=== PATIENT | female | born 1930 | race Caucasian/White ===

== ENCOUNTER 2016-06-09 14:28 | Emergency (ER) | payer OTHER, MEDICARE ==
[~2016-06-09] VITALS: Ht 170.2 cm; Wt 71.7 kg
[~2016-06-09 14:28] MED LIST: ALEVE220 MG PO; AMLODIPINE10 MG PO; ANTIVERT 12.512.5 M1 PO; ASPIR 8181 MG PO; ATORVASTATIN CA40 MG PO; CLOPIDOGREL75 MG PO; FOLBIC 2 MG-2.51 TAB PO; FUROSEMIDE20 MG PO; GABAPENTIN600 MG PO; GOOD SENSE ASP325 MG PO; METOPROLOL SUCC25 MG PO; NICOTINE T21 MG/24 H; NITROGLYCE0.4 MG/Ac2 PO; NITROGLYCER0.4 MG/HR TOP; OXYCODONE HYDRO10 M1 PO; PERCOCET 325 MG1 TAB PO; PRINIVIL 5MG5 MG PO; PROAIR HFA0.09 MG/Ac PO; RANITIDINE300 MG PO; TOPROL XL 25MG25 MG PO; [UNRECOGNIZED DRUG - OTHER] PO
--- NOTE | 2016-06-09 14:53 | ED GI/GU/ABDOMINAL COMPLAINT ---
History of Present Illness General Chief Complaint: Nausea, Vomiting, Diarrhea Stated Complaint: NVD Source: patient, family, old records Exam Limitations: no limitations Vital Signs & Intake/Output Vital Signs & Intake/Output Vital Signs Date Time Temp Pulse Resp B/P Pulse O2 O2 Flow FiO2 Ox Delivery Rate 06/09 1926 98.2 70 17 168/80 98 Room Air Room Air 06/09 1534 Room Air Room Air 06/09 1444 98.1 56 20 149/68 96 Room Air Allergies Coded Allergies: furosemide (Intermediate, FACIAL SWELLING 06/09/16) lisinopril (Mild, SWELLING 06/09/16) Sulfa (Sulfonamide Antibiotics) (UNKNOWN 06/09/16) Reconcile Medications Albuterol Sulfate (Proair Hfa) 0.09 MG/Actuation ELIZABETH 2 PUFF PO TID PRN ASTHMA/ COPD (Reported) Amlodipine Besylate (Amlodipine) 10 MG TABLET 1 TAB PO DAILY HEART (Reported) Aspirin (Ecotrin) 81 MG ECT 1 TAB PO DAILY HEART HEALTH Atorvastatin Calcium (Lipitor) 40 MG TABLET 1 TAB PO DAILY CHOLESTEROL ( Reported) CLOPIDOGREL BISULFATE (Clopidogrel) 75 MG TABLET 1 TAB PO DAILY BLOOD THINNER (Reported) CYANOCOBALAMIN/FA/PYRIDOXINE (Virt-Radha Forte Tablet) 2 MG-2.5 MG-25 MG TABLET 1 TAB PO DAILY SUPPLEMENT (Reported) Diphenoxylate HCl/Atropine (Lomotil 2.5-0.025 MG Tablet) 2.5 MG-0.025 MG TABLET 1 TAB PO TID PRN diarrhea Gabapentin 600 MG TABLET 1 TAB PO TID NEUROPATHY (Reported) Metoprolol Succ XL (Toprol XL 25MG) 25 MG TAB 25 MG PO DAILY BLOOD PRESSURE Nitroglycerin 400 MCG/SPRAY SPRAY 2 SPRAY PO PRN CHEST PAIN (Reported) Nitroglycerin (Nitroglycerin Patch) 0.4 MG/HOUR PATCH.TD24 1 PATCH TOP DAILY ANGINA (Reported) OXYCODONE HCL (Oxycodone Hydrochloride) 10 MG TABLET 1 TAB PO 4 TIMES/DAY PRN PAIN (Reported) RANITIDINE HCL (Ranitidine HCl) 300 MG TABLET 1 TAB PO DAILY GI (Reported) Triage Note: TRIAGE: PT TO ER WITH GRANDDAUGHTER C/C N/V/D X 1 WK. REPORTS NO VOMITING TODAY BUT HAS DIARRHEA EVERY TIME SHE EATS OR DRINKS. Triage Nurses Notes Reviewed? yes ? n Is pt currently ? No HPI: Patient is an 85 year old female presents for evaluation of diarrhea. Patient reports that on June 03 she began with nausea, vomiting, diarrhea. Vomited for 1 day and none since. Continues with nausea. Patient reports that she has episodes of diarrhea anytime she attempts to eat or drink. Numerous episodes of nonbloody stool daily. Increasing generalized weakness. Mild diffuse abdominal pain intermittently. Patient denies fevers, chills, recent antibiotic use, sick contacts, bright red blood per rectum. (SAIRA MORALES) Past History Travel History Traveled to [place] past 21 day No Medical History Any Pertinent Medical History? 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 No (SAIRA MORALES) Review of Systems Review of Systems Constitutional: Reports: malaise, weakness. Denies: chills, fever. EENTM: Reports: no symptoms. Respiratory: Denies: cough. Cardiovascular: Denies: chest pain. GI: Reports: see HPI. Genitourinary: Reports: no symptoms. Musculoskeletal: Reports: no symptoms. Skin: Reports: no symptoms. Neurological/Psychological: Denies: headache. Hematologic/Endocrine: Denies: bruising, bleeding. Immunologic/Allergic: Denies: splenectomy. (SAIRA MORALES) Physical Exam Physical Exam General Appearance: alert, awake Head: atraumatic, normal appearance Eyes: Bilateral: normal appearance. Ears, Nose, Throat, Mouth: dry mucous membranes Neck: normal inspection, supple, full range of motion Respiratory: normal breath sounds, chest non-tender, no respiratory distress, lungs clear Cardiovascular: regular rate/rhythm Gastrointestinal: normal bowel sounds, soft, mild diffuse abdominal tenderness Back: normal inspection, normal range of motion Extremities: normal range of motion Neurologic/Psych: no motor/sensory deficits, awake, alert, oriented x 3, normal mood/affect Skin: intact, normal color, warm/dry Core Measures ACS in differential dx? No Severe Sepsis Present: No Septic Shock Present: No (CHRIS AGGARWAL,SAIRA) Progress Differential Diagnosis: diverticulitis, gastritis, hepatitis, hernia, ischemic bowel, inflamm bowel dis, ischemic colitis, infectious colitis, electrolyte abnormality Plan of Care: Orders Procedure Date/time Status LACTIC ACID 06/09 1800 Active Add-on Test (ER Only) 06/09 1549 Active LIPASE 06/09 1530 Complete CULTURE,STOOL 06/09 1500 Active C.DIFFICILE 06/09 1500 Active URINALYSIS 06/09 1500 Active LACTIC ACID 06/09 1500 Complete COMPREHENSIVE METABOLIC PANEL 06/09 1500 Complete CBC WITHOUT DIFFERENTIAL 06/09 1500 Complete EKG 06/09 1500 Active Laboratory Tests 06/09/16 1530: Anion Gap 14, Estimated GFR 36 L, BUN/Creatinine Ratio 19.3, Glucose 97, Lactic Acid 1.0, Calcium 8.9, Total Bilirubin 0.6, AST 31, ALT 22, Alkaline Phosphatase 94, Total Protein 7.0, Albumin 3.5, Globulin 3.5, Albumin/Globulin Ratio 1.0 L, Lipase 82, CBC w Diff NO MAN DIFF REQ, RBC 3.48 L, MCV 91.8, MCH 30.9, RDW 14.6 H, MPV 9.4, Gran % 63.9, Lymphocytes % 22.2, Monocytes % 8.2, Eosinophils % 5.2 H, Basophils % 0.5, Absolute Granulocytes 3.4, Absolute Lymphocytes 1.2, Absolute Monocytes 0.4, Absolute Eosinophils 0.3, Absolute Basophils 0, PUBS MCHC 33.7 Microbiology 06/09 1500 STOOL: Clostridium difficile Toxin A & B - ORD 06/09 1500 STOOL: Stool Culture - ORD Patient re-evaluated multiple times. Results discussed with patient and her family member. Patient's labs similar to previous. Afebrile, nontoxic appearing, tolerating oral intake. Discussed with and seen by Dr. Jiang. Appears stable for discharge with close outpatient follow up. (SAIRA MORALES) Initial ED EKG: sinus bradycardia rate in the mid 50s normal axis, first-degree AV block, significant artifact, no obvious acute ST/T-wave changes compared to previous EKG Prior EKG: unchanged (SAIRA MORALES) Departure Departure Time of Disposition: 1852 Disposition: HOME OR SELF CARE Condition: Stable Clinical Impression Primary Impression: Diarrhea Qualifiers: Diarrhea type: unspecified type Qualified Code: R19.7 - Diarrhea, unspecified Referrals: MAXINE DONOVAN,BRIGHT Bernardo (PCP/Family) Additional Instructions: Follow up with Dr. Varner within the next 1-3 days for recheck and further evaluation. Call in the morning for appointment. Return to the ER if fevers, increasing abdominal pain or worsening of symptoms. Departure Forms: Customer Survey General Discharge Information Prescriptions: Current Visit Scripts Diphenoxylate HCl/Atropine (Lomotil 2.5-0.025 MG Tablet) 1 TAB PO TID PRN diarrhea #3 TAB (SAIRA MORALES) PA/NEEDLE GRINDER Co-Sign Statement Statement: ED Attending supervision documentation- [X] I saw and evaluated the patient. I have also reviewed all the pertinent lab results and diagnostic results. I agree with the findings and the plan of care as documented in the PA's/NEEDLE GRINDER's documentation. [X] I have reviewed the ED Record and agree with the PA's/NEEDLE GRINDER's documentation. [] Additions or exceptions (if any) to the PAs/NEEDLE GRINDER's note and plan are summarized below: [] (SMITA DONOVAN,CONNOR)
[2016-06-09 15:41] LABS: ABSOLUTE BASOPHIL COUNT 0 /CUMM (0.0-0.2); ABSOLUTE EOSINOPHIL COUNT 0.3 /CUMM (0.0-0.7); ABSOLUTE GRANULOCYTE CT 3.4 /CUMM (1.4-6.5); ABSOLUTE LYMPH COUNT 1.2 /CUMM (1.2-3.4); ABSOLUTE MONOCYTE COUNT 0.4 /CUMM (0.10-0.60); BASOPHIL % 0.5 % (0.0-2.0); EOSINOPHIL % 5.2 % (0-5); GRANULOCYTE % 63.9 % (42.2-75.2); HEMATOCRIT 31.9 % (37-47); MEAN CORPUSCULAR HGB 30.9 PG (27.0-31.0); MEAN CORPUSCULAR HGB CONC 33.7 G/DL (33.0-37.0); MEAN CORPUSCULAR VOLUME 91.8 FL (81.0-99.0); MEAN PLATELET VOLUME 9.4 FL (7.4-10.4); PLATELET COUNT 157 /CUMM (130-400); RBC DISTRIBUTION WIDTH 14.6 % (11.5-14.5); RED BLOOD CELL CT 3.48 /CUMM (4.20-5.40); WHITE BLOOD CELL COUNT 5.4 /CUMM (4.8-10.8)
--- NOTE | 2016-06-09 17:48 | CT SCAN REPORT ---
EXAMINATION: CT ABDOMEN AND PELVIS WITHOUT CONTRAST CLINICAL INFORMATION: 85-year-old female with diarrhea, mild diffuse abdominal tenderness. History of breast cancer. COMPARISON: CT of the abdomen and pelvis on 08/21/2011. TECHNIQUE: Multidetector volumetric imaging was performed from the superior aspect of the liver through the pubic symphysis. Sagittal and coronal reformatted images were obtained on the technologist's workstation. DLP: 372 mGy-cm. FINDINGS: Commissions Manager view shows the patient's had a previous cholecystectomy. Air is seen in several small bowel loops and in the colon. Air is present in the rectosigmoid colon as well. LUNG BASES: The visualized lung bases are unremarkable. The subpleural nodule and mild interstitial opacities in the right lower lobe have resolved. LIVER, GALLBLADDER, AND BILIARY TREE: The liver is normal in size, shape, and attenuation. No focal hepatic lesion or biliary ductal dilatation is present. The gallbladder has been removed. The mild dilatation of the extrahepatic biliary ducts is to be expected in a post cholecystectomy patient of this age. PANCREAS: Unremarkable. SPLEEN: Unremarkable. ADRENAL GLANDS: Unremarkable. KIDNEYS AND URETERS: The kidneys are normal in size, shape, and attenuation. No hydronephrosis, hydroureter, or calculi seen. No perinephric stranding. BLADDER: Nearly empty. GASTROINTESTINAL TRACT: The small and large bowel are unremarkable. There is no pericecal inflammatory reaction visualized. ABDOMINAL WALL: No significant hernia is appreciated. LYMPH NODES: Normal. VASCULAR: The abdominal aorta is ectatic and calcified. A number of calcified plaques are seen in the SMA. PELVIC VISCERA: The anteverted uterus is normal. There is no sign of adnexal mass or free fluid. OSSEOUS STRUCTURES: Vertebral height is maintained. There is multilevel degenerative disc disease of the lower thoracic and lumbar spines. Facet arthritis is also present at the lumbosacral junction. IMPRESSION: No radiographic signs of inflammatory bowel disease.
[2016-06-09] MEDS ORDERED: LOMOTIL 2.5-0.1 EACH PO (18:15)
[2016-06-09 19:27] VITALS: BP 168/80
== END 2016-06-09 19:28 ==
LOC: ERH 14:28
PROVIDERS: Physician Assistant
DX: R19.7 Diarrhea, unspecified (principal); R10.9 Unspecified abdominal pain
CPT/HCPCS: 74176; 87045; 93005; 93010; 96374; J2405

== ENCOUNTER 2016-06-18 12:39 | Emergency (ER) | payer OTHER, MEDICARE ==
[~2016-06-18] VITALS: Ht 170.2 cm; Wt 72.6 kg
[~2016-06-18 12:39] MED LIST changes: +LOMOTIL 2.5-0.1 EACH PO
[2016-06-18 13:17] LABS: ABSOLUTE BASOPHIL COUNT 0 /CUMM (0.0-0.2); ABSOLUTE EOSINOPHIL COUNT 0.2 /CUMM (0.0-0.7); ABSOLUTE GRANULOCYTE CT 4.1 /CUMM (1.4-6.5); ABSOLUTE LYMPH COUNT 1.1 /CUMM (1.2-3.4); ABSOLUTE MONOCYTE COUNT 0.6 /CUMM (0.10-0.60); BASOPHIL % 0.4 % (0.0-2.0); EOSINOPHIL % 3.9 % (0-5); GRANULOCYTE % 67.9 % (42.2-75.2); HEMATOCRIT 32.7 % (37-47); MEAN CORPUSCULAR HGB 30.1 PG (27.0-31.0); MEAN CORPUSCULAR HGB CONC 33.2 G/DL (33.0-37.0); MEAN CORPUSCULAR VOLUME 90.7 FL (81.0-99.0); MEAN PLATELET VOLUME 8.7 FL (7.4-10.4); PLATELET COUNT 166 /CUMM (130-400); RBC DISTRIBUTION WIDTH 14.8 % (11.5-14.5); RED BLOOD CELL CT 3.61 /CUMM (4.20-5.40); WHITE BLOOD CELL COUNT 6.1 /CUMM (4.8-10.8)
[2016-06-18 15:29] VITALS: BP 160/58
--- NOTE | 2016-06-18 16:02 | ED GI/GU/ABDOMINAL COMPLAINT ---
History of Present Illness General Chief Complaint: Nausea, Vomiting, Diarrhea Stated Complaint: NVD X1 WEEK Source: patient, family, old records Exam Limitations: no limitations Vital Signs & Intake/Output Vital Signs & Intake/Output Vital Signs Date Time Temp Pulse Resp B/P Pulse O2 O2 Flow FiO2 Ox Delivery Rate 06/18 1532 95 06/18 1529 96.7 57 18 160/58 95 Room Air 06/18 1254 97.0 72 20 131/56 97 Room Air Allergies Coded Allergies: furosemide (Intermediate, FACIAL SWELLING 06/09/16) lisinopril (Mild, SWELLING 06/09/16) Sulfa (Sulfonamide Antibiotics) (UNKNOWN 06/09/16) Reconcile Medications Albuterol Sulfate (Proair Hfa) 0.09 MG/Actuation ELIZABETH 2 PUFF PO TID PRN ASTHMA/ COPD (Reported) Amlodipine Besylate (Amlodipine) 10 MG TABLET 1 TAB PO DAILY HEART (Reported) Aspirin (Ecotrin) 81 MG ECT 1 TAB PO DAILY HEART HEALTH Atorvastatin Calcium (Lipitor) 40 MG TABLET 1 TAB PO DAILY CHOLESTEROL ( Reported) CLOPIDOGREL BISULFATE (Clopidogrel) 75 MG TABLET 1 TAB PO DAILY BLOOD THINNER (Reported) CYANOCOBALAMIN/FA/PYRIDOXINE (Virt-Radha Forte Tablet) 2 MG-2.5 MG-25 MG TABLET 1 TAB PO DAILY SUPPLEMENT (Reported) Diphenoxylate HCl/Atropine (Lomotil 2.5-0.025 MG Tablet) 2.5 MG-0.025 MG TABLET 1 TAB PO 4 TIMES/DAY DIARRHEA Diphenoxylate HCl/Atropine (Lomotil 2.5-0.025 MG Tablet) 2.5 MG-0.025 MG TABLET 1 TAB PO TID PRN diarrhea Gabapentin 600 MG TABLET 1 TAB PO TID NEUROPATHY (Reported) Metoprolol Succ XL (Toprol XL 25MG) 25 MG TAB 25 MG PO DAILY BLOOD PRESSURE Nitroglycerin 400 MCG/SPRAY SPRAY 2 SPRAY PO PRN CHEST PAIN (Reported) Nitroglycerin (Nitroglycerin Patch) 0.4 MG/HOUR PATCH.TD24 1 PATCH TOP DAILY ANGINA (Reported) Ondansetron (Zofran Odt) 4 MG TAB.RAPDIS 1 TAB SL TID NAUSEA OXYCODONE HCL (Oxycodone Hydrochloride) 10 MG TABLET 1 TAB PO 4 TIMES/DAY PRN PAIN (Reported) RANITIDINE HCL (Ranitidine HCl) 300 MG TABLET 1 TAB PO DAILY GI (Reported) [STOOL CULTURE] 0 STOOL CULTURE, CDIFF DX: DIARRHEA Triage Note: PT PRESENTS TO ER WITH FAMILY C/O DIARRHEA X 2 WEEKS. PT ALSO FEELS NAUSEOUS. PER FAMILY PT HAD A APPT TODAY FOR EVAL OF THE DIARRHEA AND DOCTOR CANCELLED DUE TO BEING SICK. FAMILY STATES THEY ARE WORRIED SHE IS HAVING A REACTION TO HER MEDICATION. PT ALSO C/O OF GENERALIZED ABD PAIN X 2 WEEKS THAT IS ON AND OFF Triage Nurses Notes Reviewed? yes ? n Is pt currently ? No Onset: Abrupt Duration: week(s): (2), constant Timing: recent history Quality/Severity: aching Severity Numbers: 6 Location: right sided Radiation: no radiation Activities at Onset: none No Modifying Factors: none Associated Symptoms: nausea, diarrhea HPI: 85-year-old female presents with her family for evaluation today complaining of persistent nausea and diarrhea after she was seen here 9 days ago for the same. The patient states that she was sent home with Lomotil which was helping over) now she is scheduled to see her primary care physician today who canceled on her because he is sick. They deny any black or bloody stools no recent antibiotic use. She is been complaining of right-sided abdominal pain that comes on prior to feeling nauseous or diarrhea. She denies his pain at this time no fever no chills no urinary symptoms. No weakness chest pain shortness of breath. Her abdominal surgeries for cholecystectomy and ectopic (VIPIN AGGARWAL,MADIHA) Past History Travel History Traveled to [place] past 21 day No Medical History Any Pertinent Medical History? 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 No (MADIHA JALLOH) Review of Systems Review of Systems Constitutional: Reports: see HPI. All Other Systems: Reviewed and Negative Comments Review of systems: See HPI, All other systems negative. Constitutional, no chills no fever, no malaise HEENT: No visual changes no sore throat no congestion Cardiovascular: No chest pain , no palpitation Skin, no jaundice no rashes, no change in skin Respiratory: No dyspnea no cough no sputum GI: nausea no vomiting, diarrhea, no bloating/constipation : No dysuria No hematuria, no frequency, no discharge Muscle skeletal: No joint pain, no joint swelling, no back pain Neurologic: No numbness no headache Psych: No stress Heme/endocrine: No bruising no bleeding Immunology: No lymphadenopathy (MADIHA JALLOH) Physical Exam Physical Exam General Appearance: well developed/nourished, no apparent distress, alert, awake , comfortable Gastrointestinal: normal bowel sounds, soft, non-tender Comments: Well-developed well-nourished person in no acute distress HEENT: Normal EENT exam; PERRL, EOMI,HEAD is atraumatic. moist mucous membranes. Neck: Supple, normal range of motion Back: Nontender, no CVA tenderness. Full range of motion Cardiovascular: Regular rate and rhythms no murmurs rubs Respiratory: No respiratory distress. Patient speaking in full complete sentences. Breath sounds clear to auscultation bilaterally: NO W/R/R Abdomen: Soft, nontender nondistended, no appreciable organomegaly. Normal bowel sounds. No rebound/guarding, No appreciable enlargement of the abdominal aorta, No ascites. Extremity: No edema, full range of motion of extremities Neuro: Alert oriented x3, motor sensory normal, There were no obvious focal neurologic abnormalities. Skin: No appreciable rash on exposed skin, skin is warm and dry. Psych: Mood and affect is normal, memory and judgment is normal. Core Measures ACS in differential dx? No Severe Sepsis Present: No Septic Shock Present: No (MADIHA JALLOH) Progress Differential Diagnosis: AAA, AMI, appendicitis, biliary colic, bowel obstruction , colon cancer, diverticulitis, endometritis, esophageal varices, gastritis, hepatitis, hernia, ischemic bowel, inflamm bowel dis, kidney stone, Edith-Mirna tear, ovarian cyst, ovarian torsion, pancreatitis, PID/cervicitis, peptic ulcer, PUD/GERD, perforated viscous, SBO, UTI/pyelo Plan of Care: Orders Procedure Date/time Status COMPREHENSIVE METABOLIC PANEL 06/18 1255 Complete CBC WITHOUT DIFFERENTIAL 06/18 1255 Complete Laboratory Tests 06/18/16 1311: Anion Gap 11, Estimated GFR 33 L, BUN/Creatinine Ratio 18.7, Glucose 117 H, Calcium 9.2, Total Bilirubin 0.4, AST 22, ALT 22, Alkaline Phosphatase 97, Total Protein 6.8, Albumin 3.5, Globulin 3.3, Albumin/Globulin Ratio 1.1, CBC w Diff NO MAN DIFF REQ, RBC 3.61 L, MCV 90.7, MCH 30.1, RDW 14.8 H, MPV 8.7, Gran % 67.9, Lymphocytes % 18.3 L, Monocytes % 9.5 H, Eosinophils % 3.9, Basophils % 0.4, Absolute Granulocytes 4.1, Absolute Lymphocytes 1.1 L, Absolute Monocytes 0.6, Absolute Eosinophils 0.2, Absolute Basophils 0, PUBS MCHC 33.2 Labs ordered from triage old records including patient's previous CAT scan from 06/09/16 reviewed Discussed the patient and family at length all of her lab results are creatinine today 1.5 is baseline or improved from baseline. This patient has had no episodes of diarrhea here she is tolerating by mouth challenge prescription for Zofran and Lomotil were called and I discussed with them need for close follow- up with her primary care physician as well as information which was provided for follow-up with GI. Advised return anytime sooner with any concerns patient clinically appears well they feel comfortable to his plan answered all their questions. case d/w dr horowitz agrees with plan (MADIHA JALLOH) Initial ED EKG: none (MADIHA JALLOH) Departure Departure Time of Disposition: 1624 Disposition: HOME OR SELF CARE Condition: Stable Clinical Impression Primary Impression: Diarrhea Referrals: CHANDAN DONOVAN,ALICIA GOODMAN MD,BRIGHT Bernardo (PCP/Family) Additional Instructions: Follow-up with her primary care physician as scheduled next week as well as chemistry instructor Dr. DREZNICK. Lomotil and Zofran as directed these prescriptions were sent to the [facility] bland diet clear liquids advance diet as tolerated return with any concerns Departure Forms: Customer Survey General Discharge Information Prescriptions: Current Visit Scripts Diphenoxylate HCl/Atropine (Lomotil 2.5-0.025 MG Tablet) 1 TAB PO 4 TIMES/DAY #20 TAB Ondansetron (Zofran Odt) 1 TAB SL TID #10 TAB [STOOL CULTURE] 0 (MADIHA JALLOH) PA/CIVIL ENGINEERING MANAGER Co-Sign Statement Statement: ED Attending supervision documentation- [X] I saw and evaluated the patient. I have also reviewed all the pertinent lab results and diagnostic results. I agree with the findings and the plan of care as documented in the PA's/CIVIL ENGINEERING MANAGER's documentation. [X] I have reviewed the ED Record and agree with the PA's/CIVIL ENGINEERING MANAGER's documentation. [] Additions or exceptions (if any) to the PAs/CIVIL ENGINEERING MANAGER's note and plan are summarized below: [] (SMITA DONOVAN,CONNOR)
[2016-06-18] MEDS ORDERED: LOMOTIL 2.5-0.1 EACH PO (16:27)
[2016-06-18] MEDS ORDERED: ZOFRAN ODT4 M1 SL (16:27)
[2016-06-18] MEDS ORDERED: STOOL CULTURE (16:34)
== END 2016-06-18 16:45 ==
LOC: ERH 12:39
PROVIDERS: Emergency Medicine
DX: R19.7 Diarrhea, unspecified (principal)

== ENCOUNTER 2016-12-06 03:26 | Inpatient (IN) | payer OTHER, MEDICARE ==
[~2016-12-06] VITALS: Ht 165.1 cm; Wt 70.3 kg
[~2016-12-06 03:26] MED LIST changes: +AMLODIPINE BESY10 M1 PO; -AMLODIPINE10 MG PO; -ATORVASTATIN CA40 MG PO; +CLOPIDOGREL75 M1 PO; -CLOPIDOGREL75 MG PO; +GABAPENTIN600 M1 PO; -GABAPENTIN600 MG PO; +LIPITOR40 M1 PO; -NITROGLYCE0.4 MG/Ac2 PO; -NITROGLYCER0.4 MG/HR TOP; +NITROGLYCERIN1 EACH TOP; +NITROGLYCERIN4.1 GM PO; +OXYCODONE HCL10 M2 PO; -OXYCODONE HYDRO10 M1 PO; -PROAIR HFA0.09 MG/Ac PO; +PROAIR HFA8.5 GM PO; +RANITIDINE HCL300 M1 PO; -RANITIDINE300 MG PO; +STOOL CULTURE; +ZOFRAN ODT4 M1 SL
--- NOTE | 2016-12-06 03:45 | NUR ---
PT TO ED WITH FAMILY C/O SOB WORSENING THROUGHOUT THE DAY YESTERDAY. WAS IN BED, AND WOKE UP APPROX AN HOUR AGO "SCREAMING THAT SHE COULDN'T BREATHE" PMH OF COPD, WEARS NC AT 3L/MIN AT NIGHT. O2 SAT 91% ON RA ON ARRIVAL. O2 SAT 96% ON 3L NC. PRODUCTIVE COUGH NOTED. RHONCOROUS LUNG SOUNDS. WEARS A NITRO PATCH DURING THE DAY. PT LIVES WITH GRAND DAUGHTER WHO ALSO HAS CHEST CONGESTION WITH COUGH.
--- NOTE | 2016-12-06 03:54 | NUR ---
BLOOD DRAWN AND SENT TO LAB. SST,ANAYA,LAV,BLUE.
[2016-12-06 04:09] LABS: ABSOLUTE BASOPHIL COUNT 0 /CUMM (0.0-0.2); ABSOLUTE EOSINOPHIL COUNT 0 /CUMM (0.0-0.7); ABSOLUTE GRANULOCYTE CT 3.8 /CUMM (1.4-6.5); ABSOLUTE LYMPH COUNT 0.9 /CUMM (1.2-3.4); ABSOLUTE MONOCYTE COUNT 0.8 /CUMM (0.10-0.60); BASOPHIL % 0.2 % (0.0-2.0); EOSINOPHIL % 0.5 % (0-5); GRANULOCYTE % 67.5 % (42.2-75.2); HEMATOCRIT 28.8 % (37-47); MEAN CORPUSCULAR HGB CONC 33.1 G/DL (33.0-37.0); MEAN CORPUSCULAR VOLUME 90.7 FL (81.0-99.0); MEAN PLATELET VOLUME 9.2 FL (7.4-10.4); PLATELET COUNT 119 /CUMM (130-400); RBC DISTRIBUTION WIDTH 15.8 % (11.5-14.5); RED BLOOD CELL CT 3.18 /CUMM (4.20-5.40); WHITE BLOOD CELL COUNT 5.6 /CUMM (4.8-10.8)
--- NOTE | 2016-12-06 04:09 | NUR ---
PORT CXR DONE
--- NOTE | 2016-12-06 04:19 | ED DYSPNEA/ASTHMA COMPLAINT ---
History of Present Illness General Chief Complaint: Dyspnea (COPD, CHF, Other) Stated Complaint: SOB Source: patient, family, old records Exam Limitations: no limitations Vital Signs & Intake/Output Vital Signs & Intake/Output Vital Signs Date Time Temp Pulse Resp B/P B/P Pulse O2 O2 Flow FiO2 Mean Ox Delivery Rate 12/06 444 99.1 62 20 172/75 100 Aerosol 8L Mask 12/06 440 98 Nasal 3.0L Cannula 12/06 035 98 Nasal 3.0L Cannula 12/06 033 98.1 71 24 185/87 91 Room Air Allergies Coded Allergies: furosemide (Intermediate, FACIAL SWELLING 06/09/16) lisinopril (Mild, SWELLING 06/09/16) Sulfa (Sulfonamide Antibiotics) (UNKNOWN 06/09/16) Reconcile Medications Albuterol Sulfate (Proair Hfa) 0.09 MG/Actuation ELIZABETH 2 PUFF PO TID PRN ASTHMA/ COPD (Reported) Amlodipine Besylate (Amlodipine) 10 MG TABLET 1 TAB PO DAILY HEART (Reported) Aspirin (Ecotrin) 81 MG ECT 1 TAB PO DAILY HEART HEALTH Atorvastatin Calcium (Lipitor) 40 MG TABLET 1 TAB PO DAILY CHOLESTEROL ( Reported) CLOPIDOGREL BISULFATE (Clopidogrel) 75 MG TABLET 1 TAB PO DAILY BLOOD THINNER (Reported) CYANOCOBALAMIN/FA/PYRIDOXINE (Virt-Radha Forte Tablet) 2 MG-2.5 MG-25 MG TABLET 1 TAB PO DAILY SUPPLEMENT (Reported) Diphenoxylate HCl/Atropine (Lomotil 2.5-0.025 MG Tablet) 2.5 MG-0.025 MG TABLET 1 TAB PO 4 TIMES/DAY DIARRHEA Diphenoxylate HCl/Atropine (Lomotil 2.5-0.025 MG Tablet) 2.5 MG-0.025 MG TABLET 1 TAB PO TID PRN diarrhea Gabapentin 600 MG TABLET 1 TAB PO TID NEUROPATHY (Reported) Metoprolol Succ XL (Toprol XL 25MG) 25 MG TAB 25 MG PO DAILY BLOOD PRESSURE Nitroglycerin 400 MCG/SPRAY SPRAY 2 SPRAY PO PRN CHEST PAIN (Reported) Nitroglycerin (Nitroglycerin Patch) 0.4 MG/HOUR PATCH.TD24 1 PATCH TOP DAILY ANGINA (Reported) Ondansetron (Zofran Odt) 4 MG TAB.RAPDIS 1 TAB SL TID NAUSEA OXYCODONE HCL (Oxycodone Hydrochloride) 10 MG TABLET 1 TAB PO 4 TIMES/DAY PRN PAIN (Reported) RANITIDINE HCL (Ranitidine HCl) 300 MG TABLET 1 TAB PO DAILY GI (Reported) [STOOL CULTURE] 0 STOOL CULTURE, CDIFF DX: DIARRHEA Core Measure Meds Pre-Hospital aspirin Triage Note: PT TO ED WITH FAMILY C/O SOB WORSENING THROUGHOUT THE DAY YESTERDAY. WAS IN BED, AND WOKE UP APPROX AN HOUR AGO "SCREAMING THAT SHE COULDN'T BREATHE" PMH OF COPD, WEARS NC AT 3L/MIN AT NIGHT. O2 SAT 91% ON RA ON ARRIVAL. O2 SAT 96% ON 3L NC. PRODUCTIVE COUGH NOTED. RHONCOROUS LUNG SOUNDS. WEARS A NITRO PATCH DURING THE DAY. PT LIVES WITH GRAND DAUGHTER WHO ALSO HAS CHEST CONGESTION WITH COUGH. 1/2 PPD SMOKER Triage Nurses Notes Reviewed? yes Onset: several days Duration: day(s):, continues in ED, getting worse Timing: recent history Severity: moderate, severe Activities at Onset: rest Prior Episodes/Possible Cause: occasional episodes, illness exposure Modifying Factors: Improves With: rest. Worsens With: movement. Associated Symptoms: cough, chest pain, wheezing, weakness LMP (ages 10-50): post menopausal : No Patient currently breastfeeds: No HPI: 1 week prior to admission patient complains of nasal congestion nonproductive cough. Prior to admission she awoke with continued cough shortness of breath left-sided chest pain with cough weakness. She denies fever chills nausea vomiting diarrhea abdominal pain dysuria rash bleeding. Past History Travel History Traveled to [place] past 21 day No Medical History Any Pertinent Medical History? 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 Yes Review of Systems Review of Systems Constitutional: Reports: see HPI, malaise, weakness. EENTM: Reports: no symptoms. Respiratory: Reports: see HPI, cough, short of breath, sputum production, wheezing. Cardiovascular: Reports: see HPI, chest pain. GI: Reports: no symptoms. Genitourinary: Reports: no symptoms. Musculoskeletal: Reports: no symptoms. Skin: Reports: no symptoms. Neurological/Psychological: Reports: no symptoms. Hematologic/Endocrine: Reports: no symptoms. Immunologic/Allergic: Reports: no symptoms. All Other Systems: Reviewed and Negative Physical Exam Physical Exam General Appearance: well developed/nourished, alert, awake, anxious, moderate distress, obese Head: atraumatic, normal appearance Eyes: Bilateral: normal appearance, PERRL, EOMI. Ears, Nose, Throat: normal pharynx, normal ENT inspection, hearing grossly normal, abnormal Typanic (L), sinus pain/drainage, nasal congestion Neck: normal inspection, supple, full range of motion, no midline tenderness Respiratory: chest non-tender, decreased breath sounds, rhonchi, wheezing, rales , respiratory distress Cardiovascular: regular rate/rhythm, normal peripheral pulses, norml femoral pulses equa Peripheral Pulses: 4+ carotid (R), 4+ carotid (L) Gastrointestinal: normal bowel sounds, soft, non-tender, no organomegaly Extremities: normal inspection, normal capillary refill, normal range of motion, no edema Neurologic/Psych: no motor/sensory deficits, awake, alert, oriented x 3, normal mood/affect, 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 Yes ASA ordered for poss ACS? taken at home Severe Sepsis Present: No Septic Shock Present: No Progress Differential Diagnosis: CHF, COPD, pneumonia Plan of Care: Orders Procedure Date/time Status Regular Diet 12/06 B Active Patient Data 12/06 506 Active OXYGEN SETUP (GEN) 12/06 416 Active Saline Lock 12/06 416 Active Admit to inpatient 12/06 416 Active Vital Signs 12/06 416 Active Activity/Ambulation 12/06 416 Active Code Status 12/06 416 Active TROPONIN LEVEL 12/06 348 Complete MAGNESIUM 12/06 348 Complete COMPREHENSIVE METABOLIC PANEL 12/06 348 Complete CBC WITHOUT DIFFERENTIAL 12/06 348 Complete B-TYPE NATRIURETIC PEP (BNP) 12/06 348 Complete EKG 12/06 326 Active Laboratory Tests 12/06/16 0352: Anion Gap 10, Estimated GFR 22 L, BUN/Creatinine Ratio 15.7, Glucose 126 H, Calcium 8.6, Magnesium 1.9, Total Bilirubin 0.6, AST 21, ALT 21, Alkaline Phosphatase 78, Troponin I 0.15 *H, Zxm-A-Pysuokfuayn Pept 5970 H, Total Protein 6.2 L, Albumin 3.4 L, Globulin 2.8, Albumin/Globulin Ratio 1.2, CBC w Diff NO MAN DIFF REQ, RBC 3.18 L, MCV 90.7, MCH 30.0, RDW 15.8 H, MPV 9.2, Gran % 67.5, Lymphocytes % 16.9 L, Monocytes % 14.9 H, Eosinophils % 0.5, Basophils % 0.2, Absolute Granulocytes 3.8, Absolute Lymphocytes 0.9 L, Absolute Monocytes 0.8 H, Absolute Eosinophils 0, Absolute Basophils 0, PUBS MCHC 33.1 Diagnostic Imaging: Viewed by Me: Radiology Read. Discussed w/RAD: Radiology Read. CXR Impression: No dense consolidation. Bronchial wall thickening can be seen with a small airways process such as asthma or atypical/viral infection. Initial ED EKG: normal axis, normal intervals, normal p-waves, normal QRS complex, normal sinus rhythm, no ST T wave changes Prior EKG: unchanged Rhythm Strip: normal sinus rhythm Departure Departure Time of Disposition: 445 Disposition: STILL A PATIENT Condition: Stable Clinical Impression Primary Impression: Demand ischemia of myocardium Secondary Impressions: Acute renal insufficiency CHF (congestive heart failure) Qualifiers: Congestive heart failure type: unspecified congestive heart failure type Congestive heart failure chronicity: acute Qualified Code: I50.9 - Heart failure, unspecified Referrals: BRIGHT GOODMAN MD (PCP/Family) Departure Forms: Customer Survey General Discharge Information Admission Note Spoke With: VLAD ORELLANA MD Documentation of Exam: Documentation of any treatments & extenuating circumstances including Concerns Regarding Discharge (functional status, medication knowledge or non-compliance, living conditions, etc.) that warrant an admission rather than observation: Cardiac monitoring serial lab exam medication adjustment IV diuresis cardiology evaluation continuing care discharge planning Critical Care Note Critical Care Note Critical Care Time: 30-74 min (40) Admission Note Spoke With: VLAD ORELLANA MD Documentation of Exam: Documentation of any treatments & extenuating circumstances including Concerns Regarding Discharge (functional status, medication knowledge or non-compliance, living conditions, etc.) that warrant an admission rather than observation: Cardiac monitoring serial lab exam medication adjustment IV diuresis cardiology evaluation continuing care discharge planning
--- NOTE | 2016-12-06 04:23 | RADIOLOGY REPORT ---
EXAMINATION: XR PORTABLE CHEST CLINICAL INFORMATION: Shortness of breath, cough COMPARISON: 11/28/2014 TECHNIQUE: Portable frontal view of the chest was obtained. FINDINGS: Cardiac leads overlie the chest. The lungs are well expanded. Increased markings are seen at the lung bases with bronchial wall thickening. No dense consolidation. No pleural effusion or pneumothorax. The cardiomediastinal silhouette is unchanged, with a calcified aorta. IMPRESSION: No dense consolidation. Bronchial wall thickening can be seen with a small airways process such as asthma or atypical/viral infection.
--- NOTE | 2016-12-06 04:24 | NUR ---
THIS RN ESTABLISHED IV ACCESS IN #22.
--- NOTE | 2016-12-06 04:45 | NUR ---
THIS RN CALLED PHARMACY FOR BUMEX MEDICATION.
--- NOTE | 2016-12-06 04:45 | NUR ---
RT AT BEDSIDE FOR DUO NEB. PT MEDICATED WITH 125 SOLUMEDROL IV ORDERED. O2 SAT 100% DURING NEB
--- NOTE | 2016-12-06 04:48 | NUR ---
CRITICAL TEST RESULTS [id number] MO SHETH 86 F TESTS AND RESULTS: TROP 0.15 Results received and read back by: RENA JOSHI Results received date and time: 12/06/16 0448 The following provider was notified of the results, and read the results back: DR ARELLANO Notified date and time: 12/06/16 at 0448
--- NOTE | 2016-12-06 04:50 | NUR ---
PT DENIES CHEST PAIN. STATES HAS HAD CHES PAIN OFF AND ON "FOR A WHILE, WORSE WITH THIS COUGH"
--- NOTE | 2016-12-06 05:12 | NUR ---
BUMEX ADMINISTERED ORDERED
--- NOTE | 2016-12-06 05:18 | NUR ---
BED ASSIGNMENT 175-1
--- NOTE | 2016-12-06 05:43 | NUR ---
HOUSE STAFF IN TO EVAL PT
--- NOTE | 2016-12-06 06:16 | NUR ---
REPORT GIVEN TO TEE LEVIN
--- NOTE | 2016-12-06 06:33 | History & Physical ---
SAIRA PARRA MD 12/06/16 0632: General Information and HPI MD Statement: I have seen and personally examined MO SHETH and documented this H&P. The patient is a 86 year old F who presented with a patient stated chief complaint of cough and dyspnea. Source of Information: patient, family, old records Exam Limitations: no limitations History of Present Illness: 86 year old female with PMH of HTN, COPD, breast cancer treated, diastolic CHF, angioedema, chronic pain, and CAD with stents presents with increasing dyspnea and acute hypoxic respiratory failure. Patient states that she has had symptoms of an upper respiratory infection for less than a week including sore throat and congestion. She complains of two days of dyspnea not relieved by supplemental oxygen. She states she knows she isn't well because she normally smokes a half pack of cigarettes and has smoked only a couple cigarettes the past two days. Patient is supposed to use supplemental oxygen at night but is inconsistently compliant. Patient also complains of some self limited nausea and diarrhea yesterday, ROS is otherwise negative. 1. COPD Exacerbation: 2. Demand Ischemia: Troponins + 0.14 3. Acute on chronic renal insufficiency: Creatinine 4. CAD: Continue ASA, Plavix, Nitro patch, Toprol XL 25mg PO QD 5. HTN: Continue Norvasc 10mg PO QD 6. GERD: Continue ranitidine 300mg PO QD 7. Chronic pain: Continue gabapentin 600mg TID Continue oxycodone 10mg QID PRN Heart healthy diet Nicotine patch 14mg PRN DVT ppx-heparin 5000u subcutaneous Full code Allergies/Medications Allergies: Coded Allergies: furosemide (Intermediate, FACIAL SWELLING 06/09/16) lisinopril (Mild, SWELLING 06/09/16) Sulfa (Sulfonamide Antibiotics) (UNKNOWN 06/09/16) Home Med list Albuterol Sulfate (Proair Hfa) 90 MCG HFA.AER.AD 2 PUFF PO TID PRN ASTHMA ( Reported) Amlodipine Besylate 10 MG TABLET 1 TAB PO DAILY HEART (Reported) Aspirin (Ecotrin*) 81 MG TABLET.DR 1 TAB PO DAILY HEART HEALTH (Reported) Atorvastatin Calcium (Lipitor) 40 MG TABLET 1 TAB PO DAILY CHOLESTEROL ( Reported) Clopidogrel Bisulfate (Clopidogrel) 75 MG TABLET 1 TAB PO DAILY BLOOD THINNER (Reported) Gabapentin 600 MG TABLET 1 TAB PO TID NEUROPATHY (Reported) Metoprolol Succ XL (Toprol XL) 25 MG TAB 1 TAB PO DAILY BP (Reported) Nitroglycerin 400 MCG/SPRAY SPRAY 2 SPRAY PO PRN CHEST PAIN (Reported) Nitroglycerin (Nitroglycerin Patch) 0.4 MG/HOUR PATCH.TD24 1 PATCH TOP DAILY ANGINA (Reported) Oxycodone HCl 10 MG TABLET 1 TAB PO 4XDP PRN PAIN (Reported) Ranitidine HCl 300 MG TABLET 1 TAB PO DAILY GI (Reported) Compliance With Home Meds: GOOD Past History Travel History Traveled to [place] past 21 day No Medical History Neurological: SYNCOPE EENT: hearing loss Cardiovascular: CAD, CHF, diastolic CHF, hypertension, hyperlipidemia, "CARDIAC " PER FAMILY CARDIAC STENTS Respiratory: asthma, COPD Gastrointestinal: GERD Hepatic: cholelithiasis Renal: NONE Musculoskeletal: chronic back pain, degen joint disease, osteoarthritis, spinal stenosis Psychiatric: NONE Endocrine: NONE Blood Disorders: NONE Cancer(s): BREAST CA s/p left mastectomy and s/p chemotherapy and radiotherapy 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 grand daughter Services at Home: None Primary Language: Montserratian Living Will? no Power of Personal Loan Specialist/HCP? no Functional Ability ADLs Independent: dressing, eating, toileting, bathing. Ambulation: independent (with support of different obje) IADLs Independent: telephone. Needs Assist: shopping, housework, finances, transportation, medication admin. Review of Systems Review of Systems Constitutional: Reports: chills. Denies: diaphoresis, malaise, weakness. EENTM: Reports: nasal congestion. Cardiovascular: Reports: chest pain (with coughing), edema, peripheral edema. Denies: orthopena , palpitations, syncope. Respiratory: Reports: cough, short of breath, sputum production, wheezing. Denies: orthopnea , stridor. Genitourinary: Denies: dysuria, frequency, hematuria, pain, urgency. Musculoskeletal: Reports: back pain, neck pain. Skin: Reports: no symptoms. Neurological/Psychological: Reports: headache. Exam & Diagnostic Data Last 24 Hrs of Vital Signs/I&O Vital Signs Date Time Temp Pulse Resp B/P B/P Pulse O2 O2 Flow FiO2 Mean Ox Delivery Rate 12/06 0530 100.1 66 16 157/74 94 Nasal 3.0L Cannula 12/06 444 99.1 62 20 172/75 100 Aerosol 8L Mask 12/06 440 98 Nasal 3.0L Cannula 12/06 035 98 Nasal 3.0L Cannula 12/06 0335 98.1 71 24 185/87 91 Room Air Intake & Output 12/06 0800 12/06 0000 12/05 1600 Intake Total 0 Output Total Balance 0 Intake, Oral 0 Patient 155 lb Weight Weight Reported by Patient Measurement Method Physical Exam General Appearance Alert, Oriented X3, Cooperative, No Acute Distress Skin No Rashes, No Breakdown Skin Temp/Moisture Exam: Warm/Dry HEENT Atraumatic, PERRLA, EOMI Neck Supple, No JVD Cardiovascular Regular Rate, Normal S1, Normal S2, No Murmurs Lungs diffuse expiratory wheeze Abdomen Normal Bowel Sounds, Soft, No Tenderness, No Masses Neurological Normal Speech, Strength at 5/5 X4 Ext, Normal Tone, Sensation Intact Extremities No Cyanosis, No Edema, Normal Pulses, No Tenderness/Swelling Vascular Normal Pulses, Pulses Symmetrical Last 24 Hrs of Labs/Donell: Laboratory Tests 12/06/16 0352: Anion Gap 10, Estimated GFR 22 L, BUN/Creatinine Ratio 15.7, Glucose 126 H, Hemoglobin A1c Pending, Calcium 8.6, Magnesium 1.9, Total Bilirubin 0.6, AST 21, ALT 21, Alkaline Phosphatase 78, Troponin I 0.15 *H, Crl-M-Pumanmtgksf Pept 5970 H, Total Protein 6.2 L, Albumin 3.4 L, Globulin 2.8, Albumin/Globulin Ratio 1.2, CBC w Diff NO MAN DIFF REQ, RBC 3.18 L, MCV 90.7, MCH 30.0, RDW 15.8 H, MPV 9.2, Gran % 67.5, Lymphocytes % 16.9 L, Monocytes % 14.9 H, Eosinophils % 0.5, Basophils % 0.2, Absolute Granulocytes 3.8, Absolute Lymphocytes 0.9 L, Absolute Monocytes 0.8 H, Absolute Eosinophils 0, Absolute Basophils 0, PUBS MCHC 33.1 Diagnostic Data EKG Results nsr CXR Results no consolidation, airway thickening Assessment/Plan Assessment: 86 year old female with PMH of HTN, COPD, breast cancer treated, diastolic CHF, angioedema, chronic pain, and CAD with stents presents with increasing dyspnea and acute hypoxic respiratory failure. 1. COPD Exacerbation: acute hypoxemic respiratory failure, continue to provide supplemental oxygen IV Solumedrol 125mg now 40mg IV Solumedrol M1dggpi TRC evaluation Albuterol and ipatropium nebulizer treatments Accuchecks while on solumedrol Sliding scale insulin if necessary 2. Demand Ischemia: +troponins 0.15, no acute ST changes Trend serial troponins and EKGs Cardiology consultation No heparin gtt for now Echocardiogram 3. CAD: Contine ASA, Plavix, Nitro patch and Toprol XL 25mg QD and statin therapy 4. HTN: Continue Norvasc 10mg PO QD 5. Acute Kidney Injury: Creatinine 2.1, baseline ~1-1.2 patient received bumex in the ED, will hold for now, patient doesn't appear hypervolemic on physical exam BUN to creatinine ratio ~15:1, patient may have been mildly hypovolemic with history of diarrhea yesterday Hold diuretics Trend renal function, BUN and creatinine If no improvement consider gentle IV hydration, renal ultrasound, electrolytes and osmoles 6. Chronic Pain: Continue Gabapentin 600mg PO TID and Oxycodone 10mg PO QID PRN 7. GERD: Continue Ranitidine 300mg QD Heart healthy diet Nicotine patch 14mg DVT ppx-heparin 5000u subcutaneous Full code As Ranked By This Provider Problem List: 1. MALENA (acute kidney injury) 2. CAD (coronary artery disease) 3. COPD (chronic obstructive pulmonary disease) 4. Demand ischemia of myocardium Core Measures/Miscellaneous Acute Coronary Syndrome ACS Diagnosis: No Cerebrovascular Accident CVA/TIA Diagnosis: No Congestive Heart Failure CHF Diagnosis: No VTE (View Protocol) VTE Risk Factors: Acute medical illness, Age > 40, Smoking No [facility] VTE prophylaxis d/t: No contraindications No VTE Pharm Prophylaxis d/t: No contraindications VTE Diagnosis: No VTE Type: NONE VTE Confirmed by (Test): NONE Sepsis (View Protocol) Severe Sepsis Present: No Septic Shock Septic Shock Present: No Miscellaneous Documentation Attending Case Discussed With: VLAD ORELLANA MD Primary Care Physician: BRIGHT GOODMAN MD Patient sees these Specialists cardiololgy, pain Level of Patient Care: Telemetry HE GALLOWAY 12/06/16 0710: Resident Review Statement Resident Statement: examined this patient, discussed with culinary internship, agreed with culinary internship Other Findings: Patient is 86-year-old female with past medical history significant for COPD on as needed home oxygen especially nocturnal oxygen, history of coronary artery disease status post stent placement, history of diastolic congestive heart failure with preserved ejection fraction, history of breast cancer status post left-sided mastectomy with recurrence and repeat chemotherapy and radiation, history of spinal stenosis on chronic pain medications and GERD came with chief complaint of worsening shortness of breath since last night. She had some nasal congestion for last week and had off-and-on shortness of breath but last night she had severe shortness of breath that she could increase and was brought in by granddaughter and daughter to hospital. She denied any fever, chills, headache, dizziness, any urinary complaints. She had diarrhea and multiple loose stools yesterday. She endorses to have off-and-on chest pain which is relieved with nitroglycerin patch that she is on for daily basis. Patient is very hard of hearing. Vital signs on admission Temperature 98.1, pulse 71, respiratory rate 24, blood pressure 95/57 she was saturating 91% room air later on required 3 L to saturate 98%. Admission labs were WBC count 5.6, hemoglobin 9.6, hematocrit 28.8, platelet count 119, sodium 134, potassium 4.6, BUN/creatinine 33, creatinine 2.1, initial troponin 0.15, proBNP 5970. Chest x-ray was negative for any acute changes EKG showed normal sinus rhythm with no acute ST-T wave changes Physical examination alert and oriented, very hard of hearing Neck supple no JVD Head atraumatic Chest diffuse expiratory wheezes with scattered rhonchi Heart S1-S2 normal with no added sounds Abdomen soft with normal bowel sounds Extremities shows no edema, cyanosis or clubbing No neurological deficit noted on examination Assessment and plan Patient is 86-year-old female with history of CAD status post stent placement, history of breast cancer status post radiation and chemotherapy, history of oxygen dependent COPD came with chief complaint of worsening shortness of breath and found to have expiratory wheezes on examination and on labs elevated troponins and also elevated proBNP was noticed. We will admit patient on telemetry floor and will take care for the following problems Problem list 1. Elevated troponins to 0.14 most likely demand ischemia due to underlying shortness of breath and seemed ED 2. Acute on chronic hypoxic respiratory failure likely due to COPD exacerbation 3. History of CAD status post stent placement 4. History of hypertension 5. History of spinal stenosis on chronic pain meds 6. History of GERD 7. History of breast cancer status post radiation and mastectomy 8. Acute on chronic kidney injury most likely due to dehydration given history of diarrhea Plan 1. We'll admit patient on telemetry for 2. Cardiology evaluation 3. We will trend EKG and troponins to peak most likely demand ischemia we will ruled out ACS 4. Echocardiogram 5. TRC and nebulization 6. We will start patient on IV Solu-Medrol 40 mg every 8 hours 7. Supplemental oxygen to keep oxygen saturation more than 90%. 8. We will consider pulmonary evaluation if needed 9. We will continue her home medications including amlodipine, aspirin, clopidogrel, metoprolol, gabapentin and Nitrol 10. Will provide with nicotine patch if needed 11. We will hold diuretics for now and we will watch kidney function closely Pharmacological DVT prophylaxis Heart healthy diet Patient is full code GERSON SHERWOOD MD 12/06/16 1003: Attending MD Review Statement Attending Statement Attending MD Statement: examined this patient, discuss w/resident/PA/QUALITY LEAD, agreed w/resident/PA/QUALITY LEAD, reviewed EMR data (avail), discussed with nursing, amended to note Attending Assessment/Plan: Patient seen and examined. I have reviewed and agree with the resident's history, physical, assessment and plan. Patient is being admitted for exacerbation of her chronic obstructive pulmonary disease. It appears to have been triggered by a respiratory infection which other family members have. It does not appear that this infection is bacteria given the clinical stability of her family members, absence of consolidation on x-ray and lack of a leukocytosis on her labs. However she does have some changes on her chest x-ray and she also has a low-grade temperature. Based on an elevated BNP she was dosed with Bumex in the emergency room however clinically she does not appear to be volume overloaded. Her renal function is suggestive of some volume depletion. She is also noted to have a very mild elevation in her troponin with no ischemic changes on her EKG. She denies any chest pain or palpitation but she does complain of dyspnea with exertion since her symptoms started. On examination she is lying comfortably in bed on her baseline oxygen supplementation eating breakfast. She has no jugular venous distention. Heart sounds are regular. She has diminished breath sounds in the lung bases with mild rhonchi. She has no peripheral edema. Recommendations: -Admit to the inpatient general medical service. -Bronchodilator therapy per TR, systemic steroid therapy with Solu-Medrol 40 mg every 8 hours. -Obtain sputum culture if possible. Mucolytic therapy with Mucinex. -Continue patient on her oxygen supplementation. -Would recommend antibiotic therapy with azithromycin orally for its anti- inflammatory properties. -Telemetry monitoring for 48 hours then discontinue unless otherwise specified by the cardiology service. -Trend cardiac enzymes, obtain echocardiogram to ensure that her respiratory symptoms are secondary to a pulmonary etiology and not cardiac etiology. It will also be helpful to assess her pulmonary pressures.
[2016-12-06] MEDS ORDERED: ASPIRIN EC81 M1 PO (07:41)
[2016-12-06] MEDS ORDERED: TOPROL XL25 M1 PO (07:43)
[2016-12-06 08:42] VITALS: BP 148/78
--- NOTE | 2016-12-06 08:46 | Cons- Cardiology ---
General Information and HPI Consulting Request Date of Consult: 12/06/16 Requested By: VLAD ORELLANA MD Reason for Consult: Shortness of breath with elevated troponin Source of Information: patient, family, old records Exam Limitations: poor historian History of Present Illness: The patient is an 86-year-old female who is usually followed by Dr. Chris Fierro MD lab covering for today. Her past medical history is significant for hypertension, chronic obstructive pulmonary disease, prior breast cancer, diastolic heart failure, and known prior coronary artery disease, status post stenting. The patient now presents to the hospital with increasing shortness of breath and evidence of acute hypoxic respiratory failure. According to the patient, she has had symptoms of an upper respiratory infection over the past week including increasing congestion and semi-productive cough. The shortness of breath has been worsening over the last 24 hours and she came to the emergency room for this. The patient denied any other symptoms such as chest discomfort, etc. On admission, the patient's troponin was noted to be minimally elevated at 0.15. Allergies/Medications Allergies: Coded Allergies: furosemide (Intermediate, FACIAL SWELLING 06/09/16) lisinopril (Mild, SWELLING 06/09/16) Sulfa (Sulfonamide Antibiotics) (UNKNOWN 06/09/16) Home Med List: Albuterol Sulfate (Proair Hfa) 90 MCG HFA.AER.AD 2 PUFF PO TID PRN ASTHMA ( Reported) Amlodipine Besylate 10 MG TABLET 1 TAB PO DAILY HEART (Reported) Aspirin (Ecotrin*) 81 MG TABLET.DR 1 TAB PO DAILY HEART HEALTH (Reported) Atorvastatin Calcium (Lipitor) 40 MG TABLET 1 TAB PO DAILY CHOLESTEROL ( Reported) Clopidogrel Bisulfate (Clopidogrel) 75 MG TABLET 1 TAB PO DAILY BLOOD THINNER (Reported) Gabapentin 600 MG TABLET 1 TAB PO TID NEUROPATHY (Reported) Metoprolol Succ XL (Toprol XL) 25 MG TAB 1 TAB PO DAILY BP (Reported) Nitroglycerin 400 MCG/SPRAY SPRAY 2 SPRAY PO PRN CHEST PAIN (Reported) Nitroglycerin (Nitroglycerin Patch) 0.4 MG/HOUR PATCH.TD24 1 PATCH TOP DAILY ANGINA (Reported) Oxycodone HCl 10 MG TABLET 1 TAB PO 4XDP PRN PAIN (Reported) Ranitidine HCl 300 MG TABLET 1 TAB PO DAILY GI (Reported) Current Medications: Current Medications Sig/Floresita Start time Last Medication Dose Route Stop Time Status Admin Acetaminophen 650 MG Q6P PRN 12/06 0645 AC PO Acetaminophen/ 1 TAB Q6P PRN 12/06 0645 AC Hydrocodone Bitart PO Albuterol Sulfate 2 PUF Q4P PRN 12/06 0715 AC INH Albuterol Sulfate 3 ML ONCE ONE 12/06 0430 DC 12/06 INH 12/06 0431 0441 Amlodipine Besylate 10 MG DAILY 12/06 1000 AC PO Aspirin Buffered 81 MG DAILY 12/06 1000 AC PO Atorvastatin Calcium 40 MG 1700 12/06 1700 AC PO Bumetanide 1 MG ONCE ONE 12/06 0430 DC 12/06 PO 12/06 0431 0512 Clopidogrel Bisulfate 75 MG DAILY 12/06 1000 AC PO Gabapentin 600 MG TID 12/06 1000 AC PO Heparin Sodium 5,000 UNIT Q8 12/06 0725 AC (Porcine) SC Ipratropium [place] 2.5 ML ONCE ONE 12/06 0430 DC 12/06 INH 12/06 0431 0441 Methylprednisolone 40 MG Q8 12/06 0814 AC IV Methylprednisolone 0 .STK-MED ONE 12/06 0445 DC .ROUTE Methylprednisolone 125 MG ONCE ONE 12/06 0430 DC 12/06 IV 12/06 0431 0442 Metoprolol Succinate 25 MG DAILY 12/06 1000 AC PO Nitroglycerin 0.4 MG DAILY 12/06 1000 AC TOP Omeprazole 20 MG DAILY AC 12/07 0700 AC PO Oxycodone/ 2 TAB Q6P PRN 12/06 0645 AC Acetaminophen PO Past History Travel History Traveled to [place] past 21 day No Medical History Blood Transfusion Hx: Yes Neurological: SYNCOPE EENT: hearing loss Cardiovascular: CAD, CHF, diastolic CHF, hypertension, hyperlipidemia, "CARDIAC " PER FAMILY CARDIAC STENTS Respiratory: asthma, COPD Gastrointestinal: GERD Hepatic: cholelithiasis Renal: NONE Musculoskeletal: chronic back pain, degen joint disease, osteoarthritis, spinal stenosis Psychiatric: NONE Endocrine: NONE Blood Disorders: NONE Cancer(s): BREAST CA s/p left mastectomy and s/p chemotherapy and radiotherapy 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 Home Who Do You Live With? grand daughter Services at Home: None Primary Language: Burkinan Smoking Status: Current Everyday Smoker Living Will? 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 no Functional Ability ADLs Independent: dressing, eating, toileting, bathing. Ambulation: independent (with support of different obje) IADLs Independent: telephone. Needs Assist: shopping, housework, finances, transportation, medication admin. Exam & Diagnostic Data Vital Signs and I&O Vital Signs Date Time Temp Pulse Resp B/P B/P Pulse O2 O2 Flow FiO2 Mean Ox Delivery Rate 12/07 0742 100.1 67 18 148/78 Nasal 3.0L Cannula 12/06 0838 96 Nasal 3.0L Cannula 12/06 0648 95 Nasal 3.0L Cannula 12/06 0530 100.1 66 16 157/74 94 Nasal 3.0L Cannula 12/06 0445 99.1 62 20 172/75 100 Aerosol 8L Mask 12/06 0441 98 Nasal 3.0L Cannula 12/06 0350 98 Nasal 3.0L Cannula 12/06 0335 98.1 71 24 185/87 91 Room Air Intake & Output 12/06 1600 12/06 0812/06 0000 12/05 1600 12/05 0812/05 0000 Intake Total 0 Output Total Balance 0 Intake, Oral 0 Patient 155 lb Weight Weight Reported by Patient Measurement Method Physical Exam: General Appearance Elderly femaleAlert, Oriented X3, Cooperative, No Acute Distress Skin Normal Skin Temp/Moisture Exam: Warm/Dry HEENT Atraumatic, PERRLA, EOMI Neck Supple, No JVD Cardiovascular Regular Rate, Normal S1, Normal S2, 1/6 systolic murmur Lungs diffuse expiratory wheeze Abdomen Normal Bowel Sounds, Soft, No Tenderness, No Masses Neurological Normal Speech, Strength at 5/5 X4 Ext, Normal Tone, Sensation Intact Extremities No Cyanosis, No Edema, Normal Pulses, No Tenderness/Swelling Vascular Normal Pulses, Pulses Symmetrical Labs/Donell Results: Laboratory Tests 12/06 12/06 0755 0352 Chemistry Sodium (137 - 145 mmol/L) 134 L Potassium (3.5 - 5.1 mmol/L) 4.6 Chloride (98 - 107 mmol/L) 102 Carbon Dioxide (22 - 30 mmol/L) 21 L Anion Gap (5 - 16) 10 BUN (7 - 17 mg/dL) 33 H Creatinine (0.5 - 1.0 mg/dL) 2.1 H Estimated GFR (>60 ml/min) 22 L BUN/Creatinine Ratio (7 - 25 %) 15.7 Glucose (65 - 99 mg/dL) 126 H Hemoglobin A1c (4.2 - 5.8 %) Pending Calcium (8.4 - 10.2 mg/dL) 8.6 Magnesium (1.6 - 2.3 mg/dL) 1.9 Total Bilirubin (0.2 - 1.3 mg/dL) 0.6 AST (14 - 36 U/L) 21 ALT (9 - 52 U/L) 21 Alkaline Phosphatase (<127 U/L) 78 Troponin I (< 0.11 ng/ml) 0.15 *H Wry-F-Euakmclmyrm Pept (<125 pg/mL) 5970 H Total Protein (6.3 - 8.2 g/dL) 6.2 L Albumin (3.5 - 5.0 g/dL) 3.4 L Globulin (1.9 - 4.2 gm/dL) 2.8 Albumin/Globulin Ratio (1.1 - 2.2 %) 1.2 Triglycerides Pending Cholesterol Pending LDL Cholesterol, Calc Pending HDL Cholesterol Pending Cholesterol/HDL Ratio Pending Hematology CBC w Diff NO MAN DIFF REQ WBC (4.8 - 10.8 /CUMM) 5.6 RBC (4.20 - 5.40 /CUMM) 3.18 L Hgb (12.0 - 16.0 G/DL) 9.6 L Hct (37 - 47 %) 28.8 L MCV (81.0 - 99.0 FL) 90.7 MCH (27.0 - 31.0 PG) 30.0 RDW (11.5 - 14.5 %) 15.8 H Plt Count (130 - 400 /CUMM) 119 L MPV (7.4 - 10.4 FL) 9.2 Gran % (42.2 - 75.2 %) 67.5 Lymphocytes % (20.5 - 51.1 %) 16.9 L Monocytes % (1.7 - 9.3 %) 14.9 H Eosinophils % (0 - 5 %) 0.5 Basophils % (0.0 - 2.0 %) 0.2 Absolute Granulocytes (1.4 - 6.5 /CUMM) 3.8 Absolute Lymphocytes (1.2 - 3.4 /CUMM) 0.9 L Absolute Monocytes (0.10 - 0.60 /CUMM) 0.8 H Absolute Eosinophils (0.0 - 0.7 /CUMM) 0 Absolute Basophils (0.0 - 0.2 /CUMM) 0 PUBS MCHC (33.0 - 37.0 G/DL) 33.1 Diagnostic Data CXR Results FINDINGS: Cardiac leads overlie the chest. The lungs are well expanded. Increased markings are seen at the lung bases with bronchial wall thickening. No dense consolidation. No pleural effusion or pneumothorax. The cardiomediastinal silhouette is unchanged, with a calcified aorta. IMPRESSION: No dense consolidation. Bronchial wall thickening can be seen with a small airways process such as asthma or atypical/viral infection. Assessment/Plan Assessment/Plan Assessment: 1. Acute hypoxic respiratory failure, probable exacerbation of COPD, upper respiratory infection 2. Elevated troponin of 0.15-at the moment, in the absence of any acute ECG changes, I suspect this is related to demand ischemia. 3. Acute on chronic renal insufficiency 4. History of coronary artery disease, status post multiple stents 5. Hypertension 6. History of gastroesophageal reflux 7. Chronic pain syndrome. Recommendations: -Admit the patient to [address] [place] [address] -Continue aggressive respiratory treatment -Trend troponin until decreasing -Check ECG later today and again in the morning -Echocardiogram to rule out new wall motion abnormalities -Continue regular cardiac medications for now -At the moment, I see no reason to consider IV heparin. Continue to monitor for now -Further plans, after the aforementioned results are available. Consult Acknowledgment - Thank you for your consult request.
[2016-12-06 15:43] VITALS: BP 150/58
[2016-12-06 23:11] VITALS: BP 138/62
[2016-12-07 07:19] VITALS: BP 138/60
--- NOTE | 2016-12-07 07:43 | PN- Housestaff ---
BORIS TIMMONS 12/07/16 0743: Subjective Follow-up For: Acute COPD exacerbation Demand ischemia Acute kidney injury Complaints: no complaints Tele-Events Since Last Visit: Sinus rhythm No acute overnight events Subjective: Patient was seen and examined this morning. She is alert awake and oriented to time place and person. No acute events noticed overnight. She continues to report shortness of breath this morning. Patient reports cough, not associated with any sputum production Denies any fever or chills, chest pain. Denies any nausea, vomiting, abdomen pain, change in bladder or bowel habits. Vitals stable. Afebrile, heart rate 60, respiratory rate 20, blood pressure 128 /60, saturating at 92 on 3 L. Review of Systems Constitutional: Reports: see HPI. Objective Last 24 Hrs of Vital Signs/I&O Vital Signs Date Time Temp Pulse Resp B/P B/P Pulse O2 O2 Flow FiO2 Mean Ox Delivery Rate 12/07 1021 61 138/60 12/07 1020 61 138/60 12/07 0811 93 Nasal 3.0L Cannula 12/07 0719 98.1 61 20 138/60 92 Nasal 3.0L Cannula 12/07 0000 Nasal 3.0L Cannula 12/06 2311 98.4 69 20 138/62 92 Nasal Cannula 12/06 1949 93 Nasal 3.0L Cannula 12/06 1646 95 Nasal 3.0L Cannula 12/06 1600 Nasal 3.0L Cannula 12/06 1543 98.6 89 20 150/58 92 Intake & Output 12/07 1600 12/07 0800 07 0000 Intake Total 100 100 Output Total Balance 100 100 Intake, Oral 100 100 Physical Exam General Appearance: Alert, Oriented X3, Cooperative, No Acute Distress Skin: No Rashes, No Breakdown HEENT: Atraumatic, PERRLA, EOMI, Mucous Membr. moist/pink Neck: Supple, No JVD, No thryomegaly Lymphatic: Cervical nl Cardiovascular: Normal S1, Normal S2, No Murmurs Lungs: Normal Air Movement, scattered rhonchi Abdomen: Normal Bowel Sounds, Soft, No Tenderness Neurological: Strength at 5/5 X4 Ext, Normal Tone, Sensation Intact, Cranial Nerves 3-12 NL Extremities: No Clubbing, No Cyanosis, No Edema Vascular: Pulses Symmetrical Current Medications: Current Medications Sig/Floresita Start time Last Medication Dose Route Stop Time Status Admin Acetaminophen 650 MG Q6P PRN 12/06 0645 AC PO Acetaminophen/ 1 TAB Q6P PRN 12/06 0645 AC Hydrocodone Bitart PO Albuterol Sulfate 3 ML BID 12/06 1329 AC 12/07 INH 0808 Albuterol Sulfate 2 PUF Q4P PRN 12/06 0715 AC INH Amlodipine Besylate 10 MG DAILY 12/06 1000 AC 12/07 PO 1021 Aspirin Buffered 81 MG DAILY 12/06 1000 AC 12/07 PO 1020 Atorvastatin Calcium 40 MG 1700 12/06 1700 AC 12/06 PO 1546 Azithromycin 250 MG DAILY 12/06 1145 AC 12/07 PO 1020 Clopidogrel Bisulfate 75 MG DAILY 12/06 1000 AC 12/07 PO 1021 Gabapentin 600 MG TID 12/06 1000 AC 12/07 PO 1020 Guaifenesin 600 MG Q12 12/06 1144 AC 12/07 PO 1020 Heparin Sodium 5,000 UNIT Q8 12/06 0725 AC 12/07 (Porcine) SC 0600 Insulin Aspart 0 TIDAC/HS 12/06 2100 AC 12/07 SC 0813 Methylprednisolone 40 MG Q12 12/07 1000 AC 12/07 IV 1022 Methylprednisolone 40 MG Q8 12/06 0814 DC 12/07 IV 0600 Metoprolol Succinate 25 MG DAILY 12/06 1000 AC 12/07 PO 1020 Nicotine 21 MG DAILY 12/06 1143 AC 12/07 TOP 1022 Nitroglycerin 0.4 MG DAILY 12/06 1000 AC 12/07 TOP 1022 Omeprazole 20 MG DAILY AC 12/07 0700 AC 12/07 PO 0636 Oxycodone/ 2 TAB Q6P PRN 12/06 0645 AC Acetaminophen PO Polyethylene Glycol 17 GM DAILY PRN 12/07 0930 AC 12/07 PO 1021 Senna/Docusate Sodium 2 TAB DAILY PRN 12/07 0930 AC 12/07 PO 1021 Sodium Chloride 1,000 ML Q13H 12/07 0930 AC 12/07 IV 12/07 2229 1022 Tiotropium [place] 1 PUF DAILY 12/07 1000 AC 12/07 INH 1022 Last 24 Hrs of Lab/Donell Results Last 24 Hrs of Labs/Mics: Laboratory Tests 12/07/16 0740: Anion Gap 10, Estimated GFR 24 L, BUN/Creatinine Ratio 23.5, CBC w Diff NO MAN DIFF REQ, RBC 3.00 L, MCV 90.5, MCH 30.2, RDW 15.7 H, MPV 10.1, Gran % 73.4, Lymphocytes % 13.6 L, Monocytes % 12.9 H, Eosinophils % 0, Basophils % 0.1, Absolute Granulocytes 4.5, Absolute Lymphocytes 0.8 L, Absolute Monocytes 0.8 H, Absolute Eosinophils 0, Absolute Basophils 0, PUBS MCHC 33.4 12/06/16 1550: Troponin I 0.09 Assessment/Plan Assessment: Patient is 86-year-old female with past medical history significant for COPD on as needed home oxygen especially nocturnal oxygen 3l, history of coronary artery disease status post stent placement, history of diastolic congestive heart failure with preserved ejection fraction, history of breast cancer status post left-sided mastectomy with recurrence and repeat chemotherapy and radiation, history of spinal stenosis on chronic pain medications, hypertension, hyperlipidemia, neuropathy and GERD came with chief complaint of worsening shortness of breath. Vital signs on admission Temperature 98.1, pulse 71, respiratory rate 24, blood pressure 95/57 she was saturating 91% room air later on required 3 L to saturate 98%. Admission labs were WBC count 5.6, hemoglobin 9.6, hematocrit 28.8, platelet count 119, sodium 134, potassium 4.6, BUN/creatinine 33, creatinine 2.1, initial troponin 0.15, proBNP 5970. Chest x-ray was negative for any acute changes EKG showed normal sinus rhythm with no acute ST-T wave changes Problem list 1. Elevated troponins to 0.14 most likely demand ischemia due to underlying shortness of breath. 2. Acute on chronic hypoxic respiratory failure likely due to COPD exacerbation 3. History of CAD status post stent placement 4. History of hypertension 5. History of spinal stenosis on chronic pain meds 6. History of GERD 7. History of breast cancer status post radiation and mastectomy 8. Acute on chronic kidney injury most likely due to dehydration given history of diarrhea. COPD exacerbation Patient presented with worsening shortness of breath for a couple of days. Off note she had upper respiratory tract infection and cough for one week. Exposure to sick contacts. She uses 3 L oxygen mostly during nighttime for COPD. However her shortness of breath worsened to the point where she couldn't breathe and she came to the emergency room. * Admitted to telemetry floor for further management * Monitor vitals closely every shift * Continuous telemetry monitoring * Provide supplemental oxygen as needed * Maintain oxygen saturation greater than 90 * Total respiratory care * duonebs * IV methylprednisolone every 12 * Oral azithromycin day2. * Mucinex for cough * Follow-up sputum cultures * Follow-up blood cultures Acute on chronic respiratory failure Patient presented with worsening shortness of breath for a couple of days. Off note she had upper respiratory tract infection and cough for one week. Exposure to sick contacts. She uses 3 L oxygen mostly during nighttime for COPD. However her shortness of breath worsened to the point where she couldn't breathe and she came to the emergency room. * Monitor vitals closely every shift * Continuous telemetry monitoring * Provide supplemental oxygen as needed * Maintain oxygen saturation greater than 90 * Total respiratory care * duonebs Demand ischemia Elevated troponins to 0.14 most likely demand ischemia due to underlying shortness of breath and copd. * +troponins 0.15, no acute ST changes * Trended down- serial troponins and EKGs * Cardiology consulted * No heparin gtt for now * Echocardiogram pending Acute Kidney Injury: Creatinine 2.1, baseline ~1-1.2, patient received bumex in the ED. * BUN to creatinine ratio ~15:1, * patient may have been mildly hypovolemic with history of diarrhea * Trend renal function, BUN and creatinine * gentle IV hydration for now * Avoid nephrotoxins Hypertension Continue home medication amlodipine 10 mg daily Coronary artery disease Status post stent placement Continue aspirin 81 daily Continue Lipitor 40 daily Continue Plavix 75 daily Continue metoprolol 25 mg daily Nitroglycerin patch as needed Hyperlipidemia Continue Lipitor 40 daily Chronic diastolic congestive heart failure Not on any home medications No leg swelling No symptoms suggestive of heart failure Echocardiogram pending neuropathy Continue gabapentin home medication GERD Continue omeprazole Heart healthy diet Nicotine patch 14mg DVT ppx-heparin 5000u subcutaneous Full code Problem List: 1. MALENA (acute kidney injury) 2. Demand ischemia of myocardium 3. COPD (chronic obstructive pulmonary disease) Pain Ratin Pain Location: n/a Pain Goal: Remain pain free Pain Plan: tylenol Tomorrow's Labs & Rationales: bep in the setting of acute kidney injury FOREST RAMOS 12/07/16 0924: Attending MD Review Statement Attending Statement Attending MD Statement: examined this patient, discuss w/resident/PA/FINANCIAL SERVICES CONSULTANT, agreed w/resident/PA/FINANCIAL SERVICES CONSULTANT, discussed with family, reviewed EMR data (avail), discussed with nursing, discussed with case mgmt, reviewed images, amended to note Attending Assessment/Plan: Assessment: 1. Acute hypoxic respiratory failure, 2. COPD exacerbation 2/2 Acute bronchitis 3. Acute on chronic renal insufficiency 4. History of coronary artery disease, status post multiple stents 5. Hypertension 6. History of gastroesophageal reflux 7. Chronic pain syndrome. PLAN admit to telemetry monitoring, serial cardiac enzymes tredning down. taper steroids, abx, oxygen supplementation, TRCs. cardiolgy consulted Cr stabilsing, home meds resumed. gi/dvt prophyalxis full code.
--- NOTE | 2016-12-07 09:10 | ECHOCARDIOGRAM REPORT ---
MO SHETH Age: 86 : 1930 Gender: F Exam Date: 12/06/2016 14:51 Exam Location: [facility] Ht (in): 60 Wt (lb): 155 BSA: 1.75 BP: / Ordering Physician: HE GALLOWAY MD Referring Physician: HE GALLOWAY MD Technologist: Lino Calixto [facility] Room Number: [id number] Indications: CHEST PAIN Rhythm: Sinus Technical Quality: Good FINDINGS Left Ventricle Normal left ventricular size and wall thickness. Normal left ventricular ejection fraction visually estimated at >65 %. No obvious regional wall motion abnormalities. Abnormal relaxation filling pattern of the left ventricle for age (stage 1 diastolic dysfunction). Right Ventricle The right ventricle is normal in size and function. Right Atrium The right atrium is normal in size. Left Atrium Mild left atrial dilatation. Mitral Valve Mild thickening/calcification of the mitral valve leaflets. Moderate mitral annular calcification. Mild mitral regurgitation. Aortic Valve Focal thickening of the aortic valve cusps. No aortic stenosis. No aortic regurgitation. Tricuspid Valve Tricuspid valve is normal in structure and function. Mild tricuspid regurgitation. Right ventricular systolic pressure estimated to be elevated at 50-55 mmHg. Pulmonic Valve Structurally normal pulmonic valve. There is no pulmonic regurgitation. Pericardium Normal pericardium without effusion. No pleural effusion. Great Vessels Normal size aortic root. CONCLUSIONS Normal left ventricular ejection fraction visually estimated at >65 Abnormal relaxation filling pattern of the left ventricle for age (stage 1 diastolic dysfunction). Mild left atrial dilatation. Mild thickening/calcification of the mitral valve leaflets. Moderate mitral annular calcification. Mild mitral regurgitation. Focal thickening of the aortic valve cusps. No aortic stenosis. Right ventricular systolic pressure estimated to be elevated at 50- 55 mmHg. Chris Fierro M.D. (Electronically Signed) Final Date: 07 December 2016 09:10 MEASUREMENTS (Male / Female) Normal Values 2D ECHO LV Diastolic Diameter PLAX 5.1 cm 4.2 - 5.9 / 3.9 - 5.3 cm LV Systolic Diameter PLAX 3.7 cm 2.1 - 4.0 cm LV Fractional Shortening PLAX 27.5 % 25 - 46 % LV Ejection Fraction 2D Teich 53.1 % IVS Diastolic Thickness 0.9 cm LVPW Diastolic Thickness 0.9 cm LV Relative Wall Thickness 0.4 RV Internal Dim ED PLAX 3.5 cm 1.9 - 3.8 cm LVOT Diameter 1.9 cm Aortic Root Diameter 2.4 cm LA Systolic Diameter LX 3.7 cm 3.0 - 4.0 / 2.7 - 3.8 cm LV Ejection Fraction MOD BP 64.3 % >= 55 % LV Diastolic Length 4C 7.3 cm 6.9 - 10.3 cm LV Diastolic Area 4C 33.6 cm LV Diastolic Volume MOD 4C 127.0 cm LV Ejection Fraction MOD 4C 72.4 % LV Stroke Volume MOD 4C 92.0 cm LV Systolic Length 4C 6.1 cm LV Systolic Area 4C 15.6 cm LV Systolic Volume MOD 4C 35.0 cm LV Ejection Fraction MOD 2C 53.3 % LV Diastolic Volume 4C AL 131.3 cm 85 - 139 / 69 - 109 cm LV Systolic Volume 4C AL 33.9 cm LV Ejection Fraction 4C AL 74.2 % LV Stroke Volume 4C AL 97.4 cm LV Ejection Fraction 2C AL 56.3 % LA Volume 62.0 cm 18 - 58 / 22 - 52 cm DOPPLER AV Peak Velocity 175.0 cm/s AV Peak Gradient 12.3 mmHg AV Mean Velocity 114.0 cm/s AV Mean Gradient 6.0 mmHg AV Velocity Time Integral 38.3 cm LVOT Peak Velocity 107.0 cm/s LVOT Peak Gradient 4.6 mmHg LVOT Mean Velocity 76.0 cm/s LVOT Mean Gradient 3.0 mmHg LVOT Velocity Time Integral 25.6 cm LVOT Stroke Volume 72.6 cm AV Area Cont Eq vti 1.9 cm AV Area Cont Eq pk 1.7 cm Mitral E Point Velocity 99.2 cm/s Mitral A Point Velocity 131.0 cm/s Mitral E to A Ratio 0.8 MV Deceleration Time 239.0 ms TR Peak Velocity 335.0 cm/s TR Peak Gradient 44.9 mmHg Right Atrial Pressure 10.0 mmHg Pulmonary Artery Systolic Pressu 54.9 mmHg Right Ventricular Systolic Press 54.9 mmHg PV Peak Velocity 123.0 cm/s PV Peak Gradient 6.1 mmHg LV E' Lateral Velocity 8.7 cm/s Mitral E to LV E' Lateral Ratio 11.4 LV E' Septal Velocity 6.8 cm/s Mitral E to LV E' Septal Ratio 14.5
[2016-12-07 09:30] LABS: ABSOLUTE BASOPHIL COUNT 0 /CUMM (0.0-0.2); ABSOLUTE EOSINOPHIL COUNT 0 /CUMM (0.0-0.7); ABSOLUTE GRANULOCYTE CT 4.5 /CUMM (1.4-6.5); ABSOLUTE LYMPH COUNT 0.8 /CUMM (1.2-3.4); ABSOLUTE MONOCYTE COUNT 0.8 /CUMM (0.10-0.60); BASOPHIL % 0.1 % (0.0-2.0); EOSINOPHIL % 0 % (0-5); GRANULOCYTE % 73.4 % (42.2-75.2); HEMATOCRIT 27.2 % (37-47); MEAN CORPUSCULAR HGB 30.2 PG (27.0-31.0); MEAN CORPUSCULAR HGB CONC 33.4 G/DL (33.0-37.0); MEAN CORPUSCULAR VOLUME 90.5 FL (81.0-99.0); MEAN PLATELET VOLUME 10.1 FL (7.4-10.4); PLATELET COUNT 137 /CUMM (130-400); RBC DISTRIBUTION WIDTH 15.7 % (11.5-14.5); WHITE BLOOD CELL COUNT 6.2 /CUMM (4.8-10.8)
--- NOTE | 2016-12-07 09:53 | PN- Cardiology ---
Subjective Subjective: The patient is feeling better today. She has no chest pain. Her breathing is improved. Her cardiac enzymes have decreased from the minimal elevated value. Her echocardiogram shows no regional wall motion abnormalities. Of note is the patient was last seen in the hospital for a cardiac event in 2010. She was also hospitalized in 2014 for angioedema. She is said to have had atrial fibrillation on her electrocardiogram at that time but I reviewed it and I think it is not atrial fibrillation but just sinus rhythm with PVCs and a lot of artifact. I don't think she's ever had atrial fibrillation. The patient has not followed up with me in the office for some time. I saw her last in February 2013. At that time she had had a negative stress test and an echocardiogram showing LVH and good LV function and some thickening of her mitral and aortic valves with pulmonary artery pressure 40-45 mmHg. She promises to follow up at this time and the relative accompanying her says she will make sure to have her follow-up. Objective Vital Signs and I&Os Vital Signs Date Time Temp Pulse Resp B/P B/P Pulse O2 O2 Flow FiO2 Mean Ox Delivery Rate 12/07 0811 93 Nasal 3.0L Cannula 12/07 0719 98.1 61 20 138/60 92 Nasal 3.0L Cannula 12/07 0000 Nasal 3.0L Cannula 12/06 2311 98.4 69 20 138/62 92 Nasal Cannula 12/06 1949 93 Nasal 3.0L Cannula 12/06 1646 95 Nasal 3.0L Cannula 12/06 1600 Nasal 3.0L Cannula 12/06 1543 98.6 89 20 150/58 92 Intake & Output 12/07 0800 12/07 0000 12/06 1600 12/06 0812/06 0000 Intake Total 100 100 425 0 Output Total 600 Balance 100 100 -175 0 Intake, IV 25 Intake, Oral 100 100 400 0 Output, Urine 600 Patient 155 lb Weight Weight Reported by Patient Measurement Method Physical Exam: She is in no distress HEENT exam is normal Chest reveals rhonchi Heart reveals regular rhythm and no murmurs Extremities no edema Current Medications: Current Medications Sig/Floresita Start time Last Medication Dose Route Stop Time Status Admin Acetaminophen 650 MG Q6P PRN 12/06 0545 AC PO Acetaminophen/ 1 TAB Q6P PRN 12/06 0545 AC Hydrocodone Bitart PO Albuterol Sulfate 3 ML BID 12/06 1329 AC 12/07 INH 0808 Albuterol Sulfate 2 PUF Q4P PRN 12/06 0715 AC INH Amlodipine Besylate 10 MG DAILY 12/06 1000 AC 12/06 PO 0847 Aspirin Buffered 81 MG DAILY 12/06 1000 AC 12/06 PO 0845 Atorvastatin Calcium 40 MG 1700 12/06 1700 AC 12/06 PO 1546 Azithromycin 250 MG DAILY 12/06 1145 AC 12/06 PO 1241 Clopidogrel Bisulfate 75 MG DAILY 12/06 1000 AC 12/06 PO 0845 Gabapentin 600 MG TID 12/06 1000 AC 12/06 PO 2127 Guaifenesin 600 MG Q12 12/06 1144 AC 12/06 PO 2127 Heparin Sodium 5,000 UNIT Q8 12/06 0725 AC 12/07 (Porcine) SC 0600 Insulin Aspart 0 TIDAC/HS 12/06 2100 AC 12/07 SC 0813 Methylprednisolone 40 MG Q12 12/07 1000 AC IV Methylprednisolone 40 MG Q8 12/06 0814 DC 12/07 IV 0600 Metoprolol Succinate 25 MG DAILY 12/06 1000 AC 12/06 PO 0847 Nicotine 21 MG DAILY 12/06 1143 AC 12/06 TOP 1241 Nitroglycerin 0.4 MG DAILY 12/06 1000 AC 12/06 TOP 0845 Omeprazole 20 MG DAILY AC 12/07 0700 AC 12/07 PO 0636 Oxycodone/ 2 TAB Q6P PRN 12/06 0645 AC Acetaminophen PO Polyethylene Glycol 17 GM DAILY PRN 12/07 0930 AC PO Senna/Docusate Sodium 2 TAB DAILY PRN 12/07 0930 AC PO Sodium Chloride 1,000 ML Q13H 12/07 0930 AC IV 12/07 2229 Tiotropium [place] 1 PUF DAILY 12/07 1000 AC INH Results Last 48 Hrs of Labs/Mics: Laboratory Tests 12/07/16 0740: Anion Gap 10, Estimated GFR 24 L, BUN/Creatinine Ratio 23.5, CBC w Diff NO MAN DIFF REQ, RBC 3.00 L, MCV 90.5, MCH 30.2, RDW 15.7 H, MPV 10.1, Gran % 73.4, Lymphocytes % 13.6 L, Monocytes % 12.9 H, Eosinophils % 0, Basophils % 0.1, Absolute Granulocytes 4.5, Absolute Lymphocytes 0.8 L, Absolute Monocytes 0.8 H, Absolute Eosinophils 0, Absolute Basophils 0, PUBS MCHC 33.4 12/06/16 1550: Troponin I 0.09 12/06/16 1015: Troponin I 0.12 *H 12/06/16 0755: Triglycerides 98, Cholesterol 107, LDL Cholesterol, Calc 53 L, HDL Cholesterol 35 L, Cholesterol/HDL Ratio 3 12/06/16 0352: Anion Gap 10, Estimated GFR 22 L, BUN/Creatinine Ratio 15.7, Glucose 126 H, Hemoglobin A1c 6.3 H, Calcium 8.6, Magnesium 1.9, Total Bilirubin 0.6, AST 21, ALT 21, Alkaline Phosphatase 78, Troponin I 0.15 *H, [id number]-M-Iavdvvdydvm Pept 5970 H, Total Protein 6.2 L, Albumin 3.4 L, Globulin 2.8, Albumin/Globulin Ratio 1.2, CBC w Diff NO MAN DIFF REQ, RBC 3.18 L, MCV 90.7, MCH 30.0, RDW 15.8 H, MPV 9.2, Gran % 67.5, Lymphocytes % 16.9 L, Monocytes % 14.9 H, Eosinophils % 0.5, Basophils % 0.2, Absolute Granulocytes 3.8, Absolute Lymphocytes 0.9 L, Absolute Monocytes 0.8 H, Absolute Eosinophils 0, Absolute Basophils 0, PUBS MCHC 33.1 Recent Imaging Studies: CONCLUSIONS Normal left ventricular ejection fraction visually estimated at >65 Abnormal relaxation filling pattern of the left ventricle for age (stage 1 diastolic dysfunction). Mild left atrial dilatation. Mild thickening/calcification of the mitral valve leaflets. Moderate mitral annular calcification. Mild mitral regurgitation. Focal thickening of the aortic valve cusps. No aortic stenosis. Right ventricular systolic pressure estimated to be elevated at 50- 55 mmHg. Chris Fierro M.D. (Electronically Signed) Final Date: 07 December 2016 09:10 Assessment/Plan Assessment/Plan The patient has an acute respiratory illness. She had elevated troponins to a maximum of only 0.14. Subsequently they have decreased. Her echocardiogram does not show any regional wall motion abnormalities. Her EKG does not show any changes. Recommendation is to continue her on her usual cardiac regimen. There are no plans for invasive or interventional cardiac evaluation at this time. I will follow her up in the office. Continue telemetry? Yes
[2016-12-07 15:17] VITALS: BP 140/50
--- NOTE | 2016-12-07 20:26 | NUR ---
1708 - PATIENT'S HR DECREASED TO 39. PATIENT ASYMPTOMATIC AT THIS TIME. ABDULAZIZ PIKE NOTIFIED/AWARE. 1730 PATIENTS HEART RATE IN THE 70'S.
[2016-12-07 21:55] VITALS: BP 118/56
--- NOTE | 2016-12-08 00:26 | RADIOLOGY REPORT ---
EXAMINATION: XR PORTABLE CHEST CLINICAL INFORMATION: Hypoxia COMPARISON: 12/06/2016 TECHNIQUE: Portable frontal view of the chest was obtained. FINDINGS: Cardiac leads overlie the chest. Persistent elevation of the right hemidiaphragm. Similar appearance of increased basilar markings with bronchial wall thickening. No dense consolidation. No pleural effusion or pneumothorax. No edema. The cardiomediastinal silhouette is unchanged, with a calcified aorta. IMPRESSION: No significant change from previous. Prominent markings at the lung bases with bronchial wall thickening. This may be chronic or associated with a small airways process.
[2016-12-08 07:07] VITALS: BP 158/70
[2016-12-08 08:59] LABS: ABSOLUTE BASOPHIL COUNT 0 /CUMM (0.0-0.2); ABSOLUTE EOSINOPHIL COUNT 0 /CUMM (0.0-0.7); ABSOLUTE GRANULOCYTE CT 7.2 /CUMM (1.4-6.5); ABSOLUTE LYMPH COUNT 1.2 /CUMM (1.2-3.4); ABSOLUTE MONOCYTE COUNT 0.3 /CUMM (0.10-0.60); BASOPHIL % 0.2 % (0.0-2.0); EOSINOPHIL % 0 % (0-5); GRANULOCYTE % 82.4 % (42.2-75.2); HEMATOCRIT 25.8 % (37-47); MEAN CORPUSCULAR HGB 29.8 PG (27.0-31.0); MEAN CORPUSCULAR HGB CONC 33.3 G/DL (33.0-37.0); MEAN CORPUSCULAR VOLUME 89.2 FL (81.0-99.0); MEAN PLATELET VOLUME 10.4 FL (7.4-10.4); PLATELET COUNT 148 /CUMM (130-400); RBC DISTRIBUTION WIDTH 15.9 % (11.5-14.5); RED BLOOD CELL CT 2.89 /CUMM (4.20-5.40); WHITE BLOOD CELL COUNT 8.7 /CUMM (4.8-10.8)
--- NOTE | 2016-12-08 09:15 | PN- Housestaff ---
BORIS TIMMONS 12/08/16 0915: Subjective Follow-up For: Acute COPD exacerbation Demand ischemia Acute kidney injury Complaints: pain scale (0-10) Tele-Events Since Last Visit: Sinus rhythm No acute overnight events Subjective: Patient was seen and examined this morning. She is alert awake and oriented to time place and person. No acute events noticed overnight. Spiked temperature 100.8 overnight. Episode of choking after dinner. Pancultures were sent and chest x-ray was normal. She continues to report shortness of breath this morning. Patient reports cough, not associated with any sputum production Denies any fever or chills, chest pain. Denies any nausea, vomiting, abdomen pain, change in bladder or bowel habits. Vitals stable. Afebrile, heart rate 60, respiratory rate 20, blood pressure 128 /60, saturating at 92 on 3 L. Formal swallow evaluation done recommended mechanical soft ground and thin liquid diet- Review of Systems Constitutional: Reports: see HPI. Objective Last 24 Hrs of Vital Signs/I&O Vital Signs Date Time Temp Pulse Resp B/P B/P Pulse O2 O2 Flow FiO2 Mean Ox Delivery Rate 12/08 0854 158/70 12/08 0854 158/70 12/08 0826 95 Nasal 4.0L Cannula 12/08 0730 88 Nasal 3.0L Cannula 12/08 0707 100.8 75 22 158/70 93 Nasal Cannula 12/08 0000 89 Nasal 3.5L Cannula 12/07 2155 99.3 74 20 118/56 91 Nasal 3.0L Cannula 12/07 2023 18 91 Nasal 3.0L Cannula 12/07 1825 89 Nasal 2.5L Cannula 12/07 1600 Nasal 3.0L Cannula 12/07 1517 98.0 65 20 140/50 92 Nasal 3.0L Cannula Intake & Output 12/08 1600 12/08 0800 12/08 0000 Intake Total 100 1000 Output Total Balance 100 1000 Intake, IV 600 Intake, Oral 100 400 Number 1 Bowel Movements Physical Exam General Appearance: Alert, Oriented X3, Cooperative, No Acute Distress Skin: No Rashes, No Breakdown HEENT: Atraumatic, PERRLA, EOMI, Mucous Membr. moist/pink Neck: Supple, No JVD, No thryomegaly Lymphatic: Cervical nl Cardiovascular: Normal S1, Normal S2 Lungs: Normal Air Movement Neurological: Strength at 5/5 X4 Ext, Normal Tone, Sensation Intact Extremities: No Clubbing, No Cyanosis, No Edema Vascular: Normal Pulses, Pulses Symmetrical Current Medications: Current Medications Sig/Floresita Start time Last Medication Dose Route Stop Time Status Admin Acetaminophen 650 MG Q6P PRN 12/06 0645 AC 12/08 PO 0852 Acetaminophen/ 1 TAB Q6P PRN 12/06 0645 AC Hydrocodone Bitart PO Albuterol Sulfate 3 ML BID 12/06 1329 AC 12/08 INH 0744 Albuterol Sulfate 2 PUF Q4P PRN 12/06 0715 AC 12/07 INH 2258 Amlodipine Besylate 10 MG DAILY 12/06 1000 AC 12/08 PO 0854 Aspirin Buffered 81 MG DAILY 12/06 1000 AC 12/08 PO 0851 Atorvastatin Calcium 40 MG 1700 12/06 1700 AC 12/07 PO 1818 Azithromycin 250 MG DAILY 12/06 1145 AC 12/08 PO 0851 Clopidogrel Bisulfate 75 MG DAILY 12/06 1000 AC 12/08 PO 0851 Gabapentin 600 MG TID 12/06 1000 AC 12/08 PO 0851 Guaifenesin 600 MG Q12 12/06 1144 AC 12/08 PO 0851 Heparin Sodium 5,000 UNIT Q8 12/06 0725 AC 12/08 (Porcine) SC 0620 Insulin Aspart 6 UNITS ONE TIME ONE 12/08 2345 AC 12/08 MS 12/08 2346 0000 Insulin Aspart 0 TIDAC/HS 12/06 2100 AC 12/07 SC 1813 Insulin Human Regular 0 Q6 12/08 0846 12/08 SC 1208 Methylprednisolone 40 MG Q12 12/07 1000 DC 12/08 IV 0852 Metoprolol Succinate 25 MG DAILY 12/06 1000 AC 12/08 PO 0854 Nicotine 21 MG DAILY 12/06 1143 AC 12/08 TOP 0852 Nitroglycerin 0.4 MG DAILY 12/06 1000 AC 12/08 TOP 0852 Omeprazole 20 MG DAILY AC 12/07 0700 AC 12/08 PO 0626 Oxycodone/ 2 TAB Q6P PRN 12/06 0645 AC Acetaminophen PO Patient Medication 1 ED .STK-MED ONE 12/08 1407 DC Teaching ED 12/08 1408 Polyethylene Glycol 17 GM DAILY PRN 12/07 0930 AC 12/07 PO 1021 Prednisone 40 MG DAILY 12/09 1000 AC PO Senna/Docusate Sodium 2 TAB DAILY PRN 12/07 929 AC 12/07 PO 1021 Sodium Chloride 1,000 ML Q13H 12/08 929 AC 12/08 IV 12/08 2228 1041 Sodium Chloride 1,000 ML Q13H 12/07 0830 DC 12/07 IV 12/07 2228 1022 Tiotropium [place] 1 PUF DAILY 12/07 1000 AC 12/08 INH 0852 Last 24 Hrs of Lab/Donell Results Last 24 Hrs of Labs/Mics: Laboratory Tests 12/08/16 0820: CBC w Diff MAN DIFF ORDERED, RBC 2.89 L, MCV 89.2, MCH 29.8, RDW 15.9 H, MPV 10.4, Gran % 82.4 H, Lymphocytes % 13.6 L, Monocytes % 3.8, Eosinophils % 0, Basophils % 0.2, Absolute Granulocytes 7.2 H, Segmented Neutrophils 63, Band Neutrophils 12 H, Absolute Lymphocytes 1.2, Lymphocytes 14 L, Monocytes 11 H, Absolute Monocytes 0.3, Absolute Eosinophils 0, Absolute Basophils 0, Platelet Estimate DECREASED, Hypochromic-Microcytic 1+, Anisocytosis 1+, Elliptocytes FEW , PUBS MCHC 33.3 12/08/16 0630: Anion Gap 11, Estimated GFR 31 L, BUN/Creatinine Ratio 28.1 H Microbiology 12/08 629 BLOOD: Blood Culture - RECD 12/08 629 BLOOD: Blood Culture - RECD 12/09 627 URINE ROUT: Urine Culture - COLB 12/09 627 LOWER RESP: Respiratory Culture - COLB 12/09 627 LOWER RESP: Gram Stain - COLB Assessment/Plan Assessment: Patient is 86-year-old female with past medical history significant for COPD on as needed home oxygen especially nocturnal oxygen 3l, history of coronary artery disease status post stent placement, history of diastolic congestive heart failure with preserved ejection fraction, history of breast cancer status post left-sided mastectomy with recurrence and repeat chemotherapy and radiation, history of spinal stenosis on chronic pain medications, hypertension, hyperlipidemia, neuropathy and GERD came with chief complaint of worsening shortness of breath. Vital signs on admission Temperature 98.1, pulse 71, respiratory rate 24, blood pressure 95/57 she was saturating 91% room air later on required 3 L to saturate 98%. Admission labs were WBC count 5.6, hemoglobin 9.6, hematocrit 28.8, platelet count 119, sodium 134, potassium 4.6, BUN/creatinine 33, creatinine 2.1, initial troponin 0.15, proBNP 5970. Chest x-ray was negative for any acute changes EKG showed normal sinus rhythm with no acute ST-T wave changes Problem list 1. Elevated troponins to 0.14 most likely demand ischemia due to underlying shortness of breath. 2. Acute on chronic hypoxic respiratory failure likely due to COPD exacerbation 3. History of CAD status post stent placement 4. History of hypertension 5. History of spinal stenosis on chronic pain meds 6. History of GERD 7. History of breast cancer status post radiation and mastectomy 8. Acute on chronic kidney injury most likely due to dehydration given history of diarrhea. COPD exacerbation Patient presented with worsening shortness of breath for a couple of days. Off note she had upper respiratory tract infection and cough for one week. Exposure to sick contacts. She uses 3 L oxygen mostly during nighttime for COPD. However her shortness of breath worsened to the point where she couldn't breathe and she came to the emergency room. * Admitted to telemetry floor for further management * Monitor vitals closely every shift * Provide supplemental oxygen as needed * Maintain oxygen saturation greater than 90 * Total respiratory care * duonebs * IV methylprednisolone- oral prednisone from tomorrow * Oral azithromycin day3. * Spiked a temperature max 100.8, chest x-ray remained normal, will follow up pancultures * Mucinex for cough * Follow-up sputum cultures * Follow-up blood cultures Acute on chronic respiratory failure Patient presented with worsening shortness of breath for a couple of days. Off note she had upper respiratory tract infection and cough for one week. Exposure to sick contacts. She uses 3 L oxygen mostly during nighttime for COPD. However her shortness of breath worsened to the point where she couldn't breathe and she came to the emergency room. * Monitor vitals closely every shift * Provide supplemental oxygen as needed * Maintain oxygen saturation greater than 90 * Total respiratory care * duonebs Demand ischemia Elevated troponins to 0.14 most likely demand ischemia due to underlying shortness of breath and copd. * +troponins 0.15, no acute ST changes * Trended down- serial troponins and EKGs * Cardiology consulted * No heparin gtt for now * Echocardiogram Normal left ventricular ejection fraction visually estimated at >65 %. No obvious regional wall motion abnormalities. Abnormal relaxationfilling pattern of the left ventricle for age (stage 1 diastolic dysfunction). * Discontinue telemetry monitoring Acute Kidney Injury: Creatinine 2.1, baseline ~1-1.2, patient received bumex in the ED. * BUN to creatinine ratio ~15:1, * patient may have been mildly hypovolemic with history of diarrhea * Trend renal function, BUN and creatinine * gentle IV hydration for now * Avoid nephrotoxins * Creatinine 1.6 this morning Hypertension Continue home medication amlodipine 10 mg daily Coronary artery disease Status post stent placement Continue aspirin 81 daily Continue Lipitor 40 daily Continue Plavix 75 daily Continue metoprolol 25 mg daily Nitroglycerin patch as needed Hyperlipidemia Continue Lipitor 40 daily Chronic diastolic congestive heart failure Not on any home medications No leg swelling No symptoms suggestive of heart failure Echocardiogram- stage1 diastolic heart failure neuropathy Continue gabapentin home medication GERD Continue omeprazole Aspiration? Patient has an episode of choking 12/07/2016. Spiked a temperature max 100.8 * Follow-up pancultures * Formal swallow evaluation done * Recommended mechanical soft and thin liquid diet * Repeat chest x-ray showed no significant change from the previous x-ray Mechanical soft and thin liquid diet Nicotine patch 14mg DVT ppx-heparin 5000u subcutaneous Full code Problem List: 1. COPD (chronic obstructive pulmonary disease) Pain Ratin Pain Location: n/a Pain Goal: Remain pain free Pain Plan: tylinol Tomorrow's Labs & Rationales: bep-acute kidney injury [facility] 12/08/16 0916: Attending MD Review Statement Attending Statement Attending MD Statement: examined this patient, discuss w/resident/PA/MANAGER MOBILE, agreed w/resident/PA/MANAGER MOBILE, discussed with family, reviewed EMR data (avail), discussed with nursing, discussed with case mgmt, reviewed images, amended to note Attending Assessment/Plan: Assessment: 1. Acute hypoxic respiratory failure, 2. COPD exacerbation 2/2 Acute bronchitis 3. Acute on chronic renal insufficiency 4. History of coronary artery disease, status post multiple stents 5. Hypertension 6. History of gastroesophageal reflux 7. Chronic pain syndrome. 8. Possible aspiration pneumonia PLAN admit to telemetry monitoring, serial cardiac enzymes tredning down. taper steroids, abx D3, oxygen supplementation, TRCs. cardiolgy consulted Cr improving, home meds resumed. repeat chest xray with no acute changes. NPO. consult speech/swallow. gi/dvt prophyalxis full code.
--- NOTE | 2016-12-08 09:32 | PN- Cardiology ---
Subjective Subjective: The patient is still complaining of shortness of breath with activity. She still has some wheezing. There have not been any arrhythmias. Her peak troponin was only 0.15 and subsequently has decreased. There were no EKG changes. Her echo showed good left ventricular systolic function. Objective Vital Signs and I&Os Vital Signs Date Time Temp Pulse Resp B/P B/P Pulse O2 O2 Flow FiO2 Mean Ox Delivery Rate 12/08 0854 158/70 12/08 0854 158/70 12/08 0826 95 Nasal 4.0L Cannula 12/08 0707 100.8 75 22 158/70 93 Nasal Cannula 12/08 0000 89 Nasal 3.5L Cannula 12/07 2155 99.3 74 20 118/56 91 Nasal 3.0L Cannula 12/07 2023 18 91 Nasal 3.0L Cannula 12/07 1825 89 Nasal 2.5L Cannula 12/07 1600 Nasal 3.0L Cannula 12/07 1517 98.0 65 20 140/50 92 Nasal 3.0L Cannula 12/07 1021 61 138/60 12/07 1020 61 138/60 Intake & Output 12/08 1600 12/08 0800 12/08 0000 12/07 1600 12/07 0800 12/07 0000 Intake Total 100 1000 100 100 Output Total Balance 100 1000 100 100 Intake, IV 600 Intake, Oral 100 400 100 100 Number 1 Bowel Movements Physical Exam: She is in no distress lying in bed HEENT exam is normal Chest reveals moderate wheezing Heart reveals regular rhythm no murmurs Extremities no edema Current Medications: Current Medications Sig/Floresita Start time Last Medication Dose Route Stop Time Status Admin Acetaminophen 650 MG Q6P PRN 12/06 0645 AC 12/08 PO 0852 Acetaminophen/ 1 TAB Q6P PRN 12/06 0645 AC Hydrocodone Bitart PO Albuterol Sulfate 3 ML BID 12/06 1329 AC 12/08 INH 0744 Albuterol Sulfate 2 PUF Q4P PRN 12/06 0715 AC 12/07 INH 2258 Amlodipine Besylate 10 MG DAILY 12/06 1000 AC 12/08 PO 0854 Aspirin Buffered 81 MG DAILY 12/06 1000 AC 12/08 PO 0851 Atorvastatin Calcium 40 MG 1700 12/06 1700 AC 12/07 PO 1818 Azithromycin 250 MG DAILY 12/06 1145 AC 12/08 PO 0851 Clopidogrel Bisulfate 75 MG DAILY 12/06 1000 AC 12/08 PO 0851 Gabapentin 600 MG TID 12/06 1000 AC 12/08 PO 0851 Guaifenesin 600 MG Q12 12/06 1144 AC 12/08 PO 0851 Heparin Sodium 5,000 UNIT Q8 12/06 0725 AC 12/08 (Porcine) SC 0620 Insulin Aspart 6 UNITS ONE TIME ONE 12/08 2345 AC 12/08 SC 12/08 2346 0000 Insulin Aspart 0 TIDAC/HS 12/06 2100 AC 12/07 SC 1813 Insulin Human Regular 0 Q6 12/08 0846 AC 12/08 SC 0853 Methylprednisolone 40 MG Q12 12/07 1000 DC 12/08 IV 0852 Metoprolol Succinate 25 MG DAILY 12/06 1000 AC 12/08 PO 0854 Nicotine 21 MG DAILY 12/06 1143 AC 12/08 TOP 0852 Nitroglycerin 0.4 MG DAILY 12/06 1000 AC 12/08 TOP 0852 Omeprazole 20 MG DAILY AC 12/07 0700 AC 12/08 PO 0626 Oxycodone/ 2 TAB Q6P PRN 12/06 0645 AC Acetaminophen PO Polyethylene Glycol 17 GM DAILY PRN 12/07 0930 AC 12/07 PO 1021 Prednisone 40 MG DAILY 12/09 1000 AC PO Senna/Docusate Sodium 2 TAB DAILY PRN 12/07 0930 AC 12/07 PO 1021 Sodium Chloride 1,000 ML Q13H 12/08 0930 AC IV 12/08 2229 Sodium Chloride 1,000 ML Q13H 12/07 0930 DC 12/07 IV 12/07 2229 1022 Tiotropium [place] 1 PUF DAILY 12/07 1000 AC 12/08 INH 0852 Results Last 48 Hrs of Labs/Mics: Laboratory Tests 12/08/16 0820: CBC w Diff Pending, WBC Pending, RBC Pending, Hgb Pending, Hct Pending, MCV Pending, MCH Pending, RDW Pending, Plt Count Pending, MPV Pending, Gran % Pending, Lymphocytes % Pending, Monocytes % Pending, Eosinophils % Pending, Basophils % Pending, Absolute Granulocytes Pending, Absolute Lymphocytes Pending , Absolute Monocytes Pending, Absolute Eosinophils Pending, Absolute Basophils Pending, PUBS MCHC Pending 12/08/16 0630: Anion Gap 11, Estimated GFR 31 L, BUN/Creatinine Ratio 28.1 H 12/07/16 0740: Anion Gap 10, Estimated GFR 24 L, BUN/Creatinine Ratio 23.5, CBC w Diff NO MAN DIFF REQ, RBC 3.00 L, MCV 90.5, MCH 30.2, RDW 15.7 H, MPV 10.1, Gran % 73.4, Lymphocytes % 13.6 L, Monocytes % 12.9 H, Eosinophils % 0, Basophils % 0.1, Absolute Granulocytes 4.5, Absolute Lymphocytes 0.8 L, Absolute Monocytes 0.8 H, Absolute Eosinophils 0, Absolute Basophils 0, PUBS MCHC 33.4 12/06/16 1550: Troponin I 0.09 12/06/16 1015: Troponin I 0.12 *H Assessment/Plan Assessment/Plan The patient has an acute respiratory illness with exacerbation of COPD. She had elevated troponins to a maximum of only 0.15. Subsequently they have decreased. Her echocardiogram does not show any regional wall motion abnormalities. Her EKG does not show any changes. Recommendation is to continue her on her usual cardiac regimen. Telemetry can be discontinued at this time. There are no plans for invasive or interventional cardiac evaluation at this time. I will follow her up in the office. Continue telemetry? No
[2016-12-08 14:51] VITALS: BP 154/58
[2016-12-08] MEDS ORDERED: GUAIFENESIN ER600 MG PO (16:32)
[2016-12-08] MEDS ORDERED: PREDNISONE10 M2 PO (16:32)
[2016-12-08] MEDS ORDERED: AZITHROMYCIN250 M1 PO (16:32)
--- NOTE | 2016-12-08 16:36 | Patient Discharge Instructions ---
Discharge Instructions General Discharge Information You were seen/treated for: COPD exacerbation Demand ischemia Acute kidney injury Elevated troponins new onset afib multilobar pneumonia aspiration pneumonia Diarrhea Upper GI bleed You had these procedures: None Watch for these problems: Watch for fever, chills Chest pain Worsening shortness of breath requiring more oxygen Cough with sputum production Special Instructions: follow-up with primary care physician within 1 week after discharge Follow-up with policy adviser in 1-2 weeks after discharge follow-up with trailers and motor homes salesperson in 1-2 weeks after discharge Patient will be discharging home on home hospice care Diet Continue normal diet: No Recommended Diet: mech soft and regular liquids Activity Activity Self Limited: Yes Acute Coronary Syndrome Inclusion Criteria At DC or during hospital stay patient has or had the following: ACS DIAGNOSIS No Discharge Core Measures Meds if any: Prescribed or Continued at Discharge Meds if any: NOT Prescribed or Continued at Discharge Congestive Heart Failure Inclusion Criteria At DC or during hospital stay patient has or had the following: CHF DIAGNOSIS No Discharge Core Measures Meds if any: Prescribed or Continued at Discharge Meds if any: NOT Prescribed or Continued at Discharge Cerebrovascular accident Inclusion Criteria At DC or during hospital stay patient has or had the following: CVA/TIA Diagnosis No Discharge Core Measures Meds if any: Prescribed or Continued at Discharge Meds if any: NOT Prescribed or Continued at Discharge Venous thromboembolism Inclusion Criteria VTE Diagnosis No VTE Type NONE VTE Confirmed by (Test) NONE Discharge Core Measures - Per Current guidelines, there needs to be overlap - treatment for the first 5 days of Warfarin therapy. - If discharged on Warfarin prior to 5 days of - overlap therapy, the patient will need to be - assessed for post discharge needs including - *Post discharge parental anticoagulation - *Warfarin and/or parental anticoagulation education - *Follow up date to check INR post discharge At least 5 days overlap therapy as Inpatient No Meds if any: Prescribed or Continued at Discharge Note: Overlap Therapy is Warfarin and Anticoagulant Meds if any: NOT Prescribed or Continued at Discharge
--- NOTE | 2016-12-08 17:04 | Discharge Summary ---
Visit Information Visit Dates Admission Date: 12/06/16 Discharge Date: 12/19/2016 Hospital Course Course Attending Physician: VLAD ORELLANA MD Primary Care Physician: MAXINE DONOVAN,BRIGHT Bernardo Other Care Providers: dr. torres Consulting Request: Consulting Specialty: Pulmonary Disease Hospital Course: Patient is 86-year-old female with past medical history significant for COPD on as needed home oxygen especially nocturnal oxygen 3l, history of coronary artery disease status post stent placement, history of diastolic congestive heart failure with preserved ejection fraction, history of breast cancer status post left-sided mastectomy with recurrence and repeat chemotherapy and radiation, history of spinal stenosis on chronic pain medications, hypertension, hyperlipidemia, neuropathy and GERD came with chief complaint of worsening shortness of breath. Vital signs on admission Temperature 98.1, pulse 71, respiratory rate 24, blood pressure 95/57 she was saturating 91% room air later on required 3 L to saturate 98%. Admission labs were WBC count 5.6, hemoglobin 9.6, hematocrit 28.8, platelet count 119, sodium 134, potassium 4.6, BUN/creatinine 33, creatinine 2.1, initial troponin 0.15, proBNP 5970. Chest x-ray was negative for any acute changes EKG showed normal sinus rhythm with no acute ST-T wave changes Problem list 1. Elevated troponins to 0.14 most likely demand ischemia due to underlying shortness of breath. 2. Acute on chronic hypoxic respiratory failure likely due to COPD exacerbation 3. History of CAD status post stent placement 4. History of hypertension 5. History of spinal stenosis on chronic pain meds 6. History of GERD 7. History of breast cancer status post radiation and mastectomy 8. Acute on chronic kidney injury most likely due to dehydration given history of diarrhea. COPD exacerbation Patient presented with worsening shortness of breath for a couple of days. Off note she had upper respiratory tract infection and cough for one week. Exposure to sick contacts. She uses 3 L oxygen mostly during nighttime for COPD. However her shortness of breath worsened to the point where she couldn't breathe and she came to the emergency room. she was Admitted to telemetry floor for further management. Monitored vitals every shift and provided supplemental oxygen to keep saturations greater than 90 %. She received total respiratory care and nebulizer treatments. She received IV steroids and later switched to oral prednisone tapering doses- 40 for 2 days , 30 for 2 days, 20 for 2 days, 10 for 2 days. Received antibiotics azithromycin for 5 days. Follow blood cultures and sputum cultures were negative. Acute on chronic respiratory failure Patient presented with worsening shortness of breath for a couple of days. Off note she had upper respiratory tract infection and cough for one week. Exposure to sick contacts. She uses 3 L oxygen mostly during nighttime for COPD. However her shortness of breath worsened to the point where she couldn't breathe and she came to the emergency room. Monitored vitals closely every shift and provided supplemental oxygen to maintain oxygen saturations greater than 90%. Received total respiratory care and nebulizer treatments. She was placed on high flow oxygen because of worsening shortness of breath and requiring high oxygen. Of note she had multilobar pneumonia. She was discharged on home hospice on high flow oxygen. Demand ischemia Elevated troponins to 0.14 most likely demand ischemia due to underlying shortness of breath and copd. troponins elevated with no acute ST-T wave changes. Later troponins were trended down with no EKG changes. Mechanism Assembler was consulted. No plans for invasive or interventional cardiac evaluation at this time. Echocardiogram Normal left ventricular ejection fraction visually estimated at > 65 %. No obvious regional wall motion abnormalities. Abnormal relaxationfilling pattern of the left ventricle for age (stage 1 diastolic dysfunction). Acute Kidney Injury: Creatinine 2.1, baseline ~1-1.2, patient received bumex in the ED. most possibly prerenal from diarrhea. Received IV gentle hydration. Creatinine improved at the time of discharge Hypertension Continued home medication amlodipine 10 mg daily Coronary artery disease Status post stent placement. Continued Lipitor 40 daily, Continued metoprolol 25 mg daily Discontinued aspirin, Plavix, eliqus because of upper GI bleed. As per pediatric cns's recommendations, never be given again because of GI bleed Hyperlipidemia Continued Lipitor 40 daily Chronic diastolic congestive heart failure Not on any home medications, No leg swelling. No symptoms suggestive of heart failure Echocardiogram- stage1 diastolic heart failure neuropathy Continued gabapentin home medication GERD Continued omeprazole Aspiration pneumonia Patient has an episode of choking on 12/07/2016. Spiked a temperature max 100.8. Pancultures were negative. Repeat chest x-ray showed worsening right lower lobe infiltrate. Repeat CAT scan just showed multilobar pneumonia. She Received IV Unasyn for 7 days. Formal swallow evaluation was done. Recommended [facility] soft and thin liquid diet. Because of multilobar pneumonia and baseline COPD, patient had worsening shortness of breath and she was on high flow oxygen in the hospital. She was discharged on home hospice and on high flow oxygen New onset atrial fibrillation- rate controlled Patient developed new onset atrial fibrillation on 12/09/2016. EKG showed atrial fibrillation with rate 67. Mechanism Assembler was consulted. There is No need for rate control agents as rate is under control. Calculated CHADS VASC score 5. She was placed on continuous telemetry monitoring. She received anticoagulation eliqus 2.5 mg twice a day. She is back and forth sinus and A. fib. eliqus was discontinued because of GI bleed. diarhea Patient had multiple episodes of diarrhea during the hospital stay. Most possibly from steroids and antibiotics. Stool C. difficile was negative. Upper GI bleed Patient had large bowel movement in the hospital which was black and tarry. Denied any nausea, vomiting, hematemesis, hematochezia, abdominal pain. Stool guaiac was positive. Stat hemoglobin 7.2 and hematocrit 22. Railway Signal Electrician was consulted. Dr. Dominguez onboard. She is not a good candidate to get endoscopy because of her respiratory issues and comorbidities conditions. She received IV pantoprazole twice a day and later switch her to omeprazole. She was status post 2 units blood transfusion and hemoglobin improved to 8.6. Aspirin, Plavix and eliqus discontinued because of upper GI bleed. mech soft and thin liquid diet Nicotine patch 14mg DVT ppx-heparin 5000u subcutaneous Full code Complications: none Allergies: Coded Allergies: furosemide (Intermediate, FACIAL SWELLING 06/09/16) lisinopril (Mild, SWELLING 06/09/16) Sulfa (Sulfonamide Antibiotics) (UNKNOWN 06/09/16) Significant Procedures: none Pertinent Lab Results: echo CONCLUSIONS Normal left ventricular ejection fraction visually estimated at >65 Abnormal relaxation filling pattern of the left ventricle for age (stage 1 diastolic dysfunction). Mild left atrial dilatation. Mild thickening/calcification of the mitral valve leaflets. Moderate mitral annular calcification. Mild mitral regurgitation. Focal thickening of the aortic valve cusps. No aortic stenosis. Right ventricular systolic pressure estimated to be elevated at 50- 55 mmHg. cxr FINDINGS: Cardiac leads overlie the chest. The lungs are well expanded. Increased markings are seen at the lung bases with bronchial wall thickening. No dense consolidation. No pleural effusion or pneumothorax. The cardiomediastinal silhouette is unchanged, with a calcified aorta. IMPRESSION: No dense consolidation. Bronchial wall thickening can be seen with a small airways process such as asthma or atypical/viral infection. repeat Chest x-ray FINDINGS: Cardiac leads overlie the chest. Persistent elevation of the right hemidiaphragm. Similar appearance of increased basilar markings with bronchial wall thickening. No dense consolidation. No pleural effusion or pneumothorax. No edema. The cardiomediastinal silhouette is unchanged, with a calcified aorta. IMPRESSION: No significant change from previous. Prominent markings at the lung bases with bronchial wall thickening. This may be chronic or associated with a small airways process. Barium swallow FINDINGS: With all consistencies, the oropharyngeal phase of swallowing is normal with no laryngeal or nasopharyngeal aspiration seen. No significant pooling of contrast is noted in the valleculae or piriform sinuses. After deglutition, there was no significant retention of material within the vallecula; a minimal amount of residual contrast was seen after swallowing thin barium. The patient easily swallowed a barium tablet. There was rapid passage of the tablet to the level of the gastroesophageal junction, when there was holdup of passage into the stomach. The proximal esophagus appears to have normal motility. A small amount of reflux was demonstrated from the distal esophagus proximally. IMPRESSION: 1. No evidence of penetration or aspiration is demonstrated into the larynx. Minimal residual contrast is noted in the vallecula after swallowing thin barium. 2. The patient swallowed a barium tablet easily, and there was rapid passage of the tablet to the gastroesophageal junction. Repeat chest xray FINDINGS: There is worsening airspace disease within the right lower lobe consistent with aspiration pneumonia. Ill-defined opacities are also visualized within the left lower lobe that remain essentially unchanged from prior imaging. There is no pleural effusion or pneumothorax. The cardiac silhouette is prominent but unchanged. Upper mediastinal contours are normal. No acute osseous finding. IMPRESSION: Worsening airspace disease within the right lower lobe consistent with aspiration pneumonia. Chest CT IMPRESSION: 1. Multilobar pneumonia (possibly due to aspiration). Trace bilateral pleural effusions. 2. Mediastinal lymphadenopathy, likely reactive to the pulmonary disease. 3. Cardiomegaly and coronary artery atherosclerotic disease. head ct IMPRESSION: Somewhat limited study with motion artifacts. Moderate chronic white matter microangiopathy. No acute intracranial hemorrhage or territorial infarction. Disposition Summary Disposition Principal Diagnosis: Acute COPD exacerbation Demand ischemia Acute kidney injury Multilobar pneumonia Aspiration pneumonia New onset atrial fibrillation Additional Diagnosis: none Discharge Disposition: hospice - home Discharge Instructions General Discharge Information Code Status: Hospice Patient's Diet: mech soft and thin liquid Patient's Activity: As tolerated Follow-Up Instructions/Appts: Please follow-up with your Primary care physician within 1 week after discharge Please follow-up with pediatric cns in 1-2 weeks after discharge follow-up with costume director in 1-2 weeks after discharge Medications at Discharge Discharge Medications: Stop taking the following medications: Clopidogrel Bisulfate (Clopidogrel) 75 MG TABLET ORAL DAILY Aspirin (Ecotrin*) 81 MG TABLET.DR ORAL DAILY Continue taking these medications: Atorvastatin Calcium (Lipitor) 40 MG TABLET 1 Tablet ORAL DAILY Comments: Last Taken:12/18/16 Time:5PM Amlodipine Besylate (Amlodipine Besylate) 10 MG TABLET 1 Tablet ORAL DAILY Comments: Last Taken:12/19/16 Time:9AM Albuterol Sulfate (Proair Hfa) 90 MCG HFA.AER.AD 2 PUFF ORAL THREE TIMES DAILY as needed for ASTHMA Comments: NEB TREATMENTS GIVEN Nitroglycerin (Nitroglycerin) 400 MCG/SPRAY SPRAY 2 [place] ORAL as needed for CHEST PAIN Comments: NOT TAKEN Ranitidine HCl (Ranitidine HCl) 300 MG TABLET 1 Tablet ORAL DAILY Comments: NOT TAKEN Nitroglycerin (Nitroglycerin Patch) 0.4 MG/HOUR PATCH.TD24 1 PATCH On the skin DAILY Comments: Last Taken:12/19/16 Time:9AM Oxycodone HCl (Oxycodone HCl) 10 MG TABLET 1 Tablet ORAL 4 times daily as needed as needed for PAIN Comments: NOT TAKEN Metoprolol Succ XL (Toprol XL) 25 MG TAB 1 Tablet ORAL DAILY Comments: Last Taken:12/19/16 Time:9AM Start taking the following new medications: Lorazepam (Ativan) 0.5 MG TABLET 1 Tablet ORAL DAILY NEEDED Qty = 10 No Refills Comments: NOT TAKEN Morphine Sulfate (Morphine Sulfate) 15 MG TABLET 1 Tablet ORAL 2 x Daily as needed as needed for pain Qty = 10 No Refills Comments: NOT TAKEN Copies To: MAXINE DONOVAN,BRIGHT Bernardo
--- NOTE | 2016-12-08 21:13 | RADIOLOGY REPORT ---
EXAMINATION: CHEST 1 VIEW CLINICAL INFORMATION: Increased supplemental oxygen requirement. COMPARISON: Multiple prior exams are reviewed. The most recent is from 12/07/2016. TECHNIQUE: An AP view of the chest is provided. FINDINGS: The cardiac silhouette is not enlarged. The mediastinal and hilar contours are unremarkable. There are neither pleural effusions nor pneumothoraces. There is a right lower lobe infiltrate that has developed since the prior exam. The osseous structures are unremarkable. IMPRESSION: Right lower lobe infiltrate. Recommendation is for a followup chest series to be obtained following treatment and/or resolution of symptoms to assure resolution of this appearance.
[2016-12-08 22:03] VITALS: BP 160/64
[2016-12-09 04:39] VITALS: BP 160/70
[2016-12-09 05:18] LABS: ABSOLUTE BASOPHIL COUNT 0 /CUMM (0.0-0.2); ABSOLUTE EOSINOPHIL COUNT 0 /CUMM (0.0-0.7); ABSOLUTE LYMPH COUNT 1.1 /CUMM (1.2-3.4); ABSOLUTE MONOCYTE COUNT 0.4 /CUMM (0.10-0.60); BASOPHIL % 0 % (0.0-2.0); EOSINOPHIL % 0 % (0-5); HEMATOCRIT 28.3 % (37-47); MEAN CORPUSCULAR HGB 29.7 PG (27.0-31.0); MEAN CORPUSCULAR HGB CONC 32.6 G/DL (33.0-37.0); MEAN PLATELET VOLUME 9.6 FL (7.4-10.4); PLATELET COUNT 205 /CUMM (130-400); RBC DISTRIBUTION WIDTH 16.4 % (11.5-14.5); RED BLOOD CELL CT 3.11 /CUMM (4.20-5.40); WHITE BLOOD CELL COUNT 8.4 /CUMM (4.8-10.8)
[2016-12-09 07:31] VITALS: BP 168/58
--- NOTE | 2016-12-09 07:34 | PN- Housestaff ---
BORIS TIMMONS 12/09/16 0734: Subjective Follow-up For: Acute COPD exacerbation Demand ischemia Acute kidney injury Aspiration pneumonia Complaints: pain scale (0-10) Tele-Events Since Last Visit: Sinus rhythm no acute events Subjective: Patient was seen and examined this morning. She is alert awake and oriented to time place and person. Overnight patient desaturated and required 5-6 L of oxygen. She was placed on nonrebreather mask. Repeat chest x-ray showed right lower lobe aspirate. She was started on IV Unasyn for aspiration pneumonia.. She continues to report shortness of breath this morning. Patient reports cough, not associated with any sputum production Denies any fever or chills, chest pain. Denies any nausea, vomiting, abdomen pain, change in bladder or bowel habits. Vitals stable. Afebrile, heart rate 60, respiratory rate 20, blood pressure 128 /60, saturating at 92 on rebreather mask. Formal swallow evaluation done recommended mechanical soft ground and thin liquid diet- Review of Systems Constitutional: Reports: see HPI. Objective Last 24 Hrs of Vital Signs/I&O Vital Signs Date Time Temp Pulse Resp B/P B/P Pulse O2 O2 Flow FiO2 Mean Ox Delivery Rate 12/09 1526 98.6 70 16 156/68 94 Non ReBreather 12/09 1105 93 Part 60% ReBreather 12/09 0900 154/60 12/09 0900 154/76 12/09 0855 94 Non 100% ReBreather 12/09 0819 96 Non ReBreather 12/09 0731 100.4 70 16 168/58 97 Non ReBreather 12/09 0439 98.7 85 20 160/70 94 Nasal 5.0L Cannula 12/09 0149 90 Venti Mask 55% 12/08 2203 98.3 78 20 160/64 87 Nasal 7.0L Cannula 12/08 2200 90 Venti Mask 55% 12/08 1836 88 Nasal 5.0L Cannula 12/08 1830 88 Nasal 3.0L Cannula 12/08 1725 97 Nasal 4.0L Cannula Intake & Output 12/09 1600 12 0800 12/09 0000 Intake Total 400 1060 1000 Output Total 600 350 525 Balance -200 710 475 Intake, IV 700 600 Intake, Oral 400 360 400 Number 1 1 Bowel Movements Output, Urine 600 350 525 Physical Exam General Appearance: Alert, Oriented X3, Cooperative, No Acute Distress Skin: No Rashes, No Breakdown, No Significant Lesion HEENT: Atraumatic, PERRLA, EOMI, Mucous Membr. moist/pink Neck: Supple, No JVD, No thryomegaly Lymphatic: Cervical nl Cardiovascular: Normal S1, Normal S2 Lungs: dec bs Abdomen: Normal Bowel Sounds, Soft, No Tenderness Extremities: No Clubbing, No Cyanosis, No Edema Vascular: Normal Pulses, Pulses Symmetrical Current Medications: Current Medications Sig/Floresita Start time Last Medication Dose Route Stop Time Status Admin Acetaminophen 650 MG Q6P PRN 12/06 0645 AC 12/08 PO 0852 Acetaminophen/ 1 TAB Q6P PRN 12/06 0645 AC Hydrocodone Bitart PO Albuterol Sulfate 3 ML BID 12/06 1329 AC 12/09 INH 0845 Albuterol Sulfate 2 PUF Q4P PRN 12/06 0715 AC 12/07 INH 2258 Amlodipine Besylate 10 MG DAILY 12/06 1000 AC 12/09 PO 0900 Ampicillin Sodium/ 1,500 MG Q6 12/08 2359 AC 12/09 Sulbactam Sodium IV 1122 Sodium Chloride 100 ML Ampicillin Sodium/ 1,500 MG Q12 12/08 2300 DC Sulbactam Sodium IV Sodium Chloride 100 ML Aspirin Buffered 81 MG DAILY 12/06 1000 AC 12/09 PO 0900 Atorvastatin Calcium 40 MG 1700 12/06 1700 AC 12/08 PO 1604 Azithromycin 250 MG DAILY 12/06 1145 DC 12/08 PO 0851 Clopidogrel Bisulfate 75 MG DAILY / 1000 AC 12/09 PO 0900 Furosemide 40 MG ONCE ONE 12/09 1400 DC IV 12/09 1401 Gabapentin 600 MG TID 12/06 1000 AC 12/09 PO 0900 Guaifenesin 600 MG Q12 / 1144 AC 12/09 PO 0900 Heparin Sodium 5,000 UNIT Q8 12/06 0725 12/09 (Porcine) SC 1324 Insulin Aspart 0 AT BEDTIME 12/09 2200 AC SC Insulin Aspart 4 UNITS ONE TIME ONE 12/09 0230 DC 12/09 SC 12/09 0231 0000 Insulin Aspart 6 UNITS ONE TIME ONE 12/08 2345 DC 12/08 SC 12/08 2346 0000 Insulin Aspart 0 TIDAC/HS 12/06 2100 AC 12/09 CO 1324 Insulin Human Regular 0 Q6 12/08 0846 DC 12/08 CO 1208 Metoprolol Succinate 25 MG DAILY 12/06 1000 AC 12/09 PO 0900 Nicotine 7 MG DAILY 12/09 1353 AC TOP Nicotine 21 MG DAILY 12/06 1143 DC 12/09 TOP 0901 Nitroglycerin 0.4 MG DAILY 12/06 1000 AC 12/09 TOP 0901 Omeprazole 20 MG DAILY AC 12/07 0700 AC 12/08 PO 0626 Oxycodone/ 2 TAB Q6P PRN 12/06 0645 AC Acetaminophen PO Polyethylene Glycol 17 GM DAILY PRN 12/07 0930 AC 12/07 PO 1021 Prednisone 40 MG DAILY 12/09 1115 AC 12/09 PO 1307 Prednisone 40 MG DAILY 12/09 1000 AC 12/09 PO 0900 Senna/Docusate Sodium 2 TAB DAILY PRN 12/07 0930 AC 12/07 PO 1021 Sodium Chloride 1,000 ML Q13H 12/08 0930 DC 12/08 IV 12/08 2229 1041 Tiotropium [place] 1 PUF DAILY 12/07 1000 AC 12/09 INH 0900 Last 24 Hrs of Lab/Donell Results Last 24 Hrs of Labs/Mics: Laboratory Tests 12/09/16 1120: Troponin I 0.20 *H 12/09/16 0430: Anion Gap 11, Estimated GFR 31 L, BUN/Creatinine Ratio 31.3 H, Troponin I 0.13 *H, CBC w Diff NO MAN DIFF REQ, RBC 3.11 L, MCV 91.0, MCH 29.7, RDW 16.4 H, MPV 9.6, Gran % 83.0 H, Lymphocytes % 12.8 L, Monocytes % 4.2, Eosinophils % 0 , Basophils % 0 L, Absolute Granulocytes 7.0 H, Absolute Lymphocytes 1.1 L, Absolute Monocytes 0.4, Absolute Eosinophils 0, Absolute Basophils 0, PUBS MCHC 32.6 L 12/09/16 0419: Troponin I Cancelled 12/08/16 2245: pH 7.38, pCO2 33 L, pO2 64 L, HCO3 19 L, ABG O2 Sat (Measured) 90.0 L, Carboxyhemoglobin 0.3 L, O2 Concentration % 55%, O2 Delivery Method V/M, Phlebotomy Draw Site RIGHT RADIAL Microbiology 12/09 145 URINE ROUT: Legionella Antigen - ORD 12/09 145 URINE ROUT: Streptococcus pneumoniae Antigen (M - ORD Assessment/Plan Assessment: Patient is 86-year-old female with past medical history significant for COPD on as needed home oxygen especially nocturnal oxygen 3l, history of coronary artery disease status post stent placement, history of diastolic congestive heart failure with preserved ejection fraction, history of breast cancer status post left-sided mastectomy with recurrence and repeat chemotherapy and radiation, history of spinal stenosis on chronic pain medications, hypertension, hyperlipidemia, neuropathy and GERD came with chief complaint of worsening shortness of breath. Vital signs on admission Temperature 98.1, pulse 71, respiratory rate 24, blood pressure 95/57 she was saturating 91% room air later on required 3 L to saturate 98%. Admission labs were WBC count 5.6, hemoglobin 9.6, hematocrit 28.8, platelet count 119, sodium 134, potassium 4.6, BUN/creatinine 33, creatinine 2.1, initial troponin 0.15, proBNP 5970. Chest x-ray was negative for any acute changes EKG showed normal sinus rhythm with no acute ST-T wave changes Problem list 1. Elevated troponins to 0.14 most likely demand ischemia due to underlying shortness of breath. 2. Acute on chronic hypoxic respiratory failure likely due to COPD exacerbation 3. History of CAD status post stent placement 4. History of hypertension 5. History of spinal stenosis on chronic pain meds 6. History of GERD 7. History of breast cancer status post radiation and mastectomy 8. Acute on chronic kidney injury most likely due to dehydration given history of diarrhea. acute COPD exacerbation Patient presented with worsening shortness of breath for a couple of days. Off note she had upper respiratory tract infection and cough for one week. Exposure to sick contacts. She uses 3 L oxygen mostly during nighttime for COPD. However her shortness of breath worsened to the point where she couldn't breathe and she came to the emergency room. * Admitted to telemetry floor for further management * Monitor vitals closely every shift * Provide supplemental oxygen as needed * Maintain oxygen saturation greater than 90 * Total respiratory care * duonebs * IV methylprednisolone- switched to oral prednisone * Oral azithromycin day3. Switched to IV Unasyn for aspiration pneumonia * Spiked a temperature max 100.8, chest x-ray showed right lower lobe infiltrate. * Mucinex for cough * Follow-up sputum cultures * Follow-up blood cultures Acute on chronic respiratory failure Patient presented with worsening shortness of breath for a couple of days. Off note she had upper respiratory tract infection and cough for one week. Exposure to sick contacts. She uses 3 L oxygen mostly during nighttime for COPD. However her shortness of breath worsened to the point where she couldn't breathe and she came to the emergency room. * Monitor vitals closely every shift * Provide supplemental oxygen as needed * Maintain oxygen saturation greater than 90 * Total respiratory care * duonebs * On rebreather mask now because of desaturations on 5 L oxygen Demand ischemia Elevated troponins to 0.15 most likely demand ischemia due to underlying shortness of breath and copd. * +troponins 0.15, no acute ST changes * Trended down- serial troponins and EKGs * Echocardiogram Normal left ventricular ejection fraction visually estimated at >65 %. No obvious regional wall motion abnormalities. Abnormal relaxationfilling pattern of the left ventricle for age (stage 1 diastolic dysfunction). * Patient troponins elevated again 12/09/2016. Cardiology was consulted. We will trend serial troponins and EKGs. No acute cardiology intervention at this point of time Acute Kidney Injury: Creatinine 2.1, baseline ~1-1.2, patient received bumex in the ED. * BUN to creatinine ratio ~15:1, * patient may have been mildly hypovolemic with history of diarrhea * Trend renal function, BUN and creatinine * gentle IV hydration for now * Avoid nephrotoxins * Creatinine 1.6 this morning Hypertension Continue home medication amlodipine 10 mg daily Coronary artery disease Status post stent placement Continue aspirin 81 daily Continue Lipitor 40 daily Continue Plavix 75 daily Continue metoprolol 25 mg daily Nitroglycerin patch as needed Hyperlipidemia Continue Lipitor 40 daily Chronic diastolic congestive heart failure Not on any home medications No leg swelling No symptoms suggestive of heart failure Echocardiogram- stage1 diastolic heart failure neuropathy Continue gabapentin home medication GERD Continue omeprazole Aspiration pneumonia Patient has an episode of choking 12/07/2016. Spiked a temperature max 100.8. Chest x-ray showed right lower lobe infiltrate. * Follow-up pancultures * Formal swallow evaluation done * Recommended puree and thin liquid diet * CAT scan chest follow-up * Patient was started on IV Unasyn for aspiration pneumonia puree and thin liquid diet DVT ppx-heparin 5000u subcutaneous Full code Problem List: 1. Demand ischemia of myocardium 2. Acute renal insufficiency 3. COPD (chronic obstructive pulmonary disease) Pain Ratin Pain Location: n/a Pain Goal: Remain pain free Pain Plan: tylinol Tomorrow's Labs & Rationales: cbc bep Consulting Request: Consulting Specialty: Cardiology FOREST RAMOS 12/09/16 0920: Attending MD Review Statement Attending Statement Attending MD Statement: examined this patient, discuss w/resident/PA/WAREHOUSE ORDER PICKER, agreed w/resident/PA/WAREHOUSE ORDER PICKER, discussed with family, reviewed EMR data (avail), discussed with nursing, discussed with case mgmt, reviewed images, amended to note Attending Assessment/Plan: Assessment: 1. Acute hypoxic respiratory failure, 2. COPD exacerbation 2/2 Acute bronchitis 3. Acute on chronic renal insufficiency stable 4. History of coronary artery disease, status post multiple stents 5. Hypertension 6. History of gastroesophageal reflux 7. Chronic pain syndrome. 8. aspiration pneumonia with right lower lobe inflitrates on chest xray PLAN admit to telemetry monitoring, serial cardiac enzymes trending down. PO prednisone 40mg daily, abx changed to i/v unasyn, oxygen supplementation, TRCs. cardiolgy on board. pulm consult. plan for CT chest as per pulm. Cr improving, home meds resumed. repeat chest xray with RLL inflitrates. speech/swallow recommends mech soft/thin liquid diet. MBS study tomorrow gi/dvt prophyalxis full code. PT recommneds f/u. case management on board. d/c planning if clinically improves.
--- NOTE | 2016-12-09 08:07 | NUR ---
NURSING LATE ENTRY: UPON INITIAL ASSESSMENT PT WAS 88% ON 6L NC WITH SOB AT REST, CXR ORDERED AND OBTAINED IV ABX STARTED. PER RT PT STARTED ON 55% VENTI MASK WITH SLIGHT IMPROVEMENT OF O2 SAT AT 92%, PT APPEARED MORE COMFORTABLE AT THIS TIME. APPROXIMATELY 0400 PT'S GRANDDAUGHTER CALLED THIS RN INTO ROOM BECAUSE PT WAS C/O SOB, DIFFICULTY BREATHING AND CHEST DISCOMFORT AFTER TOILETING VIA BEDPAN. O2 SAT 80% ON 55% VENTI, RT AND SAIRA PARRA MD AT BEDSIDE TO EVALUATE. EKG AND LABS ORDERED. PT PLACED ON 100% NON REBREATHER WITH IMPROVEMENT OF O2 SAT 96%. PT PLACED ON TELE MONITOR AND CONTINUES CONTINUOUS O2 MONITORING FOR CLOSER OBSERVATION.
--- NOTE | 2016-12-09 12:51 | RADIOLOGY REPORT ---
EXAMINATION: XR PORTABLE CHEST CLINICAL INFORMATION: Aspiration pneumonia. COMPARISON: Chest radiograph 12/08/2016. TECHNIQUE: Portable frontal view of the chest was obtained. FINDINGS: There is worsening airspace disease within the right lower lobe consistent with aspiration pneumonia. Ill-defined opacities are also visualized within the left lower lobe that remain essentially unchanged from prior imaging. There is no pleural effusion or pneumothorax. The cardiac silhouette is prominent but unchanged. Upper mediastinal contours are normal. No acute osseous finding. IMPRESSION: Worsening airspace disease within the right lower lobe consistent with aspiration pneumonia.
--- NOTE | 2016-12-09 13:16 | PN- Cardiology ---
Subjective Subjective: The patient is more short of breath and using accessory muscles of respiration at this time. Her chest x-ray shows worsening isdisease in the right lobe probably due to aspiration. Troponins have bumped slightly to 0.13 and 0.20 at this time. There has been no change in her electrocardiogram. Objective Vital Signs and I&Os Vital Signs Date Time Temp Pulse Resp B/P B/P Pulse O2 O2 Flow FiO2 Mean Ox Delivery Rate 12/09 1105 93 Part 60% ReBreather 12/09 0900 154/60 12/09 0900 154/76 12/09 0855 94 Non 100% ReBreather 12/09 0819 96 Non ReBreather 12/09 0731 100.4 70 16 168/58 97 Non ReBreather 12/09 0439 98.7 85 20 160/70 94 Nasal 5.0L Cannula 12/09 0149 90 Venti Mask 55% 12/08 2203 98.3 78 20 160/64 87 Nasal 7.0L Cannula 12/08 2200 90 Venti Mask 55% 12/08 1836 88 Nasal 5.0L Cannula 12/08 1830 88 Nasal 3.0L Cannula 12/08 1725 97 Nasal 4.0L Cannula 12/08 1451 98.6 68 20 154/58 88 Nasal Cannula 12/08 1446 87 Nasal 4.0L Cannula Intake & Output 12/09 1600 12/09 0800 12/09 0000 12/08 1600 12/08 0800 12/08 0000 Intake Total 1060 1000 5783 607 2723 Output Total 350 525 300 Balance 710 475 468 904 6238 Intake, IV 700 600 600 600 Intake, Oral 360 400 400 100 400 Number 1 1 1 Bowel Movements Output, Urine 350 525 300 Physical Exam: She is in mild respiratory distress. She has a nonrebreather oxygen mask on. HEENT exam is normal Neck veins not distended Chest coarse rales in both bases and scattered wheezes and rhonchi throughout Heart regular rhythm no murmurs No edema Current Medications: Current Medications Sig/Floresita Start time Last Medication Dose Route Stop Time Status Admin Acetaminophen 650 MG Q6P PRN 12/06 0545 AC 12/08 PO 0852 Acetaminophen/ 1 TAB Q6P PRN 12/06 0545 AC Hydrocodone Bitart PO Albuterol Sulfate 3 ML BID 12/06 1329 AC 12/09 INH 0845 Albuterol Sulfate 2 PUF Q4P PRN 12/06 0715 AC 12/07 INH 2258 Amlodipine Besylate 10 MG DAILY 12/06 1000 AC 12/09 PO 0900 Ampicillin Sodium/ 1,500 MG Q6 12/08 2359 AC 12/09 Sulbactam Sodium IV 1122 Sodium Chloride 100 ML Ampicillin Sodium/ 1,500 MG Q12 12/08 2300 DC Sulbactam Sodium IV Sodium Chloride 100 ML Aspirin Buffered 81 MG DAILY 12/06 1000 AC 12/09 PO 0900 Atorvastatin Calcium 40 MG 1700 12/06 1700 AC 12/08 PO 1604 Azithromycin 250 MG DAILY 12/06 1145 DC 12/08 PO 0851 Clopidogrel Bisulfate 75 MG DAILY 12/06 1000 AC 12/09 PO 0900 Gabapentin 600 MG TID 12/06 1000 AC 12/09 PO 0900 Guaifenesin 600 MG Q12 12/06 1144 AC 12/09 PO 0900 Heparin Sodium 5,000 UNIT Q8 12/06 0725 12/09 (Porcine) SC 0634 Insulin Aspart 0 AT BEDTIME 12/09 2200 AC SC Insulin Aspart 4 UNITS ONE TIME ONE 12/09 0230 DC 12/09 SD 12/09 0231 0000 Insulin Aspart 6 UNITS ONE TIME ONE 12/08 2345 DC 12/08 SD 12/08 2346 0000 Insulin Aspart 0 TIDAC/HS 12/06 2100 AC 12/08 SD 1748 Insulin Human Regular 0 Q6 12/08 0846 SC 12/08 SC 1208 Metoprolol Succinate 25 MG DAILY 12/06 1000 AC 12/09 PO 0900 Nicotine 21 MG DAILY 12/06 1143 AC 12/09 TOP 0901 Nitroglycerin 0.4 MG DAILY 12/06 1000 AC 12/09 TOP 0901 Omeprazole 20 MG DAILY AC 12/07 0700 AC 12/08 PO 0626 Oxycodone/ 2 TAB Q6P PRN 12/06 0645 AC Acetaminophen PO Patient Medication 1 ED .STK-MED ONE 12/08 1407 DC Teaching ED 12/08 1408 Polyethylene Glycol 17 GM DAILY PRN 12/07 0830 AC 12/07 PO 1021 Prednisone 40 MG DAILY 12/09 1115 AC 12/09 PO 1307 Prednisone 40 MG DAILY 12/09 1000 AC 12/09 PO 0900 Senna/Docusate Sodium 2 TAB DAILY PRN 12/07 0830 AC 12/07 PO 1021 Sodium Chloride 1,000 ML Q13H 12/08 0930 DC 12/08 IV 12/08 2229 1041 Tiotropium [place] 1 PUF DAILY 12/07 1000 AC 12/09 INH 0900 Results Last 48 Hrs of Labs/Mics: Laboratory Tests 12/09/16 1120: Troponin I 0.20 *H 12/09/16 0430: Anion Gap 11, Estimated GFR 31 L, BUN/Creatinine Ratio 31.3 H, Troponin I 0.13 *H, CBC w Diff NO MAN DIFF REQ, RBC 3.11 L, MCV 91.0, MCH 29.7, RDW 16.4 H, MPV 9.6, Gran % 83.0 H, Lymphocytes % 12.8 L, Monocytes % 4.2, Eosinophils % 0 , Basophils % 0 L, Absolute Granulocytes 7.0 H, Absolute Lymphocytes 1.1 L, Absolute Monocytes 0.4, Absolute Eosinophils 0, Absolute Basophils 0, PUBS MCHC 32.6 L 12/09/16 0419: Troponin I Cancelled 12/08/16 2245: pH 7.38, pCO2 33 L, pO2 64 L, HCO3 19 L, ABG O2 Sat (Measured) 90.0 L, Carboxyhemoglobin 0.3 L, O2 Concentration % 55%, O2 Delivery Method V/M, Phlebotomy Draw Site RIGHT RADIAL 12/08/16 0820: CBC w Diff MAN DIFF ORDERED, RBC 2.89 L, MCV 89.2, MCH 29.8, RDW 15.9 H, MPV 10.4, Gran % 82.4 H, Lymphocytes % 13.6 L, Monocytes % 3.8, Eosinophils % 0, Basophils % 0.2, Absolute Granulocytes 7.2 H, Segmented Neutrophils 63, Band Neutrophils 12 H, Absolute Lymphocytes 1.2, Lymphocytes 14 L, Monocytes 11 H, Absolute Monocytes 0.3, Absolute Eosinophils 0, Absolute Basophils 0, Platelet Estimate DECREASED, Hypochromic-Microcytic 1+, Anisocytosis 1+, Elliptocytes FEW , PUBS MCHC 33.3 12/08/16 0630: Anion Gap 11, Estimated GFR 31 L, BUN/Creatinine Ratio 28.1 H Recent Imaging Studies: PATIENT: MO SHETH PRESENT AGE: 86 PATIENT ACCOUNT NO: [id number] : 30 LOCATION: 1NO ORDERING PHYSICIAN: LEONIE TIMMONS MD SERVICE DATE: 12/09/16-1143 EXAM TYPE: RAD - XRY-PORTABLE CHEST XRAY EXAMINATION: XR PORTABLE CHEST CLINICAL INFORMATION: Aspiration pneumonia. COMPARISON: Chest radiograph 12/08/2016. TECHNIQUE: Portable frontal view of the chest was obtained. FINDINGS: There is worsening airspace disease within the right lower lobe consistent with aspiration pneumonia. Ill-defined opacities are also visualized within the left lower lobe that remain essentially unchanged from prior imaging. There is no pleural effusion or pneumothorax. The cardiac silhouette is prominent but unchanged. Upper mediastinal contours are normal. No acute osseous finding. IMPRESSION: Worsening airspace disease within the right lower lobe consistent with aspiration pneumonia. DICTATED BY: TL CLARK MD DATE/TIME DICTATED:12/09/161246 ELEVATING GRADER OPERATOR:MATEUSZ DATE/TIME TRANSCRIBED:12/09/161246 CONFIDENTIAL, DO NOT COPY WITHOUT APPROPRIATE AUTHORIZATION. <Electronically signed in Other Vendor System> SIGNED BY: TL CLARK MD 12/09 1251 Assessment/Plan Assessment/Plan The patient has an acute respiratory illness with exacerbation of COPD. she appears to have now aspirated with worsening of her respiratory status and a slight bump in her troponin. Recommendation is to continue her on her usual cardiac regimen. Telemetry has been reinstituted because of the slight bump in troponin. We will just watch her on the monitor for now. There are no plans for invasive cardiology workup. I recommend pulmonary consultation at this time. Continue telemetry? Yes
[2016-12-09 15:26] VITALS: BP 156/68
--- NOTE | 2016-12-09 16:09 | RADIOLOGY REPORT ---
EXAMINATION: XR MODIFIED BARIUM SWALLOW CLINICAL INFORMATION: Failed bedside swallowing test. COMPARISON: Chest x-ray earlier 12/09/2016. TECHNIQUE: A modified barium swallow was performed with speech pathologist in attendance. Pur?e, honey thick, nectar thick, barium thin, and cracker consistencies were given to the patient and the swallowing mechanism was observed fluoroscopically with several spot films taken. A barium tablet was also given. FLUOROSCOPY TIME: 2 minutes and 9 seconds. NUMBER OF IMAGES: 11. FINDINGS: With all consistencies, the oropharyngeal phase of swallowing is normal with no laryngeal or nasopharyngeal aspiration seen. No significant pooling of contrast is noted in the valleculae or piriform sinuses. After deglutition, there was no significant retention of material within the vallecula; a minimal amount of residual contrast was seen after swallowing thin barium. The patient easily swallowed a barium tablet. There was rapid passage of the tablet to the level of the gastroesophageal junction, when there was holdup of passage into the stomach. The proximal esophagus appears to have normal motility. A small amount of reflux was demonstrated from the distal esophagus proximally. IMPRESSION: 1. No evidence of penetration or aspiration is demonstrated into the larynx. Minimal residual contrast is noted in the vallecula after swallowing thin barium. 2. The patient swallowed a barium tablet easily, and there was rapid passage of the tablet to the gastroesophageal junction. Speech pathologist assessment issued separately.
--- NOTE | 2016-12-09 19:17 | Event Note ---
Event Note Event Note: At around 7:00 PM patient's EKG was found to be suggestive of atrial fibrillation rates, although a questionable small P wave was seen. Patient stated that she has chest pain and rated at 1 on a 10 point scale. She is currently leaving nonrebreather therapy but is only satting low 90s. She has no history of atrial fibrillation in the past. Her troponins have been trending upwards we are currently waiting for a third one. However be a currently treating her conservatively and she hasn't been started on any anticoagulation. Dr. Fierro was informed was informed about the new EKG finding of atrial fibrillation. He will review the EKG later tonight and make a determination if this is true A. fib or PACs and then a decision would be taken about starting her on heparin and Cardizem. Her only her rate is controlled between 80-90 bpm. Patient has no contraindication to anticoagulation. The night team will be made aware of the scenario and would follow up with Dr. Fierro regarding the management.
--- NOTE | 2016-12-09 21:38 | Cons- Pulmonary ---
General Information and HPI Consulting Request Date of Consult: 12/09/16 Requested By: med team History of Present Illness: 86 year old female with PMH of HTN, COPD, breast cancer treated, diastolic CHF, angioedema, chronic pain, and CAD with stents presents with increasing dyspnea and acute hypoxic respiratory failure. Patient states that she has had symptoms of an upper respiratory infection for less than a week including sore throat and congestion. She complains of two days of dyspnea not relieved by supplemental oxygen. She states she knows she isn't well because she normally smokes a half pack of cigarettes and has smoked only a couple cigarettes the past two days. Patient is supposed to use supplemental oxygen at night but is inconsistently compliant. Patient also complains of some self limited nausea and diarrhea yesterday, ROS is otherwise negative. since she came in she has had worsening hypoxia and cxr sugg of pna REcent atrial fib ONgoing smoking CKD before CAD before Poor performance status Previous pft sugg sig obstructive lung disease but ct does not reveal any sig emphysema Constitutional: Reports: chills. Denies: diaphoresis, malaise, weakness. EENTM: Reports: nasal congestion. Cardiovascular: Reports: chest pain (with coughing), edema, peripheral edema. Denies: orthopena , palpitations, syncope. Respiratory: Reports: cough, short of breath, sputum production, wheezing. Denies: orthopnea , stridor. Genitourinary: Denies: dysuria, frequency, hematuria, pain, urgency. Musculoskeletal: Reports: back pain, neck pain. Skin: Reports: no symptoms. Neurological/Psychological: Reports: headache. Allergies/Medications Allergies: Coded Allergies: furosemide (Intermediate, FACIAL SWELLING 06/09/16) lisinopril (Mild, SWELLING 06/09/16) Sulfa (Sulfonamide Antibiotics) (UNKNOWN 06/09/16) Home Med List: Albuterol Sulfate (Proair Hfa) 90 MCG HFA.AER.AD 2 PUFF PO TID PRN ASTHMA ( Reported) Amlodipine Besylate 10 MG TABLET 1 TAB PO DAILY HEART (Reported) Aspirin (Ecotrin*) 81 MG TABLET.DR 1 TAB PO DAILY HEART HEALTH (Reported) Atorvastatin Calcium (Lipitor) 40 MG TABLET 1 TAB PO DAILY CHOLESTEROL ( Reported) Azithromycin 250 MG TABLET 250 MG PO DAILY copd Clopidogrel Bisulfate (Clopidogrel) 75 MG TABLET 1 TAB PO DAILY BLOOD THINNER (Reported) Gabapentin 600 MG TABLET 1 TAB PO TID NEUROPATHY (Reported) Guaifenesin (Guaifenesin ER) 600 MG TAB.ER.12H 600 MG PO Q12 cough Metoprolol Succ XL (Toprol XL) 25 MG TAB 1 TAB PO DAILY BP (Reported) Nitroglycerin 400 MCG/SPRAY SPRAY 2 SPRAY PO PRN CHEST PAIN (Reported) Nitroglycerin (Nitroglycerin Patch) 0.4 MG/HOUR PATCH.TD24 1 PATCH TOP DAILY ANGINA (Reported) Oxycodone HCl 10 MG TABLET 1 TAB PO 4XDP PRN PAIN (Reported) Prednisone 10 MG TABLET 1 TAB PO SI copd take 4 tabs on 12/10 take 3tabs on 12/11 and 12/12 take 2tabs on 12/13 and 12/14 take 1tab on 12/15 and 12/16 Ranitidine HCl 300 MG TABLET 1 TAB PO DAILY GI (Reported) Past History Travel History Traveled to [place] past 21 day No Medical History Blood Transfusion Hx: Yes Neurological: SYNCOPE EENT: hearing loss Cardiovascular: CAD, CHF, diastolic CHF, hypertension, hyperlipidemia, "CARDIAC " PER FAMILY CARDIAC STENTS Respiratory: asthma, COPD Gastrointestinal: GERD Hepatic: cholelithiasis Renal: NONE Musculoskeletal: chronic back pain, degen joint disease, osteoarthritis, spinal stenosis Psychiatric: NONE Endocrine: NONE Blood Disorders: NONE Cancer(s): BREAST CA s/p left mastectomy and s/p chemotherapy and radiotherapy 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 Home Who Do You Live With? grand daughter Services at Home: None Primary Language: Niuean Smoking Status: Current Everyday Smoker Living Will? no Power of Spread Cutter/HCP? no Functional Ability ADLs Independent: dressing, eating, toileting, bathing. Ambulation: independent (with support of different obje) IADLs Independent: telephone. Needs Assist: shopping, housework, finances, transportation, medication admin. Exam & Diagnostic Data Last 24 Hrs of Vital Signs/I&O Vital Signs Date Time Temp Pulse Resp B/P B/P Pulse O2 O2 Flow FiO2 Mean Ox Delivery Rate 12/09 2124 91 Non 100% ReBreather 12/09 1600 91 Part ReBreather 12/09 1526 98.6 70 16 156/68 94 Non ReBreather 12/09 1105 93 Part 60% ReBreather 12/09 0900 154/60 12/09 0900 154/76 12/09 0855 94 Non 100% ReBreather 12/09 0819 96 Non ReBreather 12/09 0731 100.4 70 16 168/58 97 Non ReBreather 12/09 0439 98.7 85 20 160/70 94 Nasal 5.0L Cannula 12/09 0149 90 Venti Mask 55% 12/08 2203 98.3 78 20 160/64 87 Nasal 7.0L Cannula 12/08 2200 90 Venti Mask 55% Intake & Output 12/09 1600 12/09 0800 12/09 0000 Intake Total 400 1060 1000 Output Total 600 350 525 Balance -200 710 475 Intake, IV 700 600 Intake, Oral 400 360 400 Number 1 1 Bowel Movements Output, Urine 600 350 525 Last 48 Hrs of Labs/Donell: Laboratory Tests 12/09/16 1859: Troponin I Pending 12/09/16 1120: Troponin I 0.20 *H 12/09/16 0430: Anion Gap 11, Estimated GFR 31 L, BUN/Creatinine Ratio 31.3 H, Troponin I 0.13 *H, CBC w Diff NO MAN DIFF REQ, RBC 3.11 L, MCV 91.0, MCH 29.7, RDW 16.4 H, MPV 9.6, Gran % 83.0 H, Lymphocytes % 12.8 L, Monocytes % 4.2, Eosinophils % 0 , Basophils % 0 L, Absolute Granulocytes 7.0 H, Absolute Lymphocytes 1.1 L, Absolute Monocytes 0.4, Absolute Eosinophils 0, Absolute Basophils 0, PUBS MCHC 32.6 L 12/09/16 0419: Troponin I Cancelled 12/08/16 2245: pH 7.38, pCO2 33 L, pO2 64 L, HCO3 19 L, ABG O2 Sat (Measured) 90.0 L, Carboxyhemoglobin 0.3 L, O2 Concentration % 55%, O2 Delivery Method V/M, Phlebotomy Draw Site RIGHT RADIAL 12/08/16 0820: CBC w Diff MAN DIFF ORDERED, RBC 2.89 L, MCV 89.2, MCH 29.8, RDW 15.9 H, MPV 10.4, Gran % 82.4 H, Lymphocytes % 13.6 L, Monocytes % 3.8, Eosinophils % 0, Basophils % 0.2, Absolute Granulocytes 7.2 H, Segmented Neutrophils 63, Band Neutrophils 12 H, Absolute Lymphocytes 1.2, Lymphocytes 14 L, Monocytes 11 H, Absolute Monocytes 0.3, Absolute Eosinophils 0, Absolute Basophils 0, Platelet Estimate DECREASED, Hypochromic-Microcytic 1+, Anisocytosis 1+, Elliptocytes FEW , PUBS MCHC 33.3 12/08/16 0630: Anion Gap 11, Estimated GFR 31 L, BUN/Creatinine Ratio 28.1 H Assessment/Plan Impression/Plan: Physical Exam General Appearance Alert, Oriented X3, Cooperative, Sig dyspnea Skin No Rashes, No Breakdown Skin Temp/Moisture Exam: Warm/Dry HEENT Atraumatic, PERRLA, EOMI Neck Supple, No JVD Cardiovascular Regular Rate, Normal S1, Normal S2, No Murmurs Lungs diffuse expiratory wheeze Abdomen Normal Bowel Sounds, Soft, No Tenderness, No Masses Neurological Normal Speech, Strength at 5/5 X4 Ext, Normal Tone, Sensation Intact Extremities No Cyanosis, No Edema, Normal Pulses, No Tenderness/Swelling Vascular Normal Pulses, Pulses Symmetrical SIGNIFICANT DATA Chest x-ray showed worsening airspace disease within the right lower lobe consistent with aspiration pneumonia Modified barium swallow showed no significant aspiration some reflux noted Blood work reviewed creatinine down to 1.6 BU and 50 anion gap is 11 previous homocystine was elevated troponin is elevated last TSH was elevated White count 8.4 with 12% lymphocytes 9.2 hemoglobin which is chronically low platelets are normal ABG upon admission did not reveal hypercarbia patient did have significant hypoxemia Cultures are pending so far sputum culture is pending Previous CT scan of abdomen and pelvis did reveal that there was no inflammatory bowel disease there was peripheral vascular disease lung bases was remarkable for subpleural nodule Previous CT of the chest done in 2012 reviewed which showed multiple lung nodules largest one was 7 mm in the right upper lobe Previous full pulmonary function test reviewed from 2002 which showed moderate obstructive pulmonary physiology Echocardiogram reviewed which showed normal ejection fraction moderate mitral annular calcification significant pulmonary hypertension EKG showed irregular heart rhythm IMPRESSION This is a lady with moderate to severe obstructive lung disease with more bronchitis and emphysema who has been on chronic oxygen therapy, coronary artery disease with previous stent, diastolic heart disease, previous history of breast cancer status post left-sided mastectomy with previous radiation and chemotherapy, significant low back pain and spinal stenosis on chronic pain medication, hypertension, hyperlipidemia, chronic neuropathy, GERD, chronic kidney disease with recent diarrhea which was worked up as an outpatient with negative CT and negative stool test now has * Acute hypoxemic respiratory failure related to significant lower lobe pneumonia in a lady with decompensated lung disease * 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 patient may have COPD exacerbation * Ischemic heart disease with slightly high troponin with previous stent * Chronic kidney disease stage III with acute renal insufficiency * Chronic pain syndrome on narcotics * Peripheral vascular disease * Probable demand ischemia * Probable proximal atrial fibrillation versus multifocal atrial tachycardia * Hypertension, hyperlipidemia, GERD, cholelithiasis, previous history of breast cancer with no obvious evidence of recurrence at this time, however patient recently had a left chest mass excision which did show invasive tumor size to by 2 x 2 with ER/IN and HER-2 negative, 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 Patient has had previous radical mastectomywith recurrence. RECOMMENDATION * Continue prednisone * Continue Unasyn * Sputum culture * Urinary Legionella antigen and pneumococcal antigen * CT scan of the chest without IV contrast to evaluate for any recurrence of breast cancer and to evaluate the lung and to rule out lymphangitic carcinomatosis * Consider a head CT * Follow BUN and creatinine * Watch BUN/creatinine if it stable would continue to diurese * Overall prognosis is guarded to poor * We'll try to discuss overall goals of care with the daughter * If patient is not responding to partial nonrebreather high flow oxygen therapy would be appropriate Consult Acknowledgment - Thank you for your consult request.
[2016-12-09 22:00] VITALS: BP 134/80
--- NOTE | 2016-12-10 00:45 | NUR ---
12/09/16 1892 EKG DONE AND REPORTED TO MD SALGADO, AND MD STORY PATIENT A-FIB ON TM, SPO2 90% ON PARTIAL MALGORZATA. RT CALLED FOR TREATMENT, NON REBR. APPLIED SPO2 93%. WCTM.
[2016-12-10 07:37] VITALS: BP 128/68
--- NOTE | 2016-12-10 08:15 | PN- Housestaff ---
BORIS TIMMONS 12/10/16 0815: Subjective Follow-up For: Acute COPD exacerbation Demand ischemia Acute kidney injury Aspiration pneumonia New onset atrial fibrillation Complaints: pain scale (0-10) Tele-Events Since Last Visit: Atrial fibrillation overnight Rate control 60-80 No other acute events Subjective: Patient was seen and examined this morning. She is alert awake and oriented to time place and person. She continues to report shortness of breath this morning. Patient reports cough, not associated with any sputum production Denies any fever or chills, chest pain. Denies any nausea, vomiting, abdomen pain, change in bladder or bowel habits. Vitals stable. Afebrile, heart rate 60, respiratory rate 20, blood pressure 128 /60, saturating at 92 on rebreather mask. Formal swallow evaluation done recommended puree and thin liquid diet- Review of Systems Constitutional: Reports: see HPI. Objective Last 24 Hrs of Vital Signs/I&O Vital Signs Date Time Temp Pulse Resp B/P B/P Pulse O2 O2 Flow FiO2 Mean Ox Delivery Rate 12/10 1128 64 150/56 12/10 1128 97.6 64 23 150/56 12/10 1045 90 Nasal 100% Cannula 12/10 0800 92 Non 100% ReBreather 12/10 0737 97.6 64 23 128/68 91 12/10 0000 Non ReBreather 12/09 2200 98.0 81 22 134/80 91 Non ReBreather 12/09 2124 91 Non 100% ReBreather 12/09 1600 91 Part ReBreather 12/09 1526 98.6 70 16 156/68 94 Non ReBreather Intake & Output 12/10 1600 12/10 0800 12/10 0000 Intake Total 370 450 Output Total 500 1500 Balance -130 -1050 Intake, IV 130 150 Intake, Oral 240 300 Number 1 1 Bowel Movements Output, Urine 500 1500 Physical Exam General Appearance: Alert, Oriented X3, Cooperative, No Acute Distress Skin: No Rashes, No Breakdown HEENT: Atraumatic, PERRLA, EOMI, Mucous Membr. moist/pink Neck: Supple, No JVD, No thryomegaly Lymphatic: Cervical nl Cardiovascular: Normal S1, Normal S2, No Murmurs Lungs: dec bs and air entry Abdomen: Normal Bowel Sounds, Soft, No Tenderness, No Hepatospenomegaly Extremities: No Clubbing, No Cyanosis, No Edema Vascular: Pulses Symmetrical Current Medications: Current Medications Sig/Floresita Start time Last Medication Dose Route Stop Time Status Admin Acetaminophen 650 MG Q6P PRN 12/06 0645 AC 12/08 PO 0852 Acetaminophen/ 1 TAB Q6P PRN 12/06 0645 AC Hydrocodone Bitart PO Albuterol Sulfate 3 ML BID 12/06 1329 AC 12/10 INH 1043 Albuterol Sulfate 2 PUF Q4P PRN 12/06 0715 AC 12/07 INH 2258 Amlodipine Besylate 10 MG DAILY 12/06 1000 AC 12/10 PO 1128 Ampicillin Sodium/ 1,500 MG Q6 12/08 2359 AC 12/10 Sulbactam Sodium IV 1136 Sodium Chloride 100 ML Apixaban 2.5 MG BID 12/10 1029 AC 12/10 PO 1128 Aspirin Buffered 81 MG DAILY 12/06 1000 AC 12/10 PO 1128 Atorvastatin Calcium 40 MG 1700 12/06 1700 12/09 PO 1714 Clopidogrel Bisulfate 75 MG DAILY 12/06 1000 12/10 PO 1128 Furosemide 40 MG ONCE ONE 12/09 1400 DC 12/09 IV 12/09 1401 1713 Gabapentin 600 MG TID 12/06 1000 AC 12/10 PO 1128 Guaifenesin 600 MG Q12 12/06 1144 AC 12/10 PO 1127 Heparin Sodium 5,000 UNIT Q8 12/06 0725 [place] 12/10 (Porcine) [place] 0612 Insulin Aspart 0 TIDAC 12/10 0800 12/10 [place] 1204 Insulin Aspart 0 AT BEDTIME 12/09 2200 12/09 [place] 2315 Insulin Aspart 0 TIDAC/HS 12/06 2100 [place] 12/09 [place] 1716 Metoprolol Succinate 25 MG DAILY 12/06 1000 AC 12/10 PO 1128 Nicotine 7 MG DAILY 12/09 1353 AC 12/10 TOP 1128 Nicotine 21 MG DAILY 12/06 1143 DC 12/09 TOP 0901 Nitroglycerin 0.4 MG DAILY 12/06 1000 AC 12/10 TOP 1129 Omeprazole 20 MG DAILY AC 12/07 0700 AC 12/10 PO 0612 Oxycodone/ 2 TAB Q6P PRN 12/06 0645 AC Acetaminophen PO Polyethylene Glycol 17 GM DAILY PRN 12/07 0930 AC 12/07 PO 1021 Prednisone 40 MG DAILY 12/09 1115 DC 12/09 PO 1307 Prednisone 40 MG DAILY 12/09 1000 AC 12/10 PO 1127 Senna/Docusate Sodium 2 TAB DAILY PRN 12/07 0930 AC 12/07 PO 1021 Tiotropium Ubly 1 PUF DAILY 12/07 1000 AC 12/10 INH 1133 Last 24 Hrs of Lab/Donell Results Last 24 Hrs of Labs/Mics: Laboratory Tests 12/10/16 0635: Anion Gap 11, Estimated GFR 27 L, BUN/Creatinine Ratio 33.3 H, CBC w Diff NO MAN DIFF REQ, RBC 2.79 L, MCV 89.8, MCH 30.1, RDW 16.7 H, MPV 9.5, Gran % 82.1 H, Lymphocytes % 9.3 L, Monocytes % 7.7, Eosinophils % 0.7, Basophils % 0.2, Absolute Granulocytes 7.6 H, Absolute Lymphocytes 0.9 L, Absolute Monocytes 0.7 H, Absolute Eosinophils 0.1, Absolute Basophils 0, PUBS MCHC 33.5 12/09/16 1859: Troponin I 0.14 *H Microbiology 12/10 818 LOWER RESP: Respiratory Culture - COLB 12/10 818 LOWER RESP: Gram Stain - COLB Assessment/Plan Assessment: Patient is 86-year-old female with past medical history significant for COPD on as needed home oxygen especially nocturnal oxygen 3l, history of coronary artery disease status post stent placement, history of diastolic congestive heart failure with preserved ejection fraction, history of breast cancer status post left-sided mastectomy with recurrence and repeat chemotherapy and radiation, history of spinal stenosis on chronic pain medications, hypertension, hyperlipidemia, neuropathy and GERD came with chief complaint of worsening shortness of breath. Vital signs on admission Temperature 98.1, pulse 71, respiratory rate 24, blood pressure 95/57 she was saturating 91% room air later on required 3 L to saturate 98%. Admission labs were WBC count 5.6, hemoglobin 9.6, hematocrit 28.8, platelet count 119, sodium 134, potassium 4.6, BUN/creatinine 33, creatinine 2.1, initial troponin 0.15, proBNP 5970. Chest x-ray was negative for any acute changes EKG showed normal sinus rhythm with no acute ST-T wave changes Problem list 1. Elevated troponins most likely demand ischemia due to underlying shortness of breath. 2. Acute on chronic hypoxic respiratory failure likely due to COPD exacerbation 3. History of CAD status post stent placement 4. History of hypertension 5. History of spinal stenosis on chronic pain meds 6. History of GERD 7. History of breast cancer status post radiation and mastectomy 8. Acute on chronic kidney injury most likely due to dehydration given history of diarrhea. 9. Aspiration pneumonia 10. New onset atrial fibrillation acute COPD exacerbation Patient presented with worsening shortness of breath for a couple of days. Off note she had upper respiratory tract infection and cough for one week. Exposure to sick contacts. She uses 3 L oxygen mostly during nighttime for COPD. However her shortness of breath worsened to the point where she couldn't breathe and she came to the emergency room. * Admitted to telemetry floor for further management * Monitor vitals closely every shift * Provide supplemental oxygen as needed * Maintain oxygen saturation greater than 90 * Total respiratory care * duonebs * IV methylprednisolone- switched to oral prednisone * Oral azithromycin day3. Switched to IV Unasyn for aspiration pneumonia * Mucinex for cough * Follow-up sputum cultures * Follow-up blood cultures Acute on chronic respiratory failure Patient presented with worsening shortness of breath for a couple of days. Off note she had upper respiratory tract infection and cough for one week. Exposure to sick contacts. She uses 3 L oxygen mostly during nighttime for COPD. However her shortness of breath worsened to the point where she couldn't breathe and she came to the emergency room. * Monitor vitals closely every shift * Provide supplemental oxygen as needed * Maintain oxygen saturation greater than 90 * Total respiratory care * duonebs * On rebreather mask now because of desaturations on 5 L oxygen Demand ischemia Elevated troponins to 0.15 most likely demand ischemia due to underlying shortness of breath and copd. * +troponins 0.15, no acute ST changes * Trended down- serial troponins and EKGs * Echocardiogram Normal left ventricular ejection fraction visually estimated at >65 %. No obvious regional wall motion abnormalities. Abnormal relaxationfilling pattern of the left ventricle for age (stage 1 diastolic dysfunction). * Patient troponins elevated again 12/09/2016. Cardiology was consulted. We trended serial troponins and EKGs. No acute cardiology intervention at this point of time Acute Kidney Injury: Creatinine 2.1, baseline ~1-1.2, patient received bumex in the ED. * BUN to creatinine ratio ~15:1, * patient may have been mildly hypovolemic with history of diarrhea * Trend renal function, BUN and creatinine * gentle IV hydration for now * Avoid nephrotoxins * Creatinine 1.8 this morning Hypertension Continue home medication amlodipine 10 mg daily Coronary artery disease Status post stent placement Continue aspirin 81 daily Continue Lipitor 40 daily Continue Plavix 75 daily Continue metoprolol 25 mg daily Nitroglycerin patch as needed Hyperlipidemia Continue Lipitor 40 daily Chronic diastolic congestive heart failure Not on any home medications No leg swelling No symptoms suggestive of heart failure Echocardiogram- stage1 diastolic heart failure neuropathy Continue gabapentin home medication GERD Continue omeprazole Aspiration pneumonia Patient has an episode of choking 12/07/2016. Spiked a temperature max 100.8. Chest x-ray showed right lower lobe infiltrate. * Follow-up pancultures * Formal swallow evaluation done * Recommended puree and thin liquid diet * CAT scan chest [id number] pneumonia most possibly from aspiration * Patient was on IV Unasyn day2 for aspiration pneumonia New onset atrial fibrillation Patient developed new onset atrial fibrillation 12/09/2016. EKG showed atrial fibrillation rate 67. Slicer Machine Operator was consulted. * CHADS VASC score 5. * No need for rate control agents for now * Continuous telemetry monitoring * Started anticoagulation-eliqus 2.5 mg twice a day puree and thin liquid diet DVT ppx-heparin 5000u subcutaneous Full code Problem List: 1. COPD (chronic obstructive pulmonary disease) 2. Demand ischemia of myocardium 3. Acute renal insufficiency Pain Ratin Pain Location: n/a Pain Goal: Remain pain free Pain Plan: tylinol Tomorrow's Labs & Rationales: none Consulting Request: Consulting Specialty: Cardiology FOREST RAMOS 12/10/16 0910: Attending MD Review Statement Attending Statement Attending MD Statement: examined this patient, discuss w/resident/PA/VP, agreed w/resident/PA/VP, discussed with family, reviewed EMR data (avail), discussed with nursing, discussed with case mgmt, reviewed images, amended to note Attending Assessment/Plan: Assessment 1. Acute hypoxic respiratory failure, 2. COPD exacerbation 2/2 Acute bronchitis 3. Acute on chronic renal insufficiency stable 4. History of coronary artery disease, status post multiple stents 5. Hypertension 6. History of gastroesophageal reflux 7. Chronic pain syndrome. 8. aspiration pneumonia with right lower lobe inflitrates on chest xray 9. New onset Afib now started on eliquis. PLAN admit to telemetry monitoring, serial cardiac enzymes trending down. PO prednisone 40mg daily, abx changed to i/v unasyn, oxygen supplementation, TRCs. pulm consulted. CT chest consistent with pneumonia. Cr 1.8 today, home meds resumed. eliquis started, HR controlled. repeat chest xray with RLL inflitrates. MBS done, follow recommendations. gi/dvt prophyalxis full code. PT following, case management on board. d/c planning if clinically improves.
[2016-12-10 08:28] LABS: ABSOLUTE BASOPHIL COUNT 0 /CUMM (0.0-0.2); ABSOLUTE EOSINOPHIL COUNT 0.1 /CUMM (0.0-0.7); ABSOLUTE GRANULOCYTE CT 7.6 /CUMM (1.4-6.5); ABSOLUTE LYMPH COUNT 0.9 /CUMM (1.2-3.4); ABSOLUTE MONOCYTE COUNT 0.7 /CUMM (0.10-0.60); BASOPHIL % 0.2 % (0.0-2.0); EOSINOPHIL % 0.7 % (0-5); HEMATOCRIT 25.1 % (37-47); MEAN CORPUSCULAR HGB 30.1 PG (27.0-31.0); MEAN CORPUSCULAR HGB CONC 33.5 G/DL (33.0-37.0); MEAN CORPUSCULAR VOLUME 89.8 FL (81.0-99.0); MEAN PLATELET VOLUME 9.5 FL (7.4-10.4); PLATELET COUNT 189 /CUMM (130-400); RBC DISTRIBUTION WIDTH 16.7 % (11.5-14.5); RED BLOOD CELL CT 2.79 /CUMM (4.20-5.40); WHITE BLOOD CELL COUNT 9.3 /CUMM (4.8-10.8)
[2016-12-10 10:03] LABS: GRANULOCYTE % 82.1 % (42.2-75.2)
--- NOTE | 2016-12-10 10:32 | CT SCAN REPORT ---
EXAMINATION: CT HEAD WITHOUT CONTRAST CLINICAL INFORMATION: Rule out stroke. Aspiration. Fevers. COMPARISON: Brain MRI from 11/04/2011. TECHNIQUE: Contiguous axial imaging was performed from the skull base to vertex without intravenous administration of contrast. The study is limited due to patient motion artifacts. DLP: 1025.86 mGy-cm FINDINGS: There is no evidence of acute intracranial hemorrhage or territorial infarction. No abnormal mass effect or midline shift is seen. Guthrie to white matter differentiation is well preserved. No extra-axial fluid collections are identified. The ventricles are normal in size. Moderate chronic white matter microangiopathic changes are noted. The osseous structures and soft tissues are normal. The mastoid air cells and visualized portions of the paranasal sinuses are well aerated. IMPRESSION: Somewhat limited study with motion artifacts. Moderate chronic white matter microangiopathy. No acute intracranial hemorrhage or territorial infarction.
--- NOTE | 2016-12-10 11:32 | CT SCAN REPORT ---
EXAMINATION: CT CHEST WITHOUT CONTRAST CLINICAL INFORMATION: Fever, shortness of breath and cough. COMPARISON: Chest CT from 10/21/2011. CXR from 12/09/2016. Abdomen CT from 06/09/2016. TECHNIQUE: Multidetector volumetric CT imaging of the chest was done. Axial MIP volume rendering provided. Sagittal and coronal reformatted images were obtained. DLP: 484 mGy-cm FINDINGS: LUNGS AND PLEURA: Trachea and mainstem bronchi are widely patent and normal in caliber. There is patchy consolidation and surrounding groundglass attenuation and interstitial thickening within the right upper lobe (most severe in the posterior segment of the upper lobe), right middle lobe (predominantly affecting the lateral segment), left upper lobe and left lower lobe. Also, there are some scattered nodular opacities of < 0.5 cm size in both lungs. There are trace bilateral pleural effusions. MEDIASTINUM: Cardiomegaly and three-vessel coronary artery atherosclerotic calcification. There is extensive atherosclerotic calcification of the thoracic aorta without aneurysm. No pericardial effusion. The esophagus is unremarkable. Thyroid gland is heterogeneous and likely contains several nodules, largest in the right lobe measuring approximately 1.2 cm AP. LYMPHATICS: No axillary lymphadenopathy. The assessment for hilar lymphadenopathy is suboptimal on this noncontrast examination. There are multiple enlarged mediastinal lymph nodes. Lymph nodes within the prevascular space of the mediastinum measure up to 1 cm short axis dimension. The largest lower right paratracheal lymph node is 1.1 cm short axis dimension. Subcarinal lymphadenopathy is 1.6 cm AP. UPPER ABDOMEN: Gallbladder is surgically absent. Adrenal glands are normal. The intrahepatic inferior vena cava and hepatic veins are mildly enlarged, likely due to elevated right-sided cardiac pressures. OSSEOUS STRUCTURES: No aggressive osseous lesions. Multilevel degenerative arthropathy of the spine. Degenerative disease is most advanced at T12-L1 and L1-L2. IMPRESSION: 1. Multilobar pneumonia (possibly due to aspiration). Trace bilateral pleural effusions. 2. Mediastinal lymphadenopathy, likely reactive to the pulmonary disease. 3. Cardiomegaly and coronary artery atherosclerotic disease.
--- NOTE | 2016-12-10 12:36 | PN- Cardiology ---
Subjective Subjective: The patient is still short of breath. Her oxygen saturations have been low and she has been receiving high flow oxygen and treatments. In addition she was noted last evening to be in atrial fibrillation on the monitor which was confirmed on the EKG, although her heart rate was in the normal range. She does not have a history of atrial fibrillation. The CAT scan of her chest documented multilobar pneumonia, perhaps aspiration. Objective Vital Signs and I&Os Vital Signs Date Time Temp Pulse Resp B/P B/P Pulse O2 O2 Flow FiO2 Mean Ox Delivery Rate 12/10 1128 64 150/56 12/10 1128 97.6 64 23 150/56 12/10 1045 90 Nasal 100% Cannula 12/10 0737 97.6 64 23 128/68 91 12/10 0000 Non ReBreather 12/09 2200 98.0 81 22 134/80 91 Non ReBreather 12/09 2124 91 Non 100% ReBreather 12/09 1600 91 Part ReBreather 12/09 1526 98.6 70 16 156/68 94 Non ReBreather Intake & Output 12/10 1600 12/10 0800 12/10 0000 12/09 1600 12/09 0800 12/09 0000 Intake Total 370 438 576 5062 1000 Output Total 500 1500 600 350 525 Balance -130 -1050 -200 710 475 Intake, IV 130 150 700 600 Intake, Oral 240 300 400 360 400 Number 1 1 1 1 Bowel Movements Output, Urine 500 1500 600 350 525 Physical Exam: She is in minimal respiratory distress today HEENT exam is normal Chest reveals decreased breath sounds, rhonchi and mild expiratory wheezing. Extremities reveal no edema Heart is irregular, normal rate, no murmurs Current Medications: Current Medications Sig/Floresita Start time Last Medication Dose Route Stop Time Status Admin Acetaminophen 650 MG Q6P PRN 12/06 0645 AC 12/08 PO 0852 Acetaminophen/ 1 TAB Q6P PRN 12/06 0645 AC Hydrocodone Bitart PO Albuterol Sulfate 3 ML BID 12/06 1329 12/10 INH 1043 Albuterol Sulfate 2 PUF Q4P PRN 12/06 0715 AC 12/07 INH 2258 Amlodipine Besylate 10 MG DAILY 12/06 1000 AC 12/10 PO 1128 Ampicillin Sodium/ 1,500 MG Q6 12/08 2359 AC 12/10 Sulbactam Sodium IV 1136 Sodium Chloride 100 ML Apixaban 2.5 MG BID 12/10 1029 AC 12/10 PO 1128 Aspirin Buffered 81 MG DAILY 12/06 1000 AC 12/10 PO 1128 Atorvastatin Calcium 40 MG 1700 12/06 1700 AC 12/09 PO 1714 Clopidogrel Bisulfate 75 MG DAILY 12/06 1000 AC 12/10 PO 1128 Furosemide 40 MG ONCE ONE 12/09 1400 DC 07 IV 12/09 1401 1713 Gabapentin 600 MG TID 12/06 1000 AC 12/10 PO 1128 Guaifenesin 600 MG Q12 12/06 1144 AC 12/10 PO 1127 Heparin Sodium 5,000 UNIT Q8 12/06 0725 DC 12/10 (Porcine) [place] 0612 Insulin Aspart 0 TIDAC 12/10 0800 AC 12/10 SC 1204 Insulin Aspart 0 AT BEDTIME 12/09 2200 12/09 [place] 2315 Insulin Aspart 0 TIDAC/HS 12/06 2100 DC 12/09 SC 1716 Metoprolol Succinate 25 MG DAILY 12/06 1000 AC 12/10 PO 1128 Nicotine 7 MG DAILY 12/09 1353 AC 12/10 TOP 1128 Nicotine 21 MG DAILY 12/06 1143 DC 12/09 TOP 0901 Nitroglycerin 0.4 MG DAILY 12/06 1000 AC 12/10 TOP 1129 Omeprazole 20 MG DAILY AC 12/07 0700 AC 12/10 PO 0612 Oxycodone/ 2 TAB Q6P PRN 12/06 0645 AC Acetaminophen PO Polyethylene Glycol 17 GM DAILY PRN 12/07 0930 AC 12/07 PO 1021 Prednisone 40 MG DAILY 12/09 1115 DC 12/09 PO 1307 Prednisone 40 MG DAILY 12/09 1000 AC 12/10 PO 1127 Senna/Docusate Sodium 2 TAB DAILY PRN 12/07 0930 AC 12/07 PO 1021 Tiotropium [place] 1 PUF DAILY 12/07 1000 AC 12/10 INH 1133 Results Last 48 Hrs of Labs/Mics: Laboratory Tests 12/10/16 0635: Anion Gap 11, Estimated GFR 27 L, BUN/Creatinine Ratio 33.3 H, CBC w Diff NO MAN DIFF REQ, RBC 2.79 L, MCV 89.8, MCH 30.1, RDW 16.7 H, MPV 9.5, Gran % 82.1 H, Lymphocytes % 9.3 L, Monocytes % 7.7, Eosinophils % 0.7, Basophils % 0.2, Absolute Granulocytes 7.6 H, Absolute Lymphocytes 0.9 L, Absolute Monocytes 0.7 H, Absolute Eosinophils 0.1, Absolute Basophils 0, PUBS MCHC 33.5 12/09/16 1859: Troponin I 0.14 *H 12/09/16 1120: Troponin I 0.20 *H 12/09/16 0430: Anion Gap 11, Estimated GFR 31 L, BUN/Creatinine Ratio 31.3 H, Troponin I 0.13 *H, CBC w Diff NO MAN DIFF REQ, RBC 3.11 L, MCV 91.0, MCH 29.7, RDW 16.4 H, MPV 9.6, Gran % 83.0 H, Lymphocytes % 12.8 L, Monocytes % 4.2, Eosinophils % 0 , Basophils % 0 L, Absolute Granulocytes 7.0 H, Absolute Lymphocytes 1.1 L, Absolute Monocytes 0.4, Absolute Eosinophils 0, Absolute Basophils 0, PUBS MCHC 32.6 L 12/09/16 0419: Troponin I Cancelled 12/08/16 2245: pH 7.38, pCO2 33 L, pO2 64 L, HCO3 19 L, ABG O2 Sat (Measured) 90.0 L, Carboxyhemoglobin 0.3 L, O2 Concentration % 55%, O2 Delivery Method V/M, Phlebotomy Draw Site RIGHT RADIAL Microbiology 12/08 1455 URINE ROUT: Urine Culture - COMP Recent Imaging Studies: CT Chest: IMPRESSION: 1. Multilobar pneumonia (possibly due to aspiration). Trace bilateral pleural effusions. 2. Mediastinal lymphadenopathy, likely reactive to the pulmonary disease. 3. Cardiomegaly and coronary artery atherosclerotic disease. DICTATED BY: JENSEN AC MD DATE/TIME DICTATED:12/10/161112 JOURNALISM INSTRUCTOR:MATEUSZ DATE/TIME TRANSCRIBED:12/10/161112 CONFIDENTIAL, DO NOT COPY WITHOUT APPROPRIATE AUTHORIZATION. <Electronically signed in Other Vendor System> SIGNED BY: JENSEN AC MD 12/10/16 1436 Assessment/Plan Assessment/Plan The patient has an acute respiratory illness with exacerbation of COPD. She appears to have now aspirated with worsening of her respiratory status and a slight bump in her troponin. Her peak troponin was 0.20 and is now falling. Recommendation is to continue her on her usual cardiac regimen. Telemetry has been reinstituted because of the slight bump in troponin. She has new I believe that this will onset atrial fibrillation with controlled rate. I recommend starting her on low dose Eliquis because of her age and renal function. Hopefully she will tolerate this medication. The patient and the family should be counseled regarding goals of care. Continue telemetry? Yes
--- NOTE | 2016-12-10 14:27 | PN- Pulmonary ---
Subjective HPI/Critical Care Issues: She continues to report shortness of breath this morning. Patient reports cough, not associated with any sputum production Denies any fever or chills, chest pain. Denies any nausea, vomiting, abdomen pain, change in bladder or bowel habits. Objective Current Medications: Current Medications Sig/Floresita Start time Last Medication Dose Route Stop Time Status Admin Acetaminophen 650 MG Q6P PRN 12/06 0645 AC 12/08 PO 0852 Acetaminophen/ 1 TAB Q6P PRN 12/06 0645 AC Hydrocodone Bitart PO Albuterol Sulfate 3 ML BID 12/06 1329 AC 12/10 INH 1043 Albuterol Sulfate 2 PUF Q4P PRN 12/06 0715 AC 12/07 INH 2258 Amlodipine Besylate 10 MG DAILY 12/06 1000 AC 12/10 PO 1128 Ampicillin Sodium/ 1,500 MG Q6 12/08 2359 AC 12/10 Sulbactam Sodium IV 1136 Sodium Chloride 100 ML Apixaban 2.5 MG BID 12/10 1029 AC 12/10 PO 1128 Aspirin Buffered 81 MG DAILY 12/06 1000 AC 12/10 PO 1128 Atorvastatin Calcium 40 MG 1700 12/06 1700 AC 12/09 PO 1714 Clopidogrel Bisulfate 75 MG DAILY 12/06 1000 AC 12/10 PO 1128 Gabapentin 600 MG TID 12/06 1000 AC 12/10 PO 1128 Guaifenesin 600 MG Q12 12/06 1144 AC 12/10 PO 1127 Heparin Sodium 5,000 UNIT Q8 12/06 0725 DC 12/10 (Porcine) [place] 0612 Insulin Aspart 0 TIDAC 12/10 0800 12/10 [place] 1204 Insulin Aspart 0 AT BEDTIME 12/09 2200 12/09 [place] 2315 Insulin Aspart 0 TIDAC/HS 12/06 2100 GA 12/09 [place] 1716 Metoprolol Succinate 25 MG DAILY 12/06 1000 AC 12/10 PO 1128 Nicotine 7 MG DAILY 12/09 1353 AC 12/10 TOP 1128 Nitroglycerin 0.4 MG DAILY 12/06 1000 AC 12/10 TOP 1129 Omeprazole 20 MG DAILY AC 12/07 0700 AC 12/10 PO 0612 Oxycodone/ 2 TAB Q6P PRN 12/06 0645 AC Acetaminophen PO Polyethylene Glycol 17 GM DAILY PRN 12/07 0930 AC 12/07 PO 1021 Prednisone 40 MG DAILY 12/09 1115 DC 12/09 PO 1307 Prednisone 40 MG DAILY 12/09 1000 AC 12/10 PO 1127 Senna/Docusate Sodium 2 TAB DAILY PRN 12/07 0930 AC 12/07 PO 1021 Tiotropium [place] 1 PUF DAILY 12/07 1000 AC 12/10 INH 1133 Vital Signs & I&O Last 24 Hrs of Vitals and I&O: Vital Signs Date Time Temp Pulse Resp B/P B/P Pulse O2 O2 Flow FiO2 Mean Ox Delivery Rate 12/10 1128 64 150/56 12/10 1128 97.6 64 23 150/56 12/10 1045 90 Nasal 100% Cannula 12/10 0800 92 Non 100% ReBreather 12/10 0737 97.6 64 23 128/68 91 12/10 0000 Non ReBreather 12/09 2200 98.0 81 22 134/80 91 Non ReBreather 12/09 2124 91 Non 100% ReBreather 12/09 1600 91 Part ReBreather 12/09 1526 98.6 70 16 156/68 94 Non ReBreather Intake & Output 12/10 1600 12/10 0800 12/10 0000 Intake Total 370 450 Output Total 500 1500 Balance -130 -1050 Intake, IV 130 150 Intake, Oral 240 300 Number 1 1 Bowel Movements Output, Urine 500 1500 Impression/Plan Impression/Plan Impression/Plan: Physical Exam on high flow General Appearance Alert, Oriented X3, Cooperative, Sig dyspnea Skin No Rashes, No Breakdown Skin Temp/Moisture Exam: Warm/Dry HEENT Atraumatic, PERRLA, EOMI Neck Supple, No JVD Cardiovascular Regular Rate, Normal S1, Normal S2, No Murmurs Lungs diffuse expiratory wheeze Abdomen Normal Bowel Sounds, Soft, No Tenderness, No Masses Neurological Normal Speech, Strength at 5/5 X4 Ext, Normal Tone, Sensation Intact Extremities No Cyanosis, No Edema, Normal Pulses, No Tenderness/Swelling Vascular Normal Pulses, Pulses Symmetrical SIGNIFICANT DATA IMPRESSION: 1. Multilobar pneumonia (possibly due to aspiration). Trace bilateral pleural effusions. 2. Mediastinal lymphadenopathy, likely reactive to the pulmonary disease. 3. Cardiomegaly and coronary artery atherosclerotic disease. Previous full pulmonary function test reviewed from 2002 which showed moderate obstructive pulmonary physiology Echocardiogram reviewed which showed normal ejection fraction moderate mitral annular calcification significant pulmonary hypertension EKG showed irregular heart rhythm IMPRESSION This is a lady with moderate to severe obstructive lung disease with more bronchitis and emphysema who has been on chronic oxygen therapy, coronary artery disease with previous stent, diastolic heart disease, previous history of breast cancer status post left-sided mastectomy with previous radiation and chemotherapy, significant low back pain and spinal stenosis on chronic pain medication, hypertension, hyperlipidemia, chronic neuropathy, GERD, chronic kidney disease with recent diarrhea which was worked up as an outpatient with negative CT and negative stool test now has * Acute hypoxemic respiratory failure related to multilobar pneumonia in a lady with decompensated lung disease, pattern of pna is sugg of aspiration pna * 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 * Ischemic heart disease with slightly high troponin with previous stent * Chronic kidney disease stage III with acute renal insufficiency * Chronic pain syndrome on narcotics * Peripheral vascular disease * Probable demand ischemia * Probable proximal atrial fibrillation versus multifocal atrial tachycardia * Hypertension, hyperlipidemia, GERD, cholelithiasis, previous history of breast cancer with no obvious evidence of recurrence at this time, however patient recently had a left chest mass excision which did show invasive tumor size to by 2 x 2 with ER/WI and HER-2 negative, 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 Patient has had previous radical mastectomywith recurrence. RECOMMENDATION * Continue prednisone * Continue Unasyn, add azithro * Sputum culture * Watch BUN/creatinine if it stable would continue to diurese * Overall prognosis is guarded to poor * We'll try to discuss overall goals of care with the daughter Keep hob up Aspiration precautions
[2016-12-10 15:13] VITALS: BP 140/60
[2016-12-10 22:24] VITALS: BP 146/58
[2016-12-11 06:52] VITALS: BP 160/60
[2016-12-11 08:42] LABS: ABSOLUTE BASOPHIL COUNT 0 /CUMM (0.0-0.2); ABSOLUTE EOSINOPHIL COUNT 0 /CUMM (0.0-0.7); ABSOLUTE GRANULOCYTE CT 11.7 /CUMM (1.4-6.5); ABSOLUTE MONOCYTE COUNT 0.6 /CUMM (0.10-0.60); BASOPHIL % 0 % (0.0-2.0); EOSINOPHIL % 0 % (0-5); GRANULOCYTE % 87.7 % (42.2-75.2); HEMATOCRIT 24.3 % (37-47); MEAN CORPUSCULAR HGB 29.7 PG (27.0-31.0); MEAN CORPUSCULAR HGB CONC 33.5 G/DL (33.0-37.0); MEAN CORPUSCULAR VOLUME 88.8 FL (81.0-99.0); MEAN PLATELET VOLUME 9.1 FL (7.4-10.4); PLATELET COUNT 245 /CUMM (130-400); RBC DISTRIBUTION WIDTH 16.6 % (11.5-14.5); RED BLOOD CELL CT 2.74 /CUMM (4.20-5.40); WHITE BLOOD CELL COUNT 13.3 /CUMM (4.8-10.8)
--- NOTE | 2016-12-11 09:22 | PN- Housestaff ---
BORIS TIMMONS 12/11/16 0921: Subjective Follow-up For: Acute COPD exacerbation Demand ischemia Acute kidney injury Aspiration pneumonia New onset atrial fibrillation Complaints: pain scale (0-10) Tele-Events Since Last Visit: in sinus rhythm no events overnight Subjective: Patient was seen and examined this morning. She is alert awake and oriented to time place and person. She continues to report shortness of breath this morning. Patient reports cough and sputum production Denies any fever or chills, chest pain. Denies any nausea, vomiting, abdomen pain, change in bladder or bowel habits. Vitals stable. Afebrile, heart rate 60, respiratory rate 20, blood pressure 128 /60, saturating at 92 on rebreather mask. Formal swallow evaluation done recommended puree and thin liquid diet- Review of Systems Constitutional: Reports: see HPI. Objective Last 24 Hrs of Vital Signs/I&O Vital Signs Date Time Temp Pulse Resp B/P B/P Pulse O2 O2 Flow FiO2 Mean Ox Delivery Rate 12/11 0949 160/60 12/11 0948 98.1 65 22 160/60 12/11 0908 91 Nasal 100% Cannula 12/11 0800 92 Nasal 100% Cannula 12/11 0652 98.1 65 22 160/60 90 Nasal Cannula 12/11 0627 91 Nasal 100% Cannula 12/11 0052 95 Nasal 100% Cannula 12/10 2234 93 Nasal 100% Cannula 12/10 2224 98.5 68 24 146/58 90 12/10 2124 92 Nasal 100% Cannula 12/10 1914 90 Nasal 100% Cannula 12/10 1605 88 Nasal 100% Cannula 12/10 1600 92 Nasal 100% Cannula 12/10 1513 98.9 88 24 140/60 88 Non ReBreather Intake & Output 12/11 1600 12/11 0800 12/11 0000 Intake Total 300 Output Total 600 Balance -300 Intake, IV 200 Intake, Oral 100 Number 1 Bowel Movements Output, Urine 600 Physical Exam General Appearance: Alert, Oriented X3, Cooperative Skin: No Rashes, No Breakdown HEENT: Atraumatic, PERRLA, EOMI, Mucous Membr. moist/pink Neck: Supple, No JVD Lymphatic: Cervical nl Cardiovascular: Normal S1, Normal S2 Lungs: dec bs b/l Abdomen: Normal Bowel Sounds, Soft, No Tenderness Extremities: No Clubbing, No Cyanosis, No Edema Vascular: Pulses Symmetrical Current Medications: Current Medications Sig/Floresita Start time Last Medication Dose Route Stop Time Status Admin Acetaminophen 650 MG Q6P PRN 12/06 0645 AC 12/08 PO 0852 Acetaminophen/ 1 TAB Q6P PRN 12/06 0645 AC Hydrocodone Bitart PO Albuterol Sulfate 3 ML EVERY 4 HRS/AWAKE 12/11 0800 AC 12/11 INH 1235 Albuterol Sulfate 3 ML BID 12/06 1329 DC 12/10 INH 1605 Albuterol Sulfate 2 PUF Q4P PRN 12/06 0715 AC 12/07 INH 2258 Amlodipine Besylate 10 MG DAILY 12/06 1000 AC 12/11 PO 0948 Ampicillin Sodium/ 1,500 MG Q6 12/08 2359 AC 12/11 Sulbactam Sodium IV 1222 Sodium Chloride 100 ML Apixaban 2.5 MG BID 12/10 1029 AC 12/11 PO 0949 Aspirin Buffered 81 MG DAILY 12/06 1000 AC 12/11 PO 0949 Atorvastatin Calcium 40 MG 1700 12/06 1700 AC 12/10 PO 1642 Azithromycin 500 MG DAILY 12/10 1455 AC 12/11 Sodium Chloride 250 ML IV 0950 Clopidogrel Bisulfate 75 MG DAILY 12/06 1000 AC 12/11 PO 0948 Gabapentin 600 MG TID 12/06 1000 AC 12/11 PO 0949 Guaifenesin 600 MG Q12 12/06 1144 AC 12/11 PO 0949 Insulin Aspart 0 TIDAC 12/10 0800 AC 12/11 SC 1222 Insulin Aspart 0 AT BEDTIME 12/09 2200 AC 12/10 SC 2116 Metoprolol Succinate 25 MG DAILY 12/06 1000 AC 12/11 PO 0949 Nicotine 7 MG DAILY 12/09 1353 AC 12/11 TOP 0949 Nitroglycerin 0.4 MG DAILY 12/06 1000 AC 12/11 TOP 0949 Omeprazole 20 MG DAILY AC 12/07 0700 AC 12/11 PO 0630 Oxycodone/ 2 TAB Q6P PRN 12/06 0645 AC Acetaminophen PO Polyethylene Glycol 17 GM DAILY PRN 12/07 0930 AC 12/07 PO 1021 Prednisone 40 MG DAILY 12/09 1000 AC 12/11 PO 0949 Senna/Docusate Sodium 2 TAB DAILY PRN 12/07 0930 AC 12/07 PO 1021 Tiotropium [place] 1 PUF DAILY 12/07 1000 AC 12/11 INH 0944 Last 24 Hrs of Lab/Donell Results Last 24 Hrs of Labs/Mics: Laboratory Tests 12/11/16 0805: Anion Gap 10, Estimated GFR 36 L, BUN/Creatinine Ratio 37.9 H, CBC w Diff MAN DIFF ORDERED, RBC 2.74 L, MCV 88.8, MCH 29.7, RDW 16.6 H, MPV 9.1, Gran % 87.7 H, Lymphocytes % 7.6 L, Monocytes % 4.7, Eosinophils % 0, Basophils % 0 L, Absolute Granulocytes 11.7 H, Absolute Lymphocytes 1.0 L, Absolute Monocytes 0.6, Absolute Eosinophils 0, Absolute Basophils 0, Platelet Estimate VERIFIED BY SMEAR, Polychromasia 1+, Poikilocytosis 1+, Basophilic Stippling SLIGHT, Anisocytosis 1+, Ovalocytes 1+, PUBS MCHC 33.5 Assessment/Plan Assessment: Patient is 86-year-old female with past medical history significant for COPD on as needed home oxygen especially nocturnal oxygen 3l, history of coronary artery disease status post stent placement, history of diastolic congestive heart failure with preserved ejection fraction, history of breast cancer status post left-sided mastectomy with recurrence and repeat chemotherapy and radiation, history of spinal stenosis on chronic pain medications, hypertension, hyperlipidemia, neuropathy and GERD came with chief complaint of worsening shortness of breath. Vital signs on admission Temperature 98.1, pulse 71, respiratory rate 24, blood pressure 95/57 she was saturating 91% room air later on required 3 L to saturate 98%. Admission labs were WBC count 5.6, hemoglobin 9.6, hematocrit 28.8, platelet count 119, sodium 134, potassium 4.6, BUN/creatinine 33, creatinine 2.1, initial troponin 0.15, proBNP 5970. Chest x-ray was negative for any acute changes EKG showed normal sinus rhythm with no acute ST-T wave changes Problem list 1. Elevated troponins most likely demand ischemia due to underlying shortness of breath. 2. Acute on chronic hypoxic respiratory failure likely due to COPD exacerbation 3. History of CAD status post stent placement 4. History of hypertension 5. History of spinal stenosis on chronic pain meds 6. History of GERD 7. History of breast cancer status post radiation and mastectomy 8. Acute on chronic kidney injury most likely due to dehydration given history of diarrhea. 9. Aspiration pneumonia 10. New onset atrial fibrillation acute COPD exacerbation Patient presented with worsening shortness of breath for a couple of days. Off note she had upper respiratory tract infection and cough for one week. Exposure to sick contacts. She uses 3 L oxygen mostly during nighttime for COPD. However her shortness of breath worsened to the point where she couldn't breathe and she came to the emergency room. * Admitted to telemetry floor for further management * Monitor vitals closely every shift * Provide supplemental oxygen as needed * Maintain oxygen saturation greater than 90 * Total respiratory care * duonebs * IV methylprednisolone- switched to oral prednisone- continue 40 mg daily * On IV azithromycin for community-acquired pneumonia and IV Unasyn for aspiration pneumonia * Mucinex for cough * Follow-up sputum cultures-neg * Follow-up blood cultures- neg Acute on chronic respiratory failure Patient presented with worsening shortness of breath for a couple of days. Off note she had upper respiratory tract infection and cough for one week. Exposure to sick contacts. She uses 3 L oxygen mostly during nighttime for COPD. However her shortness of breath worsened to the point where she couldn't breathe and she came to the emergency room. * Monitor vitals closely every shift * Provide supplemental oxygen as needed * Maintain oxygen saturation greater than 90 * Total respiratory care * duonebs * On rebreather mask now because of desaturations on 5 L oxygen Demand ischemia Elevated troponins to 0.15 most likely demand ischemia due to underlying shortness of breath and copd. * +troponins 0.15, no acute ST changes * Trended down- serial troponins and EKGs * Echocardiogram Normal left ventricular ejection fraction visually estimated at >65 %. No obvious regional wall motion abnormalities. Abnormal relaxationfilling pattern of the left ventricle for age (stage 1 diastolic dysfunction). * Patient troponins elevated again 12/09/2016. Cardiology was consulted. We trended serial troponins and EKGs. No acute cardiology intervention at this point of time Acute Kidney Injury: Creatinine 2.1, baseline ~1-1.2, patient received bumex in the ED. * BUN to creatinine ratio ~15:1, * patient may have been mildly hypovolemic with history of diarrhea * Trend renal function, BUN and creatinine * gentle IV hydration for now * Avoid nephrotoxins * Creatinine 1.4this morning Hypertension Continue home medication amlodipine 10 mg daily Coronary artery disease Status post stent placement Continue aspirin 81 daily Continue Lipitor 40 daily Continue Plavix 75 daily Continue metoprolol 25 mg daily Nitroglycerin patch as needed Hyperlipidemia Continue Lipitor 40 daily Chronic diastolic congestive heart failure Not on any home medications No leg swelling No symptoms suggestive of heart failure Echocardiogram- stage1 diastolic heart failure neuropathy Continue gabapentin home medication GERD Continue omeprazole Aspiration pneumonia Patient has an episode of choking 12/07/2016. Spiked a temperature max 100.8. Chest x-ray showed right lower lobe infiltrate. * Follow-up pancultures- neg so far * Formal swallow evaluation done. * Recommended puree and thin liquid diet * CAT scan chest [id number] pneumonia most possibly from aspiration * Patient was on IV Unasyn day3 for aspiration pneumonia. New onset atrial fibrillation Patient developed new onset atrial fibrillation 12/09/2016. EKG showed atrial fibrillation rate 67. [employer]fuels Operations Manager was consulted. * CHADS VASC score 5. * No need for rate control agents for now * Continuous telemetry monitoring * Started anticoagulation-eliqus 2.5 mg twice a day * went back to sinus rhythm 12/10/2006 puree and thin liquid diet DVT ppx-heparin 5000u subcutaneous Full code Problem List: 1. COPD (chronic obstructive pulmonary disease) 2. Acute renal insufficiency 3. Demand ischemia of myocardium Pain Ratin Pain Location: n/a Pain Goal: Remain pain free Pain Plan: tylinol Tomorrow's Labs & Rationales: cbc bep Consulting Request: Consulting Specialty: Cardiology [facility] 12/11/16 0925: Attending Review Statement Attending Statement Attending MD Statement: examined this patient, discuss w/resident/PA/STRUCTURAL STEEL ENGINEER, agreed w/resident/PA/STRUCTURAL STEEL ENGINEER, discussed with family, reviewed EMR data (avail), discussed with nursing, discussed with case mgmt, reviewed images, amended to note Attending Assessment/Plan: Assessment 1. Acute hypoxic respiratory failure, 2. COPD exacerbation 2/2 Acute bronchitis 3. Acute on chronic renal insufficiency stable 4. History of coronary artery disease, status post multiple stents 5. Hypertension 6. History of gastroesophageal reflux 7. Chronic pain syndrome. 8. aspiration pneumonia with right lower lobe inflitrates on chest xray 9. New onset Afib now started on eliquis. PLAN admit to telemetry monitoring, serial cardiac enzymes trending down. PO prednisone 40mg daily, abx changed to i/v unasyn, oxygen supplementation, TRCs. pulm consulted. CT chest consistent with pneumonia. Cr 1.4 today, home meds resumed. eliquis started, HR controlled. repeat chest xray with RLL inflitrates. MBS done, follow recommendations. gi/dvt prophyalxis full code. PT following, case management on board. d/c planning if clinically improves.
--- NOTE | 2016-12-11 11:31 | PN- Cardiology ---
Subjective Subjective: The patient is on high flow oxygen. Her oxygen saturations are in the low 90s. Her blood pressure is slightly elevated. She appears to have converted back to sinus rhythm about 8:00 last night. She is somewhat unhappy over the pured food but she did fail a swallow eval. Her last troponin had decreased to 0.14. Objective Vital Signs and I&Os Vital Signs Date Time Temp Pulse Resp B/P B/P Pulse O2 O2 Flow FiO2 Mean Ox Delivery Rate 12/11 0949 160/60 12/11 0948 98.1 65 22 160/60 12/11 0908 91 Nasal 100% Cannula 12/11 0652 98.1 65 22 160/60 90 Nasal Cannula 12/11 0627 91 Nasal 100% Cannula 12/11 0052 95 Nasal 100% Cannula 12/10 2234 93 Nasal 100% Cannula 12/10 2224 98.5 68 24 146/58 90 12/10 2124 92 Nasal 100% Cannula 12/10 1914 90 Nasal 100% Cannula 12/10 1605 88 Nasal 100% Cannula 12/10 1600 92 Nasal 100% Cannula 12/10 1513 98.9 88 24 140/60 88 Non ReBreather Intake & Output 12/11 1600 12/11 0800 12/11 0000 12/10 1600 12/10 0800 12/10 0000 Intake Total 300 480 370 450 Output Total 600 608 858 0416 Balance -300 -320 -130 -1050 Intake, IV 200 130 150 Intake, Oral 100 480 240 300 Number 1 1 1 1 Bowel Movements Output, Urine 600 478 072 1688 Patient 155 lb Weight Physical Exam: She is uncomfortable but in no distress Chest reveals scattered rhonchi and wheezes Heart now regular rhythm with no murmurs Extremities no edema Current Medications: Current Medications Sig/Floresita Start time Last Medication Dose Route Stop Time Status Admin Acetaminophen 650 MG Q6P PRN 12/06 0645 AC 12/08 PO 0852 Acetaminophen/ 1 TAB Q6P PRN 12/06 0645 AC Hydrocodone Bitart PO Albuterol Sulfate 3 ML EVERY 4 HRS/AWAKE 12/11 0800 AC 12/11 INH 0907 Albuterol Sulfate 3 ML BID 12/06 1329 DC 12/10 INH 1605 Albuterol Sulfate 2 PUF Q4P PRN 12/06 0715 AC 12/07 INH 2258 Amlodipine Besylate 10 MG DAILY 12/06 1000 AC 12/11 PO 0948 Ampicillin Sodium/ 1,500 MG Q6 12/08 2359 AC 12/11 Sulbactam Sodium IV 0630 Sodium Chloride 100 ML Apixaban 2.5 MG BID 12/10 1029 AC 12/11 PO 0949 Aspirin Buffered 81 MG DAILY 12/06 1000 AC 12/11 PO 0949 Atorvastatin Calcium 40 MG 1700 12/06 1700 AC 12/10 PO 1642 Azithromycin 500 MG DAILY 12/10 1455 AC 12/11 Sodium Chloride 250 ML IV 0950 Clopidogrel Bisulfate 75 MG DAILY 12/06 1000 AC 12/11 PO 0948 Gabapentin 600 MG TID 12/06 1000 AC 12/11 PO 0949 Guaifenesin 600 MG Q12 12/06 1144 AC 12/11 PO 0949 Insulin Aspart 0 TIDAC 12/10 0800 AC 12/11 SC 0815 Insulin Aspart 0 AT BEDTIME 12/09 2200 AC 12/10 SC 2116 Metoprolol Succinate 25 MG DAILY 12/06 1000 AC 12/11 PO 0949 Nicotine 7 MG DAILY 12/09 1353 AC 12/11 TOP 0949 Nitroglycerin 0.4 MG DAILY 12/06 1000 AC 12/11 TOP 0949 Omeprazole 20 MG DAILY AC 12/07 0700 AC 12/11 PO 0630 Oxycodone/ 2 TAB Q6P PRN 12/06 0645 AC Acetaminophen PO Polyethylene Glycol 17 GM DAILY PRN 12/07 0930 AC 12/07 PO 1021 Prednisone 40 MG DAILY 12/09 1000 AC 12/11 PO 0949 Senna/Docusate Sodium 2 TAB DAILY PRN 12/07 0930 AC 12/07 PO 1021 Tiotropium [place] 1 PUF DAILY 12/07 1000 AC 12/11 INH 0944 Results Last 48 Hrs of Labs/Mics: Laboratory Tests 12/11/16 0805: Anion Gap 10, Estimated GFR 36 L, BUN/Creatinine Ratio 37.9 H, CBC w Diff MAN DIFF ORDERED, RBC 2.74 L, MCV 88.8, MCH 29.7, RDW 16.6 H, MPV 9.1, Gran % 87.7 H, Lymphocytes % 7.6 L, Monocytes % 4.7, Eosinophils % 0, Basophils % 0 L, Absolute Granulocytes 11.7 H, Absolute Lymphocytes 1.0 L, Absolute Monocytes 0.6, Absolute Eosinophils 0, Absolute Basophils 0, Platelet Estimate VERIFIED BY SMEAR, Polychromasia 1+, Poikilocytosis 1+, Basophilic Stippling SLIGHT, Anisocytosis 1+, Ovalocytes 1+, PUBS MCHC 33.5 12/10/16 0635: Anion Gap 11, Estimated GFR 27 L, BUN/Creatinine Ratio 33.3 H, CBC w Diff NO MAN DIFF REQ, RBC 2.79 L, MCV 89.8, MCH 30.1, RDW 16.7 H, MPV 9.5, Gran % 82.1 H, Lymphocytes % 9.3 L, Monocytes % 7.7, Eosinophils % 0.7, Basophils % 0.2, Absolute Granulocytes 7.6 H, Absolute Lymphocytes 0.9 L, Absolute Monocytes 0.7 H, Absolute Eosinophils 0.1, Absolute Basophils 0, PUBS MCHC 33.5 12/09/16 1859: Troponin I 0.14 *H Assessment/Plan Assessment/Plan The patient has an acute respiratory illness with exacerbation of COPD. She appears to have now aspirated with worsening of her respiratory status and a slight bump in her troponin. Her peak troponin was 0.20 and is now 0.14. She is back in sinus rhythm and is on Eliquis and tolerating this well. Recommendation is to continue her on her usual cardiac regimen. Telemetry has been reinstituted because of the slight bump in troponin. She had transient atrial fibrillation and is now back in sinus rhythm and on anticoagulants. I would continue this for now. Her main problem continues to be multilobar pneumonia and respiratory failure and aspiration. The family should again be counseled regarding goals of care. Continue telemetry? Yes
[2016-12-11] MEDS ORDERED: PREDNISONE10 M2 PO ×3 (14:10→15:50)
[2016-12-11] MEDS ORDERED: ELIQUIS2.5 M1 PO (14:16)
[2016-12-11 14:22] VITALS: BP 160/64
--- NOTE | 2016-12-11 14:24 | PN- Pulmonary ---
Subjective HPI/Critical Care Issues: The patient is on high flow oxygen. Her oxygen and saturations are in the low 90s. Her blood pressure is slightly elevated. She appears to converted back to sinus rhythm about 8:00 last night. She is somewhat unhappy over the pured food but she did fail a swallow eval. Her last troponin had decreased to 0.14. Objective Current Medications: Current Medications Sig/Floresita Start time Last Medication Dose Route Stop Time Status Admin Acetaminophen 650 MG Q6P PRN 12/06 0645 AC 12/08 PO 0852 Acetaminophen/ 1 TAB Q6P PRN 12/06 0645 AC Hydrocodone Bitart PO Albuterol Sulfate 3 ML EVERY 4 HRS/AWAKE 12/11 0800 AC 12/11 INH 1235 Albuterol Sulfate 3 ML BID 12/06 1329 DC 12/10 INH 1605 Albuterol Sulfate 2 PUF Q4P PRN 12/06 0715 AC 12/07 INH 2258 Amlodipine Besylate 10 MG DAILY 12/06 1000 AC 12/11 PO 0948 Ampicillin Sodium/ 1,500 MG Q6 12/08 2359 AC 12/11 Sulbactam Sodium IV 1222 Sodium Chloride 100 ML Apixaban 2.5 MG BID 12/10 1029 AC 12/11 PO 0949 Aspirin Buffered 81 MG DAILY 12/06 1000 AC 12/11 PO 0949 Atorvastatin Calcium 40 MG 1700 12/06 1700 AC 12/10 PO 1642 Azithromycin 500 MG DAILY 12/10 1455 AC 12/11 Sodium Chloride 250 ML IV 0950 Clopidogrel Bisulfate 75 MG DAILY 12/06 1000 AC 12/11 PO 0948 Gabapentin 600 MG TID 12/06 1000 AC 12/11 PO 0949 Guaifenesin 600 MG Q12 12/06 1144 AC 12/11 PO 0949 Insulin Aspart 0 TIDAC 12/10 0800 AC 12/11 SC 1222 Insulin Aspart 0 AT BEDTIME 12/09 2200 AC 12/10 SC 2116 Metoprolol Succinate 25 MG DAILY 12/06 1000 AC 12/11 PO 0949 Nicotine 7 MG DAILY 12/09 1353 AC 12/11 TOP 0949 Nitroglycerin 0.4 MG DAILY 12/06 1000 AC 12/11 TOP 0949 Omeprazole 20 MG DAILY AC 12/07 0700 AC 12/11 PO 0630 Oxycodone/ 2 TAB Q6P PRN 07/09 0645 AC Acetaminophen PO Polyethylene Glycol 17 GM DAILY PRN 12/07 0930 AC 12/07 PO 1021 Prednisone 40 MG DAILY 12/09 1000 AC 12/11 PO 0949 Senna/Docusate Sodium 2 TAB DAILY PRN 12/07 929 AC 12/07 PO 1021 Tiotropium [place] 1 PUF DAILY 12/07 1000 AC 12/11 INH 0944 Vital Signs & I&O Last 24 Hrs of Vitals and I&O: Laboratory Tests 12/11 12/11 1355 0805 Blood Gas pH (7.35 - 7.45 PH) 7.37 pCO2 (35 - 45 TORR) 39 pO2 (80 - 100 TORR) 59 L HCO3 (21 - 28 MEQ/L) 22 ABG O2 Sat (Measured) (>96.0 %) 89.0 L Carboxyhemoglobin (1.5 - 5.0 %) 0.3 L O2 Concentration % 100% O2 Delivery Method HFNC Chemistry Sodium (137 - 145 mmol/L) 138 Potassium (3.5 - 5.1 mmol/L) 5.1 Chloride (98 - 107 mmol/L) 107 Carbon Dioxide (22 - 30 mmol/L) 21 L Anion Gap (5 - 16) 10 BUN (7 - 17 mg/dL) 53 H Creatinine (0.5 - 1.0 mg/dL) 1.4 H Estimated GFR (>60 ml/min) 36 L BUN/Creatinine Ratio (7 - 25 %) 37.9 H Hematology CBC w Diff MAN DIFF ORDERED WBC (4.8 - 10.8 /CUMM) 13.3 H RBC (4.20 - 5.40 /CUMM) 2.74 L Hgb (12.0 - 16.0 G/DL) 8.1 L Hct (37 - 47 %) 24.3 L MCV (81.0 - 99.0 FL) 88.8 MCH (27.0 - 31.0 PG) 29.7 RDW (11.5 - 14.5 %) 16.6 H Plt Count (130 - 400 /CUMM) 245 MPV (7.4 - 10.4 FL) 9.1 Gran % (42.2 - 75.2 %) 87.7 H Lymphocytes % (20.5 - 51.1 %) 7.6 L Monocytes % (1.7 - 9.3 %) 4.7 Eosinophils % (0 - 5 %) 0 Basophils % (0.0 - 2.0 %) 0 L Absolute Granulocytes (1.4 - 6.5 /CUMM) 11.7 H Absolute Lymphocytes (1.2 - 3.4 /CUMM) 1.0 L Absolute Monocytes (0.10 - 0.60 /CUMM) 0.6 Absolute Eosinophils (0.0 - 0.7 /CUMM) 0 Absolute Basophils (0.0 - 0.2 /CUMM) 0 Platelet Estimate (ADEQUATE) VERIFIED BY SMEAR Polychromasia 1+ Poikilocytosis 1+ Basophilic Stippling SLIGHT Anisocytosis 1+ Ovalocytes 1+ PUBS MCHC (33.0 - 37.0 G/DL) 33.5 Miscellaneous Phlebotomy Draw Site RIGHT RADIAL 12/10 12/09 0635 1439 Chemistry Sodium (137 - 145 mmol/L) 136 L Potassium (3.5 - 5.1 mmol/L) 4.8 Chloride (98 - 107 mmol/L) 105 Carbon Dioxide (22 - 30 mmol/L) 20 L Anion Gap (5 - 16) 11 BUN (7 - 17 mg/dL) 60 H Creatinine (0.5 - 1.0 mg/dL) 1.8 H Estimated GFR (>60 ml/min) 27 L BUN/Creatinine Ratio (7 - 25 %) 33.3 H Troponin I (< 0.11 ng/ml) 0.14 *H Hematology CBC w Diff NO MAN DIFF REQ WBC (4.8 - 10.8 /CUMM) 9.3 RBC (4.20 - 5.40 /CUMM) 2.79 L Hgb (12.0 - 16.0 G/DL) 8.4 L Hct (37 - 47 %) 25.1 L MCV (81.0 - 99.0 FL) 89.8 MCH (27.0 - 31.0 PG) 30.1 RDW (11.5 - 14.5 %) 16.7 H Plt Count (130 - 400 /CUMM) 189 MPV (7.4 - 10.4 FL) 9.5 Gran % (42.2 - 75.2 %) 82.1 H Lymphocytes % (20.5 - 51.1 %) 9.3 L Monocytes % (1.7 - 9.3 %) 7.7 Eosinophils % (0 - 5 %) 0.7 Basophils % (0.0 - 2.0 %) 0.2 Absolute Granulocytes (1.4 - 6.5 /CUMM) 7.6 H Absolute Lymphocytes (1.2 - 3.4 /CUMM) 0.9 L Absolute Monocytes (0.10 - 0.60 /CUMM) 0.7 H Absolute Eosinophils (0.0 - 0.7 /CUMM) 0.1 Absolute Basophils (0.0 - 0.2 /CUMM) 0 PUBS MCHC (33.0 - 37.0 G/DL) 33.5 Microbiology Date/Time Procedure - Status Source Growth 12/10 818 Respiratory Culture - CAN LOWER RESP Cancelled: SPECIMEN NOT RECEIVED IN LABORATORY 12/10 818 Gram Stain - CAN LOWER RESP Cancelled: SPECIMEN NOT RECEIVED IN LABORATORY 12/09 1130 Legionella Antigen - COMP URINE ROUT 12/09 1130 Streptococcus pneumoniae Antigen (M - COMP URINE ROUT 12/08 1455 Urine Culture - COMP URINE ROUT Vital Signs Date Time Temp Pulse Resp B/P B/P Pulse O2 O2 Flow FiO2 Mean Ox Delivery Rate 12/11 0949 160/60 12/11 0948 98.1 65 22 160/60 12/11 0908 91 Nasal 100% Cannula 12/11 0800 92 Nasal 100% Cannula 12/11 0652 98.1 65 22 160/60 90 Nasal Cannula 12/11 0627 91 Nasal 100% Cannula 12/11 0052 95 Nasal 100% Cannula 12/10 2234 93 Nasal 100% Cannula 12/10 2224 98.5 68 24 146/58 90 12/10 2124 92 Nasal 100% Cannula 12/10 1914 90 Nasal 100% Cannula 12/10 1605 88 Nasal 100% Cannula 12/10 1600 92 Nasal 100% Cannula 12/10 1513 98.9 88 24 140/60 88 Non ReBreather Intake & Output 12/11 1600 12/11 0800 12/11 0000 Intake Total 300 Output Total 600 Balance -300 Intake, IV 200 Intake, Oral 100 Number 1 Bowel Movements Output, Urine 600 Impression/Plan Impression/Plan Impression/Plan: Physical Exam on high flow General Appearance Alert, Oriented X3, Cooperative, Sig dyspnea Skin No Rashes, No Breakdown Skin Temp/Moisture Exam: Warm/Dry HEENT Atraumatic, PERRLA, EOMI Neck Supple, No JVD Cardiovascular Regular Rate, Normal S1, Normal S2, No Murmurs Lungs diffuse expiratory wheeze Abdomen Normal Bowel Sounds, Soft, No Tenderness, No Masses Neurological Normal Speech, Strength at 5/5 X4 Ext, Normal Tone, Sensation Intact Extremities No Cyanosis, No Edema, Normal Pulses, No Tenderness/Swelling Vascular Normal Pulses, Pulses Symmetrical SIGNIFICANT DATA IMPRESSION: 1. Multilobar pneumonia (possibly due to aspiration). Trace bilateral pleural effusions. 2. Mediastinal lymphadenopathy, likely reactive to the pulmonary disease. 3. Cardiomegaly and coronary artery atherosclerotic disease. Previous full pulmonary function test reviewed from 2002 which showed moderate obstructive pulmonary physiology Echocardiogram reviewed which showed normal ejection fraction moderate mitral annular calcification significant pulmonary hypertension EKG showed irregular heart rhythm IMPRESSION This is a lady with moderate to severe obstructive lung disease with more bronchitis and emphysema who has been on chronic oxygen therapy, coronary artery disease with previous stent, diastolic heart disease, previous history of breast cancer status post left-sided mastectomy with previous radiation and chemotherapy, significant low back pain and spinal stenosis on chronic pain medication, hypertension, hyperlipidemia, chronic neuropathy, GERD, chronic kidney disease with recent diarrhea which was worked up as an outpatient with negative CT and negative stool test now has * Acute hypoxemic respiratory failure related to multilobar pneumonia in a lady with decompensated lung disease, pattern of pna is sugg of aspiration pna * 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 * Ischemic heart disease with slightly high troponin with previous stent * Chronic kidney disease stage III with acute renal insufficiency * Chronic pain syndrome on narcotics * Peripheral vascular disease * Probable demand ischemia * Probable proximal atrial fibrillation versus multifocal atrial tachycardia, in sinus * Hypertension, hyperlipidemia, GERD, cholelithiasis, previous history of breast cancer with no obvious evidence of recurrence at this time, however patient recently had a left chest mass excision which did show invasive tumor size to by 2 x 2 with ER/MT and HER-2 negative, 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 Patient has had previous radical mastectomywith recurrence. RECOMMENDATION * Continue prednisone reduce to 30 in am * Continue Unasyn, azithro for three days * COnt anticoag * Sputum culture if able * One dose of iv lasix today 40 mg * Watch BUN/creatinine if it stable would continue to diurese * Overall prognosis is guarded to poor did discuss with the daughter about her situation Keep hob up Aspiration precautions
[2016-12-11] MEDS ORDERED: AZITHROMYCIN500 M3 PO (15:48)
[2016-12-11] MEDS ORDERED: AUGMENTIN 500-1 EACH PO (15:48)
--- NOTE | 2016-12-11 21:00 | NUR ---
PATIENT FOUND CRYING AND DIAPHORETIC; PATIENT STATES SHE WAS ASLEEP THEN WOKE UP WITH RESPIRATORY TREATMENT MASK OVER HER FACE AND FELT SCARED; PATIENT BOOSTED FOR OPTIMAL BREATHING; HF N/C 100% IN PLACE; PATIENT DIAPHORETIC AND FLUSHED; BP 170/58; HR80S; SPO2 87%; FINGERSTICK 435; DR. ELOY PAUL NOTIFIED; PER MD ADMINISTER 10 UNITS NOVOLOG SQ AND RECHECK FINGERSTICK AND BP IN AN 1HR; FAMILY AT BEDSIDE; WILL MONITOR
--- NOTE | 2016-12-11 22:40 | NUR ---
NSG NOTE: DR. ELOY PAUL NOTIFIED THAT PATIENT BP IS IMPROVING, PATIENT NO LONGER IS DIAPHORETIC AND IS CALM; LAST FINGERSTICK 394 AND IMPROVING; FAMILY INSTRUCTED TO AVOID SUGARY FOODS AND DRINKS; PATIENT NOW IN AFIB @ 90S- MD AWARE; WILL MONITOR
[2016-12-11 23:27] VITALS: BP 156/58
[2016-12-12 06:50] VITALS: BP 150/60
[2016-12-12 08:35] LABS: ABSOLUTE BASOPHIL COUNT 0 /CUMM (0.0-0.2); ABSOLUTE EOSINOPHIL COUNT 0 /CUMM (0.0-0.7); ABSOLUTE GRANULOCYTE CT 12.6 /CUMM (1.4-6.5); ABSOLUTE LYMPH COUNT 1.2 /CUMM (1.2-3.4); ABSOLUTE MONOCYTE COUNT 0.7 /CUMM (0.10-0.60); BASOPHIL % 0.1 % (0.0-2.0); EOSINOPHIL % 0.1 % (0-5); HEMATOCRIT 22.4 % (37-47); MEAN CORPUSCULAR HGB 30.3 PG (27.0-31.0); MEAN CORPUSCULAR HGB CONC 33.7 G/DL (33.0-37.0); MEAN CORPUSCULAR VOLUME 89.8 FL (81.0-99.0); PLATELET COUNT 244 /CUMM (130-400); RBC DISTRIBUTION WIDTH 16.4 % (11.5-14.5); WHITE BLOOD CELL COUNT 14.6 /CUMM (4.8-10.8)
--- NOTE | 2016-12-12 09:18 | PN- Housestaff ---
MADISON JORDAN 12/12/16 0918: Subjective Follow-up For: Acute COPD exacerbation Demand ischemia Acute kidney injury Aspiration pneumonia New onset atrial fibrillation Tele-Events Since Last Visit: 10 beat run of Vtach over night Subjective: Patient seen and examined. She states that she is doing well. Breathing has improved subjectively however she continues to be on high flow oxygen. She remains afebrile, BC x 2 negative, urine strep pneumo antigen negative. Review of Systems Constitutional: Reports: see HPI. Objective Last 24 Hrs of Vital Signs/I&O Vital Signs Date Time Temp Pulse Resp B/P B/P Pulse O2 O2 Flow FiO2 Mean Ox Delivery Rate 12/12 0844 68 150/60 12/12 0844 68 150/60 12/12 0650 98.9 68 24 150/60 92 Nasal Cannula 12/12 0112 85 Nasal 100% Cannula 12/12 0000 85 Nasal 100% Cannula 12/11 2327 98.0 94 32 156/58 90 Nasal Cannula 12/11 2047 89 Nasal 100% Cannula 12/11 1600 90 Nasal 100% Cannula 12/11 1422 99.2 80 20 160/64 87 Nasal Cannula 12/11 0949 160/60 12/11 0948 98.1 65 22 160/60 Intake & Output 12/12 1600 15 0800 12/12 0000 Intake Total 300 480 Output Total 600 900 Balance -300 -420 Intake, IV 200 240 Intake, Oral 100 240 Number 1 Bowel Movements Output, Urine 600 900 Physical Exam General Appearance: Alert, Oriented X3, Cooperative, Mild Distress Skin: No Rashes HEENT: Atraumatic, PERRLA, EOMI Neck: Supple Cardiovascular: Normal S1, Normal S2 Lungs: dec breath sounds b/l Extremities: Normal Pulses Assessment/Plan Assessment: Patient is 86-year-old female with past medical history significant for COPD on as needed home oxygen and nocturnal oxygen 3l, history of coronary artery disease status post stent placement, history of diastolic congestive heart failure with preserved ejection fraction, history of breast cancer status post left-sided mastectomy with recurrence and repeat chemotherapy and radiation , history of spinal stenosis on chronic pain medications, hypertension, hyperlipidemia, neuropathy and GERD came with chief complaint of worsening shortness of breath. Imaging CXR 12/09 Worsening airspace disease within the right lower lobe consistent with aspiration pneumonia. CT chest 12/10 1. Multilobar pneumonia (possibly due to aspiration). Trace bilateral pleural effusions. 2. Mediastinal lymphadenopathy, likely reactive to the pulmonary disease. 3. Cardiomegaly and coronary artery atherosclerotic disease. CT head 12/10 to r/o stroke Somewhat limited study with motion artifacts. Moderate chronic white matter microangiopathy. No acute intracranial hemorrhage or territorial infarction. Problem list 1. Elevated troponins most likely demand ischemia due to underlying shortness of breath. 2. Acute on chronic hypoxic respiratory failure likely due to COPD exacerbation 3. History of CAD status post stent placement 4. History of hypertension 5. History of spinal stenosis on chronic pain meds 6. History of GERD 7. History of breast cancer status post radiation and mastectomy 8. Acute on chronic kidney injury most likely due to dehydration given history of diarrhea. 9. Aspiration pneumonia 10. New onset atrial fibrillation COPD exacerbation Patient continues to be on high flow oxygen, she is on a prednisone taper and on IV unasyn for aspiration pneumonia. Will continue mucinex, albuterol and spiriva Elevated troponins with hx of CAD (her current troponins could be due to demand ischemia due to SOB) Troponins trended down Echocardiogram 12/06 Normal left ventricular ejection fraction visually estimated at >65 %. No obvious regional wall motion abnormalities. Abnormal relaxationfilling pattern of the left ventricle for age (stage 1 diastolic dysfunction). No acute cardiology intervention at this point of time She is continued on metoprolol, plavix, statin and aspirin. New onset atrial fibrillation Patient developed new onset atrial fibrillation 12/09/2016. EKG showed atrial fibrillation rate 67. Catalyst Operator was consulted. Her CHADS VASC score 5. Patient is started on anticoagulation-eliqus 2.5 mg twice a day she went back to sinus rhythm 12/10/2006. (paroxysmal a fib most likely as patient converted back ). Will continue to monitor on telemetry floor. Acute Kidney Injury: Creatinine continues to be elevated however it has trended down from 2.1 on 12/06 to 1.4 on 12/12. This could be her new baseline. Will continue to avoid nephrotoxic agents and continue to monitor. Continue on home meds including amlodipine, lipitor, gabapentin etc. Diet Recommended puree and thin liquid diet Puree and thin liquid diet DVT ppx-heparin 5000u subcutaneous Full code Problem List: 1. Dependent edema Pain Ratin Pain Location: none Pain Goal: Pain 4 or less Pain Plan: tylenol Tomorrow's Labs & Rationales: cbc bep Consulting Request: Consulting Specialty: Pulmonary Disease CAROLEE DONOVAN,LA 12/12/16 9824: Attending MD Review Statement Attending Statement Attending MD Statement: examined this patient, discuss w/resident/PA/INSPECTOR CLIP ON SUNGLASSES, agreed w/resident/PA/INSPECTOR CLIP ON SUNGLASSES, discussed with family Attending Assessment/Plan: Patient seen and examined. Plan of care discussed with the medical team and the patient. Available lab work and radiology test reports were reviewed. Patient remains 100% oxygen. However she appears comfortable. Her family was at the bedside. Patient denies any recent fever chills or any chest pains. She denies any nausea vomiting or abdominal pain. Vital signs are stable. Exam shows scattered crepitation in the chest. Labs show creatinine 1.4 Assessment and plan * Agree with DC azithromycin. Continue Unasyn. * Continue prednisone * Observe closely for diarrhea * Check C. difficile- has no family her diarrhea has reduced since yesterday. Today she only had 3 recorded bowel movements. If C. difficile is positive we will start patient on oral vancomycin.
[2016-12-12 10:26] LABS: GRANULOCYTE % 86.7 % (42.2-75.2)
--- NOTE | 2016-12-12 12:24 | PN- Pulmonary ---
Subjective HPI/Critical Care Issues: Tele-Events Since Last Visit: 10 beat run of Vtach over night Subjective: Patient seen and examined. She states that she is doing well. Breathing has improved subjectively however she continues to be on high flow oxygen. She remains afebrile, BC x 2 negative, urine strep pneumo antigen negative. Review of Systems Constitutional: Reports: see HPI. DID have diarrhea yesterday Objective Current Medications: Current Medications Sig/Floresita Start time Last Medication Dose Route Stop Time Status Admin Acetaminophen 650 MG .STK-MED ONE 12/12 0229 DC PO 12/12 0230 Acetaminophen 650 MG Q6P PRN 12/06 0645 AC 12/12 PO 0234 Acetaminophen/ 1 TAB Q6P PRN 12/06 0645 AC Hydrocodone Bitart PO Albuterol Sulfate 3 ML EVERY 4 HRS/AWAKE 12/11 0800 AC 12/12 INH 0959 Albuterol Sulfate 2 PUF Q4P PRN 12/06 0715 AC 12/07 INH 2258 Amlodipine Besylate 10 MG DAILY 12/06 1000 AC 12/12 PO 0844 Ampicillin Sodium/ 1,500 MG Q6 12/08 2359 AC 12/12 Sulbactam Sodium IV 0659 Sodium Chloride 100 ML Apixaban 2.5 MG BID 12/10 1029 AC 12/12 PO 0844 Aspirin Buffered 81 MG DAILY 12/06 1000 AC 12/12 PO 0844 Atorvastatin Calcium 40 MG 1700 12/06 1700 AC 12/11 PO 1713 Azithromycin 500 MG DAILY 12/10 1455 AC 12/12 Sodium Chloride 250 ML IV 0845 Clopidogrel Bisulfate 75 MG DAILY 12/06 1000 AC 12/12 PO 0907 Furosemide 40 MG ONCE ONE 12/11 1600 DC 12/11 IV 12/11 1700 1712 Gabapentin 600 MG TID 12/06 1000 AC 12/12 PO 0844 Guaifenesin 600 MG Q12 12/06 1144 AC 12/12 PO 0844 Insulin Aspart 0 TIDAC 12/10 0800 AC 12/11 SC 1712 Insulin Aspart 0 AT BEDTIME 12/09 2200 AC 12/11 SC 2111 Metoprolol Succinate 25 MG DAILY 12/06 1000 AC 12/12 PO 0844 Nicotine 7 MG DAILY 12/09 1353 AC 12/12 TOP 0908 Nitroglycerin 0.4 MG DAILY 12/06 1000 AC 12/12 TOP 0845 Omeprazole 20 MG DAILY AC 12/07 0700 AC 12/12 PO 0701 Oxycodone/ 2 TAB Q6P PRN 12/06 0645 AC Acetaminophen PO Polyethylene Glycol 17 GM DAILY PRN 12/07 0930 AC 12/07 PO 1021 Prednisone 30 MG DAILY 12/12 1000 AC 12/12 PO 12/13 1001 0844 Prednisone 40 MG DAILY 12/09 1000 DC 12/11 PO 12/11 2300 0949 Senna/Docusate Sodium 2 TAB DAILY PRN 12/07 0930 AC 12/07 PO 1021 Tiotropium [place] 1 PUF DAILY 12/07 1000 AC 12/12 INH 1032 Vital Signs & I&O Last 24 Hrs of Vitals and I&O: Vital Signs Date Time Temp Pulse Resp B/P B/P Pulse O2 O2 Flow FiO2 Mean Ox Delivery Rate 12/12 1004 90 Nasal 100% Cannula 12/12 0844 68 150/60 12/12 0844 68 150/60 12/12 0800 90 Nasal 100% Cannula 12/12 0650 98.9 68 24 150/60 92 Nasal Cannula 12/12 0112 85 Nasal 100% Cannula 12/12 0000 85 Nasal 100% Cannula 12/11 2327 98.0 94 32 156/58 90 Nasal Cannula 12/11 2047 89 Nasal 100% Cannula 12/11 1600 90 Nasal 100% Cannula 12/11 1422 99.2 80 20 160/64 87 Nasal Cannula Intake & Output 12/12 1600 12/12 0800 12/12 0000 Intake Total 300 480 Output Total 600 900 Balance -300 -420 Intake, IV 200 240 Intake, Oral 100 240 Number 1 Bowel Movements Output, Urine 600 900 Laboratory Tests 12/12 12/11 0635 1355 Blood Gas pH (7.35 - 7.45 PH) 7.37 pCO2 (35 - 45 TORR) 39 pO2 (80 - 100 TORR) 59 L HCO3 (21 - 28 MEQ/L) 22 ABG O2 Sat (Measured) (>96.0 %) 89.0 L Carboxyhemoglobin (1.5 - 5.0 %) 0.3 L O2 Concentration % 100% O2 Delivery Method [facility] Chemistry Sodium (137 - 145 mmol/L) 140 Potassium (3.5 - 5.1 mmol/L) 5.0 Chloride (98 - 107 mmol/L) 105 Carbon Dioxide (22 - 30 mmol/L) 27 Anion Gap (5 - 16) 8 BUN (7 - 17 mg/dL) 52 H Creatinine (0.5 - 1.0 mg/dL) 1.4 H Estimated GFR (>60 ml/min) 36 L BUN/Creatinine Ratio (7 - 25 %) 37.1 H Hematology CBC w Diff NO MAN DIFF REQ WBC (4.8 - 10.8 /CUMM) 14.6 H RBC (4.20 - 5.40 /CUMM) 2.50 L Hgb (12.0 - 16.0 G/DL) 7.6 L Hct (37 - 47 %) 22.4 L MCV (81.0 - 99.0 FL) 89.8 MCH (27.0 - 31.0 PG) 30.3 RDW (11.5 - 14.5 %) 16.4 H Plt Count (130 - 400 /CUMM) 244 MPV (7.4 - 10.4 FL) 9.0 Gran % (42.2 - 75.2 %) 86.7 H Lymphocytes % (20.5 - 51.1 %) 8.2 L Monocytes % (1.7 - 9.3 %) 4.9 Eosinophils % (0 - 5 %) 0.1 Basophils % (0.0 - 2.0 %) 0.1 Absolute Granulocytes (1.4 - 6.5 /CUMM) 12.6 H Absolute Lymphocytes (1.2 - 3.4 /CUMM) 1.2 Absolute Monocytes (0.10 - 0.60 /CUMM) 0.7 H Absolute Eosinophils (0.0 - 0.7 /CUMM) 0 Absolute Basophils (0.0 - 0.2 /CUMM) 0 PUBS MCHC (33.0 - 37.0 G/DL) 33.7 Miscellaneous Phlebotomy Draw Site RIGHT RADIAL 12/11 0805 Chemistry Sodium (137 - 145 mmol/L) 138 Potassium (3.5 - 5.1 mmol/L) 5.1 Chloride (98 - 107 mmol/L) 107 Carbon Dioxide (22 - 30 mmol/L) 21 L Anion Gap (5 - 16) 10 BUN (7 - 17 mg/dL) 53 H Creatinine (0.5 - 1.0 mg/dL) 1.4 H Estimated GFR (>60 ml/min) 36 L BUN/Creatinine Ratio (7 - 25 %) 37.9 H Hematology CBC w Diff MAN DIFF ORDERED WBC (4.8 - 10.8 /CUMM) 13.3 H RBC (4.20 - 5.40 /CUMM) 2.74 L Hgb (12.0 - 16.0 G/DL) 8.1 L Hct (37 - 47 %) 24.3 L MCV (81.0 - 99.0 FL) 88.8 MCH (27.0 - 31.0 PG) 29.7 RDW (11.5 - 14.5 %) 16.6 H Plt Count (130 - 400 /CUMM) 245 MPV (7.4 - 10.4 FL) 9.1 Gran % (42.2 - 75.2 %) 87.7 H Lymphocytes % (20.5 - 51.1 %) 7.6 L Monocytes % (1.7 - 9.3 %) 4.7 Eosinophils % (0 - 5 %) 0 Basophils % (0.0 - 2.0 %) 0 L Absolute Granulocytes (1.4 - 6.5 /CUMM) 11.7 H Absolute Lymphocytes (1.2 - 3.4 /CUMM) 1.0 L Absolute Monocytes (0.10 - 0.60 /CUMM) 0.6 Absolute Eosinophils (0.0 - 0.7 /CUMM) 0 Absolute Basophils (0.0 - 0.2 /CUMM) 0 Platelet Estimate (ADEQUATE) VERIFIED BY SMEAR Polychromasia 1+ Poikilocytosis 1+ Basophilic Stippling SLIGHT Anisocytosis 1+ Ovalocytes 1+ PUBS MCHC (33.0 - 37.0 G/DL) 33.5 Microbiology Date/Time Procedure - Status Source Growth 12/12 1118 Clostridium difficile Toxin A & B - ORD STOOL 12/10 08 Respiratory Culture - CAN LOWER RESP Cancelled: SPECIMEN NOT RECEIVED IN LABORATORY 12/10 818 Gram Stain - CAN LOWER RESP Cancelled: SPECIMEN NOT RECEIVED IN LABORATORY Impression/Plan Impression/Plan Impression/Plan: Physical Exam on high flow General Appearance Alert, Oriented X3, Cooperative, Sig dyspnea Skin No Rashes, No Breakdown Skin Temp/Moisture Exam: Warm/Dry HEENT Atraumatic, PERRLA, EOMI Neck Supple, No JVD Cardiovascular Regular Rate, Normal S1, Normal S2, No Murmurs Lungs diffuse expiratory wheeze Abdomen Normal Bowel Sounds, Soft, No Tenderness, No Masses Neurological Normal Speech, Strength at 5/5 X4 Ext, Normal Tone, Sensation Intact Extremities No Cyanosis, No Edema, Normal Pulses, No Tenderness/Swelling Vascular Normal Pulses, Pulses Symmetrical SIGNIFICANT DATA IMPRESSION: 1. Multilobar pneumonia (possibly due to aspiration). Trace bilateral pleural effusions. 2. Mediastinal lymphadenopathy, likely reactive to the pulmonary disease. 3. Cardiomegaly and coronary artery atherosclerotic disease. Previous full pulmonary function test reviewed from 2002 which showed moderate obstructive pulmonary physiology Echocardiogram reviewed which showed normal ejection fraction moderate mitral annular calcification significant pulmonary hypertension EKG showed irregular heart rhythm IMPRESSION This is a lady with moderate to severe obstructive lung disease with more bronchitis and emphysema who has been on chronic oxygen therapy, coronary artery disease with previous stent, diastolic heart disease, previous history of breast cancer status post left-sided mastectomy with previous radiation and chemotherapy, significant low back pain and spinal stenosis on chronic pain medication, hypertension, hyperlipidemia, chronic neuropathy, GERD, chronic kidney disease with recent diarrhea which was worked up as an outpatient with negative CT and negative stool test now has * Acute on chronic hypoxemic respiratory failure related to multilobar pneumonia in a lady with decompensated lung disease, pattern of pna is sugg of aspiration pna * 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 * Ischemic heart disease with slightly high troponin with previous stent * Chronic kidney disease stage III with acute renal insufficiency * Chronic pain syndrome on narcotics * Peripheral vascular disease * Probable demand ischemia * Probable proximal atrial fibrillation versus multifocal atrial tachycardia, in sinus * Hypertension, hyperlipidemia, GERD, cholelithiasis, previous history of breast cancer with no obvious evidence of recurrence at this time, however patient recently had a left chest mass excision which did show invasive tumor size to by 2 x 2 with ER/FL and HER-2 negative, 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 Patient has had previous radical mastectomywith recurrence. RECOMMENDATION * Continue prednisone 30 * DC azitro * stool for cdiff and if diarrhea persists start po vanco empirically * Continue Unasyn, and dc azithro * COnt anticoag, watch hct and check stool for cdiff * DC senna, miralax etc for now * Sputum culture if able * Hold lasix as she is having diarrhea * Watch BUN/creatinine if it stable would continue to diurese * Overall prognosis is guarded to poor did discuss with the daughter about her situation Keep hob up Aspiration precautions
--- NOTE | 2016-12-12 13:16 | PN- Cardiology ---
Subjective Subjective: Remains on high flow O2. Denies chest pain. Breathing feels "ok". Objective Vital Signs and I&Os Vital Signs Date Time Temp Pulse Resp B/P B/P Pulse O2 O2 Flow FiO2 Mean Ox Delivery Rate 12/12 1230 99.6 12/12 1004 90 Nasal 100% Cannula 12/12 0844 68 150/60 12/12 0844 68 150/60 12/12 0800 90 Nasal 100% Cannula 12/12 0650 98.9 68 24 150/60 92 Nasal Cannula 12/12 0112 85 Nasal 100% Cannula 12/12 0000 85 Nasal 100% Cannula 12/11 2327 98.0 94 32 156/58 90 Nasal Cannula 12/11 2047 89 Nasal 100% Cannula 12/11 1600 90 Nasal 100% Cannula 12/11 1422 99.2 80 20 160/64 87 Nasal Cannula Intake & Output 12/12 1600 12/12 0800 12/12 0000 12/11 1600 12/11 0800 12/11 0000 Intake Total 300 480 860 300 Output Total 600 900 900 600 Balance -300 -420 -40 -300 Intake, IV 200 240 380 200 Intake, Oral 100 240 480 100 Number 1 4 1 Bowel Movements Output, Urine 600 900 900 600 Physical Exam: General: no apparent distress. On high flow O2 Eyes: No obvious scleral icterus. HEENT: No jugular venous distention or abnormal jugular venous pulsations. Cardiovascular: Normal intensity S1/S2. Regular. Respiratory: Scattered wheezing Abdomen: Soft, nontender with no guarding or rebound tenderness. Musculoskeletal: No clubbing or cyanosis noted Skin: Warm Current Medications: Current Medications Sig/Floresita Start time Last Medication Dose Route Stop Time Status Admin Acetaminophen 650 MG .STK-MED ONE 12/12 0229 DC PO 12/12 0230 Acetaminophen 650 MG Q6P PRN 12/06 0645 AC 12/12 PO 1230 Acetaminophen/ 1 TAB Q6P PRN 12/06 0645 AC Hydrocodone Bitart PO Albuterol Sulfate 3 ML EVERY 4 HRS/AWAKE 12/11 0800 AC 12/12 INH 1309 Albuterol Sulfate 2 PUF Q4P PRN 12/06 0715 AC 12/07 INH 2258 Amlodipine Besylate 10 MG DAILY 12/06 1000 AC 12/12 PO 0844 Ampicillin Sodium/ 1,500 MG Q6 12/08 2359 AC 12/12 Sulbactam Sodium IV 1229 Sodium Chloride 100 ML Apixaban 2.5 MG BID 12/10 1029 AC 12/12 PO 0844 Aspirin Buffered 81 MG DAILY 12/06 1000 AC 12/12 PO 0844 Atorvastatin Calcium 40 MG 1700 12/06 1700 AC 12/11 PO 1713 Azithromycin 500 MG DAILY 12/10 1455 AC 12/12 Sodium Chloride 250 ML IV 0845 Clopidogrel Bisulfate 75 MG DAILY 12/06 1000 AC 12/12 PO 0907 Furosemide 40 MG ONCE ONE 12/11 1600 DC 12/11 IV 12/11 1700 1712 Gabapentin 600 MG TID 12/06 1000 AC 12/12 PO 0844 Guaifenesin 600 MG Q12 12/06 1144 AC 12/12 PO 0844 Insulin Aspart 0 TIDAC 12/10 0800 AC 12/11 SC 1712 Insulin Aspart 0 AT BEDTIME 12/09 2200 AC 12/11 [place] 2111 Metoprolol Succinate 25 MG DAILY 12/06 1000 AC 12/12 PO 0844 Nicotine 7 MG DAILY 12/09 1353 AC 12/12 TOP 0908 Nitroglycerin 0.4 MG DAILY 12/06 1000 AC 12/12 TOP 0845 Omeprazole 20 MG DAILY AC 12/07 0700 AC 12/12 PO 0701 Oxycodone/ 2 TAB Q6P PRN 12/06 0645 AC Acetaminophen PO Polyethylene Glycol 17 GM DAILY PRN 12/07 0930 AC 12/07 PO 1021 Prednisone 30 MG DAILY 12/12 1000 AC 12/12 PO 12/13 1001 0844 Prednisone 40 MG DAILY 12/09 1000 DC 12/11 PO 12/11 2300 0949 Senna/Docusate Sodium 2 TAB DAILY PRN 12/07 0930 AC 12/07 PO 1021 Tiotropium [place] 1 PUF DAILY 12/07 1000 AC 12/12 INH 1032 Results Last 48 Hrs of Labs/Mics: Laboratory Tests 12/12/16 0635: Anion Gap 8, Estimated GFR 36 L, BUN/Creatinine Ratio 37.1 H, CBC w Diff NO MAN DIFF REQ, RBC 2.50 L, MCV 89.8, MCH 30.3, RDW 16.4 H, MPV 9.0, Gran % 86.7 H, Lymphocytes % 8.2 L, Monocytes % 4.9, Eosinophils % 0.1, Basophils % 0.1, Absolute Granulocytes 12.6 H, Absolute Lymphocytes 1.2, Absolute Monocytes 0.7 H, Absolute Eosinophils 0, Absolute Basophils 0, PUBS MCHC 33.7 12/11/16 1355: pH 7.37, pCO2 39, pO2 59 L, HCO3 22, ABG O2 Sat (Measured) 89.0 L, Carboxyhemoglobin 0.3 L, O2 Concentration % 100%, O2 Delivery Method HFNC, Phlebotomy Draw Site RIGHT RADIAL 12/11/16 0805: Anion Gap 10, Estimated GFR 36 L, BUN/Creatinine Ratio 37.9 H, CBC w Diff MAN DIFF ORDERED, RBC 2.74 L, MCV 88.8, MCH 29.7, RDW 16.6 H, MPV 9.1, Gran % 87.7 H, Lymphocytes % 7.6 L, Monocytes % 4.7, Eosinophils % 0, Basophils % 0 L, Absolute Granulocytes 11.7 H, Absolute Lymphocytes 1.0 L, Absolute Monocytes 0.6, Absolute Eosinophils 0, Absolute Basophils 0, Platelet Estimate VERIFIED BY SMEAR, Polychromasia 1+, Poikilocytosis 1+, Basophilic Stippling SLIGHT, Anisocytosis 1+, Ovalocytes 1+, PUBS MCHC 33.5 Recent Imaging Studies: Telemetry tracings were personally reviewed and shows sinus rhythm with paroxysms of atrial fibrillation and a 7 beat wide complex run Assessment/Plan Assessment/Plan 1. COPD 2. Pneumonia 3. Demand ischemia 4. Renal insufficiency 5. Paroxysmal atrial fibrillation on Eliquis 6. CAD with prior PCI 7. Anemia Overall she feels her breathing has improved although she remains on high flow oxygen. Monitor hemoglobin levels. She remains on antibiotics. Maintain negative fluid balance. Prognosis is guarded. Chance Alford MD [facility] Continue telemetry? Yes
[2016-12-12 15:25] VITALS: BP 152/58
[2016-12-12 18:44] LABS: ABSOLUTE BASOPHIL COUNT 0 /CUMM (0.0-0.2); ABSOLUTE EOSINOPHIL COUNT 0 /CUMM (0.0-0.7); ABSOLUTE GRANULOCYTE CT 17.8 /CUMM (1.4-6.5); ABSOLUTE LYMPH COUNT 0.7 /CUMM (1.2-3.4); ABSOLUTE MONOCYTE COUNT 0 /CUMM (0.10-0.60); BASOPHIL % 0.1 % (0.0-2.0); EOSINOPHIL % 0.2 % (0-5); GRANULOCYTE % 95.9 % (42.2-75.2); HEMATOCRIT 23.8 % (37-47); MEAN CORPUSCULAR HGB 29.7 PG (27.0-31.0); MEAN CORPUSCULAR HGB CONC 32.9 G/DL (33.0-37.0); MEAN CORPUSCULAR VOLUME 90.4 FL (81.0-99.0); PLATELET COUNT 233 /CUMM (130-400); RBC DISTRIBUTION WIDTH 16.7 % (11.5-14.5); RED BLOOD CELL CT 2.63 /CUMM (4.20-5.40); WHITE BLOOD CELL COUNT 18.6 /CUMM (4.8-10.8)
[2016-12-12 19:59] VITALS: BP 158/64
[2016-12-12 22:46] VITALS: BP 142/70
[2016-12-13 06:37] VITALS: BP 170/70
[2016-12-13 08:28] LABS: ABSOLUTE BASOPHIL COUNT 0 /CUMM (0.0-0.2); ABSOLUTE EOSINOPHIL COUNT 0.1 /CUMM (0.0-0.7); ABSOLUTE GRANULOCYTE CT 16.1 /CUMM (1.4-6.5); ABSOLUTE LYMPH COUNT 0.7 /CUMM (1.2-3.4); ABSOLUTE MONOCYTE COUNT 0.5 /CUMM (0.10-0.60); BASOPHIL % 0 % (0.0-2.0); EOSINOPHIL % 0.3 % (0-5); HEMATOCRIT 23.8 % (37-47); MEAN PLATELET VOLUME 8.9 FL (7.4-10.4); PLATELET COUNT 246 /CUMM (130-400); RBC DISTRIBUTION WIDTH 16.8 % (11.5-14.5); RED BLOOD CELL CT 2.62 /CUMM (4.20-5.40); WHITE BLOOD CELL COUNT 17.3 /CUMM (4.8-10.8)
--- NOTE | 2016-12-13 09:41 | PN- Housestaff ---
DIO CINTRON 12/13/16 0940: Subjective Follow-up For: COPD exacerbation Elevated TROP Acute on CKD A-fib Subjective: Patient has no complaints. No acute events overnight. Glucose this a.m 197, given 2U Novolog SS. Review of Systems Constitutional: Reports: see HPI. Objective Last 24 Hrs of Vital Signs/I&O Vital Signs Date Time Temp Pulse Resp B/P B/P Pulse O2 O2 Flow FiO2 Mean Ox Delivery Rate 12/13 1025 97 152/62 12/13 0931 88 Nasal 90% Cannula 12/13 0800 Nasal Cannula 12/13 0637 97.9 62 24 170/70 93 Nasal Cannula 12/13 0555 58 174/72 12/13 0027 94 Nasal 90% Cannula 12/13 0000 Nasal 90% Cannula 12/12 2246 98.7 92 16 142/70 92 Nasal Cannula 12/12 2222 93 Nasal 90% Cannula 12/12 1959 99.1 73 20 158/64 90 90% 12/12 1900 94 Nasal 95% Cannula 12/12 1600 94 95% 12/12 1600 96 Nasal 100% Cannula 12/12 1525 99.2 71 20 152/58 93 Non ReBreather Intake & Output 12/13 1600 12/13 0800 12/13 0000 Intake Total 300 470 Output Total 600 700 550 Balance -600 -400 -80 Intake, IV 120 Intake, Oral 300 350 Number 3 1 1 Bowel Movements Output, Urine 600 700 550 Physical Exam General Appearance: Alert, Oriented X3, Cooperative, No Acute Distress HEENT: Atraumatic, PERRLA Cardiovascular: Normal S1, Normal S2 Lungs: Bilateral expiratory wheezing Extremities: No Cyanosis, No Edema Current Medications: Current Medications Sig/Floresita Start time Last Medication Dose Route Stop Time Status Admin Acetaminophen 650 MG Q6P PRN 12/06 0645 AC 12/12 PO 1230 Acetaminophen/ 1 TAB Q6P PRN 12/06 0645 DC Hydrocodone Bitart PO Albuterol Sulfate 3 ML EVERY 4 HRS/AWAKE 12/11 0800 AC 12/13 INH 1223 Albuterol Sulfate 2 PUF Q4P PRN 12/06 0715 AC 12/07 INH 2258 Amlodipine Besylate 10 MG DAILY 12/06 1000 AC 12/13 PO 0555 Ampicillin Sodium/ 1,500 MG Q6 12/08 2359 AC 12/13 Sulbactam Sodium IV 1201 Sodium Chloride 100 ML Apixaban 2.5 MG BID 12/10 1029 AC 12/13 PO 1024 Aspirin Buffered 81 MG DAILY 12/06 1000 AC 12/13 PO 1024 Atorvastatin Calcium 40 MG 1700 12/06 1700 AC 12/12 PO 1743 Azithromycin 500 MG DAILY 12/10 1455 DC 12/12 Sodium Chloride 250 ML IV 0845 Clopidogrel Bisulfate 75 MG DAILY 12/06 1000 AC 12/13 PO 1025 Gabapentin 600 MG TID 12/06 1000 AC 12/13 PO 1026 Guaifenesin 600 MG Q12 12/06 1144 AC 12/13 PO 1027 Insulin Aspart 0 TIDAC 12/10 0800 AC 12/13 SC 1203 Insulin Aspart 0 AT BEDTIME 12/09 2200 AC 12/12 SC 2137 Metoprolol Succinate 25 MG DAILY 12/06 1000 AC 12/13 PO 1025 Nicotine 7 MG DAILY 12/09 1353 AC 12/13 TOP 1024 Nitroglycerin 0.4 MG DAILY 12/06 1000 AC 12/13 TOP 1024 Omeprazole 20 MG DAILY AC 12/07 0700 AC 12/13 PO 0556 Oxycodone/ 2 TAB Q6P PRN 12/06 0645 DC Acetaminophen PO Polyethylene Glycol 17 GM DAILY PRN 12/07 0930 DC 12/07 PO 1021 Prednisone 30 MG DAILY 12/12 1000 DC 12/13 PO 12/13 1001 1024 Senna/Docusate Sodium 2 TAB DAILY PRN 12/07 0930 DC 12/07 PO 1021 Tiotropium [place] 1 PUF DAILY 12/07 1000 AC 12/13 INH 1025 Last 24 Hrs of Lab/Donell Results Last 24 Hrs of Labs/Mics: Laboratory Tests 12/13/16714: Anion Gap 8, Estimated GFR 43 L, BUN/Creatinine Ratio 37.5 H, CBC w Diff NO MAN DIFF REQ, RBC 2.62 L, MCV 91.0, MCH 30.0, RDW 16.8 H, MPV 8.9, Gran % 93.0 H, Lymphocytes % 3.9 L, Monocytes % 2.8, Eosinophils % 0.3, Basophils % 0 L, Absolute Granulocytes 16.1 H, Absolute Lymphocytes 0.7 L, Absolute Monocytes 0.5, Absolute Eosinophils 0.1, Absolute Basophils 0, PUBS MCHC 33.0 12/12/16 1816: CBC w Diff MAN DIFF ORDERED, RBC 2.63 L, MCV 90.4, MCH 29.7, RDW 16.7 H, MPV 9.0, Gran % 95.9 H, Lymphocytes % 3.6 L, Monocytes % 0.2 L, Eosinophils % 0.2 , Basophils % 0.1, Absolute Granulocytes 17.8 H, Segmented Neutrophils 90 H, Band Neutrophils 3, Absolute Lymphocytes 0.7 L, Lymphocytes 3 L, Monocytes 2, Absolute Monocytes 0 L, Absolute Eosinophils 0, Absolute Basophils 0, Metamyelocytes 2 H, Platelet Estimate ADEQUATE, Poikilocytosis 1+, Anisocytosis 1+, Ovalocytes FEW, PUBS MCHC 32.9 L, Fld Total RBCs Counted 100 Microbiology 12/12 1805 STOOL: Clostridium difficile Toxin A & B - COMP Assessment/Plan Assessment: Patient is 86-year-old female with past medical history significant for COPD on as needed home oxygen and nocturnal oxygen 3l, history of coronary artery disease status post stent placement, history of diastolic congestive heart failure with preserved ejection fraction, history of breast cancer status post left-sided mastectomy with recurrence and repeat chemotherapy and radiation , history of spinal stenosis on chronic pain medications, hypertension, hyperlipidemia, neuropathy and GERD came with chief complaint of worsening shortness of breath. Imaging CXR 12/09 Worsening airspace disease within the right lower lobe consistent with aspiration pneumonia. CT chest 12/10 1. Multilobar pneumonia (possibly due to aspiration). Trace bilateral pleural effusions. 2. Mediastinal lymphadenopathy, likely reactive to the pulmonary disease. 3. Cardiomegaly and coronary artery atherosclerotic disease. CT head 12/10 to r/o stroke Somewhat limited study with motion artifacts. Moderate chronic white matter microangiopathy. No acute intracranial hemorrhage or territorial infarction. Problem list 1. Elevated troponins most likely demand ischemia due to underlying shortness of breath. 2. Acute on chronic hypoxic respiratory failure likely due to COPD exacerbation 3. History of CAD status post stent placement 4. History of hypertension 5. History of spinal stenosis on chronic pain meds 6. History of GERD 7. History of breast cancer status post radiation and mastectomy 8. Acute on chronic kidney injury most likely due to dehydration given history of diarrhea. 9. Aspiration pneumonia 10. New onset atrial fibrillation COPD exacerbation Patient continues to be on high flow oxygen, she is on a prednisone taper and on IV unasyn for aspiration pneumonia. Will continue mucinex, albuterol and spiriva Elevated troponins with hx of CAD (her current troponins could be due to demand ischemia due to SOB) Troponins trended down Echocardiogram 12/06 Normal left ventricular ejection fraction visually estimated at >65 %. No obvious regional wall motion abnormalities. Abnormal relaxationfilling pattern of the left ventricle for age (stage 1 diastolic dysfunction). No acute cardiology intervention at this point of time She is continued on metoprolol, plavix, statin and aspirin. New onset atrial fibrillation Patient developed new onset atrial fibrillation 12/09/2016. EKG showed atrial fibrillation rate 67. Ssis Developer was consulted. Her CHADS VASC score 5. Patient is started on anticoagulation-eliqus 2.5 mg twice a day she went back to sinus rhythm 12/10/2006. (paroxysmal a fib most likely as patient converted back ). Will continue to monitor on telemetry floor. Acute Kidney Injury: Creatinine continues to be elevated however it has trended down from 2.1 on 12/06 to 1.4 on 12/12. This could be her new baseline. Will continue to avoid nephrotoxic agents and continue to monitor. Continue on home meds including amlodipine, lipitor, gabapentin etc. C difficile toxin negative Diet Recommended puree and thin liquid diet Puree and thin liquid diet DVT ppx-heparin 5000u subcutaneous Full code Problem List: 1. COPD (chronic obstructive pulmonary disease) 2. Acute renal insufficiency 3. Angioedema 4. CHF (congestive heart failure) Pain Ratin Pain Location: N/A Pain Goal: Remain pain free Pain Plan: N/A Tomorrow's Labs & Rationales: CBC to monitor anemia Consulting Request: Consulting Specialty: Pulmonary Disease CAROLEE DONOVAN,[facility] 12/13/16 1136: Attending Review Statement Attending Statement Attending Assessment/Plan: Attending Statement: examined this patient, discuss w/resident/PA/MEDICAL ESTHETICIAN, agreed w/resident/PA/MEDICAL ESTHETICIAN, discussed with family Attending Assessment/Plan: Patient seen and examined. Plan of care discussed with the medical team and the patient. Available lab work and radiology test reports were reviewed. Patient remains 100% oxygen. However she appears comfortable. Her family was at the bedside. Patient denies any recent fever chills or any chest pains. She denies any nausea vomiting or abdominal pain. Her diarrhea has decreased. Vital signs are stable. Exam shows scattered crepitation in the chest. BP slightly elevated at 170/70 this morning. Labs show creatinine 1.2 and hematocrit is 23.8. WBC count is 17.3. C. difficile is currently pending Assessment and plan * Continue Unasyn. * Continue prednisone * Observe closely for diarrhea; await C. difficile; if C. difficile is positive patient will need oral Vanco
--- NOTE | 2016-12-13 11:22 | PN- Pulmonary ---
Subjective HPI/Critical Care Issues: Remains on high flow O2. Denies chest pain. Breathing feels "ok". Objective Current Medications: Current Medications Sig/Floresita Start time Last Medication Dose Route Stop Time Status Admin Acetaminophen 650 MG .STK-MED ONE 12/12 1217 DC PO 12/12 1218 Acetaminophen 650 MG Q6P PRN 12/06 0645 AC 12/12 PO 1230 Acetaminophen/ 1 TAB Q6P PRN 12/06 0645 DC Hydrocodone Bitart PO Albuterol Sulfate 3 ML EVERY 4 HRS/AWAKE 12/11 0800 AC 12/13 INH 0922 Albuterol Sulfate 2 PUF Q4P PRN 12/06 0715 AC 12/07 INH 2258 Amlodipine Besylate 10 MG DAILY 12/06 1000 AC 12/13 PO 0555 Ampicillin Sodium/ 1,500 MG Q6 12/08 2359 AC 12/13 Sulbactam Sodium IV 0556 Sodium Chloride 100 ML Apixaban 2.5 MG BID 12/10 1029 AC 12/13 PO 1024 Aspirin Buffered 81 MG DAILY 12/06 1000 AC 12/13 PO 1024 Atorvastatin Calcium 40 MG 1700 12/06 1700 AC 12/12 PO 1743 Azithromycin 500 MG DAILY 12/10 1455 DC 12/12 Sodium Chloride 250 ML IV 0845 Clopidogrel Bisulfate 75 MG DAILY 12/06 1000 AC 12/13 PO 1025 Gabapentin 600 MG TID 12/06 1000 AC 12/13 PO 1026 Guaifenesin 600 MG Q12 12/06 1144 AC 12/13 PO 1027 Insulin Aspart 0 TIDAC 12/10 0800 AC 12/13 SC 0826 Insulin Aspart 0 AT BEDTIME 12/09 2200 AC 12/12 SC 2137 Metoprolol Succinate 25 MG DAILY 12/06 1000 AC 12/13 PO 1025 Nicotine 7 MG DAILY 12/09 1353 AC 12/13 TOP 1024 Nitroglycerin 0.4 MG DAILY 12/06 1000 AC 12/13 TOP 1024 Omeprazole 20 MG DAILY AC 12/07 0700 AC 12/13 PO 0556 Oxycodone/ 2 TAB Q6P PRN 12/06 0645 DC Acetaminophen PO Polyethylene Glycol 17 GM DAILY PRN 12/07 0830 DC 12/07 PO 1021 Prednisone 30 MG DAILY 12/12 1000 DC 12/13 PO 12/13 1001 1024 Senna/Docusate Sodium 2 TAB DAILY PRN 12/07 0830 DC 12/07 PO 1021 Tiotropium [place] 1 PUF DAILY 12/07 1000 AC 12/13 INH 1025 Vital Signs & I&O Last 24 Hrs of Vitals and I&O: Vital Signs Date Time Temp Pulse Resp B/P B/P Pulse O2 O2 Flow FiO2 Mean Ox Delivery Rate 12/13 1025 97 152/62 12/13 0931 88 Nasal 90% Cannula 12/13 0637 97.9 62 24 170/70 93 Nasal Cannula 12/13 0555 58 174/72 12/13 0027 94 Nasal 90% Cannula 12/13 0000 Nasal 90% Cannula 12/12 2246 98.7 92 16 142/70 92 Nasal Cannula 12/12 2222 93 Nasal 90% Cannula 12/12 1959 99.1 73 20 158/64 90 90% 12/12 1900 94 Nasal 95% Cannula 12/12 1600 94 95% 12/12 1600 96 Nasal 100% Cannula 12/12 1525 99.2 71 20 152/58 93 Non ReBreather 12/12 1335 90 Nasal 100% Cannula 12/12 1230 99.6 Intake & Output 12/13 1600 12/13 0800 12/13 0000 Intake Total 300 470 Output Total 700 550 Balance -400 -80 Intake, IV 120 Intake, Oral 300 350 Number 1 1 Bowel Movements Output, Urine 700 550 Laboratory Tests 12/13 12/12 0715 1816 Chemistry Sodium (137 - 145 mmol/L) 140 Potassium (3.5 - 5.1 mmol/L) 5.1 Chloride (98 - 107 mmol/L) 104 Carbon Dioxide (22 - 30 mmol/L) 28 Anion Gap (5 - 16) 8 BUN (7 - 17 mg/dL) 45 H Creatinine (0.5 - 1.0 mg/dL) 1.2 H Estimated GFR (>60 ml/min) 43 L BUN/Creatinine Ratio (7 - 25 %) 37.5 H Hematology CBC w Diff NO MAN DIFF REQ MAN DIFF ORDERED WBC (4.8 - 10.8 /CUMM) 17.3 H 18.6 H RBC (4.20 - 5.40 /CUMM) 2.62 L 2.63 L Hgb (12.0 - 16.0 G/DL) 7.9 L 7.8 L Hct (37 - 47 %) 23.8 L 23.8 L MCV (81.0 - 99.0 FL) 91.0 90.4 MCH (27.0 - 31.0 PG) 30.0 29.7 RDW (11.5 - 14.5 %) 16.8 H 16.7 H Plt Count (130 - 400 /CUMM) 246 233 MPV (7.4 - 10.4 FL) 8.9 9.0 Gran % (42.2 - 75.2 %) 93.0 H 95.9 H Lymphocytes % (20.5 - 51.1 %) 3.9 L 3.6 L Monocytes % (1.7 - 9.3 %) 2.8 0.2 L Eosinophils % (0 - 5 %) 0.3 0.2 Basophils % (0.0 - 2.0 %) 0 L 0.1 Absolute Granulocytes (1.4 - 6.5 /CUMM) 16.1 H 17.8 H Segmented Neutrophils (42.2 - 75.2 %) 90 H Band Neutrophils (0.0 - 5.0 %) 3 Absolute Lymphocytes (1.2 - 3.4 /CUMM) 0.7 L 0.7 L Lymphocytes (20.5 - 51.1 %) 3 L Monocytes (1.7 - 9.3 %) 2 Absolute Monocytes (0.10 - 0.60 /CUMM) 0.5 0 L Absolute Eosinophils (0.0 - 0.7 /CUMM) 0.1 0 Absolute Basophils (0.0 - 0.2 /CUMM) 0 0 Metamyelocytes (0.0 - 1.0 %) 2 H Platelet Estimate (ADEQUATE) ADEQUATE Poikilocytosis 1+ Anisocytosis 1+ Ovalocytes FEW PUBS MCHC (33.0 - 37.0 G/DL) 33.0 32.9 L Other Body Source Fld Total RBCs Counted (%) 100 0715 /14 0635 1355 Blood Gas pH (7.35 - 7.45 PH) 7.37 pCO2 (35 - 45 TORR) 39 pO2 (80 - 100 TORR) 59 L HCO3 (21 - 28 MEQ/L) 22 ABG O2 Sat (Measured) (>96.0 %) 89.0 L Carboxyhemoglobin (1.5 - 5.0 %) 0.3 L O2 Concentration % 100% O2 Delivery Method HFNC Chemistry Sodium (137 - 145 mmol/L) 140 Potassium (3.5 - 5.1 mmol/L) 5.0 Chloride (98 - 107 mmol/L) 105 Carbon Dioxide (22 - 30 mmol/L) 27 Anion Gap (5 - 16) 8 BUN (7 - 17 mg/dL) 52 H Creatinine (0.5 - 1.0 mg/dL) 1.4 H Estimated GFR (>60 ml/min) 36 L BUN/Creatinine Ratio (7 - 25 %) 37.1 H Hematology CBC w Diff NO MAN DIFF REQ WBC (4.8 - 10.8 /CUMM) 14.6 H RBC (4.20 - 5.40 /CUMM) 2.50 L Hgb (12.0 - 16.0 G/DL) 7.6 L Hct (37 - 47 %) 22.4 L MCV (81.0 - 99.0 FL) 89.8 MCH (27.0 - 31.0 PG) 30.3 RDW (11.5 - 14.5 %) 16.4 H Plt Count (130 - 400 /CUMM) 244 MPV (7.4 - 10.4 FL) 9.0 Gran % (42.2 - 75.2 %) 86.7 H Lymphocytes % (20.5 - 51.1 %) 8.2 L Monocytes % (1.7 - 9.3 %) 4.9 Eosinophils % (0 - 5 %) 0.1 Basophils % (0.0 - 2.0 %) 0.1 Absolute Granulocytes (1.4 - 6.5 /CUMM) 12.6 H Absolute Lymphocytes (1.2 - 3.4 /CUMM) 1.2 Absolute Monocytes (0.10 - 0.60 /CUMM) 0.7 H Absolute Eosinophils (0.0 - 0.7 /CUMM) 0 Absolute Basophils (0.0 - 0.2 /CUMM) 0 PUBS MCHC (33.0 - 37.0 G/DL) 33.7 Miscellaneous Phlebotomy Draw Site RIGHT RADIAL Microbiology Date/Time Procedure - Status Source Growth 12/12 1804 Clostridium difficile Toxin A & B - RECD STOOL Impression/Plan Impression/Plan Impression/Plan: Physical Exam on high flow General Appearance Alert, Oriented X3, Cooperative, Sig dyspnea Skin No Rashes, No Breakdown Skin Temp/Moisture Exam: Warm/Dry HEENT Atraumatic, PERRLA, EOMI Neck Supple, No JVD Cardiovascular Regular Rate, Normal S1, Normal S2, No Murmurs Lungs diffuse expiratory wheeze Abdomen Normal Bowel Sounds, Soft, No Tenderness, No Masses Neurological Normal Speech, Strength at 5/5 X4 Ext, Normal Tone, Sensation Intact Extremities No Cyanosis, No Edema, Normal Pulses, No Tenderness/Swelling Vascular Normal Pulses, Pulses Symmetrical SIGNIFICANT DATA IMPRESSION: 1. Multilobar pneumonia (possibly due to aspiration). Trace bilateral pleural effusions. 2. Mediastinal lymphadenopathy, likely reactive to the pulmonary disease. 3. Cardiomegaly and coronary artery atherosclerotic disease. Previous full pulmonary function test reviewed from 2002 which showed moderate obstructive pulmonary physiology Echocardiogram reviewed which showed normal ejection fraction moderate mitral annular calcification significant pulmonary hypertension EKG showed irregular heart rhythm IMPRESSION This is a lady with moderate to severe obstructive lung disease with more bronchitis and emphysema who has been on chronic oxygen therapy, coronary artery disease with previous stent, diastolic heart disease, previous history of breast cancer status post left-sided mastectomy with previous radiation and chemotherapy, significant low back pain and spinal stenosis on chronic pain medication, hypertension, hyperlipidemia, chronic neuropathy, GERD, chronic kidney disease with recent diarrhea which was worked up as an outpatient with negative CT and negative stool test now has * Acute on chronic hypoxemic respiratory failure related to multilobar pneumonia in a lady with decompensated lung disease, pattern of pna is sugg of aspiration pna * Sig diarrhea seems to be better this am per pt * 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 * Ischemic heart disease with slightly high troponin with previous stent * Chronic kidney disease stage III with acute renal insufficiency * Chronic pain syndrome on narcotics * Peripheral vascular disease * Probable demand ischemia * Probable proximal atrial fibrillation versus multifocal atrial tachycardia, in sinus * Hypertension, hyperlipidemia, GERD, cholelithiasis, previous history of breast cancer with no obvious evidence of recurrence at this time, however patient recently had a left chest mass excision which did show invasive tumor size to by 2 x 2 with ER/WV and HER-2 negative, 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 Patient has had previous radical mastectomywith recurrence. RECOMMENDATION * Continue prednisone 30 for one more day and reduce to 20 * stool for cdiff and if diarrhea persists start po vanco empirically * Continue Unasyn * COnt anticoag, watch hct and check stool for cdiff * Sputum culture if able * Hold lasix as she is having diarrhea * Watch BUN/creatinine if it stable would continue to diurese * Overall prognosis is guarded to poor did discuss with the daughter about her situation Keep hob up Aspiration precautions
--- NOTE | 2016-12-13 13:28 | PN- Cardiology ---
Subjective Subjective: Remains on high flow O2. Denies dyspnea at rest. She said her stomach "felt funny this morning "but denied any abdominal pain or vomiting. Objective Vital Signs and I&Os Vital Signs Date Time Temp Pulse Resp B/P B/P Pulse O2 O2 Flow FiO2 Mean Ox Delivery Rate 12/13 1025 97 152/62 12/13 0931 88 Nasal 90% Cannula 12/13 0637 97.9 62 24 170/70 93 Nasal Cannula 12/13 0555 58 174/72 12/13 0027 94 Nasal 90% Cannula 12/13 0000 Nasal 90% Cannula 12/12 2246 98.7 92 16 142/70 92 Nasal Cannula 12/12 2222 93 Nasal 90% Cannula 12/12 1959 99.1 73 20 158/64 90 90% 12/12 1900 94 Nasal 95% Cannula 12/12 1600 94 95% 12/12 1600 96 Nasal 100% Cannula 12/12 1525 99.2 71 20 152/58 93 Non ReBreather 12/12 1335 90 Nasal 100% Cannula Intake & Output 12/13 1600 12/13 0800 12/13 0000 12/12 1600 12/12 0800 12/12 0000 Intake Total 300 470 880 300 480 Output Total 700 550 800 600 900 Balance -400 -80 80 -300 -420 Intake, IV 120 400 200 240 Intake, Oral 300 350 480 100 240 Number 1 1 3 1 Bowel Movements Output, Urine 700 550 800 600 900 Physical Exam: General: no apparent distress. On high flow O2 Eyes: No obvious scleral icterus. HEENT: No jugular venous distention or abnormal jugular venous pulsations. Cardiovascular: Normal intensity S1/S2. Regular. Respiratory: Scattered wheezing Abdomen: Soft, nontender with no guarding or rebound tenderness. Musculoskeletal: No clubbing or cyanosis noted Skin: Warm Current Medications: Current Medications Sig/Floresita Start time Last Medication Dose Route Stop Time Status Admin Acetaminophen 650 MG Q6P PRN 12/06 0645 AC 12/12 PO 1230 Acetaminophen/ 1 TAB Q6P PRN 12/06 0645 DC Hydrocodone Bitart PO Albuterol Sulfate 3 ML EVERY 4 HRS/AWAKE 12/11 0800 AC 12/13 INH 1223 Albuterol Sulfate 2 PUF Q4P PRN 12/06 0715 AC 12/07 INH 2258 Amlodipine Besylate 10 MG DAILY 12/06 1000 AC 07/16 PO 0555 Ampicillin Sodium/ 1,500 MG Q6 12/08 2359 AC 12/13 Sulbactam Sodium IV 1201 Sodium Chloride 100 ML Apixaban 2.5 MG BID 12/10 1029 AC 12/13 PO 1024 Aspirin Buffered 81 MG DAILY 12/06 1000 AC 12/13 PO 1024 Atorvastatin Calcium 40 MG 1700 12/06 1700 AC 12/12 PO 1743 Azithromycin 500 MG DAILY 12/10 1455 DC 12/12 Sodium Chloride 250 ML IV 0845 Clopidogrel Bisulfate 75 MG DAILY 12/06 1000 AC 12/13 PO 1025 Gabapentin 600 MG TID 12/06 1000 AC 12/13 PO 1026 Guaifenesin 600 MG Q12 12/06 1144 AC 12/13 PO 1027 Insulin Aspart 0 TIDAC 12/10 0800 AC 12/13 SC 1203 Insulin Aspart 0 AT BEDTIME 12/09 2200 AC 12/12 SC 2137 Metoprolol Succinate 25 MG DAILY 12/06 1000 AC 12/13 PO 1025 Nicotine 7 MG DAILY 12/09 1353 AC 12/13 TOP 1024 Nitroglycerin 0.4 MG DAILY 12/06 1000 AC 12/13 TOP 1024 Omeprazole 20 MG DAILY AC 12/07 0700 AC 12/13 PO 0556 Oxycodone/ 2 TAB Q6P PRN 12/06 0645 DC Acetaminophen PO Polyethylene Glycol 17 GM DAILY PRN 12/07 0930 DC 12/07 PO 1021 Prednisone 30 MG DAILY 12/12 1000 DC 12/13 PO 12/13 1001 1024 Senna/Docusate Sodium 2 TAB DAILY PRN 12/07 0930 DC 12/07 PO 1021 Tiotropium [place] 1 PUF DAILY 12/07 1000 AC 12/13 INH 1025 Results Last 48 Hrs of Labs/Mics: Laboratory Tests 12/13/16 0715: Anion Gap 8, Estimated GFR 43 L, BUN/Creatinine Ratio 37.5 H, CBC w Diff NO MAN DIFF REQ, RBC 2.62 L, MCV 91.0, MCH 30.0, RDW 16.8 H, MPV 8.9, Gran % 93.0 H, Lymphocytes % 3.9 L, Monocytes % 2.8, Eosinophils % 0.3, Basophils % 0 L, Absolute Granulocytes 16.1 H, Absolute Lymphocytes 0.7 L, Absolute Monocytes 0.5, Absolute Eosinophils 0.1, Absolute Basophils 0, PUBS MCHC 33.0 12/12/16 1816: CBC w Diff MAN DIFF ORDERED, RBC 2.63 L, MCV 90.4, MCH 29.7, RDW 16.7 H, MPV 9.0, Gran % 95.9 H, Lymphocytes % 3.6 L, Monocytes % 0.2 L, Eosinophils % 0.2 , Basophils % 0.1, Absolute Granulocytes 17.8 H, Segmented Neutrophils 90 H, Band Neutrophils 3, Absolute Lymphocytes 0.7 L, Lymphocytes 3 L, Monocytes 2, Absolute Monocytes 0 L, Absolute Eosinophils 0, Absolute Basophils 0, Metamyelocytes 2 H, Platelet Estimate ADEQUATE, Poikilocytosis 1+, Anisocytosis 1+, Ovalocytes FEW, PUBS MCHC 32.9 L, Fld Total RBCs Counted 100 12/12/16 0635: Anion Gap 8, Estimated GFR 36 L, BUN/Creatinine Ratio 37.1 H, CBC w Diff NO MAN DIFF REQ, RBC 2.50 L, MCV 89.8, MCH 30.3, RDW 16.4 H, MPV 9.0, Gran % 86.7 H, Lymphocytes % 8.2 L, Monocytes % 4.9, Eosinophils % 0.1, Basophils % 0.1, Absolute Granulocytes 12.6 H, Absolute Lymphocytes 1.2, Absolute Monocytes 0.7 H, Absolute Eosinophils 0, Absolute Basophils 0, [facility] MCHC 33.7 12/11/16 1355: pH 7.37, pCO2 39, pO2 59 L, HCO3 22, ABG O2 Sat (Measured) 89.0 L, Carboxyhemoglobin 0.3 L, O2 Concentration % 100%, O2 Delivery Method HFNC, Phlebotomy Draw Site RIGHT RADIAL Microbiology 12/12 1804 STOOL: Clostridium difficile Toxin A & B - COMP Recent Imaging Studies: Telemetry tracings were personally reviewed and shows sinus rhythm with paroxysmal atrial fibrillation without significant tachycardia Assessment/Plan Assessment/Plan 1. COPD 2. Pneumonia 3. Demand ischemia 4. Renal insufficiency 5. Paroxysmal atrial fibrillation on Eliquis 6. CAD with prior PCI 7. Anemia Remains on high flow O2. Bun/creatinine decreasing. Hg stable. Still with PAF without tachycardia. Remains on Abx and steroids. Chance Alford MD [facility] Continue telemetry? Yes
[2016-12-13 14:51] VITALS: BP 160/58
[2016-12-13 22:49] VITALS: BP 138/60
[2016-12-14 06:37] VITALS: BP 136/60
[2016-12-14 08:25] LABS: ABSOLUTE BASOPHIL COUNT 0 /CUMM (0.0-0.2); ABSOLUTE EOSINOPHIL COUNT 0.2 /CUMM (0.0-0.7); ABSOLUTE GRANULOCYTE CT 13.7 /CUMM (1.4-6.5); ABSOLUTE LYMPH COUNT 1.4 /CUMM (1.2-3.4); ABSOLUTE MONOCYTE COUNT 0.3 /CUMM (0.10-0.60); BASOPHIL % 0.1 % (0.0-2.0); EOSINOPHIL % 1.2 % (0-5); GRANULOCYTE % 87.6 % (42.2-75.2); HEMATOCRIT 22.8 % (37-47); MEAN CORPUSCULAR HGB 30.1 PG (27.0-31.0); MEAN CORPUSCULAR HGB CONC 33.4 G/DL (33.0-37.0); MEAN CORPUSCULAR VOLUME 90.1 FL (81.0-99.0); MEAN PLATELET VOLUME 9.2 FL (7.4-10.4); PLATELET COUNT 254 /CUMM (130-400); RBC DISTRIBUTION WIDTH 16.8 % (11.5-14.5); RED BLOOD CELL CT 2.53 /CUMM (4.20-5.40)
[2016-12-14 09:13] LABS: WHITE BLOOD CELL COUNT 15.6 /CUMM (4.8-10.8)
--- NOTE | 2016-12-14 09:16 | PN- Housestaff ---
BORIS TIMMONS 12/14/16 0916: Subjective Follow-up For: Acute COPD exacerbation Demand ischemia Acute kidney injury Aspiration pneumonia New onset atrial fibrillation Complaints: no complaints Tele-Events Since Last Visit: in sinus rhythm no events overnigh Subjective: Patient was seen and examined this morning. She is alert awake and oriented to time place and person. No acute overnight events. Denies any fever, chills, cough, short of breath. Denies any chest pain, racing of heart, fever, headache. Continues to report diarrhea 2 episodes this morning, loose and watery no blood in stools. Vitals were stable. Swallow evaluation recommended regular diet Review of Systems Constitutional: Reports: see HPI. Objective Last 24 Hrs of Vital Signs/I&O Vital Signs Date Time Temp Pulse Resp B/P B/P Pulse O2 O2 Flow FiO2 Mean Ox Delivery Rate 12/14 1109 74 164/50 12/14 0947 88 Nasal 85% Cannula 12/14 0800 Nasal 85% Cannula 12/14 0758 98.0 12/14 0637 98.0 66 16 136/60 90 Nasal Cannula 12/14 0040 94 Nasal 85% Cannula 12/13 2249 98.1 80 16 138/60 91 Nasal 85% Cannula 12/13 2216 93 Nasal 85% Cannula 12/13 1915 93 Nasal 85% Cannula 12/13 1600 95 Nasal 90% Cannula 12/13 1550 91 Nasal 85% Cannula 12/13 1451 99.2 74 24 160/58 90 Non ReBreather Intake & Output 12/14 1600 12/14 0800 12/14 0000 Intake Total 600 Output Total 200 850 Balance -200 -250 Intake, IV 150 Intake, Oral 450 Number 2 Bowel Movements Output, Urine 200 850 Physical Exam General Appearance: Alert, Oriented X3, Cooperative, No Acute Distress Skin: No Rashes, No Breakdown, No Significant Lesion HEENT: Atraumatic, PERRLA, EOMI, Mucous Membr. moist/pink Neck: Supple, No JVD, No thryomegaly Lymphatic: Cervical nl Cardiovascular: Normal S1, Normal S2 Lungs: dec bs and crackles Abdomen: Normal Bowel Sounds, Soft, No Tenderness, No Masses Extremities: No Clubbing, No Cyanosis, No Edema Vascular: Pulses Symmetrical Assessment/Plan Assessment: Patient is 86-year-old female with past medical history significant for COPD on as needed home oxygen especially nocturnal oxygen 3l, history of coronary artery disease status post stent placement, history of diastolic congestive heart failure with preserved ejection fraction, history of breast cancer status post left-sided mastectomy with recurrence and repeat chemotherapy and radiation, history of spinal stenosis on chronic pain medications, hypertension, hyperlipidemia, neuropathy and GERD came with chief complaint of worsening shortness of breath. Vital signs on admission Temperature 98.1, pulse 71, respiratory rate 24, blood pressure 95/57 she was saturating 91% room air later on required 3 L to saturate 98%. Admission labs were WBC count 5.6, hemoglobin 9.6, hematocrit 28.8, platelet count 119, sodium 134, potassium 4.6, BUN/creatinine 33, creatinine 2.1, initial troponin 0.15, proBNP 5970. Chest x-ray was negative for any acute changes EKG showed normal sinus rhythm with no acute ST-T wave changes Problem list 1. Elevated troponins most likely demand ischemia due to underlying shortness of breath. 2. Acute on chronic hypoxic respiratory failure likely due to COPD exacerbation 3. History of CAD status post stent placement 4. History of hypertension 5. History of spinal stenosis on chronic pain meds 6. History of GERD 7. History of breast cancer status post radiation and mastectomy 8. Acute on chronic kidney injury most likely due to dehydration given history of diarrhea. 9. Aspiration pneumonia 10. New onset atrial fibrillation acute COPD exacerbation Patient presented with worsening shortness of breath for a couple of days. Off note she had upper respiratory tract infection and cough for one week. Exposure to sick contacts. She uses 3 L oxygen mostly during nighttime for COPD. However her shortness of breath worsened to the point where she couldn't breathe and she came to the emergency room. * Admitted to telemetry floor for further management * Monitor vitals closely every shift * Provide supplemental oxygen as needed * Maintain oxygen saturation greater than 90 * Total respiratory care * duonebs * IV methylprednisolone- switched to oral prednisone- continue 30 mg. * completed IV azithromycin for community-acquired pneumonia * IV Unasyn day7 for aspiration pneumonia * Mucinex for cough * Follow-up sputum cultures-neg * Follow-up blood cultures- neg Acute on chronic respiratory failure Patient presented with worsening shortness of breath for a couple of days. Off note she had upper respiratory tract infection and cough for one week. Exposure to sick contacts. She uses 3 L oxygen mostly during nighttime for COPD. However her shortness of breath worsened to the point where she couldn't breathe and she came to the emergency room. * Monitor vitals closely every shift * Provide supplemental oxygen as needed * Maintain oxygen saturation greater than 90 * Total respiratory care * duonebs * On rebreather mask now because of desaturations on 5 L oxygen Demand ischemia Elevated troponins to 0.15 most likely demand ischemia due to underlying shortness of breath and copd. * +troponins 0.15, no acute ST changes * Trended down- serial troponins and EKGs * Echocardiogram Normal left ventricular ejection fraction visually estimated at >65 %. No obvious regional wall motion abnormalities. Abnormal relaxationfilling pattern of the left ventricle for age (stage 1 diastolic dysfunction). * Patient troponins elevated again 12/09/2016. Cardiology was consulted. We trended serial troponins and EKGs. No acute cardiology intervention at this point of time Acute Kidney Injury: Creatinine 2.1, baseline ~1-1.2, patient received bumex in the ED. * BUN to creatinine ratio ~15:1, * patient may have been mildly hypovolemic with history of diarrhea * Trend renal function, BUN and creatinine * gentle IV hydration for now * Avoid nephrotoxins * Creatinine 1.2 this morning Hypertension Continue home medication amlodipine 10 mg daily Coronary artery disease Status post stent placement Continue aspirin 81 daily Continue Lipitor 40 daily Continue Plavix 75 daily Continue metoprolol 25 mg daily Nitroglycerin patch as needed Hyperlipidemia Continue Lipitor 40 daily Chronic diastolic congestive heart failure Not on any home medications No leg swelling No symptoms suggestive of heart failure Echocardiogram- stage1 diastolic heart failure neuropathy Continue gabapentin home medication GERD disontinued omeprazole because of diarrhea Aspiration pneumonia Patient has an episode of choking 12/07/2016. Spiked a temperature max 100.8. Chest x-ray showed right lower lobe infiltrate. * Follow-up pancultures- neg so far * Recommended [facility] soft and thin liquid diet * CAT scan chest [id number] pneumonia most possibly from aspiration * Patient was on IV Unasyn day7 for aspiration pneumonia. New onset atrial fibrillation Patient developed new onset atrial fibrillation 12/09/2016. EKG showed atrial fibrillation rate 67. Armored Service Technician was consulted. * CHADS VASC score 5. * No need for rate control agents for now * Continuous telemetry monitoring * Started anticoagulation-eliqus 2.5 mg twice a day * went back to sinus rhythm 12/10/2006. diarhea Patient had multiple episodes of diarrhea during the hospital stay. Most possibly from steroids and antibiotics. Stool C. difficile was negative. mech soft and thin liquid diet DVT ppx-heparin 5000u subcutaneous Full code Problem List: 1. COPD (chronic obstructive pulmonary disease) Pain Ratin Pain Location: n/a Pain Goal: Remain pain free Pain Plan: tylenol Tomorrow's Labs & Rationales: cbc bep Consulting Request: Consulting Specialty: Pulmonary Disease [facility] 12/14/16 1150: Attending MD Review Statement Attending Statement Attending MD Statement: examined this patient, discuss w/resident/PA/MESSAGE CLERK, agreed w/resident/PA/MESSAGE CLERK, discussed with family, reviewed EMR data (avail), discussed with nursing, discussed with case mgmt, reviewed images, amended to note Attending Assessment/Plan: 86 o/f with acute on chronic respiratroy failure on high flow oxygen, treated for aspiration penumonia, on i.v abx now developing diarrhea, send for stool studies, c diff negative, decrease steroids, on lactobacilus. Patient follow speech/swallow recomnedations. advance diet as tolerated. Pulmonary following, d /c plans based on PT recommendatiosn and clinical improvement. Taper oxygen today and follow clinical course.
--- NOTE | 2016-12-14 09:46 | PN- Pulmonary ---
Subjective HPI/Critical Care Issues: Doing about the same Fatigue Improved Stable Wishes to eat a regular diet Objective Current Medications: Current Medications Sig/Floresita Start time Last Medication Dose Route Stop Time Status Admin Acetaminophen 650 MG Q6P PRN 12/06 0645 AC 12/12 PO 1230 Albuterol Sulfate 3 ML EVERY 4 HRS/AWAKE 12/11 0800 AC 12/14 INH 0931 Albuterol Sulfate 2 PUF Q4P PRN 12/06 0715 AC 12/07 INH 2258 Amlodipine Besylate 10 MG DAILY 12/06 1000 AC 12/13 PO 0555 Ampicillin Sodium/ 1,500 MG Q6 12/08 2359 AC 12/14 Sulbactam Sodium IV 0600 Sodium Chloride 100 ML Apixaban 2.5 MG BID 12/10 1029 AC 12/13 PO 2124 Aspirin Buffered 81 MG DAILY 12/06 1000 AC 12/13 PO 1024 Atorvastatin Calcium 40 MG 1700 12/06 1700 AC 12/13 PO 1644 Clopidogrel Bisulfate 75 MG DAILY 12/06 1000 AC 12/13 PO 1025 Gabapentin 600 MG TID 12/06 1000 AC 12/13 PO 2124 Guaifenesin 600 MG Q12 12/06 1144 AC 12/13 PO 2124 Insulin Aspart 0 TIDAC 12/10 0800 AC 12/13 SC 1655 Insulin Aspart 0 AT BEDTIME 12/09 2200 AC 12/13 SC 2124 Metoprolol Succinate 25 MG DAILY 12/06 1000 AC 12/13 PO 1025 Nicotine 7 MG DAILY 12/09 1353 AC 12/13 TOP 1024 Nitroglycerin 0.4 MG DAILY 12/06 1000 AC 12/13 TOP 1024 Omeprazole 20 MG DAILY AC 12/07 0700 AC 12/14 PO 0700 Prednisone 20 MG DAILY 12/14 1000 AC PO 12/15 1001 Prednisone 30 MG DAILY 12/12 1000 DC 12/13 PO 12/13 1001 1024 Tiotropium [place] 1 PUF DAILY 12/07 1000 AC 12/13 INH 1025 Vital Signs & I&O Last 24 Hrs of Vitals and I&O: Vital Signs Date Time Temp Pulse Resp B/P B/P Pulse O2 O2 Flow FiO2 Mean Ox Delivery Rate 12/14 0800 Nasal 85% Cannula 12/14 0758 98.0 12/14 0637 98.0 66 16 136/60 90 Nasal Cannula 12/14 0040 94 Nasal 85% Cannula 12/13 2249 98.1 80 16 138/60 91 Nasal 85% Cannula 12/13 2216 93 Nasal 85% Cannula 12/13 1915 93 Nasal 85% Cannula 12/13 1600 95 Nasal 90% Cannula 12/13 1550 91 Nasal 85% Cannula 12/13 1451 99.2 74 24 160/58 90 Non ReBreather 12/13 1025 97 152/62 Intake & Output 12/14 1600 12/14 0800 12/14 0000 Intake Total 600 Output Total 200 850 Balance -200 -250 Intake, IV 150 Intake, Oral 450 Number 2 Bowel Movements Output, Urine 200 850 Impression/Plan Impression/Plan Impression/Plan: Physical Exam on high flow General Appearance Alert, Oriented X3, Cooperative, Sig dyspnea Skin No Rashes, No Breakdown Skin Temp/Moisture Exam: Warm/Dry HEENT Atraumatic, PERRLA, EOMI Neck Supple, No JVD Cardiovascular Regular Rate, Normal S1, Normal S2, No Murmurs Lungs diffuse expiratory wheeze Abdomen Normal Bowel Sounds, Soft, No Tenderness, No Masses Neurological Normal Speech, Strength at 5/5 X4 Ext, Normal Tone, Sensation Intact Extremities No Cyanosis, No Edema, Normal Pulses, No Tenderness/Swelling Vascular Normal Pulses, Pulses Symmetrical SIGNIFICANT DATA IMPRESSION: 1. Multilobar pneumonia (possibly due to aspiration). Trace bilateral pleural effusions. 2. Mediastinal lymphadenopathy, likely reactive to the pulmonary disease. 3. Cardiomegaly and coronary artery atherosclerotic disease. Previous full pulmonary function test reviewed from 2002 which showed moderate obstructive pulmonary physiology Echocardiogram reviewed which showed normal ejection fraction moderate mitral annular calcification significant pulmonary hypertension EKG showed irregular heart rhythm IMPRESSION This is a lady with moderate to severe obstructive lung disease with more bronchitis and emphysema who has been on chronic oxygen therapy, coronary artery disease with previous stent, diastolic heart disease, previous history of breast cancer status post left-sided mastectomy with previous radiation and chemotherapy, significant low back pain and spinal stenosis on chronic pain medication, hypertension, hyperlipidemia, chronic neuropathy, GERD, chronic kidney disease with recent diarrhea which was worked up as an outpatient with negative CT and negative stool test now has * Acute on chronic hypoxemic respiratory failure related to multilobar pneumonia in a lady with decompensated lung disease, pattern of pna is sugg of aspiration pna * Sig diarrhea cdiff neg * 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 * Ischemic heart disease with slightly high troponin with previous stent * Chronic kidney disease stage III with acute renal insufficiency * Chronic pain syndrome on narcotics * Peripheral vascular disease * Probable demand ischemia * Probable proximal atrial fibrillation versus multifocal atrial tachycardia, in sinus * Hypertension, hyperlipidemia, GERD, cholelithiasis, previous history of breast cancer with no obvious evidence of recurrence at this time, however patient recently had a left chest mass excision which did show invasive tumor size to by 2 x 2 with ER/PA and HER-2 negative, 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 Patient has had previous radical mastectomywith recurrence. RECOMMENDATION * Continue prednisone 20 * Stool for pcr for c diff * Dc omeprazole * Continue Unasyn * COnt anticoag, watch hct and check stool for cdiff * Sputum culture if able * Hold lasix as she is having diarrhea * Watch BUN/creatinine if it stable would continue to diurese Keep hob up Aspiration precautions
--- NOTE | 2016-12-14 13:30 | NUR ---
CALLED BY [facility], PATIENT SWITCHED TO AFIB. NOTIFIED DR RAMOS. PATIENT REPORTS NO SYMPTOMS AND NO COMPLAINTS. SITTING UP IN RECLINER WITH GRANDDAUGHTER PLAY A CARD GAME. CALL SWARTZ IN REACH.
[2016-12-14 14:36] VITALS: BP 144/50
--- NOTE | 2016-12-14 18:11 | PN- Cardiology ---
Subjective Subjective: The patient is feeling a little bit better. She is sitting up in a chair. She was able to eat chopped up food today which made her very happy. Her oxygen saturation is now in the mid 90s on high flow oxygen. Her BUN and creatinine are stable. She appears to be mostly in sinus rhythm but there are periods of time were she is irregular, possibly frequent PACs versus short periods of atrial fibrillation with normal rate. Objective Vital Signs and I&Os Vital Signs Date Time Temp Pulse Resp B/P B/P Pulse O2 O2 Flow FiO2 Mean Ox Delivery Rate 12/14 1436 98.6 92 20 144/50 93 Nasal Cannula 12/14 1109 74 164/50 12/14 0947 88 Nasal 85% Cannula 12/14 0800 Nasal 85% Cannula 12/14 0758 98.0 12/14 0637 98.0 66 16 136/60 90 Nasal Cannula 12/14 0040 94 Nasal 85% Cannula 12/13 2249 98.1 80 16 138/60 91 Nasal 85% Cannula 12/13 2216 93 Nasal 85% Cannula 12/13 1915 93 Nasal 85% Cannula Intake & Output 12/14 1600 12/14 0800 12/14 0000 12/13 1600 12/13 0800 12/13 0000 Intake Total 1150 600 300 470 Output Total 1000 200 850 600 700 550 Balance 150 -200 -250 -600 -400 -80 Intake, IV 150 150 120 Intake, Oral 1000 450 300 350 Number 1 2 3 1 1 Bowel Movements Output, Urine 1000 200 850 600 700 550 Physical Exam: She looks better sitting in a chair today HEENT exam is unremarkable Neck veins not distended Chest rhonchi and a few coarse rales throughout and decreased breath sounds Heart regular without murmurs No edema Current Medications: Current Medications Sig/Floresita Start time Last Medication Dose Route Stop Time Status Admin Acetaminophen 650 MG Q6P PRN 12/06 0645 AC 12/12 PO 1230 Albuterol Sulfate 3 ML EVERY 4 HRS/AWAKE 12/11 0800 AC 12/14 INH 1316 Albuterol Sulfate 2 PUF Q4P PRN 12/06 0715 AC 12/07 INH 2258 Amlodipine Besylate 10 MG DAILY 12/06 1000 AC 12/14 PO 1109 Ampicillin Sodium/ 1,500 MG Q6 12/08 2359 AC 12/14 Sulbactam Sodium IV 1745 Sodium Chloride 100 ML Apixaban 2.5 MG BID 12/10 1029 AC 12/14 PO 1108 Aspirin Buffered 81 MG DAILY 12/06 1000 AC 12/14 PO 1108 Atorvastatin Calcium 40 MG 1700 12/06 1700 AC 12/14 PO 1736 Clopidogrel Bisulfate 75 MG DAILY 12/06 1000 AC 12/14 PO 1109 Gabapentin 600 MG TID 12/06 1000 AC 12/14 PO 1736 Guaifenesin 600 MG Q12 12/06 1144 AC 12/14 PO 1108 Insulin Aspart 0 TIDAC 12/10 0800 AC 12/14 SC 1751 Insulin Aspart 0 AT BEDTIME 12/09 2200 AC 12/13 SC 2124 Metoprolol Succinate 25 MG DAILY 12/06 1000 AC 12/14 PO 1109 Nicotine 7 MG DAILY 12/09 1353 AC 12/14 TOP 1109 Nitroglycerin 0.4 MG DAILY 12/06 1000 AC 12/14 TOP 1109 Omeprazole 20 MG .STK-MED ONE 12/14 0747 DC PO 12/14 0748 Omeprazole 20 MG DAILY AC 12/07 0700 DC 12/14 PO 0700 Prednisone 20 MG DAILY 12/14 1000 AC 12/14 PO 12/15 1001 1109 Tiotropium [place] 1 PUF DAILY 12/07 1000 AC 12/14 INH 1111 Results Last 48 Hrs of Labs/Mics: Laboratory Tests 12/14/16 0645: Anion Gap 8, Estimated GFR 43 L, BUN/Creatinine Ratio 36.7 H, CBC w Diff NO MAN DIFF REQ, RBC 2.53 L, MCV 90.1, MCH 30.1, RDW 16.8 H, MPV 9.2, Gran % 87.6 H, Lymphocytes % 9.0 L, Monocytes % 2.1, Eosinophils % 1.2, Basophils % 0.1, Absolute Granulocytes 13.7 H, Absolute Lymphocytes 1.4, Absolute Monocytes 0.3, Absolute Eosinophils 0.2, Absolute Basophils 0, PUBS MCHC 33.4 12/13/16 0715: Anion Gap 8, Estimated GFR 43 L, BUN/Creatinine Ratio 37.5 H, CBC w Diff NO MAN DIFF REQ, RBC 2.62 L, MCV 91.0, MCH 30.0, RDW 16.8 H, MPV 8.9, Gran % 93.0 H, Lymphocytes % 3.9 L, Monocytes % 2.8, Eosinophils % 0.3, Basophils % 0 L, Absolute Granulocytes 16.1 H, Absolute Lymphocytes 0.7 L, Absolute Monocytes 0.5, Absolute Eosinophils 0.1, Absolute Basophils 0, PUBS MCHC 33.0 12/12/161815: CBC w Diff MAN DIFF ORDERED, RBC 2.63 L, MCV 90.4, MCH 29.7, RDW 16.7 H, MPV 9.0, Gran % 95.9 H, Lymphocytes % 3.6 L, Monocytes % 0.2 L, Eosinophils % 0.2 , Basophils % 0.1, Absolute Granulocytes 17.8 H, Segmented Neutrophils 90 H, Band Neutrophils 3, Absolute Lymphocytes 0.7 L, Lymphocytes 3 L, Monocytes 2, Absolute Monocytes 0 L, Absolute Eosinophils 0, Absolute Basophils 0, Metamyelocytes 2 H, Platelet Estimate ADEQUATE, Poikilocytosis 1+, Anisocytosis 1+, Ovalocytes FEW, PUBS MCHC 32.9 L, Fld Total RBCs Counted 100 Assessment/Plan Assessment/Plan Danitza has maintained mostly sinus rhythm. When she is in atrial fibrillation her rate is not excessive and she is anticoagulated. Her oxygen saturations are slowly improving. She does not appear to be aspirating anymore. I recommend continuing the same treatment. We can reinstitute her diuretics as her renal function has stabilized. Hopefully her oxygen can be weaned down to a level where she can be discharged. Continue telemetry? Yes
[2016-12-14 22:19] VITALS: BP 136/60
[2016-12-15 07:26] VITALS: BP 160/50
--- NOTE | 2016-12-15 07:44 | PN- Housestaff ---
BORIS TIMMONS 12/15/16 0737: Subjective Follow-up For: Acute COPD exacerbation Demand ischemia Acute kidney injury Aspiration pneumonia New onset atrial fibrillation diarhea- resolved Complaints: no complaints Tele-Events Since Last Visit: in sinus rhythm no events overnight Subjective: Patient was seen and examined this morning. She is alert awake and oriented to time place and person. No acute overnight events. Denies any fever, chills, cough, short of breath. Denies any chest pain, racing of heart, fever, headache. denies diarrhea, abdomen pain Vitals were stable. Swallow evaluation recommended regular diet- [facility] soft and thin liquid Review of Systems Constitutional: Reports: see HPI. Objective Last 24 Hrs of Vital Signs/I&O Vital Signs Date Time Temp Pulse Resp B/P B/P Pulse O2 O2 Flow FiO2 Mean Ox Delivery Rate 12/15 0726 98.2 61 20 160/50 90 Nasal Cannula 12/15 0036 93 Nasal 85% Cannula 12/15 0000 97 Nasal 85% Cannula 12/14 2219 98.8 63 20 136/60 93 Nasal Cannula 12/14 2154 93 Nasal 85% Cannula 12/14 1840 94 Nasal 85% Cannula 12/14 1436 98.6 92 20 144/50 93 Nasal Cannula 12/14 1109 74 164/50 12/14 0947 88 Nasal 85% Cannula 12/14 0800 Nasal 85% Cannula 12/14 0758 98.0 Intake & Output 12/15 0800 12/15 0000 12/14 1600 Intake Total 1150 Output Total 500 1000 Balance -500 150 Intake, IV 150 Intake, Oral 1000 Number 1 Bowel Movements Output, Urine 500 1000 Physical Exam General Appearance: Alert, Oriented X3, Cooperative, No Acute Distress Skin: No Rashes, No Breakdown, No Significant Lesion HEENT: Atraumatic, PERRLA, EOMI, Mucous Membr. moist/pink Neck: Supple, No JVD Lymphatic: Cervical nl Cardiovascular: Normal S1, Normal S2, No Murmurs Lungs: dce bs at bases Abdomen: Normal Bowel Sounds, Soft, No Tenderness Extremities: No Clubbing, No Cyanosis, No Edema Vascular: Pulses Symmetrical Current Medications: Current Medications Sig/Floresita Start time Last Medication Dose Route Stop Time Status Admin Acetaminophen 650 MG Q6P PRN 12/06 0645 AC 12/12 PO 1230 Albuterol Sulfate 3 ML EVERY 4 HRS/AWAKE 12/11 0800 AC 12/14 INH 2153 Albuterol Sulfate 2 PUF Q4P PRN 12/06 0715 AC 12/07 INH 2258 Amlodipine Besylate 10 MG DAILY 12/06 1000 AC 12/14 PO 1109 Ampicillin Sodium/ 1,500 MG Q6 12/08 2359 AC 12/14 Sulbactam Sodium IV 1745 Sodium Chloride 100 ML Apixaban 2.5 MG BID 12/10 1029 AC 12/14 PO 2224 Aspirin Buffered 81 MG DAILY 12/06 1000 AC 12/14 PO 1108 Atorvastatin Calcium 40 MG 1700 12/06 1700 AC 12/14 PO 1736 Clopidogrel Bisulfate 75 MG DAILY 12/06 1000 AC 12/14 PO 1109 Gabapentin 600 MG TID 12/06 1000 AC 12/14 PO 2224 Guaifenesin 600 MG Q12 12/06 1144 AC 12/14 PO 2225 Insulin Aspart 0 TIDAC 12/10 0800 AC 12/14 SC 1751 Insulin Aspart 0 AT BEDTIME 12/09 2200 AC 12/14 SC 2225 Metoprolol Succinate 25 MG DAILY 12/06 1000 AC 12/14 PO 1109 Nicotine 7 MG DAILY 12/09 1353 AC 12/14 TOP 1109 Nitroglycerin 0.4 MG DAILY 12/06 1000 AC 12/14 TOP 1109 Omeprazole 20 MG .[facility]-MED ONE 12/14 0747 DC PO 12/14 0748 Omeprazole 20 MG DAILY AC 12/07 0700 DC 12/14 PO 0700 Prednisone 20 MG DAILY 12/14 1000 AC 12/14 PO 12/15 1001 1109 Tiotropium [place] 1 PUF DAILY 12/07 1000 AC 12/14 INH 1111 Assessment/Plan Assessment: Patient is 86-year-old female with past medical history significant for COPD on as needed home oxygen especially nocturnal oxygen 3l, history of coronary artery disease status post stent placement, history of diastolic congestive heart failure with preserved ejection fraction, history of breast cancer status post left-sided mastectomy with recurrence and repeat chemotherapy and radiation, history of spinal stenosis on chronic pain medications, hypertension, hyperlipidemia, neuropathy and GERD came with chief complaint of worsening shortness of breath. Vital signs on admission Temperature 98.1, pulse 71, respiratory rate 24, blood pressure 95/57 she was saturating 91% room air later on required 3 L to saturate 98%. Admission labs were WBC count 5.6, hemoglobin 9.6, hematocrit 28.8, platelet count 119, sodium 134, potassium 4.6, BUN/creatinine 33, creatinine 2.1, initial troponin 0.15, proBNP 5970. Chest x-ray was negative for any acute changes EKG showed normal sinus rhythm with no acute ST-T wave changes Problem list 1. Elevated troponins most likely demand ischemia due to underlying shortness of breath. 2. Acute on chronic hypoxic respiratory failure likely due to COPD exacerbation 3. History of CAD status post stent placement 4. History of hypertension 5. History of spinal stenosis on chronic pain meds 6. History of GERD 7. History of breast cancer status post radiation and mastectomy 8. Acute on chronic kidney injury most likely due to dehydration given history of diarrhea. 9. Aspiration pneumonia 10. New onset atrial fibrillation acute COPD exacerbation Patient presented with worsening shortness of breath for a couple of days. Off note she had upper respiratory tract infection and cough for one week. Exposure to sick contacts. She uses 3 L oxygen mostly during nighttime for COPD. However her shortness of breath worsened to the point where she couldn't breathe and she came to the emergency room. * Admitted to telemetry floor for further management * Monitor vitals closely every shift * Provide supplemental oxygen as needed * Maintain oxygen saturation greater than 90 * Total respiratory care * duonebs * IV methylprednisolone- switched to oral prednisone- continue 20 mg. * completed IV azithromycin for community-acquired pneumonia * IV Unasyn day8 for aspiration pneumonia * Mucinex for cough * Follow-up sputum cultures-neg * Follow-up blood cultures- neg Acute on chronic respiratory failure Patient presented with worsening shortness of breath for a couple of days. Off note she had upper respiratory tract infection and cough for one week. Exposure to sick contacts. She uses 3 L oxygen mostly during nighttime for COPD. However her shortness of breath worsened to the point where she couldn't breathe and she came to the emergency room. * Monitor vitals closely every shift * Provide supplemental oxygen as needed * Maintain oxygen saturation greater than 90 * Total respiratory care * duonebs Demand ischemia Elevated troponins to 0.15 most likely demand ischemia due to underlying shortness of breath and copd. * +troponins 0.15, no acute ST changes * Trended down- serial troponins and EKGs * Echocardiogram Normal left ventricular ejection fraction visually estimated at >65 %. No obvious regional wall motion abnormalities. Abnormal relaxationfilling pattern of the left ventricle for age (stage 1 diastolic dysfunction). * Patient troponins elevated again 12/09/2016. Cardiology was consulted. We trended serial troponins and EKGs. No acute cardiology intervention at this point of time Acute Kidney Injury: Creatinine 2.1, baseline ~1-1.2, patient received bumex in the ED. * BUN to creatinine ratio ~15:1, * patient may have been mildly hypovolemic with history of diarrhea * Trend renal function, BUN and creatinine * gentle IV hydration for now * Avoid nephrotoxins * Creatinine 1.2 this morning Hypertension Continue home medication amlodipine 10 mg daily Coronary artery disease Status post stent placement disContinued aspirin 81 daily Continue Lipitor 40 daily disContinued Plavix 75 daily Continue metoprolol 25 mg daily Nitroglycerin patch as needed Hyperlipidemia Continue Lipitor 40 daily Chronic diastolic congestive heart failure Not on any home medications No leg swelling No symptoms suggestive of heart failure Echocardiogram- stage1 diastolic heart failure neuropathy Continue gabapentin home medication GERD disontinued omeprazole because of diarrhea Aspiration pneumonia Patient has an episode of choking 12/07/2016. Spiked a temperature max 100.8. Chest x-ray showed right lower lobe infiltrate. * Follow-up pancultures- neg so far * Recommended [facility] soft and thin liquid diet * CAT scan chest [id number] pneumonia most possibly from aspiration * Patient was on IV Unasyn day8 for aspiration pneumonia. New onset atrial fibrillation Patient developed new onset atrial fibrillation 12/09/2016. EKG showed atrial fibrillation rate 67. [employer] was consulted. * CHADS VASC score 5. * No need for rate control agents for now * Continuous telemetry monitoring * No anticoagulation because of GI bleed * went back to sinus rhythm 12/10/2006. diarhea Patient had multiple episodes of diarrhea during the hospital stay. Most possibly from steroids and antibiotics. Stool C. difficile was negative. Upper GI bleed Patient had large bowel movement which is black and tarry. Denies any nausea, vomiting, hematemesis, hematochezia, abdominal pain. Stool guaiac was positive. Stat hemoglobin 7.2 and hematocrit 22. Powder Operator was consulted. Dr. Dominguez onboard. She is not a good candidate to get endoscopy because of her respiratory issues and comorbidities conditions. * IV pantoprazole twice a day * Type and screen * Status post one unit transfusion * Will recheck CBC * Transfuse if hemoglobin less than 7 * no plans for endoscopy * No aspirin, Plavix, apixaban mech soft and thin liquid diet DVT ppx-heparin 5000u subcutaneous Full code Problem List: 1. COPD (chronic obstructive pulmonary disease) Pain Ratin Pain Location: n/a Pain Goal: Remain pain free Pain Plan: tylenol Tomorrow's Labs & Rationales: BEP in the setting of acute kidney injury Consulting Request: Consulting Specialty: Pulmonary Disease FOREST RAMOS 12/15/16 1046: Attending MD Review Statement Attending Statement Attending MD Statement: examined this patient, discuss w/resident/PA/RECEPTIONIST NURSE, agreed w/resident/PA/RECEPTIONIST NURSE, discussed with family, reviewed EMR data (avail), discussed with nursing, discussed with case mgmt, reviewed images, amended to note Attending Assessment/Plan: 86 o/f with acute on chronic respiratroy failure on high flow oxygen, treated for aspiration penumonia, on i.v abx now developing diarrhea, send for stool studies, c diff negative, decrease steroids, on lactobacilus. Patient follow speech/swallow recomnedations. advance diet as tolerated. Pulmonary following. Patient is alert, orineted , daughter bedside. Vitals stable, cbc done shows hb 7.2, receiving blood transfusion given consent. PPI bid i/v, serial cbc monitoring, low threshold to transfer to ICU for close monitoring. Patient recently started on eliquis for Afib rate controlled , Patient this am had large bowel movement black colored stools. D/w cardiology holding agents causing bleed. Spoke to GI Dr Rowland who has spoken to Dr Chirinos that EGD would be possible if patient is intubated and there are dificult chances to extubate thereafter as per pulm. Patient is known to Dr Fierro for long time who is cardiologiost on board. Family wants to discuss goals of care with him. I tried discussion but not futile.
[2016-12-15 09:42] LABS: ABSOLUTE BASOPHIL COUNT 0 /CUMM (0.0-0.2); ABSOLUTE EOSINOPHIL COUNT 0.2 /CUMM (0.0-0.7); ABSOLUTE GRANULOCYTE CT 10.6 /CUMM (1.4-6.5); ABSOLUTE LYMPH COUNT 1.3 /CUMM (1.2-3.4); ABSOLUTE MONOCYTE COUNT 0 /CUMM (0.10-0.60); BASOPHIL % 0.1 % (0.0-2.0); GRANULOCYTE % 86.9 % (42.2-75.2); MEAN CORPUSCULAR HGB 29.6 PG (27.0-31.0); MEAN CORPUSCULAR HGB CONC 32.9 G/DL (33.0-37.0); MEAN CORPUSCULAR VOLUME 89.9 FL (81.0-99.0); MEAN PLATELET VOLUME 9.4 FL (7.4-10.4); PLATELET COUNT 252 /CUMM (130-400); RBC DISTRIBUTION WIDTH 16.3 % (11.5-14.5); RED BLOOD CELL CT 2.44 /CUMM (4.20-5.40); WHITE BLOOD CELL COUNT 12.2 /CUMM (4.8-10.8)
--- NOTE | 2016-12-15 10:35 | PN- Cardiology ---
Subjective Subjective: The patient does not look well today. She apparently has had some GI bleeding with positive stools and a drop in her H&H. She remains on high flow oxygen and her saturations are borderline in the low 90s on 75-85% oxygen. She is in atrial fibrillation today with heart rate of 110. Her Eliquis, Plavix and aspirin have been discontinued. GI has been consulted but it is unlikely she would tolerate endoscopy or colonoscopy from a pulmonary standpoint. Objective Vital Signs and I&Os Vital Signs Date Time Temp Pulse Resp B/P B/P Pulse O2 O2 Flow FiO2 Mean Ox Delivery Rate 12/15 0931 92 Nasal 75% Cannula 12/15 0726 98.2 61 20 160/50 90 Nasal Cannula 12/15 0036 93 Nasal 85% Cannula 12/15 0000 97 Nasal 85% Cannula 12/14 2219 98.8 63 20 136/60 93 Nasal Cannula 12/14 2154 93 Nasal 85% Cannula 12/14 1840 94 Nasal 85% Cannula 12/14 1436 98.6 92 20 144/50 93 Nasal Cannula 12/14 1109 74 164/50 Intake & Output 12/15 1600 12/15 0800 12/15 0000 12/14 1600 12/14 0800 12/14 0000 Intake Total 1150 600 Output Total 500 1000 200 850 Balance -500 150 -200 -250 Intake, IV 150 150 Intake, Oral 1000 450 Number 1 2 Bowel Movements Output, Urine 500 1000 200 850 Physical Exam: She appears ill Chest reveals decreased breath sounds and rhonchi Heart is irregular with no murmurs Current Medications: Current Medications Sig/Floresita Start time Last Medication Dose Route Stop Time Status Admin Acetaminophen 650 MG Q6P PRN 12/06 0645 AC 12/12 PO 1230 Albuterol Sulfate 3 ML EVERY 4 HRS/AWAKE 12/11 0800 AC 12/15 INH 0839 Albuterol Sulfate 2 PUF Q4P PRN 12/06 0715 AC 12/07 INH 2258 Amlodipine Besylate 10 MG DAILY 12/06 1000 AC 12/14 PO 1109 Ampicillin Sodium/ 1,500 MG Q6 12/08 2359 AC 12/15 Sulbactam Sodium IV 0640 Sodium Chloride 100 ML Apixaban 2.5 MG BID 12/10 1029 DC 12/14 PO 2224 Aspirin Buffered 81 MG DAILY 12/06 1000 DC 12/14 PO 1108 Atorvastatin Calcium 40 MG 1700 12/06 1700 AC 12/14 PO 1736 Clopidogrel Bisulfate 75 MG DAILY 12/06 1000 DC 12/14 PO 1109 Gabapentin 600 MG TID 12/06 1000 AC 12/14 PO 2224 Guaifenesin 600 MG Q12 12/06 1144 AC 12/14 PO 2225 Insulin Aspart 0 TIDAC 12/10 0800 AC 12/14 SC 1751 Insulin Aspart 0 AT BEDTIME 12/09 2200 AC 12/14 SC 2225 Metoprolol Succinate 25 MG DAILY 12/06 1000 AC 12/14 PO 1109 Nicotine 7 MG DAILY 12/09 1353 AC 12/14 TOP 1109 Nitroglycerin 0.4 MG DAILY 12/06 1000 AC 12/14 TOP 1109 Omeprazole 20 MG DAILY AC 12/07 0700 DC 12/14 PO 0700 Pantoprazole Sodium 40 MG BID 12/15 1000 AC IV Prednisone 10 MG DAILY 12/16 1000 AC PO 12/17 1001 Prednisone 20 MG DAILY 12/14 1000 DC 12/14 PO 12/15 1001 1109 Tiotropium [place] 1 PUF DAILY 12/07 1000 AC 12/14 INH 1111 Results Last 48 Hrs of Labs/Mics: Laboratory Tests 12/15/16 0854: Anion Gap 6, Estimated GFR 47 L, BUN/Creatinine Ratio 38.2 H, CBC w Diff MAN DIFF ORDERED, RBC 2.44 L, MCV 89.9, MCH 29.6, RDW 16.3 H, MPV 9.4, Gran % 86.9 H, Lymphocytes % 10.8 L, Monocytes % 0.2 L, Eosinophils % 2.0, Basophils % 0.1, Absolute Granulocytes 10.6 H, Segmented Neutrophils Pending, Absolute Lymphocytes 1.3, Absolute Monocytes 0 L, Absolute Eosinophils 0.2, Absolute Basophils 0, PUBS MCHC 32.9 L 12/14/16 0645: Anion Gap 8, Estimated GFR 43 L, BUN/Creatinine Ratio 36.7 H, CBC w Diff NO MAN DIFF REQ, RBC 2.53 L, MCV 90.1, MCH 30.1, RDW 16.8 H, MPV 9.2, Gran % 87.6 H, Lymphocytes % 9.0 L, Monocytes % 2.1, Eosinophils % 1.2, Basophils % 0.1, Absolute Granulocytes 13.7 H, Absolute Lymphocytes 1.4, Absolute Monocytes 0.3, Absolute Eosinophils 0.2, Absolute Basophils 0, PUBS MCHC 33.4 Assessment/Plan Assessment/Plan Danitza is currently in atrial fibrillation. She is not improving in terms of her respiratory status. I discussed with her daughters and her goals of care. There will be willing to make her DNR/DNI at this time and to not proceed with any GI invasive evaluation. She will be getting a transfusion. I suggested to the daughter we get palliative care consultation to assist with further goals of care. She agrees to this plan. We will discontinue antiplatelet and anticoagulant therapy for now and probably not reinstitute. Continue telemetry? Yes
[2016-12-15 10:43] VITALS: BP 170/50
--- NOTE | 2016-12-15 11:47 | NUR ---
SPEECH THERAPY: PT CURRENTLY NPO D/T GI BLEED, UNABLE TO BE SEEN FOR DYSPHAGIA TX. ST CONTINUE TO FOLLOW CLINICALLY INDICATED. D/W RN.
[2016-12-15 14:21] VITALS: BP 154/52
--- NOTE | 2016-12-15 17:46 | PN- Pulmonary ---
Subjective HPI/Critical Care Issues: The patient does not look well today. She apparently has had some GI bleeding with positive stools and a drop in her H&H. She remains on high flow oxygen and her saturations are borderline in the low 90s on 75-85% oxygen. She is in atrial fibrillation today with heart rate of 110. Her Eliquis, Plavix and aspirin have been discontinued. GI has been consulted but it is unlikely she would tolerate endoscopy or colonoscopy from a pulmonary standpoint. Objective Current Medications: Current Medications Sig/Floresita Start time Last Medication Dose Route Stop Time Status Admin Acetaminophen 650 MG Q6P PRN 12/06 0645 AC 12/12 PO 1230 Albuterol Sulfate 3 ML EVERY 4 HRS/AWAKE 12/11 0800 AC 12/15 INH 1614 Albuterol Sulfate 2 PUF Q4P PRN 12/06 0715 AC 12/07 INH 2258 Amlodipine Besylate 10 MG DAILY 12/06 1000 AC 12/15 PO 1342 Ampicillin Sodium/ 1,500 MG Q6 12/08 2359 AC 12/15 Sulbactam Sodium IV 1245 Sodium Chloride 100 ML Apixaban 2.5 MG BID 12/10 1029 DC 12/14 PO 2224 Aspirin Buffered 81 MG DAILY 12/06 1000 DC 12/14 PO 1108 Atorvastatin Calcium 40 MG 1700 12/06 1700 AC 12/14 PO 1736 Clopidogrel Bisulfate 75 MG DAILY 12/06 1000 DC 12/14 PO 1109 Gabapentin 600 MG TID 12/06 1000 AC 12/15 PO 1341 Guaifenesin 600 MG Q12 12/06 1144 AC 12/14 PO 2225 Insulin Aspart 0 TIDAC 12/10 0800 AC 12/15 SC 1353 Insulin Aspart 0 AT BEDTIME 12/09 2200 AC 12/14 SC 2225 Metoprolol Succinate 25 MG DAILY 12/06 1000 AC 12/15 PO 1342 Nicotine 7 MG DAILY 12/09 1353 AC 12/15 TOP 1245 Nitroglycerin 0.4 MG DAILY 12/06 1000 AC 12/15 TOP 1245 Pantoprazole Sodium 40 MG BID 12/15 1000 AC 12/15 IV 1244 Prednisone 10 MG DAILY 12/16 1000 AC PO 12/17 1001 Prednisone 20 MG DAILY 12/14 1000 DC 12/15 PO 12/15 1001 1342 Tiotropium [place] 1 PUF DAILY 12/07 1000 AC 12/15 INH 1244 Vital Signs & I&O Last 24 Hrs of Vitals and I&O: Vital Signs Date Time Temp Pulse Resp B/P B/P Pulse O2 O2 Flow FiO2 Mean Ox Delivery Rate 12/15 1421 99.3 74 20 154/52 91 Nasal Cannula 12/15 1342 70 170/50 12/15 1342 70 170/50 12/15 1043 98.7 89 20 170/50 91 Nasal Cannula 12/15 0931 92 Nasal 75% Cannula 12/15 0800 94 Nasal 75% Cannula 12/15 0726 98.2 61 20 160/50 90 Nasal Cannula 12/15 0036 93 Nasal 85% Cannula 12/15 0000 97 Nasal 85% Cannula 12/14 2219 98.8 63 20 136/60 93 Nasal Cannula 12/14 2154 93 Nasal 85% Cannula 12/14 1840 94 Nasal 85% Cannula Intake & Output 12/15 1600 12/15 0800 12/15 0000 Intake Total 540 Output Total 850 500 Balance -310 -500 Intake, IV 100 Intake, Oral 440 Number 2 Bowel Movements Output, Urine 850 500 Impression/Plan Impression/Plan Impression/Plan: Physical Exam on high flow General Appearance Alert, Oriented X3, Cooperative, Sig dyspnea Skin No Rashes, No Breakdown Skin Temp/Moisture Exam: Warm/Dry HEENT Atraumatic, PERRLA, EOMI Neck Supple, No JVD Cardiovascular Regular Rate, Normal S1, Normal S2, No Murmurs Lungs diffuse expiratory wheeze Abdomen Normal Bowel Sounds, Soft, No Tenderness, No Masses Neurological Normal Speech, Strength at 5/5 X4 Ext, Normal Tone, Sensation Intact Extremities No Cyanosis, No Edema, Normal Pulses, No Tenderness/Swelling Vascular Normal Pulses, Pulses Symmetrical SIGNIFICANT DATA IMPRESSION: 1. Multilobar pneumonia (possibly due to aspiration). Trace bilateral pleural effusions. 2. Mediastinal lymphadenopathy, likely reactive to the pulmonary disease. 3. Cardiomegaly and coronary artery atherosclerotic disease. Previous full pulmonary function test reviewed from 2002 which showed moderate obstructive pulmonary physiology Echocardiogram reviewed which showed normal ejection fraction moderate mitral annular calcification significant pulmonary hypertension EKG showed irregular heart rhythm IMPRESSION This is a lady with moderate to severe obstructive lung disease with more bronchitis and emphysema who has been on chronic oxygen therapy, coronary artery disease with previous stent, diastolic heart disease, previous history of breast cancer status post left-sided mastectomy with previous radiation and chemotherapy, significant low back pain and spinal stenosis on chronic pain medication, hypertension, hyperlipidemia, chronic neuropathy, GERD, chronic kidney disease with recent diarrhea which was worked up as an outpatient with negative CT and negative stool test now has * Acute on chronic hypoxemic respiratory failure related to multilobar pneumonia in a lady with decompensated lung disease, pattern of pna is sugg of aspiration pna / Now with UGI bleed with black stool * Prob UGI bleed * 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 * Ischemic heart disease with slightly high troponin with previous stent * Chronic kidney disease stage III with acute renal insufficiency * Chronic pain syndrome on narcotics * Peripheral vascular disease * Probable demand ischemia * Probable proximal atrial fibrillation versus multifocal atrial tachycardia, in sinus * Hypertension, hyperlipidemia, GERD, cholelithiasis, previous history of breast cancer with no obvious evidence of recurrence at this time, however patient recently had a left chest mass excision which did show invasive tumor size to by 2 x 2 with ER/NV and HER-2 negative, 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 Patient has had previous radical mastectomywith recurrence. RECOMMENDATION * Discussed with family this am and they have made the patient dnr and dni for now, cont present care for now * Continue prednisone 20 * Continue Unasyn, seven day total will follow prog poor
[2016-12-15 19:00] VITALS: BP 158/52
[2016-12-15 22:00] VITALS: BP 156/60
[2016-12-15 22:05] LABS: ABSOLUTE BASOPHIL COUNT 0 /CUMM (0.0-0.2); ABSOLUTE EOSINOPHIL COUNT 0 /CUMM (0.0-0.7); ABSOLUTE GRANULOCYTE CT 10.4 /CUMM (1.4-6.5); ABSOLUTE LYMPH COUNT 0.4 /CUMM (1.2-3.4); ABSOLUTE MONOCYTE COUNT 0 /CUMM (0.10-0.60); BASOPHIL % 0 % (0.0-2.0); EOSINOPHIL % 0.2 % (0-5); MEAN CORPUSCULAR HGB 29.3 PG (27.0-31.0); MEAN CORPUSCULAR HGB CONC 32.6 G/DL (33.0-37.0); MEAN CORPUSCULAR VOLUME 90.1 FL (81.0-99.0); MEAN PLATELET VOLUME 9.2 FL (7.4-10.4); PLATELET COUNT 225 /CUMM (130-400); RBC DISTRIBUTION WIDTH 16.4 % (11.5-14.5); RED BLOOD CELL CT 2.45 /CUMM (4.20-5.40); WHITE BLOOD CELL COUNT 10.8 /CUMM (4.8-10.8)
[2016-12-15 22:17] LABS: GRANULOCYTE % 96.3 % (42.2-75.2)
[2016-12-16 05:53] VITALS: BP 142/68
--- NOTE | 2016-12-16 07:55 | PN- Housestaff ---
BORIS TIMMONS 12/16/16 0754: Subjective Follow-up For: Acute COPD exacerbation Demand ischemia Acute kidney injury Aspiration pneumonia New onset atrial fibrillation diarhea- resolved upper gi bleed Complaints: no complaints Tele-Events Since Last Visit: in sinus rhythm no events overnight Subjective: Patient was seen and examined this morning. She is alert awake and oriented to time place and person. No acute overnight events. Denies any fever, chills, Reports productive cough, short of breath. Denies any chest pain, racing of heart, fever, headache. denies diarrhea, abdomen pain Vitals were stable. Swallow evaluation recommended regular diet- [facility] soft and thin liquid Review of Systems Constitutional: Reports: see HPI. Objective Last 24 Hrs of Vital Signs/I&O Vital Signs Date Time Temp Pulse Resp B/P B/P Pulse O2 O2 Flow FiO2 Mean Ox Delivery Rate 12/16 0915 95 Nasal 75% Cannula 12/16 0859 142/68 12/16 0859 142/68 12/16 0800 92 Nasal 75% Cannula 12/16 0553 98.0 67 20 142/68 9 75% 12/16 0141 95 Nasal 75% Cannula 12/16 0000 75% 12/15 2200 98.8 65 20 156/60 93 Nasal Cannula 12/15 2040 95 Nasal 75% Cannula 12/15 1900 99.3 74 20 158/52 92 Nasal 75% Cannula Intake & Output 12/16 1600 12/16 0800 12/16 0000 Intake Total 780 240 700 Output Total 800 300 650 Balance -20 -60 50 Intake, Blood 330 Product Intake, IV 50 120 100 Intake, Oral 400 120 600 Number 4 1 Bowel Movements Output, Urine 800 300 650 Physical Exam General Appearance: Alert, Oriented X3, Cooperative, No Acute Distress Skin: No Rashes, No Breakdown, No Significant Lesion HEENT: Atraumatic, PERRLA, EOMI Neck: Supple, No JVD Lymphatic: Cervical nl Cardiovascular: Normal S1, Normal S2 Lungs: Normal Air Movement Abdomen: Normal Bowel Sounds, Soft, No Tenderness Extremities: No Clubbing, No Cyanosis, No Edema Vascular: Normal Pulses, Pulses Symmetrical Current Medications: Current Medications Sig/Floresita Start time Last Medication Dose Route Stop Time Status Admin Acetaminophen 650 MG Q6P PRN 12/06 0645 AC 12/12 PO 1230 Albuterol Sulfate 3 ML EVERY 4 HRS/AWAKE 12/11 0800 AC 12/16 INH 1310 Albuterol Sulfate 2 PUF Q4P PRN 12/06 0715 AC 12/07 INH 2258 Amlodipine Besylate 10 MG DAILY 12/06 1000 AC 12/16 PO 0859 Ampicillin Sodium/ 1,500 MG Q6 12/08 2359 DC 12/16 Sulbactam Sodium IV 0552 Sodium Chloride 100 ML Atorvastatin Calcium 40 MG 1700 12/06 1700 AC 12/15 PO 1824 Gabapentin 600 MG TID 12/06 1000 AC 12/16 PO 0859 Guaifenesin 600 MG Q12 12/06 1144 AC 12/16 PO 0859 Insulin Aspart 0 TIDAC 12/10 0800 AC 12/16 SC 1238 Insulin Aspart 0 AT BEDTIME 12/09 2200 AC 12/15 SC 2158 Metoprolol Succinate 25 MG DAILY 12/06 1000 AC 12/16 PO 0859 Nicotine 7 MG DAILY 12/09 1353 AC 12/16 TOP 0859 Nitroglycerin 0.4 MG DAILY 12/06 1000 AC 12/16 TOP 0859 Ondansetron HCl 4 MG ONCE ONE 12/16 0215 DC 12/16 IV 12/16 0216 0219 Pantoprazole Sodium 40 MG BID 12/15 1000 AC 12/16 IV 0858 Patient Medication 1 ED .STK-MED ONE 12/16 1356 NV Teaching ED 12/16 1357 Prednisone 10 MG DAILY 12/16 1000 AC 12/16 PO 12/17 1001 0859 Sodium Polystyrene 60 ML ONCE ONE 12/16 0930 DC 12/16 Sulfonate PO 12/16 0931 1008 Tiotropium [place] 1 PUF DAILY 12/07 1000 AC 12/16 INH 0900 Last 24 Hrs of Lab/Donell Results Last 24 Hrs of Labs/Mics: Laboratory Tests 12/16/16 0633: Anion Gap 7, Estimated GFR 47 L, BUN/Creatinine Ratio 35.5 H, CBC w Diff NO MAN DIFF REQ, RBC 2.41 L, MCV 90.1, MCH 29.6, RDW 16.7 H, MPV 9.2, Gran % 86.7 H, Lymphocytes % 9.9 L, Monocytes % 2.2, Eosinophils % 1.1, Basophils % 0.1, Absolute Granulocytes 9.3 H, Absolute Lymphocytes 1.1 L, Absolute Monocytes 0.2, Absolute Eosinophils 0.1, Absolute Basophils 0, PUBS MCHC 32.9 L 12/15/162119: CBC w Diff NO MAN DIFF REQ, RBC 2.45 L, MCV 90.1, MCH 29.3, RDW 16.4 H, MPV 9.2, Gran % 96.3 H, Lymphocytes % 3.4 L, Monocytes % 0.1 L, Eosinophils % 0.2 , Basophils % 0 L, Absolute Granulocytes 10.4 H, Absolute Lymphocytes 0.4 L, Absolute Monocytes 0 L, Absolute Eosinophils 0, Absolute Basophils 0, PUBS MCHC 32.6 L Assessment/Plan Assessment: Patient is 86-year-old female with past medical history significant for COPD on as needed home oxygen especially nocturnal oxygen 3l, history of coronary artery disease status post stent placement, history of diastolic congestive heart failure with preserved ejection fraction, history of breast cancer status post left-sided mastectomy with recurrence and repeat chemotherapy and radiation, history of spinal stenosis on chronic pain medications, hypertension, hyperlipidemia, neuropathy and GERD came with chief complaint of worsening shortness of breath. Vital signs on admission Temperature 98.1, pulse 71, respiratory rate 24, blood pressure 95/57 she was saturating 91% room air later on required 3 L to saturate 98%. Admission labs were WBC count 5.6, hemoglobin 9.6, hematocrit 28.8, platelet count 119, sodium 134, potassium 4.6, BUN/creatinine 33, creatinine 2.1, initial troponin 0.15, proBNP 5970. Chest x-ray was negative for any acute changes EKG showed normal sinus rhythm with no acute ST-T wave changes Problem list 1. Elevated troponins most likely demand ischemia due to underlying shortness of breath. 2. Acute on chronic hypoxic respiratory failure likely due to COPD exacerbation 3. History of CAD status post stent placement 4. History of hypertension 5. History of spinal stenosis on chronic pain meds 6. History of GERD 7. History of breast cancer status post radiation and mastectomy 8. Acute on chronic kidney injury most likely due to dehydration given history of diarrhea. 9. Aspiration pneumonia 10. New onset atrial fibrillation acute COPD exacerbation Patient presented with worsening shortness of breath for a couple of days. Off note she had upper respiratory tract infection and cough for one week. Exposure to sick contacts. She uses 3 L oxygen mostly during nighttime for COPD. However her shortness of breath worsened to the point where she couldn't breathe and she came to the emergency room. * Admitted to telemetry floor for further management * Monitor vitals closely every shift * Provide supplemental oxygen as needed * Maintain oxygen saturation greater than 90 * Total respiratory care * duonebs * IV methylprednisolone- switched to oral prednisone- continue 10 mg. * completed IV azithromycin for community-acquired pneumonia * completed IV Unasyn 7days for aspiration pneumonia * Mucinex for cough * Follow-up sputum cultures-neg * Follow-up blood cultures- neg Acute on chronic respiratory failure Patient presented with worsening shortness of breath for a couple of days. Off note she had upper respiratory tract infection and cough for one week. Exposure to sick contacts. She uses 3 L oxygen mostly during nighttime for COPD. However her shortness of breath worsened to the point where she couldn't breathe and she came to the emergency room. * Monitor vitals closely every shift * Provide supplemental oxygen as needed * Maintain oxygen saturation greater than 90 * Total respiratory care * duonebs Demand ischemia Elevated troponins to 0.15 most likely demand ischemia due to underlying shortness of breath and copd. * +troponins 0.15, no acute ST changes * Trended down- serial troponins and EKGs * Echocardiogram Normal left ventricular ejection fraction visually estimated at >65 %. No obvious regional wall motion abnormalities. Abnormal relaxationfilling pattern of the left ventricle for age (stage 1 diastolic dysfunction). * Patient troponins elevated again 12/09/2016. Cardiology was consulted. We trended serial troponins and EKGs. No acute cardiology intervention at this point of time Acute Kidney Injury: Creatinine 2.1, baseline ~1-1.2, patient received bumex in the ED. * BUN to creatinine ratio ~15:1, * patient may have been mildly hypovolemic with history of diarrhea * Trend renal function, BUN and creatinine * gentle IV hydration for now * Avoid nephrotoxins * Creatinine 1.2 this morning Hypertension Continue home medication amlodipine 10 mg daily Coronary artery disease Status post stent placement disContinued aspirin 81 daily Continue Lipitor 40 daily disContinued Plavix 75 daily Continue metoprolol 25 mg daily Nitroglycerin patch as needed Hyperlipidemia Continue Lipitor 40 daily Chronic diastolic congestive heart failure Not on any home medications No leg swelling No symptoms suggestive of heart failure Echocardiogram- stage1 diastolic heart failure neuropathy Continue gabapentin home medication GERD disontinued omeprazole because of diarrhea Aspiration pneumonia Patient has an episode of choking 12/07/2016. Spiked a temperature max 100.8. Chest x-ray showed right lower lobe infiltrate. * Follow-up pancultures- neg so far * Recommended mech soft and thin liquid diet * CAT scan chest [id number] pneumonia most possibly from aspiration * Patient was on IV Unasyn 7 days for aspiration pneumonia. New onset atrial fibrillation Patient developed new onset atrial fibrillation 12/09/2016. EKG showed atrial fibrillation rate 67. Catheter Builder was consulted. * CHADS VASC score 5. * rate controlled- No need for rate control agents for now * Continuous telemetry monitoring * No anticoagulation because of GI bleed diarhea Patient had multiple episodes of diarrhea during the hospital stay. Most possibly from steroids and antibiotics. Stool C. difficile was negative. Upper GI bleed Patient had large bowel movement which is black and tarry. Denies any nausea, vomiting, hematemesis, hematochezia, abdominal pain. Stool guaiac was positive. Stat hemoglobin 7.2 and hematocrit 22. Compressor Stations Superintendent was consulted. Dr. Dominguez onboard. She is not a good candidate to get endoscopy because of her respiratory issues and comorbidities conditions. * IV pantoprazole twice a day * Type and screen- done * Status post 2 units transfusion * Will recheck CBC * Transfuse if hemoglobin less than 7 * no plans for endoscopy * No aspirin, Plavix, apixaban mech soft and thin liquid diet DVT ppx-heparin 5000u subcutaneous Full code Problem List: 1. COPD (chronic obstructive pulmonary disease) Pain Ratin Pain Location: n/a Pain Goal: Remain pain free Pain Plan: tylinol Tomorrow's Labs & Rationales: cbc bep Consulting Request: Consulting Specialty: Pulmonary Disease [facility] 12/16/16 0923: Attending MD Review Statement Attending Statement Attending MD Statement: examined this patient, discuss w/resident/PA/BODY FORMER, agreed w/resident/PA/BODY FORMER, discussed with family, reviewed EMR data (avail), discussed with nursing, discussed with case mgmt, reviewed images, amended to note Attending Assessment/Plan: 86 o/f with acute on chronic respiratroy failure on high flow oxygen, treated for aspiration penumonia, on i.v abx now developing diarrhea, send for stool studies, c diff negative, decrease steroids, on lactobacilus. Patient follow speech/swallow recomnedations. advance diet as tolerated. Pulmonary following. Patient is alert, orineted , daughter bedside. Vitals stable, cbc done shows hb 7.2, receiving blood transfusion given consent. PPI bid i/v, serial cbc monitoring, low threshold to transfer to ICU for close monitoring. Patient recently started on eliquis for Afib rate controlled , Patient this am had large bowel movement black colored stools. D/w cardiology holding agents causing bleed. Spoke to GI Dr Rowland who has spoken to Dr Chirinos that EGD would be possible if patient is intubated and there are dificult chances to extubate thereafter as per pulm. Patient is known to Dr Fierro for long time who is cardiologiost on board. Family decided no aggressive measures DNR/DNI. Patient has acute blood loss anemia with elevated BUN, GI would not be able to perform endoscopic intervention as per Dr Rowland. Continue with supportive care. added kayexalate for hyperkalemia.
[2016-12-16 08:06] LABS: ABSOLUTE BASOPHIL COUNT 0 /CUMM (0.0-0.2); ABSOLUTE EOSINOPHIL COUNT 0.1 /CUMM (0.0-0.7); ABSOLUTE GRANULOCYTE CT 9.3 /CUMM (1.4-6.5); ABSOLUTE LYMPH COUNT 1.1 /CUMM (1.2-3.4); ABSOLUTE MONOCYTE COUNT 0.2 /CUMM (0.10-0.60); BASOPHIL % 0.1 % (0.0-2.0); EOSINOPHIL % 1.1 % (0-5); MEAN CORPUSCULAR HGB 29.6 PG (27.0-31.0); MEAN CORPUSCULAR HGB CONC 32.9 G/DL (33.0-37.0); MEAN CORPUSCULAR VOLUME 90.1 FL (81.0-99.0); MEAN PLATELET VOLUME 9.2 FL (7.4-10.4); RBC DISTRIBUTION WIDTH 16.7 % (11.5-14.5); RED BLOOD CELL CT 2.41 /CUMM (4.20-5.40); WHITE BLOOD CELL COUNT 10.8 /CUMM (4.8-10.8)
[2016-12-16 08:53] LABS: HEMATOCRIT 21.7 % (37-47)
[2016-12-16 09:02] LABS: PLATELET COUNT 226 /CUMM (130-400)
[2016-12-16 09:03] LABS: GRANULOCYTE % 86.7 % (42.2-75.2)
--- NOTE | 2016-12-16 13:47 | PN- Cardiology ---
Subjective Subjective: The patient is more lethargic today. She is receiving another unit of blood due to low H and H. She is in sinus rhythm on the monitor. She is now DNR/DNI. The family is considering comfort measures and/or hospice. Objective Vital Signs and I&Os Vital Signs Date Time Temp Pulse Resp B/P B/P Pulse O2 O2 Flow FiO2 Mean Ox Delivery Rate 12/16 0915 95 Nasal 75% Cannula 12/16 0859 142/68 12/16 0859 142/68 12/16 0800 92 Nasal 75% Cannula 12/16 0553 98.0 67 20 142/68 9 75% 12/16 0141 95 Nasal 75% Cannula 12/16 0000 75% 12/15 2200 98.8 65 20 156/60 93 Nasal Cannula 12/15 2040 95 Nasal 75% Cannula 12/15 1900 99.3 74 20 158/52 92 Nasal 75% Cannula 12/15 1600 92 Nasal 75% Cannula 12/15 1421 99.3 74 20 154/52 91 Nasal Cannula Intake & Output 12/16 1600 12/16 0800 12/16 0000 12/15 1600 12/15 0800 12/15 0000 Intake Total 240 700 540 Output Total 300 650 850 500 Balance -60 50 -310 -500 Intake, IV 120 100 100 Intake, Oral 120 600 440 Number 1 2 Bowel Movements Output, Urine 300 650 850 500 Physical Exam: She is lethargic Chest is clear to limited exam Heart regular rhythm today with no murmurs Current Medications: Current Medications Sig/Floresita Start time Last Medication Dose Route Stop Time Status Admin Acetaminophen 650 MG Q6P PRN 12/06 0645 AC 12/12 PO 1230 Albuterol Sulfate 3 ML EVERY 4 HRS/AWAKE 12/11 0800 AC 12/16 INH 1310 Albuterol Sulfate 2 PUF Q4P PRN 12/06 0715 AC 12/07 INH 2258 Amlodipine Besylate 10 MG DAILY 12/06 1000 AC 12/16 PO 0859 Ampicillin Sodium/ 1,500 MG Q6 12/08 2359 DC 12/16 Sulbactam Sodium IV 0552 Sodium Chloride 100 ML Atorvastatin Calcium 40 MG 1700 / 1700 AC 12/15 PO 1824 Gabapentin 600 MG TID 12/06 1000 AC 12/16 PO 0859 Guaifenesin 600 MG Q12 12/06 1144 AC 12/16 PO 0859 Insulin Aspart 0 TIDAC 12/10 0800 AC 12/16 NV 1238 Insulin Aspart 0 AT BEDTIME 12/09 2200 12/15 NV 2158 Metoprolol Succinate 25 MG DAILY 12/06 1000 AC 12/16 PO 0859 Nicotine 7 MG DAILY 12/09 1353 AC 12/16 TOP 0859 Nitroglycerin 0.4 MG DAILY 12/06 1000 AC 12/16 TOP 0859 Ondansetron HCl 4 MG ONCE ONE 12/16 0215 DC 12/16 IV 12/16 0216 0219 Pantoprazole Sodium 40 MG BID 12/15 1000 AC 12/16 IV 0858 Prednisone 10 MG DAILY 12/16 1000 AC 12/16 PO 12/17 1001 0859 Sodium Polystyrene 60 ML ONCE ONE 12/16 0930 DC 12/16 Sulfonate PO 12/16 0931 1008 Tiotropium [place] 1 PUF DAILY 12/07 1000 AC 12/16 INH 0900 Results Last 48 Hrs of Labs/Mics: Laboratory Tests 12/16/16 0633: Anion Gap 7, Estimated GFR 47 L, BUN/Creatinine Ratio 35.5 H, CBC w Diff NO MAN DIFF REQ, RBC 2.41 L, MCV 90.1, MCH 29.6, RDW 16.7 H, MPV 9.2, Gran % 86.7 H, Lymphocytes % 9.9 L, Monocytes % 2.2, Eosinophils % 1.1, Basophils % 0.1, Absolute Granulocytes 9.3 H, Absolute Lymphocytes 1.1 L, Absolute Monocytes 0.2, Absolute Eosinophils 0.1, Absolute Basophils 0, PUBS MCHC 32.9 L 12/15/160: CBC w Diff NO MAN DIFF REQ, RBC 2.45 L, MCV 90.1, MCH 29.3, RDW 16.4 H, MPV 9.2, Gran % 96.3 H, Lymphocytes % 3.4 L, Monocytes % 0.1 L, Eosinophils % 0.2 , Basophils % 0 L, Absolute Granulocytes 10.4 H, Absolute Lymphocytes 0.4 L, Absolute Monocytes 0 L, Absolute Eosinophils 0, Absolute Basophils 0, PUBS MCHC 32.6 L 12/15/16 0854: Anion Gap 6, Estimated GFR 47 L, BUN/Creatinine Ratio 38.2 H, CBC w Diff MAN DIFF ORDERED, RBC 2.44 L, MCV 89.9, MCH 29.6, RDW 16.3 H, MPV 9.4, Gran % 86.9 H, Lymphocytes % 10.8 L, Monocytes % 0.2 L, Eosinophils % 2.0, Basophils % 0.1, Absolute Granulocytes 10.6 H, Segmented Neutrophils 81 H, Absolute Lymphocytes 1.3, Lymphocytes 12 L, Monocytes 3, Absolute Monocytes 0 L, Eosinophils 2, Absolute Eosinophils 0.2, Absolute Basophils 0, Metamyelocytes 2 H, Platelet Estimate VERIFIED BY SMEAR, Polychromasia 1+, Poikilocytosis 1+, Anisocytosis 1+, Ovalocytes 1+, PUBS MCHC 32.9 L Assessment/Plan Assessment/Plan Danitza is still not doing well. She continues on high flow oxygen. Her H&H have remained low despite transfusion and she is receiving more blood. She is in and out of atrial fibrillation but currently in sinus rhythm. We will continue current treatment pending further decisions on level of care by the family. We will permanently discontinue any anticoagulant or antiplatelet medication. Continue telemetry? Yes
[2016-12-16 16:00] VITALS: BP 138/70
[2016-12-16 18:24] LABS: ABSOLUTE BASOPHIL COUNT 0 /CUMM (0.0-0.2); ABSOLUTE EOSINOPHIL COUNT 0.1 /CUMM (0.0-0.7); ABSOLUTE GRANULOCYTE CT 10.5 /CUMM (1.4-6.5); ABSOLUTE LYMPH COUNT 0.5 /CUMM (1.2-3.4); ABSOLUTE MONOCYTE COUNT 0.1 /CUMM (0.10-0.60); BASOPHIL % 0.1 % (0.0-2.0); EOSINOPHIL % 1.2 % (0-5); HEMATOCRIT 25.9 % (37-47); MEAN CORPUSCULAR HGB 29.6 PG (27.0-31.0); MEAN CORPUSCULAR HGB CONC 33.2 G/DL (33.0-37.0); MEAN CORPUSCULAR VOLUME 89.2 FL (81.0-99.0); MEAN PLATELET VOLUME 9.4 FL (7.4-10.4); PLATELET COUNT 239 /CUMM (130-400); RBC DISTRIBUTION WIDTH 17.1 % (11.5-14.5); WHITE BLOOD CELL COUNT 11.3 /CUMM (4.8-10.8)
[2016-12-16 18:53] LABS: GRANULOCYTE % 93.4 % (42.2-75.2)
--- NOTE | 2016-12-16 19:44 | PN- Pulmonary ---
Subjective HPI/Critical Care Issues: The patient is more lethargic today. She is receiving another unit of blood due to low H and H. She is in sinus rhythm on the monitor. She is now DNR/DNI. Objective Current Medications: Current Medications Sig/Floresita Start time Last Medication Dose Route Stop Time Status Admin Acetaminophen 650 MG Q6P PRN 12/06 0645 AC 12/12 PO 1230 Albuterol Sulfate 3 ML EVERY 4 HRS/AWAKE 12/11 0800 AC 12/16 INH 1711 Albuterol Sulfate 2 PUF Q4P PRN 12/06 0715 AC 12/07 INH 2258 Amlodipine Besylate 10 MG DAILY 12/06 1000 AC 12/16 PO 0859 Ampicillin Sodium/ 1,500 MG Q6 12/08 2359 DC 12/16 Sulbactam Sodium IV 0552 Sodium Chloride 100 ML Atorvastatin Calcium 40 MG 1700 / 1700 AC 12/16 PO 1638 Gabapentin 600 MG TID 12/06 1000 AC 12/16 PO 1638 Guaifenesin 600 MG Q12 12/06 1144 AC 12/16 PO 0859 Insulin Aspart 0 TIDAC 12/10 0800 AC 12/16 SC 1638 Insulin Aspart 0 AT BEDTIME 12/09 2200 AC 12/15 SC 2158 Metoprolol Succinate 25 MG DAILY 12/06 1000 AC 12/16 PO 0859 Nicotine 7 MG DAILY 12/09 1353 AC 12/16 TOP 0859 Nitroglycerin 0.4 MG DAILY 12/06 1000 AC 12/16 TOP 0859 Ondansetron HCl 4 MG ONCE ONE 12/16 0215 DC 12/16 IV 12/16 0216 0219 Pantoprazole Sodium 40 MG BID 12/15 1000 AC 12/16 IV 0858 Patient Medication 1 ED .STK-MED ONE 12/16 1356 DC Teaching ED 12/16 1357 Prednisone 10 MG DAILY 12/16 1000 AC 12/16 PO 12/17 1001 0859 Sodium Polystyrene 60 ML ONCE ONE 12/16 1944 UNVr Sulfonate PO 12/16 194 Sodium Polystyrene 60 ML ONCE ONE 12/16 0930 DC 12/16 Sulfonate PO 12/16 0931 1008 Tiotropium [place] 1 PUF DAILY 12/07 1000 AC 12/16 INH 0900 Vital Signs & I&O Last 24 Hrs of Vitals and I&O: Vital Signs Date Time Temp Pulse Resp B/P B/P Pulse O2 O2 Flow FiO2 Mean Ox Delivery Rate 12/16 1600 98.1 67 20 138/70 95 Nasal 75% Cannula 12/16 0915 95 Nasal 75% Cannula 12/16 0859 142/68 12/16 0859 142/68 12/16 0800 92 Nasal 75% Cannula 12/16 0553 98.0 67 20 142/68 9 75% 12/16 0141 95 Nasal 75% Cannula 12/16 0000 75% 12/15 2200 98.8 65 20 156/60 93 Nasal Cannula 12/15 2040 95 Nasal 75% Cannula Intake & Output 12/16 1600 12/16 0800 12/16 0000 Intake Total 780 240 700 Output Total 800 300 650 Balance -20 -60 50 Intake, Blood 330 Product Intake, IV 50 120 100 Intake, Oral 400 120 600 Number 4 1 Bowel Movements Output, Urine 800 300 650 Impression/Plan Impression/Plan Impression/Plan: Physical Exam on high flow General Appearance Sig dyspnea Skin No Rashes, No Breakdown Skin Temp/Moisture Exam: Warm/Dry HEENT Atraumatic, PERRLA, EOMI Neck Supple, No JVD Cardiovascular Regular Rate, Normal S1, Normal S2, No Murmurs Lungs diffuse expiratory wheeze Abdomen Normal Bowel Sounds, Soft, No Tenderness, No Masses Neurological Normal Speech, Strength at 5/5 X4 Ext, Normal Tone, Sensation Intact Extremities No Cyanosis, No Edema, Normal Pulses, No Tenderness/Swelling Vascular Normal Pulses, Pulses Symmetrical SIGNIFICANT DATA IMPRESSION: 1. Multilobar pneumonia (possibly due to aspiration). Trace bilateral pleural effusions. 2. Mediastinal lymphadenopathy, likely reactive to the pulmonary disease. 3. Cardiomegaly and coronary artery atherosclerotic disease. Previous full pulmonary function test reviewed from 2002 which showed moderate obstructive pulmonary physiology Echocardiogram reviewed which showed normal ejection fraction moderate mitral annular calcification significant pulmonary hypertension EKG showed irregular heart rhythm IMPRESSION This is a lady with moderate to severe obstructive lung disease with more bronchitis and emphysema who has been on chronic oxygen therapy, coronary artery disease with previous stent, diastolic heart disease, previous history of breast cancer status post left-sided mastectomy with previous radiation and chemotherapy, significant low back pain and spinal stenosis on chronic pain medication, hypertension, hyperlipidemia, chronic neuropathy, GERD, chronic kidney disease with recent diarrhea which was worked up as an outpatient with negative CT and negative stool test now has * Acute on chronic hypoxemic respiratory failure related to multilobar pneumonia in a lady with decompensated lung disease, pattern of pna is sugg of aspiration pna / Now with UGI bleed with black stool * Prob UGI bleed * 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 * Ischemic heart disease with slightly high troponin with previous stent * Chronic kidney disease stage III with acute renal insufficiency * Chronic pain syndrome on narcotics * Peripheral vascular disease * Probable demand ischemia * Probable proximal atrial fibrillation versus multifocal atrial tachycardia, in sinus * Hypertension, hyperlipidemia, GERD, cholelithiasis, previous history of breast cancer with no obvious evidence of recurrence at this time, however patient recently had a left chest mass excision which did show invasive tumor size to by 2 x 2 with ER/[place] and HER-2 negative, 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 Patient has had previous radical mastectomywith recurrence. RECOMMENDATION * Cont current rx * conservtive measures * Continue prednisone * Continue Unasyn, seven day total will follow prog poor
[2016-12-16 21:23] VITALS: BP 124/80
[2016-12-17 08:01] VITALS: BP 148/68
--- NOTE | 2016-12-17 12:08 | PN- Housestaff ---
See Addendum Subjective Follow-up For: Follow-up For: Acute COPD exacerbation Demand ischemia Acute kidney injury Aspiration pneumonia New onset atrial fibrillation diarhea- resolved upper gi bleed Complaints: no complaints Tele-Events Since Last Visit: in sinus rhythm no events overnight Subjective: Patient was seen and examined this morning. She is alert awake and oriented to time place and person. No acute overnight events. Denies any fever, chills, Reports productive cough, short of breath. Denies any chest pain, racing of heart, fever, headache. denies diarrhea, abdomen pain Vitals were stable. Patient is on high flow oxygen Swallow evaluation recommended regular diet- mech soft and thin liquid Review of Systems Constitutional: Reports: see HPI. Objective Last 24 Hrs of Vital Signs/I&O Vital Signs Date Time Temp Pulse Resp B/P B/P Pulse O2 O2 Flow FiO2 Mean Ox Delivery Rate 12/17 1653 95 Nasal 10L Cannula 12/17 1521 97.4 68 20 110/62 94 Nasal 10L Cannula 12/17 1428 93 Nasal Cannula 12/17 1022 148/68 12/17 1021 148/68 12/17 0908 92 Nasal 75% Cannula 12/17 0801 98.4 94 18 148/68 91 Nasal Cannula 12/17 0227 91 Nasal 75% Cannula 12/17 0000 92 Nasal 30% Cannula 12/16 2123 99.2 69 20 124/80 91 12/16 2107 93 Nasal 75% Cannula Intake & Output 12/17 1600 12/17 0800 12/17 0000 Intake Total 180 100 420 Output Total 200 400 600 Balance -20 -300 -180 Intake, Oral 180 100 420 Number 0 5 3 Bowel Movements Output, Urine 200 400 600 Physical Exam General Appearance: Alert, Oriented X3, Cooperative, No Acute Distress Skin: No Rashes, No Breakdown, No Significant Lesion HEENT: Atraumatic, PERRLA, EOMI, Mucous Membr. moist/pink Neck: Supple, No JVD, No thryomegaly Lymphatic: Cervical nl Cardiovascular: Normal S1, Normal S2 Lungs: dec bs Abdomen: Normal Bowel Sounds, Soft, No Tenderness Extremities: No Clubbing, No Cyanosis, No Edema Vascular: Pulses Symmetrical Assessment/Plan Assessment: Patient is 86-year-old female with past medical history significant for COPD on as needed home oxygen especially nocturnal oxygen 3l, history of coronary artery disease status post stent placement, history of diastolic congestive heart failure with preserved ejection fraction, history of breast cancer status post left-sided mastectomy with recurrence and repeat chemotherapy and radiation, history of spinal stenosis on chronic pain medications, hypertension, hyperlipidemia, neuropathy and GERD came with chief complaint of worsening shortness of breath. Vital signs on admission Temperature 98.1, pulse 71, respiratory rate 24, blood pressure 95/57 she was saturating 91% room air later on required 3 L to saturate 98%. Admission labs were WBC count 5.6, hemoglobin 9.6, hematocrit 28.8, platelet count 119, sodium 134, potassium 4.6, BUN/creatinine 33, creatinine 2.1, initial troponin 0.15, proBNP 5970. Chest x-ray was negative for any acute changes EKG showed normal sinus rhythm with no acute ST-T wave changes Problem list 1. Elevated troponins most likely demand ischemia due to underlying shortness of breath. 2. Acute on chronic hypoxic respiratory failure likely due to COPD exacerbation 3. History of CAD status post stent placement 4. History of hypertension 5. History of spinal stenosis on chronic pain meds 6. History of GERD 7. History of breast cancer status post radiation and mastectomy 8. Acute on chronic kidney injury most likely due to dehydration given history of diarrhea. 9. Aspiration pneumonia 10. New onset atrial fibrillation acute COPD exacerbation Patient presented with worsening shortness of breath for a couple of days. Off note she had upper respiratory tract infection and cough for one week. Exposure to sick contacts. She uses 3 L oxygen mostly during nighttime for COPD. However her shortness of breath worsened to the point where she couldn't breathe and she came to the emergency room. * Admitted to telemetry floor for further management * Monitor vitals closely every shift * Provide supplemental oxygen as needed * Maintain oxygen saturation greater than 90 * Total respiratory care * duonebs * IV methylprednisolone- switched to oral prednisone- continue 10 mg. * completed IV azithromycin for community-acquired pneumonia * completed IV Unasyn 7days for aspiration pneumonia * Mucinex for cough * Follow-up sputum cultures-neg * Follow-up blood cultures- neg Acute on chronic respiratory failure Patient presented with worsening shortness of breath for a couple of days. Off note she had upper respiratory tract infection and cough for one week. Exposure to sick contacts. She uses 3 L oxygen mostly during nighttime for COPD. However her shortness of breath worsened to the point where she couldn't breathe and she came to the emergency room. * Monitor vitals closely every shift * Provide supplemental oxygen as needed * Maintain oxygen saturation greater than 90 * Total respiratory care * duonebs Demand ischemia Elevated troponins to 0.15 most likely demand ischemia due to underlying shortness of breath and copd. * +troponins 0.15, no acute ST changes * Trended down- serial troponins and EKGs * Echocardiogram Normal left ventricular ejection fraction visually estimated at >65 %. No obvious regional wall motion abnormalities. Abnormal relaxationfilling pattern of the left ventricle for age (stage 1 diastolic dysfunction). * Patient troponins elevated again 12/09/2016. Cardiology was consulted. We trended serial troponins and EKGs. No acute cardiology intervention at this point of time Acute Kidney Injury: Creatinine 2.1, baseline ~1-1.2, patient received bumex in the ED. * BUN to creatinine ratio ~15:1, * patient may have been mildly hypovolemic with history of diarrhea * Trend renal function, BUN and creatinine * gentle IV hydration for now * Avoid nephrotoxins * Creatinine 1.2 this morning Hypertension Continue home medication amlodipine 10 mg daily Coronary artery disease Status post stent placement disContinued aspirin 81 daily Continue Lipitor 40 daily disContinued Plavix 75 daily Continue metoprolol 25 mg daily Nitroglycerin patch as needed Hyperlipidemia Continue Lipitor 40 daily Chronic diastolic congestive heart failure Not on any home medications No leg swelling No symptoms suggestive of heart failure Echocardiogram- stage1 diastolic heart failure neuropathy Continue gabapentin home medication GERD disontinued omeprazole because of diarrhea Aspiration pneumonia Patient has an episode of choking 12/07/2016. Spiked a temperature max 100.8. Chest x-ray showed right lower lobe infiltrate. * Follow-up pancultures- neg so far * Recommended [facility] soft and thin liquid diet * CAT scan chest [id number] pneumonia most possibly from aspiration * Patient was on IV Unasyn 7 days for aspiration pneumonia. New onset atrial fibrillation Patient developed new onset atrial fibrillation 12/09/2016. EKG showed atrial fibrillation rate 67. Hair Mixer was consulted. * CHADS VASC score 5. * rate controlled- No need for rate control agents for now * Continuous telemetry monitoring * No anticoagulation because of GI bleed diarhea Patient had multiple episodes of diarrhea during the hospital stay. Most possibly from steroids and antibiotics. Stool C. difficile was negative. Upper GI bleed Patient had large bowel movement which is black and tarry. Denies any nausea, vomiting, hematemesis, hematochezia, abdominal pain. Stool guaiac was positive. Stat hemoglobin 7.2 and hematocrit 22. Pedodontist was consulted. Dr. Dominguez onboard. She is not a good candidate to get endoscopy because of her respiratory issues and comorbidities conditions. * IV pantoprazole twice a day * Type and screen- done * Status post 2 units transfusion * repeat CBC - 8.6 * Transfuse if hemoglobin less than 7 * no plans for endoscopy * No aspirin, Plavix, apixaban mech soft and thin liquid diet DVT ppx-heparin 5000u subcutaneous Full code Problem List: 1. COPD (chronic obstructive pulmonary disease) Pain Ratin Pain Location: n/a Pain Goal: Remain pain free Pain Plan: tylniol Tomorrow's Labs & Rationales: cbc bep Consulting Request: Consulting Specialty: Pulmonary Disease
--- NOTE | 2016-12-17 13:23 | PN- Cardiology ---
Subjective Subjective: The patient feels better today. She is up in a chair and more alert. She is off of high flow oxygen and now on 10 L of nasal oxygen with saturations in the 90s. She is in sinus rhythm on the monitor. Her H&H are improved after transfusions and stable. Objective Vital Signs and I&Os Vital Signs Date Time Temp Pulse Resp B/P B/P Pulse O2 O2 Flow FiO2 Mean Ox Delivery Rate 12/17 1022 148/68 12/17 1021 148/68 12/17 0908 92 Nasal 75% Cannula 12/17 0801 98.4 94 18 148/68 91 Nasal Cannula 12/17 0227 91 Nasal 75% Cannula 12/17 0000 92 Nasal 30% Cannula 12/16 2123 99.2 69 20 124/80 91 12/16 2107 93 Nasal 75% Cannula 12/16 1600 98.1 67 20 138/70 95 Nasal 75% Cannula Intake & Output 12/17 1600 12/17 0800 12/17 0000 12/16 1600 12/16 0800 12/16 0000 Intake Total 180 100 420 780 240 700 Output Total 200 400 600 800 300 650 Balance -20 -300 -180 -20 -60 50 Intake, Blood 330 Product Intake, IV 50 120 100 Intake, Oral 180 100 420 400 120 600 Number 0 5 3 4 1 Bowel Movements Output, Urine 200 400 600 800 300 650 Physical Exam: Chest reveals decreased breath sounds and scattered wheezes and rhonchi. Heart is regular with no murmurs. There is no edema. Current Medications: Current Medications Sig/Floresita Start time Last Medication Dose Route Stop Time Status Admin Acetaminophen 650 MG Q6P PRN 12/06 0645 AC 12/12 PO 1230 Albuterol Sulfate 3 ML EVERY 4 HRS/AWAKE 12/11 0800 AC 12/17 INH 0903 Albuterol Sulfate 2 PUF Q4P PRN 12/06 0715 AC 12/07 INH 2258 Amlodipine Besylate 10 MG DAILY 12/06 1000 AC 12/17 PO 1021 Atorvastatin Calcium 40 MG 1700 12/06 1700 AC 12/16 PO 1638 Gabapentin 600 MG TID 12/06 1000 AC 12/17 PO 1021 Guaifenesin 600 MG Q12 / 1144 AC 12/17 PO 1021 Insulin Aspart 0 TIDAC 12/10 0800 AC 12/16 SC 1638 Insulin Aspart 0 AT BEDTIME 12/09 2200 AC 12/16 NV 2145 Metoprolol Succinate 25 MG DAILY 12/06 1000 AC 12/17 PO 1022 Nicotine 7 MG DAILY 12/09 1353 AC 12/17 TOP 1022 Nitroglycerin 0.4 MG DAILY 12/06 1000 AC 12/17 TOP 1022 Pantoprazole Sodium 40 MG BID 12/15 1000 AC 12/17 IV 1022 Patient Medication 1 ED .STK-MED ONE 12/16 1356 DC Teaching ED 12/16 1357 Prednisone 10 MG DAILY 12/16 1000 DC 12/17 PO 12/17 1001 1022 Sodium Polystyrene 60 ML ONCE ONE 12/16 1944 DC 12/16 Sulfonate PO 12/16 1945 2123 Tiotropium [place] 1 PUF DAILY 12/07 1000 AC 12/16 INH 0900 Results Last 48 Hrs of Labs/Mics: Laboratory Tests 12/17/16 1229: Sodium Pending, Potassium Pending, Chloride Pending, Carbon Dioxide Pending, Anion Gap Pending, BUN Pending, Creatinine Pending, BUN/Creatinine Ratio Pending , CBC w Diff Pending, WBC Pending, RBC Pending, Hgb Pending, Hct Pending, MCV Pending, MCH Pending, RDW Pending, Plt Count Pending, MPV Pending, PUBS MCHC Pending 12/16/16 1650: Anion Gap 7, Estimated GFR 43 L, BUN/Creatinine Ratio 29.2 H, CBC w Diff NO MAN DIFF REQ, RBC 2.90 L, MCV 89.2, MCH 29.6, RDW 17.1 H, MPV 9.4, Gran % 93.4 H, Lymphocytes % 4.3 L, Monocytes % 1.0 L, Eosinophils % 1.2, Basophils % 0.1 , Absolute Granulocytes 10.5 H, Absolute Lymphocytes 0.5 L, Absolute Monocytes 0.1 L, Absolute Eosinophils 0.1, Absolute Basophils 0, PUBS MCHC 33.2 12/16/16 0633: Anion Gap 7, Estimated GFR 47 L, BUN/Creatinine Ratio 35.5 H, CBC w Diff NO MAN DIFF REQ, RBC 2.41 L, MCV 90.1, MCH 29.6, RDW 16.7 H, MPV 9.2, Gran % 86.7 H, Lymphocytes % 9.9 L, Monocytes % 2.2, Eosinophils % 1.1, Basophils % 0.1, Absolute Granulocytes 9.3 H, Absolute Lymphocytes 1.1 L, Absolute Monocytes 0.2, Absolute Eosinophils 0.1, Absolute Basophils 0, PUBS MCHC 32.9 L 12/15/162119: CBC w Diff NO MAN DIFF REQ, RBC 2.45 L, MCV 90.1, MCH 29.3, RDW 16.4 H, MPV 9.2, Gran % 96.3 H, Lymphocytes % 3.4 L, Monocytes % 0.1 L, Eosinophils % 0.2 , Basophils % 0 L, Absolute Granulocytes 10.4 H, Absolute Lymphocytes 0.4 L, Absolute Monocytes 0 L, Absolute Eosinophils 0, Absolute Basophils 0, PUBS MCHC 32.6 L Assessment/Plan Assessment/Plan Danitza is a little better today. She is more alert and on just nasal cannula oxygen. She remains in sinus rhythm. Hopefully her oxygen can be tapered down to a level where she can be discharged, most likely to rehabilitation. Continue telemetry? Yes
[2016-12-17 13:25] LABS: ABSOLUTE BASOPHIL COUNT 0 /CUMM (0.0-0.2); ABSOLUTE EOSINOPHIL COUNT 0.3 /CUMM (0.0-0.7); ABSOLUTE GRANULOCYTE CT 12.2 /CUMM (1.4-6.5); ABSOLUTE LYMPH COUNT 0.5 /CUMM (1.2-3.4); ABSOLUTE MONOCYTE COUNT 0.4 /CUMM (0.10-0.60); BASOPHIL % 0.1 % (0.0-2.0); EOSINOPHIL % 2.1 % (0-5); HEMATOCRIT 27.2 % (37-47); MEAN CORPUSCULAR HGB 29.4 PG (27.0-31.0); MEAN CORPUSCULAR HGB CONC 33.1 G/DL (33.0-37.0); MEAN PLATELET VOLUME 9.5 FL (7.4-10.4); PLATELET COUNT 242 /CUMM (130-400); RBC DISTRIBUTION WIDTH 16.3 % (11.5-14.5); RED BLOOD CELL CT 3.06 /CUMM (4.20-5.40); WHITE BLOOD CELL COUNT 13.5 /CUMM (4.8-10.8)
[2016-12-17 13:54] LABS: GRANULOCYTE % 90.8 % (42.2-75.2)
[2016-12-17 15:21] VITALS: BP 110/62
--- NOTE | 2016-12-17 18:23 | PN- Pulmonary ---
Subjective HPI/Critical Care Issues: The patient feels better today. She is up in a chair and more alert. She is off of high flow oxygen and now on 10 L of nasal oxygen with saturations in the 90s. She is in sinus rhythm on the monitor. Her H&H are improved after transfusions and stable. Objective Current Medications: Current Medications Sig/Floresita Start time Last Medication Dose Route Stop Time Status Admin Acetaminophen 650 MG Q6P PRN 12/06 0645 AC 12/12 PO 1230 Albuterol Sulfate 3 ML EVERY 4 HRS/AWAKE 12/11 0800 AC 12/17 INH 1425 Albuterol Sulfate 2 PUF Q4P PRN 12/06 0715 AC 12/07 INH 2258 Amlodipine Besylate 10 MG DAILY 12/06 1000 AC 12/17 PO 1021 Atorvastatin Calcium 40 MG 1700 12/06 1700 AC 12/17 PO 1640 Gabapentin 600 MG TID 12/06 1000 AC 12/17 PO 1640 Guaifenesin 600 MG Q12 12/06 1144 AC 12/17 PO 1021 Insulin Aspart 0 TIDAC 12/10 0800 AC 12/17 SC 1707 Insulin Aspart 0 AT BEDTIME 12/09 2200 AC 12/16 SC 2145 Metoprolol Succinate 25 MG DAILY 12/06 1000 AC 12/17 PO 1022 Nicotine 7 MG DAILY 12/09 1353 AC 12/17 TOP 1022 Nitroglycerin 0.4 MG DAILY 12/06 1000 AC 12/17 TOP 1022 Pantoprazole Sodium 40 MG BID 12/15 1000 AC 12/17 IV 1022 Prednisone 10 MG DAILY 12/16 1000 DC 12/17 PO 12/17 1001 1022 Sodium Polystyrene 60 ML ONCE ONE 12/16 1944 DC 12/16 Sulfonate PO 12/163 Tiotropium Diana 1 PUF DAILY 12/07 1000 AC 12/17 INH 1639 Vital Signs & I&O Last 24 Hrs of Vitals and I&O: Vital Signs Date Time Temp Pulse Resp B/P B/P Pulse O2 O2 Flow FiO2 Mean Ox Delivery Rate 12/17 1653 95 Nasal 10L Cannula 12/17 1600 93 Nasal Cannula 12/17 1521 97.4 68 20 110/62 94 Nasal 10L Cannula 12/17 1428 93 Nasal Cannula 12/17 1022 148/68 12/17 1021 148/68 12/17 0908 92 Nasal 75% Cannula 12/17 0801 98.4 94 18 148/68 91 Nasal Cannula 12/17 0227 91 Nasal 75% Cannula 12/17 0000 92 Nasal 30% Cannula 12/16 2122 99.2 69 20 124/80 91 12/16 2106 93 Nasal 75% Cannula Intake & Output 12/17 1600 12/17 0800 12/17 0000 Intake Total 900 100 420 Output Total 600 400 600 Balance 300 -300 -180 Intake, Oral 900 100 420 Number 2 5 3 Bowel Movements Output, Urine 600 400 600 Impression/Plan Impression/Plan Impression/Plan: Physical Exam on high flow General Appearance Sig dyspnea Skin No Rashes, No Breakdown Skin Temp/Moisture Exam: Warm/Dry HEENT Atraumatic, PERRLA, EOMI Neck Supple, No JVD Cardiovascular Regular Rate, Normal S1, Normal S2, No Murmurs Lungs diffuse expiratory wheeze Abdomen Normal Bowel Sounds, Soft, No Tenderness, No Masses Neurological Normal Speech, Strength at 5/5 X4 Ext, Normal Tone, Sensation Intact Extremities No Cyanosis, No Edema, Normal Pulses, No Tenderness/Swelling Vascular Normal Pulses, Pulses Symmetrical SIGNIFICANT DATA IMPRESSION: 1. Multilobar pneumonia (possibly due to aspiration). Trace bilateral pleural effusions. 2. Mediastinal lymphadenopathy, likely reactive to the pulmonary disease. 3. Cardiomegaly and coronary artery atherosclerotic disease. Previous full pulmonary function test reviewed from 2002 which showed moderate obstructive pulmonary physiology Echocardiogram reviewed which showed normal ejection fraction moderate mitral annular calcification significant pulmonary hypertension EKG showed irregular heart rhythm IMPRESSION This is a lady with moderate to severe obstructive lung disease with more bronchitis and emphysema who has been on chronic oxygen therapy, coronary artery disease with previous stent, diastolic heart disease, previous history of breast cancer status post left-sided mastectomy with previous radiation and chemotherapy, significant low back pain and spinal stenosis on chronic pain medication, hypertension, hyperlipidemia, chronic neuropathy, GERD, chronic kidney disease with recent diarrhea which was worked up as an outpatient with negative CT and negative stool test now has * Acute on chronic hypoxemic respiratory failure related to multilobar pneumonia in a lady with decompensated lung disease, pattern of pna is sugg of aspiration pna / Now with UGI bleed with black stool s/p transfusion * Prob UGI bleed * 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 * Ischemic heart disease with slightly high troponin with previous stent * Chronic kidney disease stage III with acute renal insufficiency * Chronic pain syndrome on narcotics * Peripheral vascular disease * Probable demand ischemia * Probable proximal atrial fibrillation versus multifocal atrial tachycardia, in sinus * Hypertension, hyperlipidemia, GERD, cholelithiasis, previous history of breast cancer with no obvious evidence of recurrence at this time, however patient recently had a left chest mass excision which did show invasive tumor size to by 2 x 2 with ER/FL and HER-2 negative, 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 Patient has had previous radical mastectomywith recurrence. RECOMMENDATION * Cont current rx * conservtive measures * Continue prednisone to wean * Continue Unasyn, seven day total and dc Diuresis prn will follow
[2016-12-17 22:15] VITALS: BP 154/50
--- NOTE | 2016-12-18 07:17 | PN- Housestaff ---
BORIS TIMMONS 12/18/16 0716: Subjective Follow-up For: Acute COPD exacerbation Demand ischemia Acute kidney injury Aspiration pneumonia New onset atrial fibrillation diarhea- resolved upper gi bleed Complaints: no complaints Tele-Events Since Last Visit: in sinus rhythm no events overnight Subjective: Patient was seen and examined this morning. She is alert awake and oriented to time place and person. No acute overnight events. Denies any fever, chills, Reports productive cough, short of breath. Denies any chest pain, racing of heart, fever, headache. denies diarrhea, abdomen pain Vitals were stable. Patient is on high flow oxygen Swallow evaluation recommended regular diet- mech soft and thin liquid Review of Systems Constitutional: Reports: see HPI. Objective Last 24 Hrs of Vital Signs/I&O Vital Signs Date Time Temp Pulse Resp B/P B/P Pulse O2 O2 Flow FiO2 Mean Ox Delivery Rate 12/18 1005 148/64 12/18 1005 148/64 12/18 0800 92 Nasal 8L Cannula 12/18 0733 99.3 73 16 148/64 90 Nasal Cannula 12/17 2215 96 16 154/50 90 Nasal Cannula 12/17 1653 95 Nasal 10L Cannula 12/17 1600 93 Nasal Cannula 12/17 1521 97.4 68 20 110/62 94 Nasal 10L Cannula 12/17 1428 93 Nasal Cannula Intake & Output 12/18 1600 12/18 0800 12/18 0000 Intake Total 100 600 Output Total 400 400 Balance -300 200 Intake, Oral 100 600 Number 1 Bowel Movements Output, Urine 400 400 Physical Exam General Appearance: Alert, Oriented X3, Cooperative, No Acute Distress Skin: No Rashes, No Breakdown, No Significant Lesion HEENT: Atraumatic, PERRLA, EOMI Neck: Supple, No JVD, No thryomegaly Lymphatic: Cervical nl Cardiovascular: Normal S1, Normal S2 Lungs: Normal Air Movement Abdomen: Normal Bowel Sounds, Soft, No Tenderness Extremities: No Clubbing, No Cyanosis, No Edema Vascular: Normal Pulses, Pulses Symmetrical Current Medications: Current Medications Sig/Floresita Start time Last Medication Dose Route Stop Time Status Admin Acetaminophen 650 MG Q6P PRN 12/06 0645 AC 12/12 PO 1230 Albuterol Sulfate 3 ML EVERY 4 HRS/AWAKE 12/11 0800 AC 12/18 INH 0929 Albuterol Sulfate 2 PUF Q4P PRN 12/06 0715 AC 12/07 INH 2258 Amlodipine Besylate 10 MG DAILY 12/06 1000 AC 12/18 PO 1005 Atorvastatin Calcium 40 MG 1700 12/06 1700 AC 12/17 PO 1640 Gabapentin 600 MG TID 12/06 1000 AC 12/18 PO 1005 Guaifenesin 600 MG Q12 12/06 1144 AC 12/18 PO 1005 Insulin Aspart 0 TIDAC 12/10 0800 AC 12/18 SC 1204 Insulin Aspart 0 AT BEDTIME 12/09 2200 AC 12/17 SC 2139 Metoprolol Succinate 25 MG DAILY 12/06 1000 AC 12/18 PO 1005 Nicotine 7 MG DAILY 12/09 1353 AC 12/18 TOP 1006 Nitroglycerin 0.4 MG DAILY 12/06 1000 AC 12/18 TOP 1005 Pantoprazole Sodium 40 MG BID 12/15 1000 AC 12/18 IV 1005 Sodium Polystyrene 60 ML ONCE ONE 12/18 0745 DC Sulfonate PO 12/18 0746 Tiotropium [place] 1 PUF DAILY 12/07 1000 AC 12/18 INH 1005 Last 24 Hrs of Lab/Donell Results Last 24 Hrs of Labs/Mics: Laboratory Tests 12/18/16 0636: Anion Gap 5, Estimated GFR 47 L, BUN/Creatinine Ratio 30.0 H, CBC w Diff NO MAN DIFF REQ, RBC 2.79 L, MCV 89.7, MCH 29.7, RDW 16.3 H, MPV 9.4, Gran % 83.0 H, Lymphocytes % 11.9 L, Monocytes % 3.5, Eosinophils % 1.6, Basophils % 0 L, Absolute Granulocytes 7.7 H, Absolute Lymphocytes 1.1 L, Absolute Monocytes 0.3, Absolute Eosinophils 0.2, Absolute Basophils 0, PUBS MCHC 33.1 Assessment/Plan Assessment: Patient is 86-year-old female with past medical history significant for COPD on as needed home oxygen especially nocturnal oxygen 3l, history of coronary artery disease status post stent placement, history of diastolic congestive heart failure with preserved ejection fraction, history of breast cancer status post left-sided mastectomy with recurrence and repeat chemotherapy and radiation, history of spinal stenosis on chronic pain medications, hypertension, hyperlipidemia, neuropathy and GERD came with chief complaint of worsening shortness of breath. Vital signs on admission Temperature 98.1, pulse 71, respiratory rate 24, blood pressure 95/57 she was saturating 91% room air later on required 3 L to saturate 98%. Admission labs were WBC count 5.6, hemoglobin 9.6, hematocrit 28.8, platelet count 119, sodium 134, potassium 4.6, BUN/creatinine 33, creatinine 2.1, initial troponin 0.15, proBNP 5970. Chest x-ray was negative for any acute changes EKG showed normal sinus rhythm with no acute ST-T wave changes Problem list 1. Elevated troponins most likely demand ischemia due to underlying shortness of breath. 2. Acute on chronic hypoxic respiratory failure likely due to COPD exacerbation 3. History of CAD status post stent placement 4. History of hypertension 5. History of spinal stenosis on chronic pain meds 6. History of GERD 7. History of breast cancer status post radiation and mastectomy 8. Acute on chronic kidney injury most likely due to dehydration given history of diarrhea. 9. Aspiration pneumonia 10. New onset atrial fibrillation acute COPD exacerbation Patient presented with worsening shortness of breath for a couple of days. Off note she had upper respiratory tract infection and cough for one week. Exposure to sick contacts. She uses 3 L oxygen mostly during nighttime for COPD. However her shortness of breath worsened to the point where she couldn't breathe and she came to the emergency room. * Admitted to telemetry floor for further management * Monitor vitals closely every shift * Provide supplemental oxygen as needed * Maintain oxygen saturation greater than 90 * Total respiratory care * duonebs * IV methylprednisolone- switched to oral prednisone- completed prednisone taper * completed IV azithromycin for community-acquired pneumonia * completed IV Unasyn 7days for aspiration pneumonia * Mucinex for cough * Follow-up sputum cultures-neg * Follow-up blood cultures- neg Acute on chronic respiratory failure Patient presented with worsening shortness of breath for a couple of days. Off note she had upper respiratory tract infection and cough for one week. Exposure to sick contacts. She uses 3 L oxygen mostly during nighttime for COPD. However her shortness of breath worsened to the point where she couldn't breathe and she came to the emergency room. * Monitor vitals closely every shift * Provide supplemental oxygen as needed * Maintain oxygen saturation greater than 90 * Total respiratory care * duonebs Demand ischemia Elevated troponins to 0.15 most likely demand ischemia due to underlying shortness of breath and copd. * +troponins 0.15, no acute ST changes * Trended down- serial troponins and EKGs * Echocardiogram Normal left ventricular ejection fraction visually estimated at >65 %. No obvious regional wall motion abnormalities. Abnormal relaxationfilling pattern of the left ventricle for age (stage 1 diastolic dysfunction). * Patient troponins elevated again 12/09/2016. Cardiology was consulted. We trended serial troponins and EKGs. No acute cardiology intervention at this point of time Acute Kidney Injury: Creatinine 2.1, baseline ~1-1.2, patient received bumex in the ED. * BUN to creatinine ratio ~15:1, * patient may have been mildly hypovolemic with history of diarrhea * Trend renal function, BUN and creatinine * gentle IV hydration for now * Avoid nephrotoxins * Creatinine 1.1 this morning Hypertension Continue home medication amlodipine 10 mg daily Coronary artery disease Status post stent placement disContinued aspirin 81 daily Continue Lipitor 40 daily disContinued Plavix 75 daily Continue metoprolol 25 mg daily Nitroglycerin patch as needed Hyperlipidemia Continue Lipitor 40 daily Chronic diastolic congestive heart failure Not on any home medications No leg swelling No symptoms suggestive of heart failure Echocardiogram- stage1 diastolic heart failure neuropathy Continue gabapentin home medication GERD continue omeprazole Aspiration pneumonia Patient has an episode of choking 12/07/2016. Spiked a temperature max 100.8. Chest x-ray showed right lower lobe infiltrate. * Follow-up pancultures- neg so far * Recommended [facility] soft and thin liquid diet * CAT scan chest [id number] pneumonia most possibly from aspiration * Patient was on IV Unasyn 7 days for aspiration pneumonia. New onset atrial fibrillation Patient developed new onset atrial fibrillation 12/09/2016. EKG showed atrial fibrillation rate 67. Color Worker was consulted. * CHADS VASC score 5. * rate controlled- No need for rate control agents for now * Continuous telemetry monitoring * No anticoagulation because of GI bleed diarhea Patient had multiple episodes of diarrhea during the hospital stay. Most possibly from steroids and antibiotics. Stool C. difficile was negative. Upper GI bleed Patient had large bowel movement which is black and tarry. Denies any nausea, vomiting, hematemesis, hematochezia, abdominal pain. Stool guaiac was positive. Stat hemoglobin 7.2 and hematocrit 22. Balance Wheel Arm Burnisher was consulted. Dr. Dominguez onboard. She is not a good candidate to get endoscopy because of her respiratory issues and comorbidities conditions. * received IV pantoprazole twice a day * Status post 2 units transfusion * repeat CBC - 8.6 * Transfuse if hemoglobin less than 7 * no plans for endoscopy * No aspirin, Plavix, apixaban mech soft and thin liquid diet DVT ppx-heparin 5000u subcutaneous Full code Problem List: 1. COPD (chronic obstructive pulmonary disease) Pain Ratin Pain Location: n/a Pain Goal: Remain pain free Pain Plan: tylenol Tomorrow's Labs & Rationales: cbc bep Consulting Request: Consulting Specialty: Pulmonary Disease [facility] 12/18/16 1211: Attending MD Review Statement Attending Statement Attending MD Statement: examined this patient, discuss w/resident/PA/BOILER RIVETER, agreed w/resident/PA/BOILER RIVETER, discussed with family, reviewed EMR data (avail), discussed with nursing, discussed with case mgmt, reviewed images, amended to note Attending Assessment/Plan: 86 o/f with acute on chronic respiratroy failure on high flow oxygen, treated for aspiration penumonia, on i.v abx now developing diarrhea, send for stool studies, c diff negative, decrease steroids, on lactobacilus. Patient follow speech/swallow recomnedations. advance diet as tolerated. Pulmonary following. Patient is alert, orineted , daughter bedside. Vitals stable Patient recently started on eliquis for Afib rate controlled , Patient this am had large bowel movement black colored stools. D/w cardiology holding agents causing bleed. Spoke to GI Dr Rowland who has spoken to Dr Chirinos that EGD would be possible if patient is intubated and there are dificult chances to extubate thereafter as per pulm. Patient is known to Dr Fierro for long time who is cardiologiost on board. Family decided no aggressive measures DNR/DNI. Patient has acute blood loss anemia with elevated BUN, GI would not be able to perform endoscopic intervention as per Dr Rowland. Continue with supportive care. added kayexalate for hyperkalemia which improved. SPoke to patient about home hospice/goals of care/STR placeemnt. Family and patient does not want to go to rehab facilty and wants to take her home. They are open to hospice. Patient and family spoke to hospice nurse today and accepted home with hospice with increased oxygen supplementation currently on 7- 8l. update PCP for goals of care and follow up as o/p. time spent 35 min.
[2016-12-18 07:33] VITALS: BP 148/64
[2016-12-18 08:31] LABS: ABSOLUTE BASOPHIL COUNT 0 /CUMM (0.0-0.2); ABSOLUTE EOSINOPHIL COUNT 0.2 /CUMM (0.0-0.7); ABSOLUTE GRANULOCYTE CT 7.7 /CUMM (1.4-6.5); ABSOLUTE LYMPH COUNT 1.1 /CUMM (1.2-3.4); ABSOLUTE MONOCYTE COUNT 0.3 /CUMM (0.10-0.60); BASOPHIL % 0 % (0.0-2.0); EOSINOPHIL % 1.6 % (0-5); HEMATOCRIT 25.1 % (37-47); MEAN CORPUSCULAR HGB 29.7 PG (27.0-31.0); MEAN CORPUSCULAR HGB CONC 33.1 G/DL (33.0-37.0); MEAN CORPUSCULAR VOLUME 89.7 FL (81.0-99.0); MEAN PLATELET VOLUME 9.4 FL (7.4-10.4); PLATELET COUNT 237 /CUMM (130-400); RBC DISTRIBUTION WIDTH 16.3 % (11.5-14.5); RED BLOOD CELL CT 2.79 /CUMM (4.20-5.40); WHITE BLOOD CELL COUNT 9.3 /CUMM (4.8-10.8)
--- NOTE | 2016-12-18 09:38 | PN- Cardiology ---
Subjective Subjective: The patient is more alert. She is sitting in a chair playing cards with her daughter. She is still on high flow oxygen by nasal cannula and is saturating 93% at this time. She is in sinus rhythm on the monitor. Her hematocrit is 25 and hemoglobin 8.3 which is slightly decreased from previous. Objective Vital Signs and I&Os Vital Signs Date Time Temp Pulse Resp B/P B/P Pulse O2 O2 Flow FiO2 Mean Ox Delivery Rate 12/18 0633 99.3 73 16 148/64 90 Nasal Cannula 12/17 2215 96 16 154/50 90 Nasal Cannula 12/17 1653 95 Nasal 10L Cannula 12/17 1600 93 Nasal Cannula 12/17 1521 97.4 68 20 110/62 94 Nasal 10L Cannula 12/17 1428 93 Nasal Cannula 12/17 1022 148/68 12/17 1021 148/68 Intake & Output 12/18 1600 12/18 0800 12/18 0000 12/17 1600 12/17 0800 12/17 0000 Intake Total 100 600 900 100 420 Output Total 400 400 600 400 600 Balance -300 200 300 -300 -180 Intake, Oral 100 600 900 100 420 Number 1 2 5 3 Bowel Movements Output, Urine 400 400 600 400 600 Physical Exam: She is in no distress HEENT exam normal Chest decreased breath sounds with scattered rhonchi Heart regular rhythm soft systolic murmur at the base Extremities no edema Current Medications: Current Medications Sig/Floresita Start time Last Medication Dose Route Stop Time Status Admin Acetaminophen 650 MG Q6P PRN 12/06 0645 AC 12/12 PO 1230 Albuterol Sulfate 3 ML EVERY 4 HRS/AWAKE 12/11 08 AC 12/18 INH 0929 Albuterol Sulfate 2 PUF Q4P PRN 12/06 0715 AC 12/07 INH 2258 Amlodipine Besylate 10 MG DAILY 12/06 1000 AC 12/17 PO 1021 Atorvastatin Calcium 40 MG 1700 12/06 1700 AC 12/17 PO 1640 Gabapentin 600 MG TID 12/06 1000 AC 12/17 PO 2127 Guaifenesin 600 MG Q12 12/06 1144 AC 12/17 PO 2127 Insulin Aspart 0 TIDAC 12/10 0800 AC 12/17 SC 1707 Insulin Aspart 0 AT BEDTIME 12/09 2200 AC 12/17 SC 2139 Metoprolol Succinate 25 MG DAILY 12/06 1000 AC 12/17 PO 1022 Nicotine 7 MG DAILY 12/09 1353 12/17 TOP 1022 Nitroglycerin 0.4 MG DAILY 12/06 1000 AC 12/17 TOP 1022 Pantoprazole Sodium 40 MG BID 12/15 1000 AC 12/17 IV 2126 Prednisone 10 MG DAILY 12/16 1000 DC 12/17 PO 12/17 1001 1022 Sodium Polystyrene 60 ML ONCE ONE 12/18 0745 DC Sulfonate PO 12/18 0746 Tiotropium [place] 1 PUF DAILY 12/07 1000 AC 12/17 INH 1639 Results Last 48 Hrs of Labs/Mics: Laboratory Tests 12/18/16 0636: Anion Gap 5, Estimated GFR 47 L, BUN/Creatinine Ratio 30.0 H, CBC w Diff NO MAN DIFF REQ, RBC 2.79 L, MCV 89.7, MCH 29.7, RDW 16.3 H, MPV 9.4, Gran % 83.0 H, Lymphocytes % 11.9 L, Monocytes % 3.5, Eosinophils % 1.6, Basophils % 0 L, Absolute Granulocytes 7.7 H, Absolute Lymphocytes 1.1 L, Absolute Monocytes 0.3, Absolute Eosinophils 0.2, Absolute Basophils 0, PUBS MCHC 33.1 12/17/16 1229: Anion Gap 7, Estimated GFR 53 L, BUN/Creatinine Ratio 31.0 H, CBC w Diff NO MAN DIFF REQ, RBC 3.06 L, MCV 89.0, MCH 29.4, RDW 16.3 H, MPV 9.5, Gran % 90.8 H, Lymphocytes % 3.7 L, Monocytes % 3.3, Eosinophils % 2.1, Basophils % 0.1, Absolute Granulocytes 12.2 H, Absolute Lymphocytes 0.5 L, Absolute Monocytes 0.4, Absolute Eosinophils 0.3, Absolute Basophils 0, PUBS MCHC 33.1 12/16/16 1650: Anion Gap 7, Estimated GFR 43 L, BUN/Creatinine Ratio 29.2 H, CBC w Diff NO MAN DIFF REQ, RBC 2.90 L, MCV 89.2, MCH 29.6, RDW 17.1 H, MPV 9.4, Gran % 93.4 H, Lymphocytes % 4.3 L, Monocytes % 1.0 L, Eosinophils % 1.2, Basophils % 0.1 , Absolute Granulocytes 10.5 H, Absolute Lymphocytes 0.5 L, Absolute Monocytes 0.1 L, Absolute Eosinophils 0.1, Absolute Basophils 0, PUBS MCHC 33.2 Assessment/Plan Assessment/Plan Danitza is a little better today. She is more alert and on just nasal cannula oxygen. She remains in sinus rhythm. Hopefully her oxygen can be tapered down to a level where she can be discharged, most likely to rehabilitation. Her H&H are slowly dropping and need to be monitored to see if she needs additional transfusion. I would suggest a follow-up chest x-ray. When her oxygen requirements have decreased to a reasonable level she can probably go to rehabilitation at that time. If she deteriorates the family is still open to comfort measures/hospice but at the current time she does seem to be slowly improving. Continue telemetry? Yes
--- NOTE | 2016-12-18 13:49 | Event Note ---
Event Note Event Note: Patient family opted for home hospice.
--- NOTE | 2016-12-18 13:50 | PN- Pulmonary ---
Subjective HPI/Critical Care Issues: The patient is more alert. She is sitting in a chair playing cards with her daughter. She is still on high flow oxygen by nasal cannula and is saturating 93% at this time. She is in sinus rhythm on the monitor. Her hematocrit is 25 and hemoglobin 8.3 which is slightly decreased from previous Objective Current Medications: Current Medications Sig/Floresita Start time Last Medication Dose Route Stop Time Status Admin Acetaminophen 650 MG Q6P PRN 12/06 0645 AC 12/12 PO 1230 Albuterol Sulfate 3 ML EVERY 4 HRS/AWAKE 12/11 0800 AC 12/18 INH 0929 Albuterol Sulfate 2 PUF Q4P PRN 12/06 0715 AC 12/07 INH 2258 Amlodipine Besylate 10 MG DAILY 12/06 1000 AC 12/18 PO 1005 Atorvastatin Calcium 40 MG 1700 12/06 1700 AC 12/17 PO 1640 Gabapentin 600 MG TID 12/06 1000 AC 12/18 PO 1005 Guaifenesin 600 MG Q12 12/06 1144 AC 12/18 PO 1005 Insulin Aspart 0 TIDAC 12/10 0800 AC 12/18 SC 1204 Insulin Aspart 0 AT BEDTIME 12/09 2200 AC 12/17 SC 2139 Metoprolol Succinate 25 MG DAILY 12/06 1000 AC 12/18 PO 1005 Nicotine 7 MG DAILY 12/09 1353 AC 12/18 TOP 1006 Nitroglycerin 0.4 MG DAILY 12/06 1000 AC 12/18 TOP 1005 Pantoprazole Sodium 40 MG BID 12/15 1000 DC 12/18 IV 1005 Sodium Polystyrene 60 ML ONCE ONE 12/18 0745 DC Sulfonate PO 12/18 0746 Tiotropium [place] 1 PUF DAILY 12/07 1000 AC 12/18 INH 1005 Vital Signs & I&O Last 24 Hrs of Vitals and I&O: Vital Signs Date Time Temp Pulse Resp B/P B/P Pulse O2 O2 Flow FiO2 Mean Ox Delivery Rate 12/18 1005 148/64 12/18 1005 148/64 12/18 0800 92 Nasal 8L Cannula 12/18 0733 99.3 73 16 148/64 90 Nasal Cannula 12/17 2215 96 16 154/50 90 Nasal Cannula 12/17 1653 95 Nasal 10L Cannula 12/17 1600 93 Nasal Cannula 12/17 1521 97.4 68 20 110/62 94 Nasal 10L Cannula 12/17 1428 93 Nasal Cannula Intake & Output 12/18 1600 12/18 0800 12/18 0000 Intake Total 100 600 Output Total 400 400 Balance -300 200 Intake, Oral 100 600 Number 1 Bowel Movements Output, Urine 400 400 Impression/Plan Impression/Plan Impression/Plan: Physical Exam on high flow General Appearance Sig dyspnea Skin No Rashes, No Breakdown Skin Temp/Moisture Exam: Warm/Dry HEENT Atraumatic, PERRLA, EOMI Neck Supple, No JVD Cardiovascular Regular Rate, Normal S1, Normal S2, No Murmurs Lungs diffuse expiratory wheeze Abdomen Normal Bowel Sounds, Soft, No Tenderness, No Masses Neurological Normal Speech, Strength at 5/5 X4 Ext, Normal Tone, Sensation Intact Extremities No Cyanosis, No Edema, Normal Pulses, No Tenderness/Swelling Vascular Normal Pulses, Pulses Symmetrical SIGNIFICANT DATA IMPRESSION: 1. Multilobar pneumonia (possibly due to aspiration). Trace bilateral pleural effusions. 2. Mediastinal lymphadenopathy, likely reactive to the pulmonary disease. 3. Cardiomegaly and coronary artery atherosclerotic disease. Previous full pulmonary function test reviewed from 2002 which showed moderate obstructive pulmonary physiology Echocardiogram reviewed which showed normal ejection fraction moderate mitral annular calcification significant pulmonary hypertension EKG showed irregular heart rhythm IMPRESSION This is a lady with moderate to severe obstructive lung disease with more bronchitis and emphysema who has been on chronic oxygen therapy, coronary artery disease with previous stent, diastolic heart disease, previous history of breast cancer status post left-sided mastectomy with previous radiation and chemotherapy, significant low back pain and spinal stenosis on chronic pain medication, hypertension, hyperlipidemia, chronic neuropathy, GERD, chronic kidney disease with recent diarrhea which was worked up as an outpatient with negative CT and negative stool test now has * Acute on chronic hypoxemic respiratory failure related to multilobar pneumonia in a lady with decompensated lung disease, pattern of pna is sugg of aspiration pna / Now with UGI bleed with black stool s/p transfusion * Prob UGI bleed * 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 * Ischemic heart disease with slightly high troponin with previous stent * Chronic kidney disease stage III with acute renal insufficiency * Chronic pain syndrome on narcotics * Peripheral vascular disease * Probable demand ischemia * Probable proximal atrial fibrillation versus multifocal atrial tachycardia, in sinus * Hypertension, hyperlipidemia, GERD, cholelithiasis, previous history of breast cancer with no obvious evidence of recurrence at this time, however patient recently had a left chest mass excision which did show invasive tumor size to by 2 x 2 with ER/[place] and HER-2 negative, 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 Patient has had previous radical mastectomywith recurrence. RECOMMENDATION * Cont current rx * conservtive measures * Continue prednisone to wean Family opting towards hospice at home and comfort will sign off
--- NOTE | 2016-12-18 14:31 | NUR ---
Physical Therapy: New consult received. Pt was evaluated on 12-07 and was assist x1 RW. Pt will be going home hospice tomorrow. At this time acute skilled PT is not indicated. Will not follow.
[2016-12-18 14:51] VITALS: BP 160/58
[2016-12-18] MEDS ORDERED: MORPHINE SULFAT15 M4 PO (15:08)
[2016-12-18] MEDS ORDERED: ATIVAN0.5 M1 PO (15:08)
--- NOTE | 2016-12-18 16:56 | RADIOLOGY REPORT ---
EXAMINATION: XR PORTABLE CHEST CLINICAL INFORMATION: Shortness of breath. Presumptive diagnosis of aspiration pneumonia. COMPARISON: CT scan of the chest dated 12/10/2016. Several prior chest x-rays, most recent of which is dated 12/09/2016. TECHNIQUE: Portable AP semierect view of the chest was obtained. FINDINGS: The cardiomediastinal silhouette is enlarged, unchanged. Calcification and tortuosity of the aorta is seen. Lungs bilaterally continue to demonstrate multifocal areas of consolidation, perhaps slightly progressive in the right midlung and not significantly changed in both lower lungs. The trace pleural effusion seen on CT scan are difficult to appreciate on portable film. No large pleural effusions are noted. No pneumothorax is seen. Bony structures are unremarkable. IMPRESSION: 1. Multifocal lung parenchymal consolidation again seen, perhaps slightly progressive in the right mid lung, suspicious for multifocal pneumonia. 2. Enlarged cardiomediastinal silhouette.
[2016-12-18 21:00] VITALS: BP 144/70
--- NOTE | 2016-12-19 06:43 | PN- Housestaff ---
See Addendum Subjective Follow-up For: Acute COPD exacerbation Demand ischemia Acute kidney injury Aspiration pneumonia New onset atrial fibrillation diarhea- resolved upper gi bleed Complaints: no complaints Tele-Events Since Last Visit: in afib Subjective: Patient was seen and examined this morning. She is alert awake and oriented to time place and person. No acute overnight events. Denies any fever, chills, Reports productive cough, short of breath. Denies any chest pain, racing of heart, fever, headache. denies diarrhea, abdomen pain Vitals were stable. Patient is on high flow oxygen Swallow evaluation recommended regular diet- [facility] soft and thin liquid Review of Systems Constitutional: Reports: see HPI. Objective Last 24 Hrs of Vital Signs/I&O Vital Signs Date Time Temp Pulse Resp B/P B/P Pulse O2 O2 Flow FiO2 Mean Ox Delivery Rate 12/19 0715 97.6 72 22 132/70 93 Nasal Cannula 12/19 0000 Nasal 7.0L Cannula 12/18 2100 99.1 80 20 144/70 91 Nasal 7.0L Cannula 12/18 1600 Nasal 6.0L Cannula 12/18 1451 98.0 70 20 160/58 93 Nasal 6.0L Cannula 12/18 1402 94 Nasal 8L Cannula 12/18 1005 148/64 12/18 1005 148/64 12/18 0800 92 Nasal 8L Cannula Intake & Output 12/19 0800 12/19 0000 12/18 1600 Intake Total 240 250 600 Output Total 450 150 400 Balance -210 100 200 Intake, Oral 240 250 600 Number 1 1 Bowel Movements Output, Urine 450 150 400 Physical Exam General Appearance: Alert, Oriented X3, Cooperative, No Acute Distress Skin: No Rashes, No Breakdown, No Significant Lesion HEENT: Atraumatic, PERRLA, EOMI, Mucous Membr. moist/pink Neck: Supple, No JVD Lymphatic: Cervical nl Cardiovascular: Regular Rate, Normal S1, Normal S2, No Murmurs Lungs: dec bs Abdomen: Normal Bowel Sounds, Soft, No Tenderness Neurological: Normal Speech, Strength at 5/5 X4 Ext, Normal Tone Extremities: No Clubbing, No Cyanosis, No Edema Vascular: Pulses Symmetrical Current Medications: Current Medications Sig/Floresita Start time Last Medication Dose Route Stop Time Status Admin Acetaminophen 650 MG Q6P PRN 12/06 0645 AC 12/12 PO 1230 Albuterol Sulfate 3 ML EVERY 4 HRS/AWAKE 12/11 0800 AC 12/18 INH 1914 Albuterol Sulfate 2 PUF Q4P PRN 12/06 0715 AC 12/07 INH 2258 Amlodipine Besylate 10 MG DAILY 12/06 1000 AC 12/18 PO 1005 Atorvastatin Calcium 40 MG 1700 12/06 1700 AC 12/18 PO 1733 Gabapentin 600 MG TID 12/06 1000 AC 12/18 PO 2055 Guaifenesin 600 MG Q12 12/06 1144 AC 12/18 PO 1733 Insulin Aspart 0 TIDAC 12/10 0800 AC 12/18 SC 1732 Insulin Aspart 0 AT BEDTIME 12/09 2200 AC 12/18 SC 2248 Metoprolol Succinate 25 MG DAILY 12/06 1000 AC 12/18 PO 1005 Nicotine 7 MG DAILY 12/09 1353 AC 12/18 TOP 1006 Nitroglycerin 0.4 MG DAILY 12/06 1000 AC 12/18 TOP 1005 Pantoprazole Sodium 40 MG BID 12/15 1000 DC 12/18 IV 1005 Sodium Polystyrene 60 ML ONCE ONE 12/18 0745 DC Sulfonate PO 12/18 0746 Tiotropium [place] 1 PUF DAILY 12/07 1000 AC 12/18 INH 1005 Last 24 Hrs of Lab/Donell Results Last 24 Hrs of Labs/Mics: Laboratory Tests 12/19/16 0630: Sodium Pending, Potassium Pending, Chloride Pending, Carbon Dioxide Pending, Anion Gap Pending, BUN Pending, Creatinine Pending, BUN/Creatinine Ratio Pending , CBC w Diff Pending, WBC Pending, RBC Pending, Hgb Pending, Hct Pending, MCV Pending, MCH Pending, RDW Pending, Plt Count Pending, MPV Pending, PUBS MCHC Pending Assessment/Plan Assessment: Patient is 86-year-old female with past medical history significant for COPD on as needed home oxygen especially nocturnal oxygen 3l, history of coronary artery disease status post stent placement, history of diastolic congestive heart failure with preserved ejection fraction, history of breast cancer status post left-sided mastectomy with recurrence and repeat chemotherapy and radiation, history of spinal stenosis on chronic pain medications, hypertension, hyperlipidemia, neuropathy and GERD came with chief complaint of worsening shortness of breath. Vital signs on admission Temperature 98.1, pulse 71, respiratory rate 24, blood pressure 95/57 she was saturating 91% room air later on required 3 L to saturate 98%. Admission labs were WBC count 5.6, hemoglobin 9.6, hematocrit 28.8, platelet count 119, sodium 134, potassium 4.6, BUN/creatinine 33, creatinine 2.1, initial troponin 0.15, proBNP 5970. Chest x-ray was negative for any acute changes EKG showed normal sinus rhythm with no acute ST-T wave changes Problem list 1. Elevated troponins most likely demand ischemia due to underlying shortness of breath. 2. Acute on chronic hypoxic respiratory failure likely due to COPD exacerbation 3. History of CAD status post stent placement 4. History of hypertension 5. History of spinal stenosis on chronic pain meds 6. History of GERD 7. History of breast cancer status post radiation and mastectomy 8. Acute on chronic kidney injury most likely due to dehydration given history of diarrhea. 9. Aspiration pneumonia 10. New onset atrial fibrillation acute COPD exacerbation Patient presented with worsening shortness of breath for a couple of days. Off note she had upper respiratory tract infection and cough for one week. Exposure to sick contacts. She uses 3 L oxygen mostly during nighttime for COPD. However her shortness of breath worsened to the point where she couldn't breathe and she came to the emergency room. * Admitted to telemetry floor for further management * Monitor vitals closely every shift * Provide supplemental oxygen as needed * Maintain oxygen saturation greater than 90 * Total respiratory care * duonebs * IV methylprednisolone- switched to oral prednisone- completed prednisone taper * completed IV azithromycin for community-acquired pneumonia * completed IV Unasyn 7days for aspiration pneumonia * Mucinex for cough * Follow-up sputum cultures-neg * Follow-up blood cultures- neg Acute on chronic respiratory failure Patient presented with worsening shortness of breath for a couple of days. Off note she had upper respiratory tract infection and cough for one week. Exposure to sick contacts. She uses 3 L oxygen mostly during nighttime for COPD. However her shortness of breath worsened to the point where she couldn't breathe and she came to the emergency room. * Monitor vitals closely every shift * Provide supplemental oxygen as needed * Maintain oxygen saturation greater than 90 * Total respiratory care * duonebs Demand ischemia Elevated troponins to 0.15 most likely demand ischemia due to underlying shortness of breath and copd. * +troponins 0.15, no acute ST changes * Trended down- serial troponins and EKGs * Echocardiogram Normal left ventricular ejection fraction visually estimated at >65 %. No obvious regional wall motion abnormalities. Abnormal relaxationfilling pattern of the left ventricle for age (stage 1 diastolic dysfunction). * Patient troponins elevated again 12/09/2016. Cardiology was consulted. We trended serial troponins and EKGs. No acute cardiology intervention at this point of time Acute Kidney Injury: Creatinine 2.1, baseline ~1-1.2, patient received bumex in the ED. * BUN to creatinine ratio ~15:1, * patient may have been mildly hypovolemic with history of diarrhea * Trend renal function, BUN and creatinine * gentle IV hydration for now * Avoid nephrotoxins * Creatinine 1.1 now Hypertension Continue home medication amlodipine 10 mg daily Coronary artery disease Status post stent placement disContinued aspirin 81 daily Continue Lipitor 40 daily disContinued Plavix 75 daily Continue metoprolol 25 mg daily Nitroglycerin patch as needed Hyperlipidemia Continue Lipitor 40 daily Chronic diastolic congestive heart failure Not on any home medications No leg swelling No symptoms suggestive of heart failure Echocardiogram- stage1 diastolic heart failure neuropathy Continue gabapentin home medication GERD continue omeprazole Aspiration pneumonia Patient has an episode of choking 12/07/2016. Spiked a temperature max 100.8. Chest x-ray showed right lower lobe infiltrate. * Follow-up pancultures- neg so far * Recommended [facility] soft and thin liquid diet * CAT scan chest [id number] pneumonia most possibly from aspiration * Patient was on IV Unasyn 7 days for aspiration pneumonia. New onset atrial fibrillation Patient developed new onset atrial fibrillation 12/09/2016. EKG showed atrial fibrillation rate 67. 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 * CHADS VASC score 5. * rate controlled- No need for rate control agents for now * Continuous telemetry monitoring * No anticoagulation - no aspirin, no plavix, no eliqus - because of GI bleed. diarhea Patient had multiple episodes of diarrhea during the hospital stay. Most possibly from steroids and antibiotics. Stool C. difficile was negative. Upper GI bleed Patient had large bowel movement which is black and tarry. Denies any nausea, vomiting, hematemesis, hematochezia, abdominal pain. Stool guaiac was positive. Stat hemoglobin 7.2 and hematocrit 22. Machine Buffer was consulted. Dr. Dominguez onboard. She is not a good candidate to get endoscopy because of her respiratory issues and comorbidities conditions. * received IV pantoprazole twice a day * Status post 2 units transfusion * repeat CBC - 8.6 * Transfuse if hemoglobin less than 7 * no plans for endoscopy * No aspirin, Plavix, apixaban mech soft and thin liquid diet DVT ppx-heparin 5000u subcutaneous Full code planning to discharge on home hospice. Problem List: 1. COPD (chronic obstructive pulmonary disease) 2. Diarrhea 3. Demand ischemia of myocardium 4. Acute renal insufficiency Pain Ratin Pain Location: n/a Pain Goal: Remain pain free Pain Plan: tylinol Tomorrow's Labs & Rationales: none Consulting Request: Consulting Specialty: Pulmonary Disease
[2016-12-19 07:15] VITALS: BP 132/70
[2016-12-19 08:01] LABS: ABSOLUTE BASOPHIL COUNT 0 /CUMM (0.0-0.2); ABSOLUTE EOSINOPHIL COUNT 0.2 /CUMM (0.0-0.7); ABSOLUTE GRANULOCYTE CT 7.9 /CUMM (1.4-6.5); ABSOLUTE LYMPH COUNT 1.1 /CUMM (1.2-3.4); ABSOLUTE MONOCYTE COUNT 0.4 /CUMM (0.10-0.60); BASOPHIL % 0.1 % (0.0-2.0); EOSINOPHIL % 2.5 % (0-5); GRANULOCYTE % 81.5 % (42.2-75.2); HEMATOCRIT 24.7 % (37-47); MEAN CORPUSCULAR HGB 29.5 PG (27.0-31.0); MEAN CORPUSCULAR HGB CONC 32.8 G/DL (33.0-37.0); MEAN CORPUSCULAR VOLUME 89.9 FL (81.0-99.0); MEAN PLATELET VOLUME 9.2 FL (7.4-10.4); PLATELET COUNT 231 /CUMM (130-400); RBC DISTRIBUTION WIDTH 16.4 % (11.5-14.5); RED BLOOD CELL CT 2.75 /CUMM (4.20-5.40); WHITE BLOOD CELL COUNT 9.6 /CUMM (4.8-10.8)
[2016-12-19 11:27] VITALS: BP 132/70
== END 2016-12-19 14:35 | disposition home or self-care (01) | DRG 189 ==
LOC: ERH 03:26 → 1NO 04:17 → ERHI 04:17 → 1NO 04:17 → ENRESERV 05:15 → 1NO 06:26 → ENPENDDIS 12-19 12:05 → 1NO 12-19 14:35
PROVIDERS: Emergency Medicine; Hospitalist; Internal Medicine; Student in an Organized Health Care Education/Training Program; ADMIT Internal Medicine
PROC: 30233N1 Transfusion of Nonautologous Red Blood Cells into Peripheral Vein, Percutaneous Approach (ICD-10-PCS; principal; 2016-12-15)
DX: J96.21 Acute and chronic respiratory failure with hypoxia (principal); J69.0 Pneumonitis due to inhalation of food and vomit; N17.9 Acute kidney failure, unspecified; I47.2 Ventricular tachycardia; J44.1 Chronic obstructive pulmonary disease with (acute) exacerbation; I24.8 Other forms of acute ischemic heart disease; D62 Acute posthemorrhagic anemia; I50.32 Chronic diastolic (congestive) heart failure; I13.0 Hypertensive heart and chronic kidney disease with heart failure and stage 1 through stage 4 chronic kidney disease, or unspecified chronic kidney disease; N18.3 Chronic kidney disease, stage 3 (moderate); K92.2 Gastrointestinal hemorrhage, unspecified; Z51.5 Encounter for palliative care; Z99.81 Dependence on supplemental oxygen; I48.0 Paroxysmal atrial fibrillation; E86.0 Dehydration; E87.5 Hyperkalemia; G62.9 Polyneuropathy, unspecified; I73.9 Peripheral vascular disease, unspecified; I25.10 Atherosclerotic heart disease of native coronary artery without angina pectoris; K21.9 Gastro-esophageal reflux disease without esophagitis; E78.5 Hyperlipidemia, unspecified; F17.210 Nicotine dependence, cigarettes, uncomplicated; R91.8 Other nonspecific abnormal finding of lung field; R59.0 Localized enlarged lymph nodes; Z66 Do not resuscitate; R19.7 Diarrhea, unspecified; G89.4 Chronic pain syndrome; M48.00 Spinal stenosis, site unspecified; Z85.3 Personal history of malignant neoplasm of breast
CPT/HCPCS: 1NP; 87493; 36415; 74230; 82436; 86920; 87040; 87070; 87086; 87449; 87450; 93005; 93010; 93306; 96374; 97110-GO; 97161-GP; 97530-GO; J0456; J1644; J1815; J1940; J2405; J2920; J2930; J3490; J7040; J7512; P9016